=== PATIENT | female | born 1990 | race Caucasian/White ===

== ENCOUNTER 2017-11-10 10:20 | Emergency (ER) | payer SELFPAY ==
[2017-11-10] MEDS ORDERED: IBUPROFEN 400 MG TAB ONE (10:57)
[2017-11-10 11:42] LABS: Urine Blood 1+ (NEG); Urine Glucose NEGATIVE (NEG); Urine Protein NEGATIVE (NEG)
--- NOTE | 2017-11-10 12:04 | EDPHYS ---
Physician Documentation [facility] Name: Barbie Woodward Age: 27 yrs Sex: Female : 1990 Arrival Date: 11/10/2017 Time: 10:23 Bed 19 Private MD: None, None ED Physician Ismael Enamorado HPI: 11/10 10:50 This 27 yrs old Female presents to ER via Ambulatory with complaints of Leg cp Swelling - PAIN. 10:50 The patient presents with pain, that is acute, swelling, tenderness. The complaints cp affect the left hamstring and posterior aspect of left knee. Context: resulted from an unknown cause, the patient can fully bear weight, the patient is able to ambulate, with mild difficulty. 10:51 Onset: The symptoms/episode began/occurred yesterday. cp 10:51 Associated signs and symptoms: Pertinent negatives calf tenderness, fever, numbness, cp warmth, weakness. Treatment prior to arrival includes: no previous treatment. 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 - Social history:: Smoking status: Patient uses tobacco products, smokes one-half pack cigarettes per day. - Ebola Screening: : No symptoms or risks identified at this time. ROS: 10:55 Constitutional: Negative for body aches, chills, fever, poor PO intake. cp 10:55 Eyes: Negative for injury, pain, redness, and discharge. cp 10:55 Cardiovascular: Negative for chest pain, edema, palpitations. 10:55 Respiratory: Negative for cough, shortness of breath, wheezing. 10:55 Abdomen/GI: Negative for abdominal pain, nausea, vomiting, and diarrhea. 10:55 MS/extremity: Positive for pain, swelling, of the left leg, Negative for injury or acute deformity, decreased range of motion, warmth. 10:55 Skin: Negative for cellulitis, rash. 10:55 Neuro: Negative for altered mental status, dizziness, headache, weakness. 10:55 All other systems are negative. Exam: 11:00 Constitutional: The patient appears in no acute distress, alert, awake, non-toxic, well cp developed, well nourished. 11:00 Head/Face: Normocephalic, atraumatic. cp 11:00 Eyes: Periorbital structures: appear normal, Conjunctiva: normal, no exudate, no injection, Sclera: no appreciated abnormality, Lids and lashes: appear normal, bilaterally. 11:00 ENT: External ear(s): are unremarkable, Nose: is normal, Mouth: Lips: moist, Oral mucosa: moist, Posterior pharynx: is normal, airway is patent. 11:00 Neck: ROM/movement: is normal, is supple, without pain, no range of motions limitations, no nuchal rigidity. 11:00 Chest/axilla: Inspection: normal. 11:00 Cardiovascular: Rate: normal, Edema: is not appreciated, JVD: is not appreciated. 11:00 Respiratory: the patient does not display signs of respiratory distress, Respirations: normal, no use of accessory muscles, no retractions, no splinting, no tachypnea. 11:00 Abdomen/GI: Exam negative for discomfort, distension, guarding, Inspection: abdomen appears normal. 11:00 Musculoskeletal/extremity: Extremities: grossly normal except: noted in the left leg: pain, tenderness, There is no evidence of decreased ROM, deformity, Perfusion: the extremity is normally perfused throughout, Sensation intact. 11:00 Skin: cellulitis, is not appreciated, no rash present. Vital Signs: 10:31 BP 120 / 70; Pulse 76; Resp 15; Temp 97.4(TE); Pulse Ox 98% ; Weight 84.82 kg (R); lk1 Height 5 ft. 0 in. (152.40 cm) (R); Pain 8/10; 12:34 BP 108 / 76; Pulse 51; Resp 18; Pulse Ox 99% on R/A; em 10:31 Body Mass Index 36.52 (84.82 kg, 152.40 cm) lk1 MDM: 10:27 Patient medically screened. cp 11:00 Differential diagnosis: DVT, cellulitis, strain. cp 12:00 Data reviewed: vital signs, nurses notes, radiologic studies, ultrasound. cp 12:00 Counseling: I had a detailed discussion with the patient and/or guardian regarding: the cp historical points, exam findings, and any diagnostic results supporting the discharge/admit diagnosis, radiology results, the need for outpatient follow up, a family practitioner, to return to the emergency department if symptoms worsen or persist or if there are any questions or concerns that arise at home. 11/10 11:19 Order name: Urine Dipstick--Ancillary (enter results); Complete Time: 11:43 em1 11/10 11:43 Interpretation: Normal except: UBLD 1+; UESTR 1+. cp 11/10 11:19 Order name: Urine --Ancillary (enter results); Complete Time: 11:43 em1 11/10 11:43 Interpretation: Reviewed. cp 11/10 10:49 Order name: US Extremity Venous Unilateral Ltd cp 11/10 10:49 Order name: Urine Dipstick-Ancillary (obtain specimen); Complete Time: 10:58 cp 11/10 10:49 Order name: Urine Test (obtain specimen); Complete Time: 10:58 cp Administered Medications: 11:08 Drug: Ibuprofen 800 mg Route: PO; em 12:30 Follow up: Response: No adverse reaction em Disposition: 18:31 Co-signature as Attending Physician, Ismael Enamorado MD. Disposition: 11/10/17 12:04 Discharged to Home. Impression: Pain in left leg. - Condition is Stable. - Discharge Instructions: Musculoskeletal Pain, Heat Therapy. - Prescriptions for Diclofenac Sodium 75 mg Oral Tablet, Delayed Release (E.C.) - take 1 tablet by ORAL route 2 times per day; 20 tablet. - Work release form, Medication Reconciliation Form, Thank You Letter, Antibiotic Education, Prescription Opioid Use form. - Follow up: Private Physician; When: 2 - 3 days; Reason: Recheck today's complaints. - Problem is new. - Symptoms have improved. Signatures: Dispatcher [employer] EDAlec Miller, CONTACT LENS INSPECTOR CONTACT LENS INSPECTOR em Ed Delvalle PA PA cp Kluge, Leah, RN RN lk1 Ismael Enamorado MD MD Corrections: (The following items were deleted from the chart) 12:35 12:04 11/10/2017 12:04 Discharged to Home. Impression: Pain in left leg. Condition is em Stable. Forms are Medication Reconciliation Form, Thank You Letter, Antibiotic Education, Prescription Opioid Use. Follow up: Private Physician; When: 2 - 3 days; Reason: Recheck today's complaints. Problem is new. Symptoms have improved. cp
--- NOTE | 2017-11-10 12:04 | ER ---
Nurse's Notes [facility] Name: Barbie Woodward Age: 27 yrs Sex: Female : 1990 Arrival Date: 11/10/2017 Time: 10:23 Bed 19 Private MD: None, None Diagnosis: Pain in left leg Presentation: 11/10 10:30 Presenting complaint: Patient states: "Yesterday I noticed my left leg was swollen. It lk1 hurts sometimes when I step on the ground, but it's always done that.". Transition of care: patient was not received from another setting of care. Onset of symptoms was November 09, 2017. Risk Assessment: Do you want to hurt yourself or someone else? Patient reports no desire to harm self or others. Initial Sepsis Screen: Does the patient meet any 2 criteria? No. Patient's initial sepsis screen is negative. Does the patient have a suspected source of infection? No. Patient's initial sepsis screen is negative. Care prior to arrival: None. 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 - Social history:: Smoking status: Patient uses tobacco products, smokes one-half pack cigarettes per day. - Ebola Screening: : No symptoms or risks identified at this time. Screenin:33 Abuse screen: Denies threats or abuse. Nutritional screening: No deficits noted. em Tuberculosis screening: No symptoms or risk factors identified. Fall Risk None identified. Assessment: 10:47 General: Appears in no apparent distress. uncomfortable, Behavior is calm, cooperative, em Reports "left side swelling, left arm and left leg but the arm is better now" Denies trauma. Pain: Complains of pain in posterior aspect of left knee and left hamstring Pain currently is 8 out of 10 on a pain scale. Pain began 1 day ago. Neuro: Level of Consciousness is awake, alert, obeys commands, Oriented to person, place, time, situation. Cardiovascular: Capillary refill < 3 seconds Patient's skin is warm and dry. Respiratory: Airway is patent Respiratory effort is even, unlabored, Respiratory pattern is regular, symmetrical. GI: Patient currently denies nausea, vomiting. : Urine is clear. EENT: No signs and/or symptoms were reported regarding the EENT system. Derm: Skin is intact, Skin is pink, warm \\T\\ dry. Musculoskeletal: Capillary refill < 3 seconds, Range of motion: intact in all extremities. 11:00 General: The previous assessment is accurate. Call light remains within reach. . ss 11:30 Reassessment: Patient appears in no apparent distress at this time. Patient and/or em family updated on plan of care and expected duration. Pain level reassessed. Patient is alert, oriented x 3, equal unlabored respirations, skin warm/dry/pink. 12:33 Reassessment: Patient appears in no apparent distress at this time. Patient and/or em family updated on plan of care and expected duration. Pain level reassessed. Patient is alert, oriented x 3, equal unlabored respirations, skin warm/dry/pink. Patient states feeling better. Vital Signs: 10:31 BP 120 / 70; Pulse 76; Resp 15; Temp 97.4(TE); Pulse Ox 98% ; Weight 84.82 kg (R); lk1 Height 5 ft. 0 in. (152.40 cm) (R); Pain 8/10; 12:34 BP 108 / 76; Pulse 51; Resp 18; Pulse Ox 99% on R/A; em 10:31 Body Mass Index 36.52 (84.82 kg, 152.40 cm) lk1 ED Course: 10:23 Patient arrived in ED. sb2 10:23 None, None is Private Physician. sb2 10:25 Ed Delvalle PA is PHCP. cp 10:25 Ismael Enamorado MD is Attending Physician. cp 10:31 Triage completed. lk1 10:31 Alec Benitez LVN is Primary Nurse. em 10:32 Arm band placed on right wrist. lk1 10:33 Patient has correct armband on for positive identification. Bed in low position. Call em light in reach. 12:29 US Extremity Venous Unilateral Ltd In Process Unspecified. EDMS 12:34 No provider procedures requiring assistance completed. Patient did not have IV access em during this emergency room visit. Administered Medications: 11:08 Drug: Ibuprofen 800 mg Route: PO; em 12:30 Follow up: Response: No adverse reaction em Outcome: 12:04 Discharge ordered by . brenna 12:34 Discharged to home ambulatory. em 12:34 Condition: good 12:34 Discharge instructions given to patient, Instructed on discharge instructions, follow up and referral plans. medication usage, Demonstrated understanding of instructions, follow-up care, medications. 12:35 Patient left the ED. em Signatures: Dispatcher [employer] EDAlec Miller, RETIREMENT ASSISTANT RETIREMENT ASSISTANT em Carole Hall, RN RN Ed Ferreira, PA PA Yahaira Pierre RN RN lk1 Sonya Barraza2
--- NOTE | 2017-11-10 12:34 | RAD REPORT ---
EXAM DESCRIPTION: VAS - Extremity Venous Uni Ltd - 11/10/2017 12:29 pm CLINICAL HISTORY: PAIN Leg swelling and edema. COMPARISON: No comparisons FINDINGS: Left lower extremity venous system was interrogated with Doppler technique. Normal flow, c ompressibility and augmentation was noted. There is no DVT present. IMPRESSION: No evidence of left lower extremity deep venous thrombosis.
[2017-11-10 12:38] VITALS: TEMP 97.4
[2017-11-10 12:40] VITALS: BP 108/76; O2SAT 99
== END 2017-11-10 12:35 | disposition home or self-care (01) ==
LOC: ER 10:20
DX: M79.605 Pain in left leg (principal); F17.210 Nicotine dependence, cigarettes, uncomplicated
CPT/HCPCS: 81003; 81025; 93971; 99283

== ENCOUNTER 2021-12-09 20:05 | Emergency (ER) | payer OTHER, SELFPAY ==
[2021-12-09 20:38] LABS: Urine Blood Negative (Negative); Urine Glucose Negative (Negative); Urine Protein Negative (Negative)
[2021-12-09] MEDS ORDERED: ACETAMINOPHEN 500 MG TAB ONE (21:22)
[2021-12-09] MEDS ORDERED: NA CHLORIDE 0.9% 1,000 ML ONE (21:22)
[2021-12-09] MEDS ORDERED: ONDANSETRON 4 MG/2 ML VIAL ONE (21:22)
[2021-12-09 22:05] LABS: Absolute Lymphocytes (CBC) 0.3 K/uL (0.7-4.9); Hematocrit 36.6 % (36.0-45.0); Lymphocytes % 3.9 % (15.3-44.8); MCV 88.7 fL (80-100); MPV 7.1 fL (7.6-11.3); RBC Red Blood Cell Count 4.13 M/uL (3.86-4.86)
[2021-12-09 23:24] LABS: Albumin 2.7 g/dL (3.4-5.0); Bilirubin Total 0.2 mg/dL (0.2-1.0); Potassium 3.1 mmol/L (3.5-5.1)
[2021-12-10] MEDS ORDERED: POTASSIUM CL SA 10 MEQ TAB PO ONE (00:42)
[2021-12-10] MEDS ORDERED: Ringers Lactate 1,000 ML IV ONE (00:42)
--- NOTE | 2021-12-10 03:07 | ER ---
Nurse's Notes [facility] Name: Barbie Woodward Age: 31 yrs Sex: Female : 1990 Arrival Date: 12/09/2021 Time: 20:09 Bed 3 Private MD: Diagnosis: SARS-associated coronavirus as the cause of diseases classified elsewhere;Upper abdominal pain, unspecified;Other cholelithiasis without obstruction Presentation: 12/09 20:17 Chief complaint: Upper abdominal pain and N/V/D x 2 days. TMAX 102.1. Pt is approx 10 hb weeks . Coronavirus screen: Client presents with at least one sign or symptom that may indicate coronavirus-19. Standard/surgical mask placed on the client. Provider contacted for isolation considerations. Ebola Screen: No symptoms or risks identified at this time. Risk Assessment: Do you want to hurt yourself or someone else? Patient reports no desire to harm self or others. Onset of symptoms was December 08, 2021. 20:17 Method Of Arrival: Ambulatory hb 20:17 Acuity: LAURYN 3 hb 21:55 Initial Sepsis Screen: Does the patient meet any 2 criteria? HR > 90 bpm. Does the lp1 patient have a suspected source of infection? Yes: Acute abdominal pain. 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 - Social history:: Smoking status: Patient denies any tobacco usage or history of. Screenin:48 Abuse screen: Denies threats or abuse. Denies injuries from another. Nutritional lp1 screening: No deficits noted. Tuberculosis screening: No symptoms or risk factors identified. Fall Risk None identified. Assessment: 21:15 General: Appears ill, Behavior is appropriate for age. Pain: Complains of pain in lp1 abdomen Pain currently is 7 out of 10 on a pain scale. Quality of pain is described as sharp. Neuro: Level of Consciousness is awake, alert, obeys commands, Oriented to person, place, time, situation. Cardiovascular: Patient's skin is warm and dry. Respiratory: Respiratory effort is even, unlabored. GI: Abdomen is round Pt is actively vomiting bile, Reports nausea, vomiting. : No signs and/or symptoms were reported regarding the genitourinary system. EENT: No signs and/or symptoms were reported regarding the EENT system. Derm: Skin is intact, Skin is dry, Skin is normal. Musculoskeletal: No deficits noted. 23:41 Reassessment: Patient appears in no apparent distress at this time. Patient states lp1 ongoing lower leg cramping; Provider notified Patient states symptoms have improved. 12/10 00:59 Reassessment: 22g IV removed from R FA due to discomfort. Reassessment: Ultrasound at lp1 bedside. 02:01 Reassessment: Patient resting, eyes closed, respirations even; tolerating water at this lp1 time. 03:20 Reassessment: Denies nausea; reports headache, general body aches; Provider notified. lp1 Vital Signs: 12/09 20:17 BP 157 / 70; Pulse 121; Resp 20; Temp 100.8(TE); Pulse Ox 97% on R/A; Weight 107.05 kg; hb Height 5 ft. 1 in. (154.94 cm); Pain 8/10; 23:41 BP 133 / 66; Pulse 102; Resp 18; Temp 98.8(O); Pulse Ox 97% on R/A; lp1 12/10 03:26 BP 107 / 70; Pulse 100; Resp 18; Temp 100(O); Pulse Ox 99% on R/A; lp1 12/09 20:17 Body Mass Index 44.59 (107.05 kg, 154.94 cm) ED Course: 12/09 20:09 Patient arrived in ED. ja2 20:18 Triage completed. hb 20:18 Arm band placed on. hb 20:24 Wes Rivero PA is PHCP. [facility] 20:24 Montana Mccoy MD is Attending Physician. [facility] 20:38 Patient has correct armband on for positive identification. Bed in low position. Call [facility] light in reach. Side rails up X 1. Adult w/ patient. Warm blanket given. Pulse ox on. NIBP on. 20:38 Urine collected: clean catch specimen, clear. [facility] 20:39 Urine --Ancillary (enter results) Sent. [facility] 21:35 Missed attempt(s): 22 gauge in right antecubital area. Inserted saline lock: 22 gauge lp1 in right forearm, using aseptic technique. 21:46 Birgit Varner, GOYO is Primary Nurse. lp1 21:47 COVID swab sent to lab. Flu and/or RSV swab sent to lab. Strep swab sent to lab. lp1 23:42 No provider procedures requiring assistance completed. lp1 23:42 COVID swab sent to lab. lp1 12/10 01:38 US 1st Trimest Single 1st Fetus In Process Unspecified. EDMS 01:38 US Abdomen Limited In Process Unspecified. EDMS 01:44 Inserted saline lock: 20 gauge in right antecubital area, using aseptic technique. tw5 Ultrasound guided IV. 03:40 IV discontinued, No redness/swelling at site. Pressure dressing applied. lp1 Administered Medications: 12/09 21:15 Drug: Acetaminophen 1000 mg Route: PO; lp1 23:30 Follow up: Response: Temperature is decreased lp1 21:35 Drug: NS 0.9% 1000 ml Route: IV; Rate: 1 bolus; Site: right forearm; lp1 23:00 Follow up: IV Status: Completed infusion; IV Intake: 1000ml lp1 21:35 Drug: Zofran (Ondansetron) 4 mg Route: IVP; Site: right forearm; lp1 23:00 Follow up: Response: No adverse reaction lp1 12/10 00:45 Drug: Potassium Chloride 40 mEq Route: PO; lp1 03:40 Follow up: Response: No adverse reaction lp1 01:53 Drug: Lactated Ringers Solution 1000 ml Route: IV; Rate: 1000 bolus; Site: right lp1 antecubital; 03:41 Follow up: IV Status: IV converted to saline lock; IV Intake: 500ml lp1 03:28 Drug: Tylenol 1000 mg {Note: Verbal order per Dr. Mccoy.} Route: PO; lp1 03:41 Follow up: Response: Medication administered at discharge. lp1 Medication: 12/09 21:48 VIS not applicable for this client. lp1 Intake: 23:00 IV: 1000ml; Total: 1000ml. lp1 12/10 03:41 IV: 500ml; Total: 1500ml. lp1 Outcome: 03:07 Discharge ordered by . kdr 03:40 Discharged to home via wheelchair, with family. lp1 03:40 Condition: good 03:40 Discharge instructions given to patient, Instructed on discharge instructions, follow up and referral plans. medication usage, Demonstrated understanding of instructions, follow-up care, medications, Prescriptions given X 1. 03:41 Patient left the ED. lp1 Signatures: Dispatcher [employer] EDMS Montana Mccoy MD MD [facility] Wes Rivero PA PA jmm Pena, Laura, RN RN lp1 Chasity Thomas RN RN Coretta Salazar [facility] Varsha Easley [facility] Agnieszka Dawn 5 Corrections: (The following items were deleted from the chart) 12/09 20:19 20:18 Allergies: No Known Allergies; hb 21:56 21:15 GI: Abdomen is round Pt is actively vomiting bile, lp1 lp1 12/10 03:40 03:26 Temp 100F Oral; lp1 lp1
--- NOTE | 2021-12-10 03:07 | EDPHYS ---
Physician Documentation [facility] Name: Barbie Woodward Age: 31 yrs Sex: Female : 1990 Arrival Date: 12/09/2021 Time: 20:09 Bed 3 Private MD: ED Physician Montana Mccoy HPI: 12/09 20:37 This 31 yrs old Black Female presents to ER via Ambulatory with complaints of Fever, jmm Nausea/Vomiting, Abdominal Pain, Headache. 20:37 The patient reports fever, that was measured at 102.1 degrees Fahrenheit. Onset: The jmm symptoms/episode began/occurred gradually, 2 day(s) ago. Modifying factors: there are no obvious modifying factors. Is a 31-year-old female currently 10 weeks the presents emerged part with complaints of fever, abdominal pain, sore throat, body aches, vomiting began approximately 2 days ago. Patient denies diarrhea. Patient denies dysuria. Patient denies vaginal bleeding. [employer]: 21:48 LMP 09/27/2021, Verified, EDC 07/04/2022, Gestational age from LMP: 10 weeks 4 lp1 days Historical: - Allergies: 20:18 Latex, Natural Rubber; hb - Immunization history:: Adult Immunizations up to date. - Social history:: Smoking status: Patient denies any tobacco usage or history of. ROS: 20:37 Cardiovascular: Negative for chest pain, palpitations, and edema. jmm 20:37 Constitutional: Positive for body aches, chills. 20:37 Abdomen/GI: Positive for abdominal pain, nausea and vomiting. 20:37 All other systems are negative. Exam: 20:37 Head/Face: atraumatic. Eyes: EOMI, no conjunctival erythema appreciated ENT: Moist jmm Mucus Membranes Neck: Trachea midline, Supple Chest/axilla: Normal chest wall appearance and motion. 20:37 Respiratory: Normal respirations, no respiratory distress appreciated 20:37 Back: Normal ROM Skin: General appearance color normal MS/ Extremity: Moves all extremities, no obvious deformities appreciated, no edema noted to the lower extremities Neuro: Awake and alert Psych: Behavior is normal, Mood is normal, Patient is cooperative and pleasant 20:37 Constitutional: The patient appears alert, awake, uncomfortable. 20:37 Cardiovascular: Rate: tachycardic, Rhythm: regular. 20:37 Abdomen/GI: Inspection: abdomen appears normal, Bowel sounds: normal, Palpation: soft, mild abdominal tenderness, in the epigastric area and suprapubic area. Vital Signs: 20:17 BP 157 / 70; Pulse 121; Resp 20; Temp 100.8(TE); Pulse Ox 97% on R/A; Weight 107.05 kg; hb Height 5 ft. 1 in. (154.94 cm); Pain 8/10; 23:41 BP 133 / 66; Pulse 102; Resp 18; Temp 98.8(O); Pulse Ox 97% on R/A; lp1 12/10 03:26 BP 107 / 70; Pulse 100; Resp 18; Temp 100(O); Pulse Ox 99% on R/A; 1 12/09 20:17 Body Mass Index 44.59 (107.05 kg, 154.94 cm) hb MDM: 12/09 20:44 Patient medically screened. [facility] 12/10 01:01 Data reviewed: vital signs, nurses notes. [facility] 12/09 20:37 Order name: Urine --Ancillary (enter results); Complete Time: 21:24 [facility] [place] 12/09 20:38 Order name: Urine Dipstick-Ancillary; Complete Time: 20:44 [facility] 12/09 20:45 Order name: CBC with Diff; Complete Time: 22:19 [facility] 12/09 20:45 Order name: CMP; Complete Time: 00:03 [facility] 12/09 20:45 Order name: Lipase; Complete Time: 00:03 [facility] 12/09 20:46 Order name: Strep; Complete Time: 22:20 [facility] 12/09 20:46 Order name: [place] Screen Profile; Complete Time: 22:19 [facility] 12/09 20:46 Order name: Lactate; Complete Time: 22:19 [facility] 12/09 20:46 Order name: Blood Culture Adult (2) [facility] 12/09 20:46 Order name: Influenza Screen (a \\T\\ B); Complete Time: 22:19 [facility] 12/09 22:22 Order name: Throat Culture [facility] 12/09 22:57 Order name: SARS-COV-2 RT PCR (Document "Date of Onset" if Symptomatic); Complete Time: [facility] 00:40 12/10 00:40 Order name: US Abdomen Limited [facility] 12/09 20:37 Order name: Urine Dipstick-Ancillary (obtain specimen); Complete Time: 20:38 [facility] 12/09 20:45 Order name: IV Saline Lock; Complete Time: 21:47 [facility] 12/09 20:45 Order name: Labs collected and sent; Complete Time: 23:45 [facility] 12/10 00:40 Order name: US 1st Trimest Single 1st Fetus [facility] Administered Medications: 12/09 21:15 Drug: Acetaminophen 1000 mg Route: PO; lp1 23:30 Follow up: Response: Temperature is decreased lp1 21:35 Drug: NS 0.9% 1000 ml Route: IV; Rate: 1 bolus; Site: right forearm; lp1 23:00 Follow up: IV Status: Completed infusion; IV Intake: 1000ml lp1 21:35 Drug: Zofran (Ondansetron) 4 mg Route: IVP; Site: right forearm; lp1 23:00 Follow up: Response: No adverse reaction [facility] 12/10 00:45 Drug: Potassium Chloride 40 mEq Route: PO; lp1 03:40 Follow up: Response: No adverse reaction 1 01:53 Drug: Lactated Ringers Solution 1000 ml Route: IV; Rate: 1000 bolus; Site: right lp1 antecubital; 03:41 Follow up: IV Status: IV converted to saline lock; IV Intake: 500ml lp1 03:28 Drug: Tylenol 1000 mg {Note: Verbal order per Dr. Mccoy.} Route: PO; lp1 03:41 Follow up: Response: Medication administered at discharge. lp1 Disposition: 04:01 Co-signature as Attending Physician, Montana Mccoy MD I agree with the assessment and kdr plan of care. Disposition Summary: 12/10/21 03:07 Discharge Ordered Location: Home kdr Problem: new kdr Symptoms: have improved kdr Condition: Stable kdr Diagnosis - SARS-associated coronavirus as the cause of diseases classified elsewhere kdr - Upper abdominal pain, unspecified kdr - Other cholelithiasis without obstruction kdr Followup: kdr - With: Private Physician - When: 2 - 3 days - Reason: If symptoms return, Further diagnostic work-up, Recheck today's complaints, Continuance of care, Re-evaluation by your physician Discharge Instructions: - Discharge Summary Sheet kdr - Cholelithiasis kdr - Abdominal Pain, Adult, [id number] kdr - COVID-19 kdr - 10 Things You Can Do to Manage Your COVID-19 Symptoms at Home - [facility]ED [facility] kdr - Viral Illness, Adult kdr - COVID-19: Quarantine vs. Isolation - [facility] NAMED [facility] kdr - Prevent the Spread of COVID-19 if You Are Sick - [facility]ED [facility] kdr Forms: - Medication Reconciliation Form kdr - Thank You Letter kdr Prescriptions: - Tylenol 325 mg Oral Tablet - take 2 tablets by ORAL route every 6 hours as needed; 1 bottle; Refills: 0, kdr Product Selection Permitted Signatures: Dispatcher [employer] EDMS Montana Mccoy MD MD kdr Wes Rivero PA PA jmm Pena, Laura RN RN lp1 Chasity Thomas RN RN Coretta Salazar [facility] Corrections: (The following items were deleted from the chart) 12/09 20:19 20:18 Allergies: No Known Allergies; [facility] 22:22 20:52 SARS-COV-2 Antigen Rapid+[id number].LAB.BRZ ordered. EDMS EDMS
[2021-12-10] MEDS ORDERED: ACETAMINOPHEN 500 MG TAB ONE (03:36)
[2021-12-10 04:48] VITALS: BP 107/70; TEMP 100; O2SAT 99
--- NOTE | 2021-12-11 13:59 | RAD REPORT ---
EXAM DESCRIPTION: US - 1St Trimest Single 1St Fetus - 12/10/2021 1:36 am CLINICAL HISTORY: ABD PAIN TECHNIQUE: Real-time transabdominal obstetrical ultrasound of the maternal pelvis and a first trimes ter with image documentation. COMPARISON: No relevant prior studies available. FINDINGS: Gestation: Single intrauterine gestational sac. The crown-rump length measures 45.4 mm c orresponding to an estimated gestational age of 11 weeks 1 day. cardiac activity measures 182 B PM. Placenta/amniotic fluid: Cannot be adequately evaluated due to the early gestational age. Uterus/cervix: The uterus is anteverted and measures 13.4 x 6.9 x 8.5 cm. No myometrial mass. Ovaries: The right ovary measures 2.5 x 1.8 x 2.5 cm. The left ovary is not visualized. No adnexal mass. Free fluid: No free fluid. IMPRESSION: 1. Single live intrauterine gestation. 2. Estimated gestational age by ultrasound is 11 weeks 1 day. 3. Estimated due date by ultrasound is 06/30/2022. Electronically signed by: Fely Mckay MD 12/10/2021 2:09 AM CDT Due to temporary technical issues with the PACS/Fluency reporting system, reports are being signed by the in house radiologists without review as a courtesy to insure prompt reporting. The interpreting radiologist is fully responsible for the content of the report.
--- NOTE | 2021-12-11 14:01 | RAD REPORT ---
EXAM DESCRIPTION: US - Abdomen Exam Limited - 12/10/2021 1:36 am CLINICAL HISTORY: ABD PAIN TECHNIQUE: Real-time ultrasound of the right upper quadrant with image documentation. COMPARISON: No relevant prior studies available. FINDINGS: Gallbladder: Multiple gallstones. No gallbladder wall thickening or pericholecystic flui d. Common bile duct: Unremarkable as visualized. No stones. No dilation. IMPRESSION: Cholelithiasis without secondary signs to suggest acute cholecystitis. Electronically signed by: Fely Mckay MD 12/10/2021 2:06 AM CDT Due to temporary technical issues with the PACS/Fluency reporting system, reports are being signed by the in house radiologists without review as a courtesy to insure prompt reporting. The interpreting radiologist is fully responsible for the content of the report.
== END 2021-12-10 03:41 | disposition home or self-care (01) ==
LOC: ER 20:05
DX: O98.511 Other viral diseases complicating pregnancy, first trimester (principal); U07.1 COVID-19; O99.611 Diseases of the digestive system complicating pregnancy, first trimester; K80.80 Other cholelithiasis without obstruction; Z91.040 Latex allergy status; Z91.048 Other nonmedicinal substance allergy status
CPT/HCPCS: 87040 ×2; 87070; 85025; 36415; 86308; 81025; 87081; 83605; 81003; 83690; 80053; 87804 ×2; U0003; J7030; J2405; 76705; 76801; 82947; 96361; 96374; 99284; J7120

== ENCOUNTER 2022-09-09 18:47 | Inpatient (IN) | payer OTHER ==
--- OUTSIDE RECORDS SUMMARY | 2022-09-09 18:59 | XMS REPORT | Continuity of Care Document ---
:1990 Author Organization [facility] t Address [address] [facility] [facility] [place] [address] Care Team Providers Name Role Phone Shari Veras MD Primary Care Physician SHARI VERAS Attending Clinician Unavailable Shari Veras MD Attending Clinician Doctor Unassigned, [place] Attending Clinician Unavailable Preet Menendez MD Attending Clinician [phone] Pob, Ad[facility] Lab Main Attending Clinician Unavailable Room, [facility] Nst Attending Clinician Unavailable , Lkj Nst Room Attending Clinician Unavailable Kandace Evans MD Attending Clinician [phone] Ultrasound, [facility] Attending Clinician Unavailable KANDACE EVANS Attending Clinician Unavailable WILEY LOPEZ Attending Clinician Unavailable Jenna Ritchie PT Attending Clinician Unavailable Wiley Lopez MD Attending Clinician JULIAN MEDELLIN Attending Clinician Unavailable JULIAN MEDELLIN Attending Clinician Unavailable TIANA ROBLEDO Attending Clinician Unavailable Ultrasound, Ang-Mfm Attending Clinician Unavailable Aj Robledo MDio F Attending Clinician 2, [facility] Lab Attending Clinician Unavailable Eduardo NANCE, Eron Melissa Attending Clinician Unavailable Nicki Teague MA Attending Clinician Unavailable Onur DOWNS, Marisol Perez Attending Clinician [phone] MARISOL MOHR Attending Clinician Unavailable Pilar MATTSON, Jairo Attending Clinician Lisa NANCE, Danika Attending Clinician Unavailable ZEYAD MEDINA Attending Clinician Unavailable Lab, Ang - Db Attending Clinician Unavailable Alvarez DOWNS, Zeyad Attending Clinician JAIRO QUEZADA Attending Clinician Unavailable Cristina NANCE, Neris Attending Clinician Unavailable ASTON Attending Clinician Unavailable Mery NANCE, Opal Attending Clinician Unavailable Michael Arriaga RN Attending Clinician Unavailable Only, Ang Db Test Attending Clinician Unavailable Lupe Romero Attending Clinician LUPE JOYCE Attending Clinician Unavailable Only, [facility] Pob2 Test Attending Clinician Unavailable Opal Lua Attending Clinician OPAL FERRO Attending Clinician Unavailable Shannon Jorge Attending Clinician Anjel Coyne DO Attending Clinician Lab, [facility] Fam Pob I Attending Clinician Unavailable Humera Weber Attending Clinician HUMERA PACHECO Attending Clinician Unavailable Georgie Mendoza Attending Clinician Nurse, [facility] Attending Clinician Unavailable Lukasz Weiss DO Attending Clinician Megan Nolan RN Attending Clinician Unavailable SHARI VERAS Admitting Clinician Unavailable LNIH BROWN Admitting Clinician Unavailable Eda DOWNS, Shari Knapp Admitting Clinician ASTON Admitting Clinician Unavailable JULIAN MEDELLIN Admitting Clinician Unavailable Payers Payer Name Policy Type Policy Number Effective Date Expiration Date Gee JAVIER [facility] [id number] 2022 00:00:00 Problems Condition Condition Condition Status Onset Resolution Last Treating Co mments Source Name Details Category Date Date Treatment Clinician Date IUGR IUGR Disease Active Univers (intrauter (intrauter 2-07 it y of ine [place] in[place] restrictio restrictio 00 Me dical n) n) Branch affecting affecting care of care of mother, mother, third third trimester, trimester, fetus 1 fetus 1 Poor Poor Disease Active U nivers growth growth 1-27 ity of affecting affecting 00:00: Helen subramanian management management 00 Me dical of mother of mother Bran ch in third in third trimester, trimester, single or single or unspecifie unspecifie d fetus d fetus Pain of Pain of Disease Active 2021-05 Univers round round 2-16 ity of ligament ligament 00:00: [place] during during 00 Medical Bran ch Vulvar Vulvar Disease Active Univers fissure fissure 9-23 ity of 00:00: [place] Medical Branch Low back Low back Disease Active Unive rs pain pain 8-26 ity of during during 00:00: [place] , , 00 Me dical antepartum antepartum Br anch Supervisio Supervisio Disease Active U nivers n of high n of high 7-15 ity of risk risk 00:00: [place] 00 Medi alissa in second in second Bran ch trimester trimester Obesity in Obesity in Disease Active U nivers , , 7-15 it y of antepartum antepartum 00[place]00: [place] 00 Medical Branch History of History of Disease Active U nivers anxiety anxiety 7-15 ity of 00:00: [place] 00 Medical Branch History of History of Disease Active U nivers depression depression 7-15 it y of 00:00: [place] [facility] Nausea and Nausea and Disease Active U nivers vomiting vomiting 7-15 ity of during during 00:00: [place] 00 Medi alissa prior to prior to Branch 22 weeks 22 weeks gestation gestation Disease Active Uni vers with with 6-15 ity of inconclusi inconclusi 00:00: [place] ve ve 00 Medica l viability, viability, Br anch single or single or unspecifie unspecifie d fetus d fetus Obesity, Obesity, Disease Active Unive rs Class III, Class III, 6-15 it y of BMI BMI 00:00: [place] 40-49.9 40-49.9 00 Medical (morbid (morbid Branch obesity) obesity) Disease Active Uni vers with with 6-15 ity of history of history of 00:[place] ectopic ectopic 00 Medical , , Br anch antepartum antepartum Encounter Encounter Disease Active Uni vers for for 4-22 ity of Nexplanon Nexplanon [place] 00 [facility] General General Disease Active Univers counseling counseling 4-22 it y of and advice and advice 00:00[place] on female on female 00 [facility] contracept contracept Br anch ion ion Pain Pain Disease Active Univers pelvic pelvic 4-22 ity of 00:00: [place] 00 [facility] 38 weeks 38 weeks Disease Active Unive rs gestation gestation 3-10 ity of of of 00:00: [place] 00 [facility] Liveborn Liveborn Disease Active Unive rs , of infant, of 3-10 it y of hale hale 00:[place] , , 00 Me dical born in born in [facility] by vaginal by vaginal delivery delivery High-risk High-risk Disease Active Uni vers 2-11 ity of in third in third 00:00: [place] trimester trimester 00 [facility] Obesity Obesity Disease Active Univers (BMI (BMI 7-18 ity of 30-39.9) 30-39.9) 00:00: [place] 00 [facility] Rubella Rubella Disease Active Univers non-immune non-immune 7-12 it y of status, status, 00:00: [place] antepartum antepartum 00 Me dical Branch Multiparit Multiparit Disease Active 2019- U nivers y y 7-11 ity of 00:00: [place] 00 Medical Branch History of History of Disease Active 2019- U nivers reversal reversal 7-11 ity of of tubal of tubal 00:00: [place] ligation ligation 00 Medica l Branch Cessation Cessation Disease Active Uni vers of tobacco of tobacco 7-11 it y of use in use in 00:00: [place] previous previous 00 Medica l 12 months 12 months Bran ch History of History of Disease Active 2018-0 U nivers 7-11 ity of delivery delivery 00:00: [place] [address] Medical [facility] Allergies, Adverse Reactions, Alerts Allergy Allergy Status Severity Reaction(s) Onset Inactive Treating Comm ents Source Name Type Date Date Clinician LATEX DRUG Active High Hives 2018-0 Univers INGREDI 7-11 ity of 00:00: [place] [facility] Latex Drug Active Hives 2018-0 Univers Allergy 7-11 ity of 00:00: [place] [address] Medical Branch Social History Social Habit Start Date Stop Date Quantity Comments Source ASSERTION 2021-10-10 [facility] 00:00:00 [place] [facility] History [facility] o f Alcohol Std [place] Medical Drinks Branch History [facility] o f Alcohol Binge [place] Medic al Branch Exposure to 2022-08-06 2022-08-16 Not sure [facility] SARS-CoV-2 00:00:00 08:57:00 [facility] (event) Branch Alcohol intake 2022-08-16 2022-08-16 Ex-drinker [facility] 00:00:00 00:00:00 (finding) [facility] Tobacco use and 2021-11-24 2021-11-24 Smokeless tobacco Un iversity of exposure 00:00:00 00:00:00 non-user [facility] Tobacco Comment 2021-11-24 2021-11-24 quit ciggs on Univer sity of 00:00:00 00:00:00 11/17/2018, now [facility] uses e-cigg. Branch History [facility] 2020-03-08 2020-03-08 University o f Alcohol Comment 00:00:00 00:00:00 [place] Med ical Branch History [facility] 2018-11-20 2018-11-20 1 University o f Alcohol Frequency 00:00:00 00:00:00 [facility] edical Branch History of 2018-11-16 Cigarette Smoker Universi ty of tobacco use 00:00:00 [facility] Sex Ass[birth year] At [birth year] Universit y of 00:00:00 00:00:00 [facility] Smoking Status Start Date Stop Date Source Ex-smoker 2021-11-24 00:00:00 2021-11-24 00:00:00 Universi ty of [facility] Medications Ordered Filled Start Stop Current Ordering Indication Dosage Frequency Signature Comments Components Source Medication Medication Date Date Medication? Clinician (SIG) Name Name levonorgest 2022- No [id number] 1{devi Univers reL 08-16- e} ity of (KYLEENA) 19:15: 18:23 [place] IUD 1 00 :00 Crystal Lapper Branch levonorgest 2022- No [id number] 1{devi 1 Device, Univers reL 08-16- e} Intrauteri ity of (KYLEENA) 19:15: 18:23 [place], ONCE, [place] IUD 1 00 :00 1 dose, On Crystal Lapper [facility] 08/16/22 Branch at 1415, Routine levonorgest 2022- No [id number] 1{devi Univers reL 08-16- e} ity of (KYLEENA) 19:15: 18:23 [place] IUD 1 00 :00 Crystal Lapper Branch levonorgest 2022- No [id number] 1{devi 1 Device, Univers reL 08-16- e} Intrauteri ity of (KYLEENA) 19:15: 18:23 ne, ONCE, [place] IUD 1 00 :00 1 dose, On Crystal Lapper [facility] 08/16/22 Branch at 1415, Routine miSOPROStoL Yes [id number] 200ug Take 1 Univers 200 mcg 3-08 tablet by ity of tablet 00:00: [place] [address] SEE-INSTRU Medical CTIONS. Branch Take one tab the night before and one tab the morning of procedure miSOPROStoL 2022- No [id number] 200ug Take 1 Univers 200 mcg 3-08 04-06 tablet by ity of tablet 00:00: 00:00 [facility] 00 :00 SEE-INSTRU Medical CTIONS. Branch Take one tab the night before and one tab the morning of procedure miSOPROStoL 2022- No [id number] 200ug Take 1 Univers 200 mcg 3-08 04-06 tablet by ity of tablet 00:00: 00:00 [facility] 00 :00 SEE-INSTRU Medical CTIONS. Branch Take one tab the night before and one tab the morning of procedure acetaminoph 2022- No Take by Un ankit en (TYLENOL 2-08 02-08 mouth. ity o f ORAL) 06:23: 00:00 [place] 07 :00 [facility] rajani Lin 0 Yes Topical, Un ankit (TUCKS) 50 2-08 Q4HPRN, ity of % topical 00:14: [place] pad 28 on [facility] 06/19/22 at Branch 181, Until Discontinu ed, Routine, rectal/hem orrhoidal pain rho(D) 2022-0 Yes 300ug 300 mcg, Univer s immune 2-08 Intramuscu ity of globulin 00:14: lar, ONCE, [place] (RHOGAM) 05 For 1 Medical syringe 300 dose, [facility] mcg Conditiona l, Routine HYDROcodone 0 Yes 1{tbl} 1 tablet, Univers -acetaminop 2-08 Oral, ity of hen (NORCO 00:14: Q6HPRN, [place] 5) 5-325 mg 02 Starting Medi alissa tablet 1 on [facility] tablet 06/19/22 at 1814, Until Discontinu ed, Routine, Pain (scale 7-10) ibuprofen 2022-0 Yes 600mg 600 mg, [facility] ers (IBU) 2-08 Oral, ity of tablet 600 00:14: Q6HPRN, [place] mg 02 Starting Medical on [facility] 06/19/22 at 1814, Until Discontinu ed, Routine, Pain (scale 4-6) acetaminoph 2022-0 Yes 650mg 650 mg, Un ankit en 2-08 Oral, ity of (TYLENOL) 00:14: Q6HPRN, [place] tablet 650 02 Starting Medic al mg on [facility] 06/19/22 at 1814, Until Discontinu ed, Routine, Pain (scale 1-3) diphenhydrA 2022-0 Yes 25mg 25 mg, [facility] ers MINE 2-08 Oral, ity of (BENADRYL) 00:14: Q6HPRN, [place] tablet 25 02 Starting Medica l mg on [facility] 06/19/22 at 1814, Until Discontinu ed, Routine, Sleep, Itching ondansetron 2022-0 Yes 4mg 4 mg, Slow Univers (ZOFRAN 2-08 IV Push, ity of (PF)) 00:14: Q8HPRN, [place] injection 4 02 Starting Medi alissa mg on [facility] Branch 06/19/22 at 1814, Until Discontinu ed, Routine, Nausea and Vomiting (N/V) simethicone 2022-0 Yes 160mg 160 mg, Un ankit (GAS RELIEF 2-08 Oral, ity of (SIMETHICON 00:14: PC+HSPRN, [place] E)) 02 Starting Medical chewable on Sat tablet 160 06/19/22 at mg 1814, Until Discontinu ed, Routine, Gas docusate 0 Yes 200mg 200 mg, Unive rs (COLACE) 2-08 Oral, ity of capsule 200 00:14: QDAILYPRN, [place] mg 02 Starting Medical on [facility] Branch 06/19/22 at 1814, Until Discontinu ed, Routine, Constipati on magnesium 0 Yes 30mL 30 mL, Univer s hydroxide 2-08 Oral, ity of (MILK OF 00:14: QDAILYPRN, [place] MAGNESIA) 02 Starting Medica l 400 mg/5 mL on Sat [facility] suspension 06/19/22 at 30 mL 4, Until Discontinu ed, Routine, Constipati on benzocaine- 0 Yes Topical, Un ankit menthol 2-08 PRN, ity of (DERMOPLAST 00:14: Starting [place] ) 20-0.5 % 02 on [facility] Medical topical 06/19/22 at Branch spray 1814, Until Discontinu ed, Routine, Perineum discomfort 2022-0 Yes [id number] 1{tbl} Take 1 U nivers vitamin 2-08 tablet by ity of w/FA tablet 00:00: mouth in [place] 00 the Medical morning. Branch docusate 0 Yes [id number] 200mg Take 2 Un ankit 100 mg 2-08 capsules ity of capsule 00:00: by mouth [place] 00 once daily Medical as needed Branch for Constipati on. ferrous 2022-0 Yes [id number] 325mg Take 1 Uni vers sulfate 325 2-08 tablet by ity of mg (65 mg 00:00: [place] iron) 00 the Medical tablet morning Branch and 1 tablet in the evening. ibuprofen 2023-0 Yes [id number] 600mg Take 1 U nivers 600 mg 2-08 tablet by ity of tablet 00:00: mouth [place] 00 every 6 Medical (six) Branch hours as needed (Pain). Take with food or milk. 2022-0 Yes [id number] 1{tbl} Take 1 U nivers vitamin 2-08 tablet by ity of w/FA tablet 00:00: mouth in [place] 00 the Medical morning. Branch docusate 2022-0 Yes [id number] 200mg Take 2 Un ankit 100 mg 2-08 capsules ity of capsule 00:00: by mouth [place] 00 once daily Medical as needed Branch for Constipati on. ferrous 2022-0 Yes [id number] 325mg Take 1 Uni vers sulfate 325 2-08 tablet by ity of mg (65 mg 00:00: [place] iron) 00 the Medical tablet morning Branch and 1 tablet in the evening. ibuprofen 2022-0 Yes [id number] 600mg Take 1 U nivers 600 mg 2-08 tablet by ity of tablet 00:00: mouth [place] 00 every 6 Medical (six) Branch hours as needed (Pain). Take with food or milk. 2022-0 Yes [id number] 1{tbl} Take 1 U nivers vitamin 2-08 tablet by ity of w/FA tablet 00:00: mouth in [place] 00 the Medical morning. Branch docusate 2022-0 Yes [id number] 200mg Take 2 Un ankit 100 mg 2-08 capsules ity of capsule 00:00: by mouth [place] 00 once daily Medical as needed Branch for Constipati on. ferrous 2022-0 Yes [id number] 325mg Take 1 Uni vers sulfate 325 2-08 tablet by ity of mg (65 mg 00:00: [place] iron) 00 the Medical tablet morning Branch and 1 tablet in the evening. ibuprofen 2022-0 Yes [id number] 600mg Take 1 U nivers 600 mg 2-08 tablet by ity of tablet 00:00: mouth [place] 00 every 6 Medical (six) Branch hours as needed (Pain). Take with food or milk. 2022-0 Yes [id number] 1{tbl} Take 1 U nivers vitamin 2-08 tablet by ity of w/FA tablet 00:00: mouth in [place] 00 the Medical morning. Branch 2022-0 Yes [id number] 1{tbl} Take 1 U nivers vitamin 2-08 tablet by ity of w/FA tablet 00:00: mouth in [place] 00 the Medical morning. Branch 2022-0 Yes [id number] 1{tbl} Take 1 U nivers vitamin 2-08 tablet by ity of w/FA tablet 00:00: mouth in [place] 00 the Medical morning. Branch docusate 2022-0 2022- No [id number] 200mg Take 2 U nivers 100 mg 2-08 04-06 capsules ity of capsule 00:00: 00:00 by mouth [place] 00 :00 once daily Medical as needed Branch for Constipati on. ferrous 2022-2022- No [id number] 325mg Take 1 Un ankit sulfate 325 2-12 14-06 tablet by it y of mg (65 mg 00:00: 00:00 mouth in [place] iron) 00 :00 the Medical tablet morning Branch and 1 tablet in the evening. ibuprofen 2022-0 2022- No [id number] 600mg Take 1 Univers 600 mg 2-08 04-06 tablet by ity of tablet 00:00: 00:00 mouth [place] 00 :00 every 6 Medical (six) Branch hours as needed (Pain). Take with food or milk. docusate 2022- No [id number] 200mg Take 2 U nivers 100 mg 2-08 04-06 capsules ity of capsule 00:00: 00:00 by mouth [place] 00 :00 once daily Medical as needed Branch for Constipati on. ferrous 2022-0 2022- No [id number] 325mg Take 1 Un ankit sulfate 325 -12 14-06 tablet by it y of mg (65 mg 00:00: 00:00 mouth in [place] iron) 00 :00 the Medical tablet morning Branch and 1 tablet in the evening. ibuprofen 2022-2022- No [id number] 600mg Take 1 Univers 600 mg 2-08 04-06 tablet by ity of tablet 00:00: 00:00 mouth [place] 00 :00 every 6 Medical (six) Branch hours as needed (Pain). Take with food or milk. methylergon 2022- No .2mg 0.2 mg, Un ankit ovine 06-19-07 Intramuscu ity of (METHERGINE 23:15: 23:07 lar, Q4H, [place] ) injection 00 :00 1 dose, Medic al 0.2 mg First dose Branch on 06/19/22 at 1715, Routine fentaNYL-ro 2022-2022- No Epidural, Univers pivacaine 2 06-19 ONCE INTRA i ty of mcg/mL-0.1 18:59: 03:55 PROCEDURE, [place] % (PF) in 00 :53 Starting Medica l NS 200 mL on Tue Branch epidural 06/19/22 at infusion 1259, RTU Until 06/19/22 at 2155, Routine, Intra-op fentaNYL-ro 2022-2022- No Epidural, Univers pivacaine 2 06-19 CONTINUOUS i ty of mcg/mL-0.1 18:59: 03:55 PRN, [place] % (PF) in 00 :53 Starting Medica l NS 200 mL on Tue Branch epidural 06/19/22 at infusion 1259, RTU Until 06/19/22 at 2155, Routine, Intra-op fentaNYL-ro 2022-2022- No Epidural, Univers pivacaine 2 06-19 ONCE INTRA i ty of mcg/mL-0.1 18:59: 03:55 PROCEDURE, [place] % (PF) in 00 :53 Starting Medica l NS 200 mL on Tue Branch epidural 06/19/22 at infusion 1259, RTU Until 06/19/22 at 2155, Routine, Intra-op fentaNYL-ro 2022-2022- No Epidural, Univers pivacaine 2 06-19 CONTINUOUS i ty of mcg/mL-0.1 18:59: 03:55 PRN, [place] % (PF) in 00 :53 Starting Medica l NS 200 mL on Tue Branch epidural 06/19/22 at infusion 1259, RTU Until 06/19/22 at 2155, Routine, Intra-op lidocaine-e 2022-2022- No Intraderma Univers pinephrine 06-19 l, ONCE ity o f (XYLOCAINE 18:53: 03:55 INTRA [place] W/EPINEPHRI 00 :53 PROCEDURE, Me dical NE) 1.5 Starting Branch %-1:200,000 on Tue injection 06/19/22 at 1253, Until 06/19/22 at 2155, Routine, Intra-op lidocaine-e 2022- No Intraderma Univers pinephrine 06-19-08 l, ONCE ity o f (XYLOCAINE 18:53: 03:55 INTRA [place] W/EPINEPHRI 00 :53 PROCEDURE, Co dical NE) 1.5 Starting Branch %-1:200,000 on Tue injection 06/19/22 at 1253, Until e 06/19/22 at 2155, Routine, Intra-op acetaminoph Yes Take by Uni vers en (TYLENOL 2-07 mouth. ity of ORAL) 17:30: [address] acetaminoph Yes Take by Uni vers en (TYLENOL 2-07 mouth. ity of ORAL) 17:30: [address] FENTanyl PF 2022- No 100ug 100 mcg, Univers (SUBLIMAZE 06-19 Slow IV ity o f (PF)) 10:13: 00:14 Push, [place] injection 33 :28 Q1HPRN, Medical 100 mcg Starting Branch on Sat06/19/22 at 0413, Until Sat06/19/22 at 1814, Routine, contractio n without an epidural and SVE < 8 cm and Cat I strip terbutaline 2022- No .25mg 0.25 mg, Univers (BRETHINE) 06-19 Subcutaneo it y of injection 10:13: 00:14 us, PRN, [place] 0.25 mg 33 :28 Starting Medical on [facility] Branch 06/19/22 at 0413, Until Sat06/19/22 at 1814, Routine, bradycardi a > 3 min or Cat III strip oxytocin 2022- No 2mU/min at 2-40 Un ankit (PITOCIN) 06-19-08 mL/hr, IV ity of 30 units in 10:13: 00:14 Infusion, [place] NS 500 mL 33 :23 TITRATE, Medica l IV infusion Starting Bran ch on e 06/19/22 at 0413, Until Sat06/19/22 at 1814, EMILY D5W-LR IV 2022- No 1000mL at 1-125 U nivers infusion 2-07 02- mL/hr, IV ity o f 1,000 mL 10:13: 00:14 Infusion, [place] 33 :23 TITRATE, Medical Starting Branch on Sat06/19/22 at 0413, Until Sat06/19/22 at 1814, Routine sodium 2022- No 30mL 30 mL, Univers citrate-cit 06-19 Oral, ity of shaun acid 10:13: 21:19 PRE-PROCED [place] (BICITRA) 33 :00 URE ONCE, Medic al 500-334 1 dose, Branch mg/5 mL Starting solution 30 on Sat mL 06/19/22 at 0413, Until Discontinu ed, Routine, Surgery/Pr ocedure acetaminoph Yes Take by Uni vers en (TYLENOL 1-31 mouth. ity of ORAL) 11:23: [address] acetaminoph Yes Take by Uni vers en (TYLENOL 1-31 mouth. ity of ORAL) 11:23: [address] acetaminoph Yes Take by Uni vers en (TYLENOL 1-31 mouth. ity of ORAL) 11:23: [address] acetaminoph Yes Take by Uni vers en (TYLENOL 1-31 mouth. ity of ORAL) 11:23: [address] acetaminoph Yes Take by Uni vers en (TYLENOL 1-31 mouth. ity of ORAL) 11:23: [address] acetaminoph Yes Take by Uni vers en (TYLENOL 1-31 mouth. ity of ORAL) 11:23: [address] fluconazole 0 Yes [id number] 200mg Take 1 Univers 200 mg 1-11 tablet by ity of tablet 00:00: mouth in [place] [address] the Medical morning. Branch fluconazole 2022-0 Yes [id number] 200mg Take 1 Univers 200 mg 1-11 tablet by ity of tablet 00:00: mouth in [place] [address] the Medical morning. Branch fluconazole 2022-0 Yes [id number] 200mg Take 1 Univers 200 mg 1-11 tablet by ity of tablet 00:00: mouth in [place] [address] the Medical morning. Branch fluconazole 2022-0 Yes [id number] 200mg Take 1 Univers 200 mg 1-11 tablet by ity of tablet 00:00: mouth in [place] 00 the Medical morning. Branch fluconazole 2022- No [id number] 200mg Take 1 Univers 200 mg 05-23 tablet by ity of tablet 00:00: 00:00 mouth in [place] 00 :00 the Medical morning. Branch fluconazole 2022- No [id number] 200mg Take 1 Univers 200 mg 05-23 tablet by ity of tablet 00:00: 00:00 mouth in [place] 00 :00 the Medical morning. Branch fluconazole 2021-05 Yes Take one Un ankit 150 mg 2-30 tablet by ity of tablet 00:00: mouth x 1 00 dose. Medical Branch fluconazole 2021-05 Yes Take one Un ankit 150 mg 2-30 tablet by ity of tablet 00:00: mouth x 1 00 dose. Medical Branch fluconazole 2021-05 Yes Take one Un ankit 150 mg 2-30 tablet by ity of tablet 00:00: mouth x 1 00 dose. Medical Branch metroNIDAZO 2021-05- No [id number] 500mg Take 1 Univers LE 500 mg 07-10 tablet by ity of tablet 00:00: 05:59 mouth [place] 00 :00 every 12 Medical (twelve) Branch hours for 7 days. metroNIDAZO 2021-05- No [id number] 500mg Take 1 Univers LE 500 mg -05-17 tablet by ity of tablet 00:00: 05:59 mouth [place] 00 :00 every 12 Medical (twelve) Branch hours for 7 days. terconazole 2021-05 Yes [id number] 1{appli Insert 1 Univers 0.4 % 1-23 cator} Applicator ity of vaginal 00:00: into [place] cream 00 vagina at Medical bedtime. Branch terconazole 2021-05 Yes [id number] 1{appli Insert 1 Univers 0.4 % 1-23 cator} Applicator ity of vaginal 00:00: into [place] cream 00 vagina at Medical bedtime. Branch terconazole 2021-05 Yes [id number] 1{appli Insert 1 Univers 0.4 % 1-23 cator} Applicator ity of vaginal 00:00: into [place] cream 00 vagina at Medical bedtime. Branch terconazole 2021-05 Yes [id number] 1{appli Insert 1 Univers 0.4 % 1-23 cator} Applicator ity of vaginal 00:00: into [place] cream 00 vagina at Medical bedtime. [facility] terconazole 2021-05 Yes [id number] 1{appli Insert 1 Univers 0.4 % 1-23 cator} Applicator ity of vaginal 00:00: into [place] cream 00 vagina at Medical bedtime. [facility] terconazole 2021-05 Yes [id number] 1{appli Insert 1 Univers 0.4 % 1-23 cator} Applicator ity of vaginal 00:00: into [place] cream 00 vagina at Medical bedtime. [facility] terconazole 2021-05 Yes [id number] 1{appli Insert 1 Univers 0.4 % 1-23 cator} Applicator ity of vaginal 00:00: into [place] cream 00 vagina at Medical bedtime. [facility] terconazole 2021-05 Yes [id number] 1{appli Insert 1 Univers 0.4 % 1-23 cator} Applicator ity of vaginal 00:00: into [place] cream 00 vagina at Medical bedtime. [facility] terconazole 2021-05 Yes [id number] 1{appli Insert 1 Univers 0.4 % 1-23 cator} Applicator ity of vaginal 00:00: into [place] cream 00 vagina at Medical bedtime. [facility] terconazole 2021-05 Yes [id number] 1{appli Insert 1 [facility] 0.4 % 1-23 cator} Applicator ity of vaginal 00:00: into [place] cream 00 vagina at Medical bedtime. [facility] terconazole 2021-05 Yes [id number] 1{appli Insert 1 [facility] 0.4 % 1-23 cator} Applicator [facility] of vaginal 00:00: into [place] cream 00 vagina at Medical bedtime. [facility] terconazole 2021-05 Yes [id number] 1{appli Insert 1 [facility] 0.4 % 1-23 cator} Applicator [facility] of vaginal 00:00: into [place] cream 00 vagina at Medical bedtime. [facility] terconazole 2021-05 Yes [id number] 1{appli Insert 1 [facility] 0.4 % 1-23 cator} Applicator [facility] of vaginal 00:00: into [place] cream 00 vagina at Medical bedtime. Branch terconazole 2021-05 Yes [id number] 1{appli Insert 1 [facility] 0.4 % 06-04 cator} Applicator ity of vaginal 00:00: into [place] cream 00 vagina at Medical bedtime. Branch ergocalcife 2021-05- Take by [facility] an[facility] rol, 1-18 11-18 mouth. ity of vitamin D2, 11:33: 00:00 [place] (VITAMIN D 27 :00 Medical ORAL) Branch nystatin 2021-05 Yes [id number] Apply to [facility] 100,000 1-18 area(s) 2 ity of unit/gram 00:00: (two) [place] powder 00 times Medical daily. [facility] nystatin 2021-05 Yes [id number] Apply to [facility] 100,000 1-18 area(s) 2 ity of unit/gram 00:00: (two) [place] powder 00 times Medical daily. [facility] nystatin 2021-05 Yes [id number] Apply to [facility] 100,000 1-18 area(s) 2 ity of unit/gram 00:00: (two) [place] powder 00 times Medical daily. Branch nystatin 2021-05 Yes [id number] Apply to [facility] 100,000 1-18 area(s) 2 ity of unit/gram 00:00: (two) [place] powder 00 times Medical daily. Branch nystatin 2021-05 Yes [id number] Apply to [facility] 100,000 1-18 area(s) 2 ity of unit/gram 00:00: (two) [place] powder 00 times Medical daily. Branch nystatin 2021-05 Yes [id number] Apply to [facility] 100,000 1-18 area(s) 2 ity of unit/gram 00:00: (two) [place] powder 00 times Medical daily. Branch nystatin 2021-05 Yes [id number] Apply to [facility] 100,000 1-18 area(s) 2 ity of unit/gram 00:00: (two) [place] powder 00 times Medical daily. Branch nystatin 2021-05 Yes [id number] Apply to [facility] 100,000 1-18 area(s) 2 ity of unit/gram 00:00: (two) [place] powder 00 times Medical daily. Branch nystatin 2021-05 Yes [id number] Apply to [facility] 100,000 1-18 area(s) 2 ity of unit/gram 00:00: (two) [place] powder 00 times Medical daily. Branch nystatin 2021- Yes [id number] Apply to [facility] 100,000 1-18 area(s) 2 ity of unit/gram 00:00: (two) [place] powder 00 times Medical daily. Branch nystatin 2021- Yes [id number] Apply to [facility] 100,000 1-18 area(s) 2 ity of unit/gram 00:00: (two) [place] powder 00 times Medical daily. Branch nystatin 2021- Yes [id number] Apply to [facility] 100,000 1-18 area(s) 2 ity of unit/gram 00:00: (two) [place] powder 00 times Medical daily. Branch nystatin 2021- Yes [id number] Apply to [facility] 100,000 1-18 area(s) 2 ity of unit/gram 00:00: (two) [place] powder 00 times Medical daily. Branch nystatin 2021- Yes [id number] Apply to [facility] 100,000 1-18 area(s) 2 ity of unit/gram 00:00: (two) [place] powder 00 times Medical daily. Branch nystatin 2021- Yes [id number] Apply to [facility] 100,000 1-18 area(s) 2 ity of unit/gram 00:00: (two) [place] powder 00 times Medical daily. Branch nystatin 2021- Yes [id number] Apply to [facility] 100,000 1-18 area(s) 2 ity of unit/gram 00:00: (two) [place] powder 00 times Medical daily. Branch nystatin 2021- Yes [id number] Apply to [facility] 100,000 1-18 area(s) 2 ity of unit/gram 00:00: (two) [place] powder 00 times Medical daily. Branch nystatin 2021-1 Yes [id number] Apply to [facility] 100,000 1-18 area(s) 2 ity of unit/gram 00:00: (two) [place] powder 00 times Medical daily. Branch nystatin 2021-1 Yes [id number] Apply to [facility] 100,000 1-18 area(s) 2 ity of unit/gram 00:00: (two) [place] powder 00 times Medical daily. Branch nystatin 2021- Yes [id number] Apply to [facility] 100,000 1-18 area(s) 2 ity of unit/gram 00:00: (two) [place] powder 00 times Medical daily. Branch nystatin 2021-1 Yes [id number] Apply to [facility] 100,000 1-18 area(s) 2 ity of unit/gram 00:00: (two) [place] powder 00 times Medical daily. Branch nystatin 2021- Yes [id number] Apply to [facility] 100,000 1-18 area(s) 2 ity of unit/gram 00:00: (two) [place] powder 00 times Medical daily. Branch nystatin 2021- Yes [id number] Apply to [facility] 100,000 1-18 area(s) 2 ity of unit/gram 00:00: (two) [place] powder 00 times Medical daily. Branch nystatin 2021- Yes [id number] Apply to [facility] 100,000 1-18 area(s) 2 ity of unit/gram 00:00: (two) [place] powder 00 times Medical daily. Branch nystatin 2021-05 Yes [id number] Apply to [facility] 100,000 1-18 area(s) 2 ity of unit/gram 00:00: (two) [place] powder 00 times Medical daily. Branch nystatin 2021- Yes [id number] Apply to [facility] 100,000 1-18 area(s) 2 ity of unit/gram 00:00: (two) [place] powder 00 times Medical daily. Branch nystatin 2021- Yes [id number] Apply to [facility] 100,000 1-18 area(s) 2 ity of unit/gram 00:00: (two) [place] powder 00 times Medical daily. Branch nystatin 2021- Yes [id number] Apply to [facility] 100,000 1-18 area(s) 2 ity of unit/gram 00:00: (two) [place] powder 00 times Medical daily. Branch nystatin 2021-1 Yes [id number] Apply to [facility] 100,000 1-18 area(s) 2 ity of unit/gram 00:00: (two) [place] powder 00 times Medical daily. Branch nystatin 2021- Yes [id number] Apply to [facility] 100,000 1-18 area(s) 2 ity of unit/gram 00:00: (two) [place] powder 00 times Medical daily. Branch nystatin 2021-05 Yes [id number] Apply to [facility] 100,000 1-18 area(s) 2 ity of unit/gram 00:00: (two) [place] powder 00 times Medical daily. Branch nystatin 2021-05 Yes [id number] Apply to [facility] 100,000 1-18 area(s) 2 ity of unit/gram 00:00: (two) [place] powder 00 times Medical daily. Branch nystatin 2021-05 Yes [id number] Apply to [facility] 100,000 1-18 area(s) 2 ity of unit/gram 00:00: (two) [place] powder 00 times Medical daily. Branch nystatin 2021-053- No [id number] Apply to [facility] 100,000 1-18 02-08 area(s) 2 ity of unit/gram 00:00: 00:00 (two) [place] powder 00 :00 times Medical daily. Branch metroNIDAZO 2021-0 Yes [id number] 500mg Take 1 [facility] LE 500 mg 9-25 tablet by ity o f tablet 00:00: mouth [place] 00 every 12 Medical (twelve) Branch hours. metroNIDAZO 2021-0 Yes [id number] 500mg Take 1 [facility] LE 500 mg 9-25 tablet by ity o f tablet 00:00: mouth [place] 00 every 12 Medical (twelve) Branch hours. metroNIDAZO 2021-0 Yes [id number] 500mg Take 1 [facility] LE 500 mg 9-25 tablet by ity o f tablet 00:00: mouth [place] 00 every 12 Medical (twelve) Branch hours. metroNIDAZO 2021-0 Yes [id number] 500mg Take 1 [facility] LE 500 mg 9-25 tablet by ity o f tablet 00:00: mouth [place] 00 every 12 Medical (twelve) Branch hours. metroNIDAZO 2-0 Yes [id number] 500mg Take 1 [facility] LE 500 mg 9-25 tablet by ity o f tablet 00:00: mouth [place] 00 every 12 Medical (twelve) Branch hours. metroNIDAZO 2-0 Yes [id number] 500mg Take 1 [facility] LE 500 mg 9-25 tablet by ity o f tablet 00:00: mouth [place] 00 every 12 Medical (twelve) Branch hours. metroNIDAZO 2-0 Yes [id number] 500mg Take 1 [facility] LE 500 mg 9-25 tablet by ity o f tablet 00:00: mouth [place] 00 every 12 Medical (twelve) Branch hours. metroNIDAZO 2-0 2022- No [id number] 500mg Take 1 [facility] LE 500 mg 9-25 11-18 tablet by ity of tablet 00:00: 00:00 mouth [place] 00 :00 every 12 Medical (twelve) Branch hours. benzocaine- 2022-0 Yes [id number] Apply to [facility] menthol, 9-23 area(s) as ity o f DERMOPLAST, 00:00: needed for [place] (DERMOPLAST 00 Pain. Medical , WITH Branch MENTHOL,) 20-0.5 % topical spray benzocaine- 2-0 Yes [id number] Apply to [facility] menthol, 9-23 area(s) as ity o f DERMOPLAST, 00:00: needed for [place] (DERMOPLAST 00 Pain. Medical , WITH Branch MENTHOL,) 20-0.5 % topical spray benzocaine- 2-0 Yes [id number] Apply to [facility] menthol, 9-23 area(s) as ity o f DERMOPLAST, 00:00: needed for [place] (DERMOPLAST 00 Pain. Medical , WITH Branch MENTHOL,) 20-0.5 % topical spray benzocaine- 2-0 Yes [id number] Apply to [facility] menthol, 9-23 area(s) as ity o f DERMOPLAST, 00:00: needed for [place] (DERMOPLAST 00 Pain. Medical , WITH Branch MENTHOL,) 20-0.5 % topical spray benzocaine- 2-0 Yes [id number] Apply to [facility] menthol, 9-23 area(s) as ity o f DERMOPLAST, 00:00: needed for [place] (DERMOPLAST 00 Pain. Medical , WITH Branch MENTHOL,) 20-0.5 % topical spray benzocaine- 2022-0 Yes [id number] Apply to [facility] menthol, 9-23 area(s) as ity o f DERMOPLAST, 00:00: needed for [place] (DERMOPLAST 00 Pain. Medical , WITH Branch MENTHOL,) 20-0.5 % topical spray benzocaine- 2022-0 Yes [id number] Apply to [facility] menthol, 9-23 area(s) as ity o f DERMOPLAST, 00:00: needed for [place] (DERMOPLAST 00 Pain. Medical , WITH Branch MENTHOL,) 20-0.5 % topical spray benzocaine- Yes [id number] Apply to [facility] menthol, 9-23 area(s) as ity o f DERMOPLAST, 00:00: needed for [place] (DERMOPLAST 00 Pain. Medical , WITH Branch MENTHOL,) 20-0.5 % topical spray benzocaine- 2- No [id number] Apply to [facility] menthol, 9-23 11-18 area(s) as ity of DERMOPLAST, 00:00: 00:00 needed for [place] (DERMOPLAST 00 :00 Pain. Medical , WITH Branch MENTHOL,) 20-0.5 % topical spray ampicillin 2- No [id number] 500mg Take 1 [facility] 500 mg 8-08 02-06 capsule by ity of capsule 00:00: 04:59 mouth [place] 00 :00 every 6 Medical (six) Branch hours for 7 days. ampicillin 0 2- No [id number] 500mg Take 1 [facility] 500 mg 8-29 09-06 capsule by ity of capsule 00:00: 04:59 mouth [place] 00 :00 every 6 Medical (six) Branch hours for 7 days. ampicillin 2021-0 2- No [id number] 500mg Take 1 [facility] 500 mg 8- 09-06 capsule by ity of capsule 00:00: 04:59 mouth [place] 00 :00 every 6 Medical (six) Branch hours for 7 days. metroNIDAZO 0 Yes [id number] 500mg Take 1 [facility] LE 500 mg 8-15 tablet by ity o f tablet 00:00: mouth [place] 00 every 12 Medical (twelve) Branch hours. metroNIDAZO 2021-0 Yes [id number] 500mg Take 1 [facility] LE 500 mg 8-15 tablet by ity o f tablet 00:00: mouth [place] 00 every 12 Medical (twelve) Branch hours. metroNIDAZO 2021-0 Yes [id number] 500mg Take 1 [facility] LE 500 mg 8-15 tablet by ity o f tablet 00:00: mouth [place] 00 every 12 Medical (twelve) Branch hours. metroNIDAZO 2021-0 Yes [id number] 500mg Take 1 [facility] LE 500 mg 8-15 tablet by ity o f tablet 00:00: mouth [place] 00 every 12 Medical (twelve) Branch hours. metroNIDAZO 2-0 Yes [id number] 500mg Take 1 [facility] LE 500 mg 8-15 tablet by ity o f tablet 00:00: mouth [place] 00 every 12 Medical (twelve) Branch hours. metroNIDAZO 2021-0 Yes [id number] 500mg Take 1 [facility] LE 500 mg 8-15 tablet by ity o f tablet 00:00: mouth [place] 00 every 12 Medical (twelve) Branch hours. metroNIDAZO 2021-0 Yes [id number] 500mg Take 1 [facility] LE 500 mg 8-15 tablet by ity o f tablet 00:00: mouth [place] 00 every 12 Medical (twelve) Branch hours. metroNIDAZO 2021-0 Yes [id number] 500mg Take 1 [facility] LE 500 mg 8-15 tablet by ity o f tablet 00:00: mouth [place] 00 every 12 Medical (twelve) Branch hours. metroNIDAZO 2021-0 Yes [id number] 500mg Take 1 [facility] LE 500 mg 8-15 tablet by ity o f tablet 00:00: mouth [place] 00 every 12 Medical (twelve) Branch hours. metroNIDAZO 2021-0 Yes [id number] 500mg Take 1 [facility] LE 500 mg 8-15 tablet by ity o f tablet 00:00: mouth [place] 00 every 12 Medical (twelve) Branch hours. metroNIDAZO 2021-0 Yes [id number] 500mg Take 1 [facility] LE 500 mg 8-15 tablet by ity o f tablet 00:00: mouth [place] 00 every 12 Medical (twelve) Branch hours. metroNIDAZO 2021-0 Yes [id number] 500mg Take 1 [facility] LE 500 mg 8-15 tablet by ity o f tablet 00:00: mouth [place] 00 every 12 Medical (twelve) Branch hours. metroNIDAZO 2-0 Yes [id number] 500mg Take 1 [facility] LE 500 mg 8-15 tablet by ity o f tablet 00:00: mouth [place] 00 every 12 Medical (twelve) Branch hours. metroNIDAZO 2-0 Yes [id number] 500mg Take 1 [facility] LE 500 mg 8-15 tablet by ity o f tablet 00:00: mouth [place] 00 every 12 Medical (twelve) Branch hours. metroNIDAZO 2022-0 Yes [id number] 500mg Take 1 [facility] LE 500 mg 8-15 tablet by ity o f tablet 00:00: mouth [place] 00 every 12 Medical (twelve) Branch hours. metroNIDAZO 2021-0 Yes [id number] 500mg Take 1 [facility] LE 500 mg 8-15 tablet by ity o f tablet 00:00: mouth [place] 00 every 12 Medical (twelve) Branch hours. metroNIDAZO 2021-0 Yes [id number] 500mg Take 1 [facility] LE 500 mg 8-15 tablet by ity o f tablet 00:00: mouth [place] 00 every 12 Medical (twelve) Branch hours. metroNIDAZO 2021-0 2022- No [id number] 500mg Take 1 [facility] LE 500 mg 8-15 11-18 tablet by ity of tablet 00:00: 00:00 mouth [place] 00 :00 every 12 Medical (twelve) Branch hours. pyridoxine, 2021-0 Yes [id number] 25mg Take 1 [facility] VITAMIN 7-15 tablet by ity of B-6, 00:00: mouth [place] (VITAMIN 00 every 6 Medical B-6) 25 mg (six) Branch tablet hours as needed for Nausea and Vomiting (N/V). doxylamine 2021-0 Yes [id number] 25mg Take 1 [facility] (UNISOM, 7-15 tablet by ity of DOXYLAMINE, 00:00: [place] 25 mg 00 bedtime as Medica l tablet needed for Branch Nausea and Vomiting (N/V). metoclopram 2021-0 Yes [id number] 10mg Take 1 [facility] miles HCl 10 7-15 tablet by ity of mg tablet 00:00: mouth [place] 00 every 6 Medical (six) Branch hours as needed for Nausea and Vomiting (N/V). pyridoxine, 2021-0 Yes [id number] 25mg Take 1 [facility] VITAMIN 7-15 tablet by ity of B-6, 00:00: mouth [place] (VITAMIN 00 every 6 Medical B-6) 25 mg (six) Branch tablet hours as needed for Nausea and Vomiting (N/V). doxylamine 2021-0 Yes [id number] 25mg Take 1 [facility] (UNISOM, 7-15 tablet by ity of DOXYLAMINE, 00:00: mouth [place] ) 25 mg 00 bedtime as Medica l tablet needed for Branch Nausea and Vomiting (N/V). metoclopram 2-0 Yes [id number] 10mg Take 1 [facility] miles HCl 10 7-15 tablet by ity of mg tablet 00:00: mouth [place] 00 every 6 Medical (six) Branch hours as needed for Nausea and Vomiting (N/V). pyridoxine, 2021-0 Yes [id number] 25mg Take 1 [facility] VITAMIN 7-15 tablet by ity of B-6, 00:00: mouth [place] (VITAMIN 00 every 6 Medical B-6) 25 mg (six) Branch tablet hours as needed for Nausea and Vomiting (N/V). doxylamine 2021-0 Yes [id number] 25mg Take 1 [facility] (UNISOM, 7-15 tablet by ity of DOXYLAMINE, 00:00: mouth [place] ) 25 mg 00 bedtime as Medica l tablet needed for Branch Nausea and Vomiting (N/V). metoclopram 2021-0 Yes [id number] 10mg Take 1 [facility] HCl 10 7-15 tablet by ity of mg tablet 00:00: mouth [place] 00 every 6 Medical (six) Branch hours as needed for Nausea and Vomiting (N/V). pyridoxine, 2021-0 Yes [id number] 25mg Take 1 [facility] VITAMIN 7-15 tablet by ity of B-6, 00:00: mouth [place] (VITAMIN 00 every 6 Medical B-6) 25 mg (six) Branch tablet hours as needed for Nausea and Vomiting (N/V). doxylamine 2021-0 Yes [id number] 25mg Take 1 [facility] (UNISOM, 7-15 tablet by ity of DOXYLAMINE, 00:00: mouth [place] ) 25 mg 00 bedtime as Medica l tablet needed for Branch Nausea and Vomiting (N/V). metoclopram 2-0 Yes [id number] 10mg Take 1 [facility] HCl 10 7-15 tablet by ity of mg tablet 00:00: mouth [place] 00 every 6 Medical (six) Branch hours as needed for Nausea and Vomiting (N/V). pyridoxine, 2-0 Yes [id number] 25mg Take 1 [facility] VITAMIN 7-15 tablet by ity of B-6, 00:00: mouth [place] (VITAMIN 00 every 6 Medical B-6) 25 mg (six) Branch tablet hours as needed for Nausea and Vomiting (N/V). doxylamine 2022-0 Yes [id number] 25mg Take 1 [facility] (UNISOM, 7-15 tablet by ity of DOXYLAMINE, 00:00: mouth [place] ) 25 mg 00 bedtime as Medica l tablet needed for Branch Nausea and Vomiting (N/V). metoclopram 2022-0 Yes [id number] 10mg Take 1 [facility] HCl 10 7-15 tablet by ity of mg tablet 00:00: mouth [place] 00 every 6 Medical (six) Branch hours as needed for Nausea and Vomiting (N/V). pyridoxine, 2-0 Yes [id number] 25mg Take 1 [facility] VITAMIN 7-15 tablet by ity of B-6, 00:00: mouth [place] (VITAMIN 00 every 6 Medical B-6) 25 mg (six) Branch tablet hours as needed for Nausea and Vomiting (N/V). doxylamine 2022-0 Yes [id number] 25mg Take 1 [facility] (UNISOM, 7-15 tablet by ity of DOXYLAMINE, 00:00: mouth [place] ) 25 mg 00 bedtime as Medica l tablet needed for Branch Nausea and Vomiting (N/V). metoclopram 2022-0 Yes [id number] 10mg Take 1 [facility] HCl 10 7-15 tablet by ity of mg tablet 00:00: mouth [place] 00 every 6 Medical (six) Branch hours as needed for Nausea and Vomiting (N/V). pyridoxine, 2-0 Yes [id number] 25mg Take 1 [facility] VITAMIN 7-15 tablet by ity of B-6, 00:00: mouth [place] (VITAMIN 00 every 6 Medical B-6) 25 mg (six) Branch tablet hours as needed for Nausea and Vomiting (N/V). doxylamine 2022-0 Yes [id number] 25mg Take 1 [facility] (UNISOM, 7-15 tablet by ity of DOXYLAMINE, 00:00: mouth [place] ) 25 mg 00 bedtime as Medica l tablet needed for Branch Nausea and Vomiting (N/V). metoclopram 2022-0 Yes [id number] 10mg Take 1 [facility] HCl 10 7-15 tablet by ity of mg tablet 00:00: mouth [place] 00 every 6 Medical (six) Branch hours as needed for Nausea and Vomiting (N/V). pyridoxine, 2021-0 Yes [id number] 25mg Take 1 [facility] VITAMIN 7-15 tablet by ity of B-6, 00:00: mouth [place] (VITAMIN 00 every 6 Medical B-6) 25 mg (six) Branch tablet hours as needed for Nausea and Vomiting (N/V). doxylamine 2021-0 Yes [id number] 25mg Take 1 [facility] (UNISOM, 7-15 tablet by ity of DOXYLAMINE, 00:00: mouth [place] ) 25 mg 00 bedtime as Medica l tablet needed for Branch Nausea and Vomiting (N/V). metoclopram 2021-0 Yes [id number] 10mg Take 1 [facility] HCl 10 7-15 tablet by ity of mg tablet 00:00: mouth [place] 00 every 6 Medical (six) Branch hours as needed for Nausea and Vomiting (N/V). pyridoxine, 2021-0 Yes [id number] 25mg Take 1 [facility] VITAMIN 7-15 tablet by ity of B-6, 00:00: mouth [place] (VITAMIN 00 every 6 Medical B-6) 25 mg (six) Branch tablet hours as needed for Nausea and Vomiting (N/V). doxylamine 2021-0 Yes [id number] 25mg Take 1 [facility] (UNISOM, 7-15 tablet by ity of DOXYLAMINE, 00:00: mouth [place] ) 25 mg 00 bedtime as Medica l tablet needed for Branch Nausea and Vomiting (N/V). metoclopram 2021-0 Yes [id number] 10mg Take 1 [facility] HCl 10 7-15 tablet by ity of mg tablet 00:00: mouth [place] 00 every 6 Medical (six) Branch hours as needed for Nausea and Vomiting (N/V). pyridoxine, 2021-0 Yes [id number] 25mg Take 1 [facility] VITAMIN 7-15 tablet by ity of B-6, 00:00: mouth [place] (VITAMIN 00 every 6 Medical B-6) 25 mg (six) Branch tablet hours as needed for Nausea and Vomiting (N/V). doxylamine 2-0 Yes [id number] 25mg Take 1 [facility] (UNISOM, 7-15 tablet by ity of DOXYLAMINE, 00:00: mouth [place] ) 25 mg 00 bedtime as Medica l tablet needed for Branch Nausea and Vomiting (N/V). metoclopram 2-0 Yes [id number] 10mg Take 1 [facility] HCl 10 7-15 tablet by ity of mg tablet 00:00: mouth [place] 00 every 6 Medical (six) Branch hours as needed for Nausea and Vomiting (N/V). pyridoxine, 2021-0 Yes [id number] 25mg Take 1 [facility] VITAMIN 7-15 tablet by ity of B-6, 00:00: mouth [place] (VITAMIN 00 every 6 Medical B-6) 25 mg (six) Branch tablet hours as needed for Nausea and Vomiting (N/V). doxylamine 2021-0 Yes [id number] 25mg Take 1 [facility] (UNISOM, 7-15 tablet by ity of DOXYLAMINE, 00:00: mouth [place] ) 25 mg 00 bedtime as Medica l tablet needed for Branch Nausea and Vomiting (N/V). metoclopram 2021-0 Yes [id number] 10mg Take 1 [facility] HCl 10 7-15 tablet by ity of mg tablet 00:00: mouth [place] 00 every 6 Medical (six) Branch hours as needed for Nausea and Vomiting (N/V). pyridoxine, 2021-0 Yes [id number] 25mg Take 1 [facility] VITAMIN 7-15 tablet by ity of B-6, 00:00: mouth [place] (VITAMIN 00 every 6 Medical B-6) 25 mg (six) Branch tablet hours as needed for Nausea and Vomiting (N/V). doxylamine 2021-0 Yes [id number] 25mg Take 1 [facility] (UNISOM, 7-15 tablet by ity of DOXYLAMINE, 00:00: mouth [place] ) 25 mg 00 bedtime as Medica l tablet needed for Branch Nausea and Vomiting (N/V). metoclopram 2-0 Yes [id number] 10mg Take 1 [facility] HCl 10 7-15 tablet by ity of mg tablet 00:00: mouth [place] 00 every 6 Medical (six) Branch hours as needed for Nausea and Vomiting (N/V). pyridoxine, 2021-0 Yes [id number] 25mg Take 1 [facility] VITAMIN 7-15 tablet by ity of B-6, 00:00: mouth [place] (VITAMIN 00 every 6 Medical B-6) 25 mg (six) Branch tablet hours as needed for Nausea and Vomiting (N/V). doxylamine 2021-0 Yes [id number] 25mg Take 1 [facility] (UNISOM, 7-15 tablet by ity of DOXYLAMINE, 00:00: mouth [place] ) 25 mg 00 bedtime as Medica l tablet needed for Branch Nausea and Vomiting (N/V). metoclopram 2021-0 Yes [id number] 10mg Take 1 [facility] HCl 10 7-15 tablet by ity of mg tablet 00:00: mouth [place] 00 every 6 Medical (six) Branch hours as needed for Nausea and Vomiting (N/V). pyridoxine, 2021-0 Yes [id number] 25mg Take 1 [facility] VITAMIN 7-15 tablet by ity of B-6, 00:00: mouth [place] (VITAMIN 00 every 6 Medical B-6) 25 mg (six) Branch tablet hours as needed for Nausea and Vomiting (N/V). doxylamine 2021-0 Yes [id number] 25mg Take 1 [facility] (UNISOM, 7-15 tablet by ity of DOXYLAMINE, 00:00: mouth [place] ) 25 mg 00 bedtime as Medica l tablet needed for Branch Nausea and Vomiting (N/V). metoclopram 2021-0 Yes [id number] 10mg Take 1 [facility] HCl 10 7-15 tablet by ity of mg tablet 00:00: mouth [place] 00 every 6 Medical (six) Branch hours as needed for Nausea and Vomiting (N/V). pyridoxine, 2021-0 Yes [id number] 25mg Take 1 [facility] VITAMIN 7-15 tablet by ity of B-6, 00:00: mouth [place] (VITAMIN 00 every 6 Medical B-6) 25 mg (six) Branch tablet hours as needed for Nausea and Vomiting (N/V). doxylamine 2021-0 Yes [id number] 25mg Take 1 [facility] (UNISOM, 7-15 tablet by ity of DOXYLAMINE, 00:00: mouth [place] ) 25 mg 00 bedtime as Medica l tablet needed for Branch Nausea and Vomiting (N/V). metoclopram 2022-0 Yes [id number] 10mg Take 1 [facility] HCl 10 7-15 tablet by ity of mg tablet 00:00: mouth [place] 00 every 6 Medical (six) Branch hours as needed for Nausea and Vomiting (N/V). pyridoxine, 2-0 Yes [id number] 25mg Take 1 [facility] VITAMIN 7-15 tablet by ity of B-6, 00:00: mouth [place] (VITAMIN 00 every 6 Medical B-6) 25 mg (six) Branch tablet hours as needed for Nausea and Vomiting (N/V). doxylamine 2022-0 Yes [id number] 25mg Take 1 [facility] (UNISOM, 7-15 tablet by ity of DOXYLAMINE, 00:00: mouth [place] ) 25 mg 00 bedtime as Medica l tablet needed for Branch Nausea and Vomiting (N/V). metoclopram 2-0 Yes [id number] 10mg Take 1 [facility] HCl 10 7-15 tablet by ity of mg tablet 00:00: mouth [place] 00 every 6 Medical (six) Branch hours as needed for Nausea and Vomiting (N/V). pyridoxine, 2021-0 Yes [id number] 25mg Take 1 [facility] VITAMIN 7-15 tablet by ity of B-6, 00:00: mouth [place] (VITAMIN 00 every 6 Medical B-6) 25 mg (six) Branch tablet hours as needed for Nausea and Vomiting (N/V). doxylamine 2021-0 Yes [id number] 25mg Take 1 [facility] (UNISOM, 7-15 tablet by ity of DOXYLAMINE, 00:00: mouth [place] ) 25 mg 00 bedtime as Medica l tablet needed for Branch Nausea and Vomiting (N/V). metoclopram 2-0 Yes [id number] 10mg Take 1 [facility] HCl 10 7-15 tablet by ity of mg tablet 00:00: mouth [place] 00 every 6 Medical (six) Branch hours as needed for Nausea and Vomiting (N/V). pyridoxine, 2-0 Yes [id number] 25mg Take 1 [facility] VITAMIN 7-15 tablet by ity of B-6, 00:00: mouth [place] (VITAMIN 00 every 6 Medical B-6) 25 mg (six) Branch tablet hours as needed for Nausea and Vomiting (N/V). doxylamine 2022-0 Yes [id number] 25mg Take 1 [facility] (UNISOM, 7-15 tablet by ity of DOXYLAMINE, 00:00: mouth [place] ) 25 mg 00 bedtime as Medica l tablet needed for Branch Nausea and Vomiting (N/V). metoclopram 2022-0 Yes [id number] 10mg Take 1 [facility] HCl 10 7-15 tablet by ity of mg tablet 00:00: mouth [place] 00 every 6 Medical (six) Branch hours as needed for Nausea and Vomiting (N/V). pyridoxine, 2-0 Yes [id number] 25mg Take 1 [facility] VITAMIN 7-15 tablet by ity of B-6, 00:00: mouth [place] (VITAMIN 00 every 6 Medical B-6) 25 mg (six) Branch tablet hours as needed for Nausea and Vomiting (N/V). doxylamine 2022-0 Yes [id number] 25mg Take 1 [facility] (UNISOM, 7-15 tablet by ity of DOXYLAMINE, 00:00: mouth [place] ) 25 mg 00 bedtime as Medica l tablet needed for Branch Nausea and Vomiting (N/V). metoclopram 2022-0 Yes [id number] 10mg Take 1 [facility] HCl 10 7-15 tablet by ity of mg tablet 00:00: mouth [place] 00 every 6 Medical (six) Branch hours as needed for Nausea and Vomiting (N/V). pyridoxine, 2022-0 Yes [id number] 25mg Take 1 [facility] VITAMIN 7-15 tablet by ity of B-6, 00:00: mouth [place] (VITAMIN 00 every 6 Medical B-6) 25 mg (six) Branch tablet hours as needed for Nausea and Vomiting (N/V). doxylamine 2022-0 Yes [id number] 25mg Take 1 [facility] (UNISOM, 7-15 tablet by [facility] DOXYLAMINE, 00:00: [facility] [place] ) 25 mg 00 bedtime as Medica l tablet needed for Branch Nausea and Vomiting (N/V). metoclopram 2022-0 Yes [id number] 10mg Take 1 [facility] 10 7-15 tablet by [facility] mg tablet 00:00: mouth [place] 00 every 6 Medical (six) Branch hours as needed for Nausea and Vomiting (N/V). pyridoxine, 2021-0 Yes [id number] 25mg Take 1 [facility] VITAMIN 7-15 tablet by [facility] of B-6, 00:00: mouth [place] (VITAMIN 00 every 6 Medical B-6) 25 mg (six) Branch tablet hours as needed for Nausea and Vomiting (N/V). doxylamine 2021-0 Yes [id number] 25mg Take 1 [facility] (UNISOM, 7-15 tablet by [facility] of DOXYLAMINE, 00:00: [facility] [place] ) 25 mg 00 bedtime as Medica l tablet needed for Branch Nausea and Vomiting (N/V). metoclopram 2-0 Yes [id number] 10mg Take 1 [facility] 10 7-15 tablet by [facility] of mg tablet 00:00: mouth [place] 00 every 6 Medical (six) Branch hours as needed for Nausea and Vomiting (N/V). pyridoxine, 2021-0 Yes [id number] 25mg Take 1 [facility] VITAMIN 7-15 tablet by [facility] of B-6, 00:00: mouth [place] (VITAMIN 00 every 6 Medical B-6) 25 mg (six) Branch tablet hours as needed for Nausea and Vomiting (N/V). doxylamine 2021-0 Yes [id number] 25mg Take 1 [facility] (UNISOM, 7-15 tablet by [facility] of DOXYLAMINE, 00:00: [facility] [place] 25 mg 00 bedtime as Medica l tablet needed for Branch Nausea and Vomiting (N/V). metoclopram 2-0 Yes [id number] 10mg Take 1 [facility] 10 7-15 tablet by [facility] of mg tablet 00:00: mouth [place] 00 every 6 Medical (six) Branch hours as needed for Nausea and Vomiting (N/V). pyridoxine, 2-0 Yes [id number] 25mg Take 1 [facility] VITAMIN 7-15 tablet by [facility] of B-6, 00:00: mouth [place] (VITAMIN 00 every 6 Medical B-6) 25 mg (six) Branch tablet hours as needed for Nausea and Vomiting (N/V). doxylamine 2022-0 Yes [id number] 25mg Take 1 [facility] (UNISOM, 7-15 tablet by [facility] of DOXYLAMINE, 00:00: [facility] [place] ) 25 mg 00 bedtime as Medica l tablet needed for Branch Nausea and Vomiting (N/V). metoclopram 2-0 Yes [id number] 10mg Take 1 [facility] 10 7-15 tablet by [facility] of mg tablet 00:00: mouth [place] 00 every 6 Medical (six) Branch hours as needed for Nausea and Vomiting (N/V). pyridoxine, 2021-0 Yes [id number] 25mg Take 1 [facility] VITAMIN 7-15 tablet by [facility] of B-6, 00:00: mouth [place] (VITAMIN 00 every 6 Medical B-6) 25 mg (six) Branch tablet hours as needed for Nausea and Vomiting (N/V). doxylamine 2021-0 Yes [id number] 25mg Take 1 [facility] (UNISOM, 7-15 tablet by [facility] of DOXYLAMINE, 00:00: mouth [place] ) 25 mg 00 bedtime as Medica l tablet needed for Branch Nausea and Vomiting (N/V). metoclopram 2021-0 Yes [id number] 10mg Take 1 [facility] 10 7-15 tablet by [facility] of mg tablet 00:00: mouth [place] 00 every 6 Medical (six) Branch hours as needed for Nausea and Vomiting (N/V). pyridoxine, 2021-0 Yes [id number] 25mg Take 1 [facility] VITAMIN 7-15 tablet by [facility] of B-6, 00:00: mouth [place] (VITAMIN 00 every 6 Medical B-6) 25 mg (six) Branch tablet hours as needed for Nausea and Vomiting (N/V). doxylamine 2021-0 Yes [id number] 25mg Take 1 [facility] (UNISOM, 7-15 tablet by [facility] of DOXYLAMINE, 00:00: mouth [place] ) 25 mg 00 bedtime as Medica l tablet needed for Branch Nausea and Vomiting (N/V). metoclopram 2-0 Yes [id number] 10mg Take 1 [facility] 10 7-15 tablet by [facility] of mg tablet 00:00: mouth [place] 00 every 6 Medical (six) Branch hours as needed for Nausea and Vomiting (N/V). pyridoxine, 2022-0 Yes [id number] 25mg Take 1 [facility] VITAMIN 7-15 tablet by [facility] of B-6, 00:00: mouth [place] (VITAMIN 00 every 6 Medical B-6) 25 mg (six) Branch tablet hours as needed for Nausea and Vomiting (N/V). doxylamine 2022-0 Yes [id number] 25mg Take 1 [facility] (UNISOM, 7-15 tablet by it[facility] of DOXYLAMINE, 00:00: mouth [place] ) 25 mg 00 bedtime as Medica l tablet needed for Branch Nausea and Vomiting (N/V). metoclopram 2022-0 Yes [id number] 10mg Take 1 [facility] 10 7-15 tablet by [facility] of mg tablet 00:00: mouth [place] 00 every 6 Medical (six) Branch hours as needed for Nausea and Vomiting (N/V). metoclopram 2022-0 Yes [id number] 10mg Take 1 [facility] 10 7-15 tablet by [facility] of mg tablet 00:00: mouth [place] 00 every 6 Medical (six) Branch hours as needed for Nausea and Vomiting (N/V). metoclopram 2022-0 Yes [id number] 10mg Take 1 [facility] 10 7-15 tablet by [facility] of mg tablet 00:00: mouth [place] 00 every 6 Medical (six) Branch hours as needed for Nausea and Vomiting (N/V). metoclopram 2022-0 Yes [id number] 10mg Take 1 [facility] 10 7-15 tablet by [facility] of mg tablet 00:00: mouth [place] 00 every 6 Medical (six) Branch hours as needed for Nausea and Vomiting (N/V). metoclopram 2022-0 Yes [id number] 10mg Take 1 [facility] 10 7-15 tablet by [facility] of mg tablet 00:00: mouth [place] 00 every 6 Medical (six) Branch hours as needed for Nausea and Vomiting (N/V). metoclopram 2022-0 Yes [id number] 10mg Take 1 [facility] 10 7-15 tablet by [facility] of mg tablet 00:00: mouth [place] 00 every 6 Medical (six) Branch hours as needed for Nausea and Vomiting (N/V). metoclopram 2022-0 Yes [id number] 10mg Take 1 [facility] 10 7-15 tablet by [facility] of mg tablet 00:00: mouth [place] 00 every 6 Medical (six) Branch hours as needed for Nausea and Vomiting (N/V). metoclopram 2022-0 Yes [id number] 10mg Take 1 [facility] 10 7-15 tablet by [facility] of mg tablet 00:00: mouth [place] 00 every 6 Medical (six) Branch hours as needed for Nausea and Vomiting (N/V). metoclopram 2022-0 Yes [id number] 10mg Take 1 [facility] 10 7-15 tablet by [facility] of mg tablet 00:00: mouth [place] 00 every 6 Medical (six) Branch hours as needed for Nausea and Vomiting (N/V). metoclopram 2022-0 Yes [id number] 10mg Take 1 [facility] 10 7-15 tablet by [facility] of mg tablet 00:00: mouth [place] 00 every 6 Medical (six) Branch hours as needed for Nausea and Vomiting (N/V). metoclopram 2022-0 Yes [id number] 10mg Take 1 [facility] 10 7-15 tablet by [facility] of mg tablet 00:00: mouth [place] 00 every 6 Medical (six) Branch hours as needed for Nausea and Vomiting (N/V). metoclopram 2022-0 Yes [id number] 10mg Take 1 [facility] 10 7-15 tablet by [facility] of mg tablet 00:00: mouth [place] 00 every 6 Medical (six) Branch hours as needed for Nausea and Vomiting (N/V). metoclopram 2022-0 Yes [id number] 10mg Take 1 [facility] 10 7-15 tablet by [facility] of mg tablet 00:00: mouth [place] 00 every 6 Medical (six) Branch hours as needed for Nausea and Vomiting (N/V). metoclopram 2022-0 Yes [id number] 10mg Take 1 [facility] 10 7-15 tablet by [facility] of mg tablet 00:00: mouth [place] 00 every 6 Medical (six) Branch hours as needed for Nausea and Vomiting (N/V). metoclopram 2022-0 Yes [id number] 10mg Take 1 [facility] 10 7-15 tablet by [facility] of mg tablet 00:00: mouth [place] 00 every 6 Medical (six) Branch hours as needed for Nausea and Vomiting (N/V). metoclopram 2022-0 Yes [id number] 10mg Take 1 [facility] 10 7-15 tablet by [facility] of mg tablet 00:00: mouth [place] 00 every 6 Medical (six) Branch hours as needed for Nausea and Vomiting (N/V). metoclopram 2022-0 Yes [id number] 10mg Take 1 [facility] 10 7-15 tablet by [facility] of mg tablet 00:00: mouth [place] 00 every 6 Medical (six) Branch hours as needed for Nausea and Vomiting (N/V). metoclopram 2022-0 Yes [id number] 10mg Take 1 [facility] 10 7-15 tablet by [facility] of mg tablet 00:00: mouth [place] 00 every 6 Medical (six) Branch hours as needed for Nausea and Vomiting (N/V). metoclopram 2022-0 Yes [id number] 10mg Take 1 [facility] 10 7-15 tablet by [facility] of mg tablet 00:00: mouth [place] 00 every 6 Medical (six) Branch hours as needed for Nausea and Vomiting (N/V). metoclopram 2022-0 Yes [id number] 10mg Take 1 [facility] 10 7-15 tablet by [facility] of mg tablet 00:00: mouth [place] 00 every 6 Medical (six) Branch hours as needed for Nausea and Vomiting (N/V). metoclopram 2022-0 Yes [id number] 10mg Take 1 [facility] 10 7-15 tablet by [facility] of mg tablet 00:00: mouth [place] 00 every 6 Medical (six) Branch hours as needed for Nausea and Vomiting (N/V). metoclopram 2022-0 Yes [id number] 10mg Take 1 [facility] 10 7-15 tablet by [facility] of mg tablet 00:00: mouth [place] 00 every 6 Medical (six) Branch hours as needed for Nausea and Vomiting (N/V). metoclopram 2022-0 Yes [id number] 10mg Take 1 [facility] 10 7-15 tablet by [facility] of mg tablet 00:00: mouth [place] 00 every 6 Medical (six) Branch hours as needed for Nausea and Vomiting (N/V). metoclopram 2022-0 Yes [id number] 10mg Take 1 [facility] 10 7-15 tablet by [facility] of mg tablet 00:00: mouth [place] 00 every 6 Medical (six) Branch hours as needed for Nausea and Vomiting (N/V). metoclopram 2022-0 Yes [id number] 10mg Take 1 [facility] 10 7-15 tablet by [facility] of mg tablet 00:00: mouth [place] 00 every 6 Medical (six) Branch hours as needed for Nausea and Vomiting (N/V). metoclopram 2022-0 Yes [id number] 10mg Take 1 [facility] 10 7-15 tablet by [facility] of mg tablet 00:00: mouth [place] 00 every 6 Medical (six) Branch hours as needed for Nausea and Vomiting (N/V). metoclopram 2022-0 Yes [id number] 10mg Take 1 [facility] 10 7-15 tablet by [facility] of mg tablet 00:00: mouth [place] 00 every 6 Medical (six) Branch hours as needed for Nausea and Vomiting (N/V). metoclopram 2022-0 Yes [id number] 10mg Take 1 [facility] 10 7-15 tablet by [facility] of mg tablet 00:00: mouth [place] 00 every 6 Medical (six) Branch hours as needed for Nausea and Vomiting (N/V). metoclopram 2022-0 Yes [id number] 10mg Take 1 [facility] 10 7-15 tablet by [facility] of mg tablet 00:00: mouth [place] 00 every 6 Medical (six) Branch hours as needed for Nausea and Vomiting (N/V). metoclopram 2022-0 Yes [id number] 10mg Take 1 [facility] 10 7-15 tablet by [facility] of mg tablet 00:00: mouth [place] 00 every 6 Medical (six) Branch hours as needed for Nausea and Vomiting (N/V). metoclopram 2022-0 Yes [id number] 10mg Take 1 [facility] 10 7-15 tablet by [facility] of mg tablet 00:00: mouth [place] 00 every 6 Medical (six) Branch hours as needed for Nausea and Vomiting (N/V). metoclopram 2022-0 Yes [id number] 10mg Take 1 [facility] 10 7-15 tablet by [facility] of mg tablet 00:00: mouth [place] 00 every 6 Medical (six) Branch hours as needed for Nausea and Vomiting (N/V). metoclopram 2022-0 Yes [id number] 10mg Take 1 [facility] 10 7-15 tablet by [facility] of mg tablet 00:00: mouth [place] 00 every 6 Medical (six) Branch hours as needed for Nausea and Vomiting (N/V). metoclopram 2022- No [id number] 10mg Take 1 [facility] 10 7-15 02-08 tablet by [facility] of mg tablet 00:00: 00:00 mouth [place] 00 :00 every 6 Medical (six) Branch hours as needed for Nausea and Vomiting (N/V). pyridoxine, 2021- No [id number] 25mg Take 1 [facility] VITAMIN 7-15 11-18 tablet by [facility] of B-6, 00:00: 00:00 mouth [place] (VITAMIN 00 :00 every 6 Medical B-6) 25 mg (six) Branch tablet hours as needed for Nausea and Vomiting (N/V). doxylamine 2021- No [id number] 25mg Take 1 [facility] (UNISOM, 7-15 -18 tablet by ity o f DOXYLAMINE, 00:00: 00:00 mouth [place] ) 25 mg 00 :00 bedtime as Medica l tablet needed for Branch Nausea and Vomiting (N/V). PNV 67-iron Yes [id number] 1{capsu Take 1 [facility] ps-folate 6-15 le} capsule by [facility] of no.1-dha 00:00: mouth [place] (VITAFOL 00 daily. Medical ULTRA) 29 Branch mg iron- 1 mg-200 mg Cap PNV 67-iron Yes [id number] 1{capsu Take 1 [facility] ps-folate 6-15 le} capsule by [facility]y of no.1-dha 00:00: mouth [place] (VITAFOL 00 daily. Medical ULTRA) 29 Branch mg iron- 1 mg-200 mg Cap PNV 67-iron Yes [id number] 1{capsu Take 1 [facility] ps-folate 6-15 le} capsule by [facility]y of no.1-dha 00:00: mouth [place] (VITAFOL 00 daily. Medical ULTRA) 29 Branch mg iron- 1 mg-200 mg Cap PNV 67-iron Yes [id number] 1{capsu Take 1 [facility] ps-folate 6-15 le} capsule by [facility] of no.1-dha 00:00: mouth [place] (VITAFOL 00 daily. Medical ULTRA) 29 Branch mg iron- 1 mg-200 mg Cap PNV 67-iron Yes [id number] 1{capsu Take 1 [facility] ps-folate 6-15 le} capsule by [facility] of no.1-dha 00:00: mouth [place] (VITAFOL 00 daily. Medical ULTRA) 29 Branch mg iron- 1 mg-200 mg Cap PNV 67-iron 2022-0 Yes [id number] 1{capsu Take 1 [facility] ps-folate 6-15 le} capsule by [facility] of no.1-dha 00:00: mouth [place] (VITAFOL 00 daily. Medical ULTRA) 29 Branch mg iron- 1 mg-200 mg Cap PNV 67-iron 2022-0 Yes [id number] 1{capsu Take 1 [facility] ps-folate 6-15 le} capsule by [facility] of no.1-dha 00:00: mouth [place] (VITAFOL 00 daily. Medical ULTRA) 29 Branch mg iron- 1 mg-200 mg Cap PNV 67-iron 2022-0 Yes [id number] 1{capsu Take 1 [facility] ps-folate 6-15 le} capsule by [facility] of no.1-dha 00:00: mouth [place] (VITAFOL 00 daily. Medical ULTRA) 29 Branch mg iron- 1 mg-200 mg Cap PNV 67-iron 2022-0 Yes [id number] 1{capsu Take 1 [facility] ps-folate 6-15 le} capsule by [facility] of no.1-dha 00:00: mouth [place] (VITAFOL 00 daily. Medical ULTRA) 29 Branch mg iron- 1 mg-200 mg Cap PNV 67-iron 2022-0 Yes [id number] 1{capsu Take 1 [facility] ps-folate 6-15 le} capsule by [facility]y of no.1-dha 00:00: mouth [place] (VITAFOL 00 daily. Medical ULTRA) 29 Branch mg iron- 1 mg-200 mg Cap PNV 67-iron 2022-0 Yes [id number] 1{capsu Take 1 [facility] ps-folate 6-15 le} capsule by [facility]y of no.1-dha 00:00: mouth [place] (VITAFOL 00 daily. Medical ULTRA) 29 Branch mg iron- 1 mg-200 mg Cap PNV 67-iron 2022-0 Yes [id number] 1{capsu Take 1 [facility] ps-folate 6-15 le} capsule by [facility]y of no.1-dha 00:00: mouth [place] (VITAFOL 00 daily. Medical ULTRA) 29 Branch mg iron- 1 mg-200 mg Cap PNV 67-iron 2022-0 Yes [id number] 1{capsu Take 1 [facility] ps-folate 6-15 le} capsule by [facility]y of no.1-dha 00:00: mouth [place] (VITAFOL 00 daily. Medical ULTRA) 29 Branch mg iron- 1 mg-200 mg Cap PNV 67-iron 2022-0 Yes [id number] 1{capsu Take 1 [facility] ps-folate 6-15 le} capsule by [facility]y of no.1-dha 00:00: mouth [place] (VITAFOL 00 daily. Medical ULTRA) 29 Branch mg iron- 1 mg-200 mg Cap PNV 67-iron 2022-0 Yes [id number] 1{capsu Take 1 [facility] ps-folate 6-15 le} capsule by [facility]y of no.1-dha 00:00: mouth [place] (VITAFOL 00 daily. Medical ULTRA) 29 Branch mg iron- 1 mg-200 mg Cap PNV 67-iron 2022-0 Yes [id number] 1{capsu Take 1 [facility] ps-folate 6-15 le} capsule by [facility] of no.1-dha 00:00: mouth [place] (VITAFOL 00 daily. Medical ULTRA) 29 Branch mg iron- 1 mg-200 mg Cap PNV 67-iron 2022-0 Yes [id number] 1{capsu Take 1 [facility] ps-folate 6-15 le} capsule by [facility]y of no.1-dha 00:00: mouth [place] (VITAFOL 00 daily. Medical ULTRA) 29 Branch mg iron- 1 mg-200 mg Cap PNV 67-iron 2022-0 Yes [id number] 1{capsu Take 1 [facility] ps-folate 6-15 le} capsule by [facility]y of no.1-dha 00:00: mouth [place] (VITAFOL 00 daily. Medical ULTRA) 29 Branch mg iron- 1 mg-200 mg Cap PNV 67-iron 2022-0 Yes [id number] 1{capsu Take 1 [facility] ps-folate 6-15 le} capsule by [facility]y of no.1-dha 00:00: mouth [place] (VITAFOL 00 daily. Medical ULTRA) 29 Branch mg iron- 1 mg-200 mg Cap PNV 67-iron 2022-0 Yes [id number] 1{capsu Take 1 [facility] ps-folate 6-15 le} capsule by [facility] of no.1-dha 00:00: mouth [place] (VITAFOL 00 daily. Medical ULTRA) 29 Branch mg iron- 1 mg-200 mg Cap PNV 67-iron 2022-0 Yes [id number] 1{capsu Take 1 [facility] ps-folate 6-15 le} capsule by [facility] of no.1-dha 00:00: mouth [place] (VITAFOL 00 daily. Medical ULTRA) 29 Branch mg iron- 1 mg-200 mg Cap PNV 67-iron 2022-0 Yes [id number] 1{capsu Take 1 [facility] ps-folate 6-15 le} capsule by [facility]y of no.1-dha 00:00: mouth [place] (VITAFOL 00 daily. Medical ULTRA) 29 Branch mg iron- 1 mg-200 mg Cap PNV 67-iron 2022-0 Yes [id number] 1{capsu Take 1 [facility] ps-folate 6-15 le} capsule by [facility] of no.1-dha 00:00: mouth [place] (VITAFOL 00 daily. Medical ULTRA) 29 Branch mg iron- 1 mg-200 mg Cap PNV 67-iron 2022-0 Yes [id number] 1{capsu Take 1 [facility] ps-folate 6-15 le} capsule by [facility]y of no.1-dha 00:00: mouth [place] (VITAFOL 00 daily. Medical ULTRA) 29 Branch mg iron- 1 mg-200 mg Cap PNV 67-iron 2022-0 Yes [id number] 1{capsu Take 1 [facility] ps-folate 6-15 le} capsule by [facility]y of no.1-dha 00:00: mouth [place] (VITAFOL 00 daily. Medical ULTRA) 29 Branch mg iron- 1 mg-200 mg Cap PNV 67-iron 2022-0 Yes [id number] 1{capsu Take 1 [facility] ps-folate 6-15 le} capsule by [facility]y of no.1-dha 00:00: mouth [place] (VITAFOL 00 daily. Medical ULTRA) 29 Branch mg iron- 1 mg-200 mg Cap PNV 67-iron 2022-0 Yes [id number] 1{capsu Take 1 [facility] ps-folate 6-15 le} capsule by [facility] of no.1-dha 00:00: mouth [place] (VITAFOL 00 daily. Medical ULTRA) 29 Branch mg iron- 1 mg-200 mg Cap PNV 67-iron 2022-0 Yes [id number] 1{capsu Take 1 [facility] ps-folate 6-15 le} capsule by [facility] of no.1-dha 00:00: mouth [place] (VITAFOL 00 daily. Medical ULTRA) 29 Branch mg iron- 1 mg-200 mg Cap PNV 67-iron 2022-0 Yes [id number] 1{capsu Take 1 [facility] ps-folate 6-15 le} capsule by [facility] of no.1-dha 00:00: mouth [place] (VITAFOL 00 daily. Medical ULTRA) 29 Branch mg iron- 1 mg-200 mg Cap PNV 67-iron 2022-0 Yes [id number] 1{capsu Take 1 [facility] ps-folate 6-15 le} capsule by [facility] of no.1-dha 00:00: mouth [place] (VITAFOL 00 daily. Medical ULTRA) 29 Branch mg iron- 1 mg-200 mg Cap PNV 67-iron 2022-0 Yes [id number] 1{capsu Take 1 [facility] ps-folate 6-15 le} capsule by [facility] of no.1-dha 00:00: mouth [place] (VITAFOL 00 daily. Medical ULTRA) 29 Branch mg iron- 1 mg-200 mg Cap PNV 67-iron 2022-0 Yes [id number] 1{capsu Take 1 [facility] ps-folate 6-15 le} capsule by [facility] of no.1-dha 00:00: mouth [place] (VITAFOL 00 daily. Medical ULTRA) 29 Branch mg iron- 1 mg-200 mg Cap PNV 67-iron 2022-0 Yes [id number] 1{capsu Take 1 [facility] ps-folate 6-15 le} capsule by [facility] of no.1-dha 00:00: mouth [place] (VITAFOL 00 daily. Medical ULTRA) 29 Branch mg iron- 1 mg-200 mg Cap PNV 67-iron 2022-0 Yes [id number] 1{capsu Take 1 [facility] ps-folate 6-15 le} capsule by [facility] of no.1-dha 00:00: mouth [place] (VITAFOL 00 daily. Medical ULTRA) 29 Branch mg iron- 1 mg-200 mg Cap PNV 67-iron 2022-0 Yes [id number] 1{capsu Take 1 [facility] ps-folate 6-15 le} capsule by [facility] of no.1-dha 00:00: mouth [place] (VITAFOL 00 daily. Medical ULTRA) 29 Branch mg iron- 1 mg-200 mg Cap PNV 67-iron 2022-0 Yes [id number] 1{capsu Take 1 [facility] ps-folate 6-15 le} capsule by [facility] of no.1-dha 00:00: mouth [place] (VITAFOL 00 daily. Medical ULTRA) 29 Branch mg iron- 1 mg-200 mg Cap PNV 67-iron 2022-0 Yes [id number] 1{capsu Take 1 [facility] ps-folate 6-15 le} capsule by [facility] of no.1-dha 00:00: mouth [place] (VITAFOL 00 daily. Medical ULTRA) 29 Branch mg iron- 1 mg-200 mg Cap PNV 67-iron 2022-0 Yes [id number] 1{capsu Take 1 [facility] ps-folate 6-15 le} capsule by [facility] of no.1-dha 00:00: mouth [place] (VITAFOL 00 daily. Medical ULTRA) 29 Branch mg iron- 1 mg-200 mg Cap PNV 67-iron 2022-0 Yes [id number] 1{capsu Take 1 [facility] ps-folate 6-15 le} capsule by [facility] of no.1-dha 00:00: mouth [place] (VITAFOL 00 daily. Medical ULTRA) 29 Branch mg iron- 1 mg-200 mg Cap PNV 67-iron 2022-0 Yes [id number] 1{capsu Take 1 [facility] ps-folate 6-15 le} capsule by [facility]y of no.1-dha 00:00: mouth [place] (VITAFOL 00 daily. Medical ULTRA) 29 Branch mg iron- 1 mg-200 mg Cap PNV 67-iron 2022-0 Yes [id number] 1{capsu Take 1 [facility] ps-folate 6-15 le} capsule by [facility] of no.1-dha 00:00: mouth [place] (VITAFOL 00 daily. Medical ULTRA) 29 Branch mg iron- 1 mg-200 mg Cap PNV 67-iron 2022-0 Yes [id number] 1{capsu Take 1 [facility] ps-folate 6-15 le} capsule by [facility] of no.1-dha 00:00: mouth [place] (VITAFOL 00 daily. Medical ULTRA) 29 Branch mg iron- 1 mg-200 mg Cap PNV 67-iron 2022-0 Yes [id number] 1{capsu Take 1 [facility] ps-folate 6-15 le} capsule by [facility] of no.1-dha 00:00: mouth [place] (VITAFOL 00 daily. Medical ULTRA) 29 Branch mg iron- 1 mg-200 mg Cap PNV 67-iron 2022-0 Yes [id number] 1{capsu Take 1 [facility] ps-folate 6-15 le} capsule by [facility] of no.1-dha 00:00: mouth [place] (VITAFOL 00 daily. Medical ULTRA) 29 Branch mg iron- 1 mg-200 mg Cap PNV 67-iron 2022-0 Yes [id number] 1{capsu Take 1 [facility] ps-folate 6-15 le} capsule by [facility] of no.1-dha 00:00: mouth [place] (VITAFOL 00 daily. Medical ULTRA) 29 Branch mg iron- 1 mg-200 mg Cap PNV 67-iron 2022-0 Yes [id number] 1{capsu Take 1 [facility] ps-folate 6-15 le} capsule by [facility] of no.1-dha 00:00: mouth [place] (VITAFOL 00 daily. Medical ULTRA) 29 Branch mg iron- 1 mg-200 mg Cap PNV 67-iron 2022-0 Yes [id number] 1{capsu Take 1 [facility] ps-folate 6-15 le} capsule by [facility] of no.1-dha 00:00: mouth [place] (VITAFOL 00 daily. Medical ULTRA) 29 Branch mg iron- 1 mg-200 mg Cap PNV 67-iron 2022-0 Yes [id number] 1{capsu Take 1 [facility] ps-folate 6-15 le} capsule by [facility] of no.1-dha 00:00: mouth [place] (VITAFOL 00 daily. Medical ULTRA) 29 Branch mg iron- 1 mg-200 mg Cap PNV 67-iron 2022-0 Yes [id number] 1{capsu Take 1 [facility] ps-folate 6-15 le} capsule by [facility] of no.1-dha 00:00: mouth [place] (VITAFOL 00 daily. Medical ULTRA) 29 Branch mg iron- 1 mg-200 mg Cap PNV 67-iron 2022-0 Yes [id number] 1{capsu Take 1 [facility] ps-folate 6-15 le} capsule by [facility] of no.1-dha 00:00: mouth [place] (VITAFOL 00 daily. Medical ULTRA) 29 Branch mg iron- 1 mg-200 mg Cap PNV 67-iron 2022-0 Yes [id number] 1{capsu Take 1 [facility] ps-folate 6-15 le} capsule by [facility] of no.1-dha 00:00: mouth [place] (VITAFOL 00 daily. Medical ULTRA) 29 Branch mg iron- 1 mg-200 mg Cap PNV 67-iron 2022-0 Yes [id number] 1{capsu Take 1 [facility] ps-folate 6-15 le} capsule by [facility] of no.1-dha 00:00: mouth [place] (VITAFOL 00 daily. Medical ULTRA) 29 Branch mg iron- 1 mg-200 mg Cap PNV 67-iron 2022-0 Yes [id number] 1{capsu Take 1 [facility] ps-folate 6-15 le} capsule by [facility] of no.1-dha 00:00: mouth [place] (VITAFOL 00 daily. Medical ULTRA) 29 Branch mg iron- 1 mg-200 mg Cap PNV 67-iron 2022-0 Yes [id number] 1{capsu Take 1 [facility] ps-folate 6-15 le} capsule by [facility] of no.1-dha 00:00: mouth [place] (VITAFOL 00 daily. Medical ULTRA) 29 Branch mg iron- 1 mg-200 mg Cap PNV 67-iron 2022-0 Yes [id number] 1{capsu Take 1 [facility] ps-folate 6-15 le} capsule by [facility] of no.1-dha 00:00: mouth [place] (VITAFOL 00 daily. Medical ULTRA) 29 Branch mg iron- 1 mg-200 mg Cap PNV 67-iron 2022-0 Yes [id number] 1{capsu Take 1 [facility] ps-folate 6-15 le} capsule by [facility] of no.1-dha 00:00: mouth [place] (VITAFOL 00 daily. Medical ULTRA) 29 Branch mg iron- 1 mg-200 mg Cap PNV 67-iron 2022-0 Yes [id number] 1{capsu Take 1 [facility] ps-folate 6-15 le} capsule by [facility] of no.1-dha 00:00: mouth [place] (VITAFOL 00 daily. Medical ULTRA) 29 Branch mg iron- 1 mg-200 mg Cap PNV 67-iron 2022-0 Yes [id number] 1{capsu Take 1 [facility] ps-folate 6-15 le} capsule by [facility] of no.1-dha 00:00: mouth [place] (VITAFOL 00 daily. Medical ULTRA) 29 Branch mg iron- 1 mg-200 mg Cap PNV 67-iron 2022-0 Yes [id number] 1{capsu Take 1 [facility] ps-folate 6-15 le} capsule by [facility] of no.1-dha 00:00: mouth [place] (VITAFOL 00 daily. Medical ULTRA) 29 Branch mg iron- 1 mg-200 mg Cap PNV 67-iron 2022-0 Yes [id number] 1{capsu Take 1 [facility] ps-folate 6-15 le} capsule by [facility] of no.1-dha 00:00: mouth [place] (VITAFOL 00 daily. Medical ULTRA) 29 Branch mg iron- 1 mg-200 mg Cap PNV 67-iron 2022-0 Yes [id number] 1{capsu Take 1 [facility] ps-folate 6-15 le} capsule by [facility] of no.1-dha 00:00: mouth [place] (VITAFOL 00 daily. Medical ULTRA) 29 Branch mg iron- 1 mg-200 mg Cap PNV 67-iron 2022-0 Yes [id number] 1{capsu Take 1 [facility] ps-folate 6-15 le} capsule by [facility] of no.1-dha 00:00: mouth [place] (VITAFOL 00 daily. Medical ULTRA) 29 Branch mg iron- 1 mg-200 mg Cap PNV 67-iron 2022-0 Yes [id number] 1{capsu Take 1 [facility] ps-folate 6-15 le} capsule by [facility] of no.1-dha 00:00: mouth [place] (VITAFOL 00 daily. Medical ULTRA) 29 Branch mg iron- 1 mg-200 mg Cap PNV 67-iron 2022-0 Yes [id number] 1{capsu Take 1 [facility] ps-folate 6-15 le} capsule by [facility] of no.1-dha 00:00: mouth [place] (VITAFOL 00 daily. Medical ULTRA) 29 Branch mg iron- 1 mg-200 mg Cap PNV 67-iron 2022-0 Yes [id number] 1{capsu Take 1 [facility] ps-folate 6-15 le} capsule by [facility] of no.1-dha 00:00: mouth [place] (VITAFOL 00 daily. Medical ULTRA) 29 Branch mg iron- 1 mg-200 mg Cap PNV 67-iron 2021-0 Yes [id number] 1{capsu Take 1 [facility] ps-folate 6-15 le} capsule by [facility] of no.1-dha 00:00: mouth [place] (VITAFOL 00 daily. Medical ULTRA) 29 Branch mg iron- 1 mg-200 mg Cap PNV 67-iron 2021-0 2023- No [id number] 1{capsu Take 1 [facility] ps-folate 6-15 02-08 le} capsule by [facility] of no.1-dha 00:00: 00:00 mouth [place] (VITAFOL 00 :00 daily. Medical ULTRA) 29 Branch mg iron- 1 mg-200 mg Cap ergocalcife 2019- Yes Take by [facility] vers rol, 0-27 mouth. ity of vitamin D2, 15:36: [place] (VITAMIN D 43 Medical ORAL) Branch ergocalcife 2019-05 Yes Take by Uni vers rol, 0-27 mouth. ity of vitamin D2, 15:36: [place] (VITAMIN D 43 Medical ORAL) Branch ergocalcife 2019- Yes Take by [facility] vers rol, 0-27 mouth. ity of vitamin D2, 15:36: [place] (VITAMIN D 43 Medical ORAL) Branch ergocalcife 2019- Yes Take by [facility], 0-27 mouth. ity of vitamin D2, 15:36: [place] (VITAMIN D 43 Medical ORAL) Branch ergocalcife 2019- Yes Take by [facility], 0-27 mouth. ity of vitamin D2, 15:36: [place] (VITAMIN D 43 Medical ORAL) Branch ergocalcife 2019- Yes Take by [facility], 0-27 mouth. ity of vitamin D2, 15:36: [place] (VITAMIN D 43 Medical ORAL) Branch ergocalcife 2019- Yes Take by [facility], 0-27 mouth. ity of vitamin D2, 15:36: [place] (VITAMIN D 43 Medical ORAL) Branch ergocalcife 2019- Yes Take by [facility], 0-27 mouth. ity of vitamin D2, 15:36: [place] (VITAMIN D 43 Medical ORAL) Branch ergocalcife 2019- Yes Take by [facility], 0-27 mouth. ity of vitamin D2, 15:36: [place] (VITAMIN D 43 Medical ORAL) Branch ergocalcife 2020- Yes Take by [facility], 0-27 mouth. ity of vitamin D2, 15:36: [place] (VITAMIN D 43 Medical ORAL) Branch ergocalcife 2020- Yes Take by [facility], 0-27 mouth. ity of vitamin D2, 15:36: [place] (VITAMIN D 43 Medical ORAL) Branch ergocalcife 2019- Yes Take by [facility], 0-27 mouth. ity of vitamin D2, 15:36: [place] (VITAMIN D 43 Medical ORAL) Branch ergocalcife 2019- Yes Take by [facility], 0-27 mouth. ity of vitamin D2, 15:36: [place] (VITAMIN D 43 Medical ORAL) Branch ergocalcife 2019- Yes Take by [facility], 0-27 mouth. ity of vitamin D2, 15:36: [place] (VITAMIN D 43 Medical ORAL) Branch ergocalcife 2019- Yes Take by [facility], 0-27 mouth. ity of vitamin D2, 15:36: [place] (VITAMIN D 43 Medical ORAL) Branch ergocalcife 2019- Yes Take by [facility], 0-27 mouth. ity of vitamin D2, 15:36: [place] (VITAMIN D 43 Medical ORAL) Branch ergocalcife 2019- Yes Take by [facility], 0-27 mouth. ity of vitamin D2, 15:36: [place] (VITAMIN D 43 Medical ORAL) Branch ergocalcife 2019- Yes Take by [facility], 0-27 mouth. ity of vitamin D2, 15:36: [place] (VITAMIN D 43 Medical ORAL) Branch ergocalcife 2020- Yes Take by [facility], 0-27 mouth. ity of vitamin D2, 15:36: [place] (VITAMIN D 43 Medical ORAL) Branch ergocalcife 2020- Yes Take by [facility], 0-27 mouth. ity of vitamin D2, 15:36: [place] (VITAMIN D 43 Medical ORAL) Branch ergocalcife 2020- Yes Take by [facility], 0-27 mouth. ity of vitamin D2, 15:36: [place] (VITAMIN D 43 Medical ORAL) Branch ergocalcife 2020- Yes Take by [facility], 0-27 mouth. ity of vitamin D2, 15:36: [place] (VITAMIN D 43 Medical ORAL) Branch ergocalcife 2019- Yes Take by [facility], 0-27 mouth. ity of vitamin D2, 15:36: [place] (VITAMIN D 43 Medical ORAL) Branch ergocalcife 2019- Yes Take by [facility], 0-27 mouth. ity of vitamin D2, 15:36: [place] (VITAMIN D 43 Medical ORAL) Branch ergocalcife 2019-05 Yes Take by [facility], 0-27 mouth. ity of vitamin D2, 15:36: [place] (VITAMIN D 43 Medical ORAL) Branch ergocalcife 2019-05 Yes Take by [facility], 0-27 mouth. ity of vitamin D2, 15:36: [place] (VITAMIN D 43 Medical ORAL) Branch ergocalcife 2019-05 Yes Take by [facility], 0-27 mouth. ity of vitamin D2, 15:36: [place] (VITAMIN D 43 Medical ORAL) [place] ergocalcife 2019-05 Yes Take by [facility], 0-27 mouth. ity of vitamin D2, 15:36: [place] (VITAMIN D 43 Medical ORAL) Branch ergocalcife 2019-05 Yes Take by [facility], 0-27 mouth. ity of vitamin D2, 15:36: [place] (VITAMIN D 43 Medical ORAL) Branch ergocalcife 2019-05 Yes Take by [facility], 0-27 mouth. ity of vitamin D2, 15:36: [place] (VITAMIN D 43 Medical ORAL) [place] ergocalcife 2019-05 Yes Take by [facility], 0-27 mouth. ity of vitamin D2, 15:36: [place] (VITAMIN D 43 Medical ORAL) Branch ergocalcife 2019-05 Yes Take by [facility], 0-27 mouth. ity of vitamin D2, 15:36: [place] (VITAMIN D 43 Medical ORAL) Branch ergocalcife 2019-05 Yes Take by [facility], 0-27 mouth. ity of vitamin D2, 15:36: [place] (VITAMIN D 43 Medical ORAL) Branch ergocalcife 2019-05 Yes Take by [facility], 0-27 mouth. ity of vitamin D2, 15:36: [place] (VITAMIN D 43 Medical ORAL) Branch methylPREDN 2020-0 Yes Take by [facility] 4 6-01 mouth ity of mg tablets 00:00: [place]INSTRU [place] 00 CTIONS. Medical follow Branch package directions methylPREDN 0 [facility]y [facility] 00:00: [place] 00 CTIONS. Medical follow Branch package directions methylPREDN 2020-0 Yes Take by [facility] 4 6- mouth ity of mg tablets 00:00: [place] 00 CTIONS. Medical follow Branch package directions methylPREDN 2020-0 Yes Take by [place] [id number] 6- mouth ity of mg tablets 00:00: [place]INSTRU [place] 00 CTIONS. Medical follow Branch package directions methylPREDN 2020-0 Yes Take by [place] [id number] 6- mouth ity of mg tablets 00:00: [place]INSTRU [place] 00 CTIONS. Medical follow Branch package directions methylPREDN 2020-0 Yes Take by [place] [address] 6- mouth ity of mg tablets 00:00: SEE-INSTRU [place] 00 CTIONS. Medical follow Branch package directions methylPREDN 2020-0 Yes Take by [place] [address] 6- mouth ity of mg tablets 00:00: SEE-INSTRU [place] 00 CTIONS. Medical follow Branch package directions methylPREDN 2020-0 Yes Take by [place] [address] 6- mouth ity of mg tablets 00:00: SEE-INSTRU [place] 00 CTIONS. Medical follow Branch package directions methylPREDN 2020-0 Yes Take by [place] [address] 6- mouth ity of mg tablets 00:00: SEE-INSTRU [place] 00 CTIONS. Medical follow Branch package directions methylPREDN 2020-0 Yes Take by [place] [address] 6- mouth ity of mg tablets 00:00: SEE-INSTRU [place] 00 CTIONS. Medical follow Branch package directions methylPREDN 2020-0 Yes Take by [place] [address] 6-01 mouth ity of mg tablets 00:00: SEE-INSTRU [place] 00 CTIONS. Medical follow Branch package directions methylPREDN 2020-0 Yes Take by [place] [address] 6-01 mouth ity of mg tablets 00:00: SEE-INSTRU [place] 00 CTIONS. Medical follow Branch package directions methylPREDN 2020-0 Yes Take by [place] [address] 6- mouth ity of mg tablets 00:00: SEE-INSTRU [place] 00 CTIONS. Medical follow Branch package directions methylPREDN 2020-0 Yes Take by [place] [address] 6- mouth ity of mg tablets 00:00: SEE-INSTRU [place] 00 CTIONS. Medical follow Branch package directions methylPREDN 2020-0 Yes Take by [place] [address] 6- mouth ity of mg tablets 00:00: SEE-INSTRU [place] 00 CTIONS. Medical follow Branch package directions methylPREDN 2020-0 Yes Take by [place] [address] 6 mouth ity of mg tablets 00:00: SEE-INSTRU [place] 00 CTIONS. Medical follow Branch package directions methylPREDN 2020-0 Yes Take by [place] [address] 6- mouth ity of mg tablets 00:00: SEE-INSTRU [place] 00 CTIONS. Medical follow Branch package directions methylPREDN 2020-0 Yes Take by [place] [address] 6 mouth ity of mg tablets 00:00: SEE-INSTRU [place] 00 CTIONS. Medical follow Branch package directions methylPREDN 2020-0 Yes Take by [place] [address] 6 mouth ity of mg tablets 00:00: SEE-INSTRU [place] 00 CTIONS. Medical follow Branch package directions methylPREDN 2020-0 Yes Take by [place] [address] 6- mouth ity of mg tablets 00:00: SEE-INSTRU [place] 00 CTIONS. Medical follow Branch package directions methylPREDN 2020-0 Yes Take by [place] [address] 6- mouth ity of mg tablets 00:00: SEE-INSTRU [place] 00 CTIONS. Medical follow Branch package directions methylPREDN 2020-0 Yes Take by [place] [address] 6- mouth ity of mg tablets 00:00: SEE-INSTRU [place] 00 CTIONS. Medical follow Branch package directions methylPREDN 2020-0 Yes Take by [place] [address] 6- mouth ity of mg tablets 00:00: SEE-INSTRU [place] 00 CTIONS. Medical follow Branch package directions methylPREDN 2020-0 Yes Take by [place] [address] 6 mouth ity of mg tablets 00:00: SEE-INSTRU [place] 00 CTIONS. Medical follow Branch package directions methylPREDN 2020-0 Yes Take by [place] [address] 6 mouth ity of mg tablets 00:00: SEE-INSTRU [place] 00 CTIONS. Medical follow Branch package directions methylPREDN 2020-0 Yes Take by [place] [address] 6 mouth ity of mg tablets 00:00: SEE-INSTRU [place] 00 CTIONS. Medical follow Branch package directions methylPREDN 2020-0 Yes Take by [place] [address] 6 mouth ity of mg tablets 00:00: SEE-INSTRU [place] 00 CTIONS. Medical follow Branch package directions methylPREDN 2020-0 Yes Take by [place] [address] 6 mouth ity of mg tablets 00:00: SEE-INSTRU [place] 00 CTIONS. Medical follow Branch package directions methylPREDN 2020-0 Yes Take by [place] [address] 6 mouth ity of mg tablets 00:00: SEE-INSTRU [place] 00 CTIONS. Medical follow Branch package directions methylPREDN 2020-0 Yes Take by [place] [address] 6 mouth ity of mg tablets 00:00: SEE-INSTRU [place] 00 CTIONS. Medical follow Branch package directions methylPREDN 2020-0 Yes Take by [place] [id number] mouth ity of mg tablets 00:00: SEE-INSTRU [place] 00 CTIONS. Medical follow Branch package directions methylPREDN 2020-0 Yes Take by [place] [address] 6 mouth ity of mg tablets 00:00: SEE-INSTRU [place] 00 CTIONS. Medical follow Branch package directions methylPREDN 2020-0 Yes Take by [place] [address] 6 mouth ity of mg tablets 00:00: SEE-INSTRU [place] 00 CTIONS. Medical follow Branch package directions methylPREDN 2020-0 Yes Take by [place] [address] 6- mouth ity of mg tablets 00:00: SEE-INSTRU [place] 00 CTIONS. Medical follow Branch package directions methylPREDN 2020-0 2022- No Take by [place] [id number] 11-18 mouth ity of mg tablets 00:00: 00:00 SEE-INSTRU [place] 00 :00 CTIONS. Medical follow Branch package directions Immunizations Ordered Filled Immunization Date Status Comments Sour e Immunization Name Name [facility] 2022-04-27 Completed University [facility] 00:00:00 [facility] 2022-04-27 Completed University of 00:00:00 [facility] 2022-04-27 Completed University of 00:00:00 [facility] 2022-04-27 Completed University of 00:00:00 [facility] 2022-04-27 Completed University of 00:00:00 [facility] 2022-04-27 Completed University of 00:00:00 [facility] 2022-04-27 Completed University of 00:00:00 [facility] 2022-04-27 Completed University of 00:00:00 [facility] 2022-04-27 Completed University of 00:00:00 [facility] TD 2022-04-27 Completed University of 00:00:00 [facility] 2022-04-27 Completed University of 00:00:00 [facility] TD 2022-04-27 Completed University of 00:00:00 [facility] 2022-04-27 Completed University of 00:00:00 [facility] TD 2022-04-27 Completed University of 00:00:00 [facility] TD 2022-04-27 Completed University of 00:00:00 [facility] 2022-04-27 Completed University of 00:00:00 [facility] TD 2022-04-27 Completed University of 00:00:00 [facility] TD 2022-04-27 Completed University of 00:00:00 [facility] TD 2022-04-27 Completed University of 00:00:00 [facility] 2022-04-27 Completed University of 00:00:00 [facility] 2022-04-27 Completed University of 00:00:00 [facility] TDAP 2022-04-27 Completed University of 00:00:00 [facility] 2022-04-27 Completed University of 00:00:00 [facility] TD 2022-04-27 Completed University of 00:00:00 [facility] TDAP 2022-04-27 Completed University of 00:00:00 [facility] TDAP 2022-04-27 Completed University of 00:00:00 [place] [facility] TDAP 2022-04-27 Completed University of 00:00:00 [facility] Influenza Virus 2020-03-08 Completed Universit y of Vaccine Quad .5 mL 00:00:00 [place] [facility] MO [facility] Influenza Virus 2020-03-08 Completed Universit y of Vaccine [facility] .5 mL 00:00:00 [place] [facility] IM 6+ MO Branch Influenza Virus 2020-03-08 Completed Universit y of Vaccine [facility] .5 mL 00:00:00 [place] [facility] IM 6+ MO Branch Influenza Virus 2020-03-08 Completed Universit y of Vaccine [facility] .5 mL 00:00:00 [place] [facility] IM 6+ MO Branch Influenza Virus 2020-03-08 Completed Universit y of Vaccine Quad .5 mL 00:00:00 [place] [facility] IM 6+ MO Branch Influenza Virus 2020-03-08 Completed Universit y of Vaccine Quad .5 mL 00:00:00 [place] [facility] IM 6+ MO Branch Influenza Virus 2020-03-08 Completed Universit y of Vaccine Quad .5 mL 00:00:00 [place] [facility] IM 6+ MO Branch Influenza Virus 2020-03-08 Completed Universit y of Vaccine Quad .5 mL 00:00:00 [place] [facility] IM 6+ MO Branch Influenza Virus 2020-03-08 Completed Universit y of Vaccine Quad .5 mL 00:00:00 [place] [facility] IM 6+ MO Branch Influenza Virus 2020-03-08 Completed Universit y of Vaccine Quad .5 mL 00:00:00 [place] [facility] IM 6+ MO Branch Influenza Virus 2020-03-08 Completed Universit y of Vaccine Quad .5 mL 00:00:00 [place] [facility] IM 6+ MO Branch Influenza Virus 2020-03-08 Completed Universit y of Vaccine Quad .5 mL 00:00:00 [place] [facility] IM 6+ MO Branch Influenza Virus 2020-03-08 Completed Universit y of Vaccine Quad .5 mL 00:00:00 [place] [facility] IM 6+ MO Branch Influenza Virus 2020-03-08 Completed Universit y of Vaccine Quad .5 mL 00:00:00 [place] [facility] IM 6+ MO Branch Influenza Virus 2020-03-08 Completed Universit y of Vaccine Quad .5 mL 00:00:00 [place] [facility] IM 6+ MO Branch Influenza Virus 2020-03-08 Completed Universit y of Vaccine Quad .5 mL 00:00:00 [place] [facility] IM 6+ MO Branch Influenza Virus 2020-03-08 Completed Universit y of Vaccine Quad .5 mL 00:00:00 [place] [facility] IM 6+ MO Branch Influenza Virus 2020-03-08 Completed Universit y of Vaccine Quad .5 mL 00:00:00 [place] [facility] IM 6+ MO Branch Influenza Virus 2020-03-08 Completed Universit y of Vaccine Quad .5 mL 00:00:00 [place] [facility] IM 6+ MO Branch Influenza Virus 2020-03-08 Completed Universit y of Vaccine Quad .5 mL 00:00:00 [place] [facility] IM 6+ MO Branch Influenza Virus 2020-03-08 Completed Universit y of Vaccine Quad .5 mL 00:00:00 [place] [facility] IM 6+ MO Branch Influenza Virus 2020-03-08 Completed Universit y of Vaccine Quad .5 mL 00:00:00 [place] [facility] IM 6+ MO Branch Influenza Virus 2020-03-08 Completed Universit y of Vaccine Quad .5 mL 00:00:00 [place] [facility] IM 6+ MO Branch Influenza Virus 2020-03-08 Completed Universit y of Vaccine Quad .5 mL 00:00:00 [place] [facility] IM 6+ MO Branch Influenza Virus 2020-03-08 Completed Universit y of Vaccine Quad .5 mL 00:00:00 [place] [facility] IM 6+ MO Branch Influenza Virus 2020-03-08 Completed Universit y of Vaccine Quad .5 mL 00:00:00 [place] [facility] IM 6+ MO Branch Influenza Virus 2020-03-08 Completed Universit y of Vaccine Quad .5 mL 00:00:00 [place] [facility] IM 6+ MO Branch Influenza Virus 2020-03-08 Completed Universit y of Vaccine Quad .5 mL 00:00:00 [place] [facility] IM 6+ MO Branch Influenza Virus 2020-03-08 Completed Universit y of Vaccine Quad .5 mL 00:00:00 [place] [facility] IM 6+ MO Branch Influenza Virus 2020-03-08 Completed Universit y of Vaccine Quad .5 mL 00:00:00 [place] [facility] IM 6+ MO Branch Influenza Virus 2020-03-08 Completed Universit y of Vaccine Quad .5 mL 00:00:00 [place] [facility] IM 6+ MO Branch Influenza Virus 2020-03-08 Completed Universit y of Vaccine Quad .5 mL 00:00:00 [place] [facility] IM 6+ MO Branch Influenza Virus 2020-03-08 Completed Universit y of Vaccine Quad .5 mL 00:00:00 [place] [facility] IM 6+ MO Branch Influenza Virus 2020-03-08 Completed Universit y of Vaccine Quad .5 mL 00:00:00 [place] [facility] IM 6+ MO Branch Influenza Virus 2020-03-08 Completed Universit y of Vaccine Quad .5 mL 00:00:00 [place] [facility] IM 6+ MO Branch Influenza Virus 2020-03-08 Completed Universit y of Vaccine Quad .5 mL 00:00:00 [place] [facility] IM 6+ MO Branch Influenza Virus 2020-03-08 Completed Universit y of Vaccine Quad .5 mL 00:00:00 [place] [facility] IM 6+ MO Branch Influenza Virus 2020-03-08 Completed Universit y of Vaccine Quad .5 mL 00:00:00 [place] [facility] IM 6+ MO Branch Influenza Virus 2020-03-08 Completed Universit y of Vaccine Quad .5 mL 00:00:00 [place] [facility] IM 6+ MO Branch Influenza Virus 2020-03-08 Completed Universit y of Vaccine Quad .5 mL 00:00:00 [place] [facility] IM 6+ MO Branch Influenza Virus 2020-03-08 Completed Universit y of Vaccine Quad .5 mL 00:00:00 [place] [facility] IM 6+ MO Branch Influenza Virus 2020-03-08 Completed Universit y of Vaccine Quad .5 mL 00:00:00 [place] [facility] IM 6+ MO Branch Influenza Virus 2020-03-08 Completed Universit y of Vaccine Quad .5 mL 00:00:00 [place] [facility] IM 6+ MO Branch Influenza Virus 2020-03-08 Completed Universit y of Vaccine Quad .5 mL 00:00:00 [place] [facility] IM 6+ MO Branch Influenza Virus 2020-03-08 Completed Universit y of Vaccine Quad .5 mL 00:00:00 [place] [facility] IM 6+ MO Branch Influenza Virus 2020-03-08 Completed Universit y of Vaccine Quad .5 mL 00:00:00 [place] [facility] IM 6+ MO Branch Influenza Virus 2020-03-08 Completed Universit y of Vaccine Quad .5 mL 00:00:00 [place] [facility] IM 6+ MO Branch Influenza Virus 2020-03-08 Completed Universit y of Vaccine Quad .5 mL 00:00:00 [place] [facility] IM 6+ MO Branch Influenza Virus 2020-03-08 Completed Universit y of Vaccine Quad .5 mL 00:00:00 [place] [facility] IM 6+ MO Branch Influenza Virus 2020-03-08 Completed Universit y of Vaccine Quad .5 mL 00:00:00 [place] [facility] IM 6+ MO Branch Influenza Virus 2020-03-08 Completed Universit y of Vaccine Quad .5 mL 00:00:00 [place] [facility] IM 6+ MO Branch Influenza Virus 2020-03-08 Completed Universit y of Vaccine Quad .5 mL 00:00:00 [place] [facility] IM 6+ MO Branch Influenza Virus 2020-03-08 Completed Universit y of Vaccine Quad .5 mL 00:00:00 [place] [facility] IM 6+ MO Branch Influenza Virus 2020-03-08 Completed Universit y of Vaccine Quad .5 mL 00:00:00 [place] [facility] IM 6+ MO Branch Influenza Virus 2020-03-08 Completed Universit y of Vaccine Quad .5 mL 00:00:00 [place] [facility] IM 6+ MO Branch Influenza Virus 2020-03-08 Completed Universit y of Vaccine Quad .5 mL 00:00:00 [place] [facility] IM 6+ MO Branch Influenza Virus 2020-03-08 Completed Universit y of Vaccine Quad .5 mL 00:00:00 [place] [facility] IM 6+ MO Branch Influenza Virus 2020-03-08 Completed Universit y of Vaccine Quad .5 mL 00:00:00 [place] [facility] IM 6+ MO Branch Influenza Virus 2020-03-08 Completed Universit y of Vaccine Quad .5 mL 00:00:00 [place] [facility] IM 6+ MO Branch Influenza Virus 2020-03-08 Completed Universit y of Vaccine Quad .5 mL 00:00:00 [place] [facility] IM 6+ MO Branch Influenza Virus 2020-03-08 Completed Universit y of Vaccine Quad .5 mL 00:00:00 [place] [facility] IM 6+ MO Branch Influenza Virus 2020-03-08 Completed Universit y of Vaccine Quad .5 mL 00:00:00 [place] [facility] IM 6+ MO Branch Influenza Virus 2020-03-08 Completed Universit y of Vaccine Quad .5 mL 00:00:00 [place] [facility] IM 6+ MO Branch Influenza Virus 2020-03-08 Completed Universit y of Vaccine Quad .5 mL 00:00:00 [place] [facility] IM 6+ MO Branch Influenza Virus 2020-03-08 Completed Universit y of Vaccine Quad .5 mL 00:00:00 [place] [facility] IM 6+ MO Branch Influenza Virus 2020-03-08 Completed Universit y of Vaccine Quad .5 mL 00:00:00 [place] [facility] IM 6+ MO Branch Influenza Virus 2020-03-08 Completed Universit y of Vaccine Quad .5 mL 00:00:00 [place] [facility] IM 6+ MO Branch Influenza Virus 2020-03-08 Completed Universit y of Vaccine Quad .5 mL 00:00:00 [place] [facility] IM 6+ MO Branch Influenza Virus 2020-03-08 Completed Universit y of Vaccine Quad .5 mL 00:00:00 [place] [facility] IM 6+ MO Branch Influenza Virus 2020-03-08 Completed Universit y of Vaccine Quad .5 mL 00:00:00 [place] [facility] IM 6+ MO Branch Influenza Virus 2020-03-08 Completed Universit y of Vaccine Quad .5 mL 00:00:00 [place] [facility] IM 6+ MO Branch Influenza Virus 2020-03-08 Completed Universit y of Vaccine Quad .5 mL 00:00:00 [place] [facility] MMR 2019-07-22 Completed University of 00:00:00 [place] [facility] MMR 2019-07-22 Completed University of 00:00:00 [place] [facility] MMR 2019-07-22 Completed University of 00:00:00 [place] [facility] MMR 2019-07-22 Completed University of 00:00:00 [place] [facility] MMR 2019-07-22 Completed University of 00:00:00 [place] [facility] MMR 2019-07-22 Completed University of 00:00:00 [place] [facility] MMR 2019-07-22 Completed University of 00:00:00 [place] [facility] MMR 2019-07-22 Completed University of 00:00:00 [place] [facility] MMR 2019-07-22 Completed University of 00:00:00 [place] [facility] MMR 2019-07-22 Completed University of 00:00:00 [place] [facility] MMR 2019-07-22 Completed University of 00:00:00 [place] [facility] MMR 2019-07-22 Completed University of 00:00:00 [place] [facility] MMR 2019-07-22 Completed University of 00:00:00 [place] [facility] MMR 2019-07-22 Completed University of 00:00:00 [place] [facility] MMR 2019-07-22 Completed University of 00:00:00 [place] [facility] MMR 2019-07-22 Completed University of 00:00:00 [place] [facility] MMR 2019-07-22 Completed University of 00:00:00 [place] [facility] MMR 2019-07-22 Completed University of 00:00:00 [place] [facility] MMR 2019-07-22 Completed University of 00:00:00 [place] [facility] MMR 2019-07-22 Completed University of 00:00:00 [place] [facility] MMR 2019-07-22 Completed University of 00:00:00 [place] [facility] MMR 2019-07-22 Completed University of 00:00:00 [place] [facility] MMR 2019-07-22 Completed University of 00:00:00 [place] [facility] MMR 2019-07-22 Completed University of 00:00:00 [place] [facility] MMR 2019-07-22 Completed University of 00:00:00 [place] [facility] MMR 2019-07-22 Completed University of 00:00:00 [place] [facility] MMR 2019-07-22 Completed University of 00:00:00 [place] [facility] MMR 2019-07-22 Completed University of 00:00:00 [place] [facility] MMR 2019-07-22 Completed University of 00:00:00 [place] [facility] MMR 2019-07-22 Completed University of 00:00:00 [place] [facility] MMR 2019-07-22 Completed University of 00:00:00 [place] [facility] MMR 2019-07-22 Completed University of 00:00:00 [place] [facility] MMR 2019-07-22 Completed University of 00:00:00 [place] [facility] MMR 2019-07-22 Completed University of 00:00:00 [place] [facility] MMR 2019-07-22 Completed University of 00:00:00 [place] [facility] MMR 2019-07-22 Completed University of 00:00:00 [place] [facility] MMR 2019-07-22 Completed University of 00:00:00 [place] [facility] MMR 2019-07-22 Completed University of 00:00:00 [place] [facility] MMR 2019-07-22 Completed University of 00:00:00 [place] [facility] MMR 2019-07-22 Completed University of 00:00:00 [place] [facility] MMR 2019-07-22 Completed University of 00:00:00 [place] [facility] MMR 2019-07-22 Completed University of 00:00:00 [place] [facility] MMR 2019-07-22 Completed University of 00:00:00 [place] [facility] MMR 2019-07-22 Completed University of 00:00:00 [place] [facility] MMR 2019-07-22 Completed University of 00:00:00 [place] [facility] MMR 2019-07-22 Completed University of 00:00:00 [place] [facility] MMR 2019-07-22 Completed University of 00:00:00 [place] [facility] MMR 2019-07-22 Completed University of 00:00:00 [place] [facility] MMR 2019-07-22 Completed University of 00:00:00 [place] [facility] MMR 2019-07-22 Completed University of 00:00:00 [place] [facility] MMR 2019-07-22 Completed University of 00:00:00 [place] [facility] MMR 2019-07-22 Completed University of 00:00:00 [place] [facility] MMR 2019-07-22 Completed University of 00:00:00 [place] [facility] MMR 2019-07-22 Completed University of 00:00:00 [place] [facility] MMR 2019-07-22 Completed University of 00:00:00 [place] [facility] MMR 2019-07-22 Completed University of 00:00:00 [place] [facility] MMR 2019-07-22 Completed University of 00:00:00 [place] [facility] MMR 2019-07-22 Completed University of 00:00:00 [place] [facility] MMR 2019-07-22 Completed University of 00:00:00 [place] [facility] MMR 2019-07-22 Completed University of 00:00:00 [place] [facility] MMR 2019-07-22 Completed University of 00:00:00 [place] [facility] MMR 2019-07-22 Completed [facility] 00:00:00 [place] [facility] MMR 2019-07-22 Completed [facility] 00:00:00 [facility] MMR 2019-07-22 Completed [facility] 00:00:00 [facility] MMR 2019-07-22 Completed [facility] 00:00:00 [facility] MMR 2019-07-22 Completed [facility] 00:00:00 [facility] MMR 2019-07-22 Completed [facility] 00:00:00 [facility] MMR 2019-07-22 Completed [facility] 00:00:00 [facility] MMR 2019-07-22 Completed [facility] 00:00:00 [facility] MMR 2019-07-22 Completed [facility] 00:00:00 [facility] MMR 2019-07-22 Completed [facility] 00:00:00 [facility] MMR 2019-07-22 Completed [facility] 00:00:00 [facility] TDAP (ADACEL) 2019-05-25 Completed University of VACCINE 00:00:00 [facility] TDAP (ADACEL) 2019-05-25 Completed [facility] of VACCINE 00:00:00 [facility] TDAP (ADACEL) 2019-05-25 Completed [facility] of VACCINE 00:00:00 [facility] TDAP (ADACEL) 2019-05-25 Completed [facility] of VACCINE 00:00:00 [facility] TDAP (ADACEL) 2019-05-25 Completed [facility] of VACCINE 00:00:00 [facility] TDAP (ADACEL) 2019-05-25 Completed [facility] VACCINE 00:00:00 [facility] TDAP (ADACEL) 2019-05-25 Completed [facility] VACCINE 00:00:00 [facility] TDAP (ADACEL) 2019-05-25 Completed [facility] VACCINE 00:00:00 [facility] TDAP (ADACEL) 2019-05-25 Completed [facility] VACCINE 00:00:00 [facility] TDAP (ADACEL) 2019-05-25 Completed [facility] VACCINE 00:00:00 [facility] TDAP (ADACEL) 2019-05-25 Completed [facility] VACCINE 00:00:00 [facility] TDAP (ADACEL) 2019-05-25 Completed [facility] VACCINE 00:00:00 [facility] TDAP (ADACEL) 2019-05-25 Completed [facility] VACCINE 00:00:00 [facility] TDAP (ADACEL) 2019-05-25 Completed [facility] VACCINE 00:00:00 [facility] TDAP (ADACEL) 2019-05-25 Completed [facility] VACCINE 00:00:00 [facility] TDAP (ADACEL) 2019-05-25 Completed [facility] VACCINE 00:00:00 [facility] TDAP (ADACEL) 2019-05-25 Completed [facility] VACCINE 00:00:00 [facility] TDAP (ADACEL) 2019-05-25 Completed [facility] VACCINE 00:00:00 [facility] TDAP (ADACEL) 2019-05-25 Completed [facility] VACCINE 00:00:00 [facility] TDAP (ADACEL) 2019-05-25 Completed [facility] VACCINE 00:00:00 [facility] TDAP (ADACEL) 2019-05-25 Completed [facility] VACCINE 00:00:00 [facility] TDAP (ADACEL) 2019-05-25 Completed [facility] VACCINE 00:00:00 [facility] TDAP (ADACEL) 2019-05-25 Completed [facility] VACCINE 00:00:00 [facility] TDAP (ADACEL) 2019-05-25 Completed [facility] VACCINE 00:00:00 [facility] TDAP (ADACEL) 2019-05-25 Completed [facility] VACCINE 00:00:00 [facility] TDAP (ADACEL) 2019-05-25 Completed [facility] VACCINE 00:00:00 [facility] TDAP (ADACEL) 2019-05-25 Completed [facility] VACCINE 00:00:00 [facility] TDAP (ADACEL) 2019-05-25 Completed [facility] VACCINE 00:00:00 [facility] TDAP (ADACEL) 2019-05-25 Completed [facility] VACCINE 00:00:00 [facility] TDAP (ADACEL) 2019-05-25 Completed [facility] VACCINE 00:00:00 [facility] TDAP (ADACEL) 2019-05-25 Completed [facility] VACCINE 00:00:00 [facility] TDAP (ADACEL) 2019-05-25 Completed [facility] VACCINE 00:00:00 [facility] TDAP (ADACEL) 2019-05-25 Completed [facility] VACCINE 00:00:00 [facility] TDAP (ADACEL) 2019-05-25 Completed [facility] VACCINE 00:00:00 [facility] TDAP (ADACEL) 2019-05-25 Completed [facility] of VACCINE 00:00:00 [facility] TDAP (ADACEL) 2019-05-25 Completed [facility] of VACCINE 00:00:00 [facility] TDAP (ADACEL) 2019-05-25 Completed [facility] of VACCINE 00:00:00 [facility] TDAP (ADACEL) 2019-05-25 Completed [facility] VACCINE 00:00:00 [facility] TDAP (ADACEL) 2019-05-25 Completed [facility] of VACCINE 00:00:00 [facility] TDAP (ADACEL) 2019-05-25 Completed [facility] of VACCINE 00:00:00 [facility] TDAP (ADACEL) 2019-05-25 Completed [facility] of VACCINE 00:00:00 [facility] TDAP (ADACEL) 2019-05-25 Completed [facility] of VACCINE 00:00:00 [facility] TDAP (ADACEL) 2019-05-25 Completed [facility] of VACCINE 00:00:00 [facility] TDAP (ADACEL) 2019-05-25 Completed [facility] of VACCINE 00:00:00 [facility] TDAP (ADACEL) 2019-05-25 Completed [facility] VACCINE 00:00:00 [facility] TDAP (ADACEL) 2019-05-25 Completed [facility] VACCINE 00:00:00 [facility] TDAP (ADACEL) 2019-05-25 Completed [facility] of VACCINE 00:00:00 [facility] TDAP (ADACEL) 2019-05-25 Completed [facility] of VACCINE 00:00:00 [facility] TDAP (ADACEL) 2019-05-25 Completed [facility] of VACCINE 00:00:00 [facility] TDAP (ADACEL) 2019-05-25 Completed [facility] of VACCINE 00:00:00 [facility] TDAP (ADACEL) 2019-05-25 Completed [facility] VACCINE 00:00:00 [facility] TDAP (ADACEL) 2019-05-25 Completed [facility] of VACCINE 00:00:00 [facility] TDAP (ADACEL) 2019-05-25 Completed [facility] of VACCINE 00:00:00 [facility] TDAP (ADACEL) 2019-05-25 Completed [facility] of VACCINE 00:00:00 [facility] TDAP (ADACEL) 2019-05-25 Completed [facility] of VACCINE 00:00:00 [facility] TDAP (ADACEL) 2019-05-25 Completed [facility] of VACCINE 00:00:00 [facility] TDAP (ADACEL) 2019-05-25 Completed [facility] of VACCINE 00:00:00 [facility] TDAP (ADACEL) 2019-05-25 Completed [facility] of VACCINE 00:00:00 [facility] TDAP (ADACEL) 2019-05-25 Completed [facility] of VACCINE 00:00:00 [facility] TDAP (ADACEL) 2019-05-25 Completed [facility] of VACCINE 00:00:00 [facility] TDAP (ADACEL) 2019-05-25 Completed [facility] of VACCINE 00:00:00 [facility] TDAP (ADACEL) 2019-05-25 Completed [facility] of VACCINE 00:00:00 [facility] TDAP (ADACEL) 2019-05-25 Completed [facility] of VACCINE 00:00:00 [facility] TDAP (ADACEL) 2019-05-25 Completed [facility] of VACCINE 00:00:00 [facility] TDAP (ADACEL) 2019-05-25 Completed [facility] of VACCINE 00:00:00 [facility] TDAP (ADACEL) 2019-05-25 Completed [facility] of VACCINE 00:00:00 [facility] TDAP (ADACEL) 2019-05-25 Completed [facility] of VACCINE 00:00:00 [facility] TDAP (ADACEL) 2019-05-25 Completed [facility] of VACCINE 00:00:00 [facility] TDAP (ADACEL) 2019-05-25 Completed [facility] of VACCINE 00:00:00 [facility] TDAP (ADACEL) 2019-05-25 Completed [facility] of VACCINE 00:00:00 [facility] TDAP (ADACEL) 2019-05-25 Completed [facility] of VACCINE 00:00:00 [facility] TDAP (ADACEL) 2019-05-25 Completed University VACCINE 00:00:00 [facility] Vital Signs Vital Name Observation Time Observation Value Comments Source Systolic blood 2022-08-16 14:01:00 119 mm[Hg] Univer sity of pressure [facility] Diastolic blood 2022-08-16 14:01:00 82 mm[Hg] Unive rsity of pressure [facility] Heart rate 2022-08-16 14:01:00 79 /min [facility]i [facility] of [facility] Body temperature 2022-08-16 14:01:00 36.67 Belia [facility] ers[facility] of [facility] Respiratory rate 2022-08-16 14:01:00 18 /min Univ ersity of [facility] Body height 2022-08-16 14:01:00 154.9 cm [facility] Body weight 2022-08-16 14:01:00 98.431 kg [facility]i ty of [facility] BMI 2022-08-16 14:01:00 41.00 kg/m2 Universi ty of [facility] Systolic blood 2022-07-18 17:05:00 112 mm[Hg] Univer sity of pressure [facility] Diastolic blood 2022-07-18 17:05:00 74 mm[Hg] Unive rsity of pressure [facility] Heart rate 2022-07-18 17:05:00 78 /min [facility] Body temperature 2022-07-18 17:05:00 36.67 Belia Univ ers[facility] of [facility] Body height 2022-07-18 17:05:00 154.9 cm [facility] Body weight 2022-07-18 17:05:00 97.796 kg [facility] BMI 2022-07-18 17:05:00 40.74 kg/m2 [facility]i ty of [facility] Systolic blood 2022-06-20 18:30:00 127 mm[Hg] Univer sity of pressure [facility] Diastolic blood 2022-06-20 18:30:00 75 mm[Hg] Unive rsity of pressure [facility] Heart rate 2022-06-20 18:30:00 65 /min Universi ty of [facility] Body temperature 2022-06-20 18:30:00 36.44 Belia [facility] Respiratory rate 2022-06-20 18:30:00 16 /min Univ ersity of [facility] Oxygen saturation in 2022-06-20 18:30:00 100 /min University of Arterial blood by [facility] Pulse oximetry Branch Body height 2022-06-19 10:25:00 154.9 cm [facility] Body weight 2022-06-19 10:25:00 103.42 kg [facility]i [facility] BMI 2022-06-19 10:25:00 43.08 kg/m2 [facility] Systolic blood 2022-06-18 16:30:00 103 mm[Hg] Univer sity of pressure [facility] Diastolic blood 2022-06-18 16:30:00 68 mm[Hg] Unive rsity of pressure [facility] Heart rate 2022-06-18 16:30:00 103 /min [facility]i ty of [facility] Body temperature 2022-06-18 16:30:00 37.06 Belia [facility] Body height 2022-06-18 16:30:00 154.9 cm [facility] Body weight 2022-06-18 16:30:00 105.235 kg [facility] BMI 2022-06-18 16:30:00 43.84 kg/m2 [facility] Systolic blood 2022-06-15 14:14:00 107 mm[Hg] [facility]iver [facility]ity of pressure [facility] Diastolic blood 2022-06-15 14:14:00 74 mm[Hg] Unive rsity of pressure [facility] Heart rate 2022-06-15 14:14:00 91 /min [facility] Body temperature 2022-06-15 14:14:00 37.06 [facility]ia [facility] Body height 2022-06-15 14:14:00 154.9 cm [facility] Body weight 2022-06-15 14:14:00 104.872 kg [facility] BMI 2022-06-15 14:14:00 43.68 kg/m2 [facility] Systolic blood 2022-06-12 17:22:00 111 mm[Hg] Univer sity of pressure [facility] Diastolic blood 2022-06-12 17:22:00 75 mm[Hg] Unive rsity of pressure [facility] Heart rate 2022-06-12 17:22:00 116 /min [facility] Body temperature 2022-06-12 17:22:00 36.44 Belia Univ [facility] Body height 2022-06-12 17:22:00 154.9 cm [facility] Body weight 2022-06-12 17:22:00 103.874 kg [facility] BMI 2022-06-12 17:22:00 43.27 kg/m2 [facility] Systolic blood 2022-06-08 14:19:00 119 mm[Hg] Univer sity of pressure [facility] Diastolic blood 2022-06-08 14:19:00 80 mm[Hg] Unive rsity of pressure [facility] Heart rate 2022-06-08 14:19:00 76 /min [facility] Respiratory rate 2022-06-08 14:19:00 19 /min Univ ersity of [facility] Body height 2022-06-08 14:19:00 154.9 cm [facility] Body weight 2022-06-08 14:19:00 105.552 kg [facility] BMI 2022-06-08 14:19:00 43.97 kg/m2 [facility] Systolic blood 2022-06-05 23:30:00 120 mm[Hg] Univer sity of pressure [facility] Diastolic blood 2022-06-05 23:30:00 76 mm[Hg] Unive rsity of pressure [facility] Heart rate 2022-06-05 23:30:00 83 /min [facility] Oxygen saturation in 2022-06-05 23:30:00 100 /min [facility] Arterial blood by [facility] Pulse oximetry Branch Body temperature 2022-06-05 20:42:00 36.44 Belia Univ [facility] Respiratory rate 2022-06-05 20:42:00 18 /min Univ ersity of [facility] Body height 2022-06-05 20:42:00 154.9 cm [facility] Body weight 2022-06-05 20:42:00 105.053 kg [facility] BMI 2022-06-05 20:42:00 43.76 kg/m2 [facility] Systolic blood 2022-05-25 14:47:00 113 mm[Hg] Univer sity of pressure [facility] Diastolic blood 2022-05-25 14:47:00 77 mm[Hg] Unive rsity of pressure [facility] Heart rate 2022-05-25 14:47:00 74 /min [facility] Body temperature 2022-05-25 14:47:00 36.83 Belia Univ [facility]ity of [facility] Respiratory rate 2022-05-25 14:47:00 18 /min Univ ersity of [facility] Body height 2022-05-25 14:47:00 154.9 cm [facility] Body weight 2022-05-25 14:47:00 104.327 kg [facility] BMI 2022-05-25 14:47:00 43.46 kg/m2 [facility] Heart rate 2022-05-23 01:30:00 84 /min [facility] Oxygen saturation in 2022-05-23 01:30:00 100 /min University Arterial blood by [facility] Pulse oximetry Branch Systolic blood 2022-05-23 00:31:00 104 mm[Hg] Univer sity of pressure [facility] Diastolic blood 2022-05-23 00:31:00 61 mm[Hg] Unive rsity of pressure [facility] Body temperature 2022-05-23 00:31:00 36.33 Belia Univ [facility] of [facility] Body height 2022-05-23 00:31:00 154.9 cm [facility] Body weight 2022-05-23 00:31:00 103.874 kg [facility] BMI 2022-05-23 00:31:00 43.27 kg/m2 [facility] Systolic blood 2022-05-09 15:10:00 109 mm[Hg] Univer sity of pressure [facility] Diastolic blood 2022-05-09 15:10:00 76 mm[Hg] Unive rsity of pressure [facility] Heart rate 2022-05-09 15:10:00 91 /min [facility] Body height 2022-05-09 15:10:00 154.9 cm [facility] Body weight 2022-05-09 15:10:00 104.826 kg [facility] BMI 2022-05-09 15:10:00 43.67 kg/m2 [facility] Oxygen saturation in 2022-05-09 15:10:00 97 /min University of Arterial blood by [facility] Pulse oximetry Branch Systolic blood 2022-04-27 20:03:00 93 mm[Hg] Univer sity of pressure [facility] Diastolic blood 2022-04-27 20:03:00 60 mm[Hg] Unive rsity of pressure [facility] Heart rate 2022-04-27 20:03:00 77 /min [facility] Body temperature 2022-04-27 20:03:00 36.67 Belia Univ [facility] Body height 2022-04-27 20:03:00 154.9 cm [facility] Body weight 2022-04-27 20:03:00 104.645 kg [facility] BMI 2022-04-27 20:03:00 43.59 kg/m2 [facility] Systolic blood 2022-04-04 22:24:00 117 mm[Hg] Univer sity of pressure [facility] Diastolic blood 2022-04-04 22:24:00 80 mm[Hg] Unive rsity of pressure [facility] Heart rate 2022-04-04 22:24:00 85 /min [facility] Body temperature 2022-04-04 22:24:00 36.67 [facility]ia Univ [facility]ity of [facility] Respiratory rate 2022-04-04 22:24:00 18 /min Univ ersity of [facility] Body height 2022-04-04 22:24:00 154.9 cm [facility] Body weight 2022-04-04 22:24:00 103.222 kg [facility] BMI 2022-04-04 22:24:00 43.00 kg/m2 [facility] Systolic blood 2022-03-30 16:19:00 113 mm[Hg] Univer sity of pressure [facility] Diastolic blood 2022-03-30 16:19:00 78 mm[Hg] Unive rsity of pressure [facility] Heart rate 2022-03-30 16:19:00 77 /min [facility] Body temperature 2022-03-30 16:19:00 36.78 Belia [facility] Respiratory rate 2022-03-30 16:19:00 18 /min Univ ersity of [facility] Body height 2022-03-30 16:19:00 154.9 cm [facility] Body weight 2022-03-30 16:19:00 104.781 kg [facility] BMI 2022-03-30 16:19:00 43.65 kg/m2 [facility] Systolic blood 2022-03-02 13:24:00 116 mm[Hg] Univer sity of pressure [facility] Diastolic blood 2022-03-02 13:24:00 79 mm[Hg] Unive rsity of pressure [facility] Heart rate 2022-03-02 13:24:00 68 /min [facility] Body temperature 2022-03-02 13:24:00 36.61 [facility] Respiratory rate 2022-03-02 13:24:00 18 /min Univ ersity of [facility] Body height 2022-03-02 13:24:00 154.9 cm [facility] Body weight 2022-03-02 13:24:00 104.781 kg [facility] BMI 2022-03-02 13:24:00 43.65 kg/m2 [facility] Systolic blood 2022-02-02 13:55:00 130 mm[Hg] Univer sity of pressure [facility] Diastolic blood 2022-02-02 13:55:00 80 mm[Hg] Unive rsity of pressure [facility] Heart rate 2022-02-02 13:55:00 77 /min [facility] Body temperature 2022-02-02 13:55:00 36.72 [facility] Body height 2022-02-02 13:55:00 154.9 cm [facility] Body weight 2022-02-02 13:55:00 103.828 kg [facility] BMI 2022-02-02 13:55:00 43.25 kg/m2 [facility] Systolic blood 2022-01-16 18:27:00 122 mm[Hg] Univer sity of pressure [facility] Diastolic blood 2022-01-16 18:27:00 85 mm[Hg] Unive rsity of pressure [facility] Heart rate 2022-01-16 18:27:00 75 /min [facility] Body temperature 2022-01-16 18:27:00 36.78 [facility] Respiratory rate 2022-01-16 18:27:00 18 /min Univ [facility]ity of [facility] Body height 2022-01-16 18:27:00 154.9 cm [facility] Body weight 2022-01-16 18:27:00 103.874 kg [facility] BMI 2022-01-16 18:27:00 43.27 kg/m2 [facility] Systolic blood 2022-01-05 13:23:00 116 mm[Hg] Univer sity of pressure [facility] Diastolic blood 2022-01-05 13:23:00 81 mm[Hg] Unive rsity of pressure [facility] Heart rate 2022-01-05 13:23:00 73 /min [facility] Body temperature 2022-01-05 13:23:00 36.72 [facility] Respiratory rate 2022-01-05 13:23:00 18 /min Univ [facility] Body height 2022-01-05 13:23:00 154.9 cm [facility] Body weight 2022-01-05 13:23:00 104.781 kg [facility] BMI 2022-01-05 13:23:00 43.65 kg/m2 [facility] Systolic blood 2021-12-21 16:30:00 122 mm[Hg] Univer sity of pressure [facility] Diastolic blood 2021-12-21 16:30:00 79 mm[Hg] Unive rsity of pressure [facility] Heart rate 2021-12-21 16:06:00 84 /min [facility] Body temperature 2021-12-21 16:06:00 36.78 [facility]ia [facility] Respiratory rate 2021-12-21 16:06:00 18 /min Univ [facility] Body height 2021-12-21 16:06:00 154.9 cm [facility] Body weight 2021-12-21 16:06:00 103.874 kg [facility] BMI 2021-12-21 16:06:00 43.27 kg/m2 [facility] Systolic blood 2021-12-08 14:23:00 112 mm[Hg] Univer sity of pressure [facility] Diastolic blood 2021-12-08 14:23:00 74 mm[Hg] Unive rsity of pressure [facility] Heart rate 2021-12-08 14:23:00 77 /min [facility] Body temperature 2021-12-08 14:23:00 36.78 [facility] Respiratory rate 2021-12-08 14:23:00 18 /min Univ [facility] Body height 2021-12-08 14:23:00 154.9 cm [facility] Body weight 2021-12-08 14:23:00 107.502 kg [facility] BMI 2021-12-08 14:23:00 44.78 kg/m2 [facility] Systolic blood 2021-11-24 18:49:00 109 mm[Hg] Univer sity of pressure [facility] Diastolic blood 2021-11-24 18:49:00 70 mm[Hg] Unive rsity of pressure [facility] Heart rate 2021-11-24 18:49:00 72 /min [facility] Body temperature 2021-11-24 18:49:00 36.72 [facility] Body height 2021-11-24 18:49:00 154.9 cm [facility] Body weight 2021-11-24 18:49:00 107.366 kg [facility] BMI 2021-11-24 18:49:00 44.72 kg/m2 [facility] Procedures Procedure Date / Time Performing Clinician Source Performed DISCLOSURE AND CONSENT 2022-08-16 05:01:00 Doctor Unassigned, No [facility] MEDICAL & SURGICAL [facility] h PROCEDURES - FEMALM POCT TEST 2022-08-16 00:00:00 Shari Veras [facility] CBC WITH DIFF 2022-06-20 13:43:00 Eda [facility] CENTRAL NEURAXIAL BLOCK 2022-06-19 18:40:00 Shon, [facility] SGOT (ASPARTATE AMINO 2022-06-18 17:51:00 Shari Veras [facility] TRANSFER) Medical Branch CREATININE 2022-06-18 17:51:00 Shari Veras [facility] ALANINE AMINO 2022-06-18 17:51:00 Eda [facility] TRANSFERASE(SGPT [facility] URIC ACID 2022-06-18 17:51:00 Eda [facility] CONSENT/REFUSAL FOR 2022-06-18 17:30:15 Doctor Unassigned, No Un [facility] DIAGNOSIS AND TREATMENT [facility] ASSIGNMENT OF BENEFITS 2022-06-18 17:29:57 Doctor Unassigned, No [facility] CONSENT/REFUSAL FOR 2022-06-18 17:29:29 Doctor Unassigned, No Un [facility] DIAGNOSIS AND TREATMENT Name [facility] ASSIGNMENT OF BENEFITS 2022-06-18 17:29:10 Doctor Unassigned, No [facility] NON-STRESS TEST 2022-06-18 17:05:00 Shari Veras [facility] NON-STRESS TEST 2022-06-15 14:38:20 Shari Veras [facility] POCT URINALYSIS W/O 2022-06-15 00:00:00 Shari Veras [facility] NON-STRESS TEST 2022-06-12 19:40:00 [facility] NON-STRESS TEST 2022-06-08 16:49:01 Shari Veras [facility] POCT URINALYSIS W/O 2022-06-08 14:41:00 Shari Veras [facility] NON-STRESS TEST 2022-06-05 23:56:44 Shari Veras [facility] SECOND AND THIRD 2022-06-05 17:50:00 Shari Veras [facility] TRIMESTER ULTRASOUND Medical Bra [facility] ASSIGNMENT OF BENEFITS 2022-05-25 14:09:39 Doctor Unassigned, No [facility] POCT URINALYSIS W/O 2022-05-25 00:00:00 Shari Veras [facility] URINALYSIS 2022-05-23 00:50:00 Shari Veras [place] [facility] ADC ONLY - FERN TEST 2022-05-23 00:50:00 Shari Veras [facility] CONSENT/REFUSAL FOR 2022-05-22 23:36:49 Doctor Unassigned, No [facility] DIAGNOSIS AND TREATMENT [facility] ASSIGNMENT OF BENEFITS 2022-05-22 23:33:28 Doctor Unassigned, No [facility] AUTHORIZATION FOR 2022-05-22 06:01:00 Doctor Unassigned, No [facility] RELEASE OF PHI [facility] L&D VISIT 2022-05-22 06:01:00 Doctor Unassigned, No [facility] (NON-DELIVERED) [facility] POCT URINALYSIS 2022-05-09 16:24:00 Julian Medellin [facility] TDAP VACCINE, >11 YRS, 2022-04-27 20:30:06 Shari Veras [facility] POCT URINALYSIS W/O 2022-04-27 00:00:00 Shari Veras [facility] GALV ONLY - VAGINAL 2022-04-04 22:32:00 Julian Medellin [facility] PATHOGENS BY [facility] Medical [facility] ACID TESTING STERILIZATION CONSENT 2022-03-30 06:01:00 Doctor Unassigned, No [facility] POCT URINALYSIS W/O 2022-03-30 00:00:00 Shari Veras [facility] POCT URINALYSIS W/O 2022-03-02 00:00[facility]00 [facility]/O 2022-02-02 00:00:00 Shari Veras [facility] URINE CULTURE 2022-01-16 18:38:00 Julian Medellin [facility] POCT URINALYSIS W/O 2022-01-16 00:00:00 [facility] W/O 2022-01-05 00:00:00 Lacie [facility] SCANNED LAB RESULTS 2021-12-22 05:01:00 Doctor Unassigned, No [facility] W/O 2021-12-21 16:13:00 Jairo Quezada [facility] POCT URINALYSIS W/O 2021-11-24 00:00:00 Shari Veras [facility] US FIRST 2021-11-14 21:30:37 [facility]STER LESS THAN 14 Medical [place] WEEKS WITH TRANSVAGINAL ASSIGNMENT OF BENEFITS 2021-11-14 20:04:36 Doctor Unassigned, No [facility] ASSIGNMENT OF BENEFITS 2021-10-31 21:31:41 Doctor Unassigned, No [facility] Encounters Start End Encounter Admission Attending Care Care Encounter Source Date/Time Date/Time Type Type Clinicians Facility Department ID 2022-06-05 Outpatient P [facility] MAKSIM [id number] Univers 18:25:12 ity [facility] 2021-03-09 Emergency [facility] [id number] Univers 23:03:34 ity of [facility] 2021-03-09 Outpatient X [facility] ERT [id number] Univers 13:28:45 ity of [facility] 2022-08-16 2022-08-16 Office Shari Veras [facility] 1.2.666.556 [id number] Univers 09:00:00 09:55:23 Visit Cam [place] 350.1.13.10 i ty of [place] [phone] Co dic[address] 2022-08-16 2022-08-16 Outpatient R SHARI VERAS [facility] [id number] Univers 09:00:00 09:55:23 ity of [facility] 2022-08-16 2022-08-16 Orders Doctor LOE 1.2.840.114 [id number] Univers 00:00:00 00:00:00 Only Unassigned, MURPHY 350.1.13.10 ity of [place] [facility] 4.2.7.2.686 [place] as [id number] [address] 2022-07-18 2022-07-18 Outpatient R SHARI VERAS [facility] [id number] Univers 11:00:00 11:22:58 ity of [facility] 2022-07-18 2022-07-18 Routine Shari Veras [facility] 1.2.470.329 [id number] Univers 11:00:00 11:22:58 Cam [place] 350.1.13.10 ity of Visit [place] [id number] Co [address] 2022-06-25 2022-06-25 Patient Shari Veras [facility] 1.2.274.217 [id number] Univers 00:00:00 00:00:00 Secure Msg Cam [place] 350.1.13.10 ity of [place] [id number] Co dical NAL [address] [place] [address] 2022-06-19 2022-06-20 Hospital Shari Veras [facility] 1.2.840.114 [id number] Univers 04:06:00 21:00:00 Encounter Ra SHE[place] 350.1.13.10 it[place] [id number] [facility] [address] 2022-06-19 2022-06-19 Anesthesia Alquicira-M [facility] 1.2.840.114 [id number] Univers 12:40:00 21:55:00 Event shawneeSUDEEP 350.1.13.10 i ty of Preet [place] 4.2.7.2.686 [place]ay as CAMPUS [id number] [place] 8[address] 2022-06-18 2022-06-18 Allergy Nurse See, [facility] Main [facility] 1.2.8 40.114 [id number] Univers 12:15:00 12:30:00 Visit Shari Veras Ra SUDE[place] 350.1.13.10 ity of [facility] 4.2.7.2.[place] [id number] Co dical NAL [address] [facility] 2022-06-18 2022-06-18 Outpatient SHARI LEVINE [facility] [id number] Univers 12:15:00 12:15:00 ity of [facility] 2022-06-18 2022-06-18 Routine Room, [facility] 1.2.840.1 14 [id number] Univers 10:00:00 11:08:28 Shari Veras Ra [place] 350.1.13.10 ity of Visit [place] [id number] Co dical NAL [address] [facility] 2022-06-18 2022-06-18 Outpatient R EDA SHARI [facility] MAKS[facility] [id number] Univers 10:00:00 11:08:28 ity of [facility] 2022-06-18 2022-06-18 Orders Doctor BAILEY 1.2.840.114 [id number] Univers 00:00:00 00:00:00 Only Unassigned, MURPHY 350.1.13.10 ity of [place] [facility] 4.2.7.2.686 [place] [id number] [facility] [address] 2022-06-15 2022-06-15 Outpatient R SHARI VERAS [facility] [id number] Univers 08:00:00 08:46:27 ity of [facility] 2022-06-15 2022-06-15 Routine 1, Lkj [facility] Room [facility] 1.2.840. 114 [id number] Univers 08:00:00 08:46:27 Shari Veras 350.1.13.10 ity of [place] [id number] [address] 2022-06-12 2022-06-12 Routine Room, [facility] 1.2.840.1 14 [id number] Univers 13:00:00 13:00:00 Esperanza SudhakarKandace [place] 350. 1.13.10 ity of Visit [facility] 4.2.7.2.[place] [id number] Co dical NAL [address] [facility] 2022-06-12 2022-06-12 Allergy Nurse Ultrasound, [facility] 1.2 .840.114 [id number] Univers 10:45:00 11:15:00 Visit Russell Sudhakar Kandace SHEETS 350.1 .13.10 ity of [place].7.2.[place] [id number] Co dical NAL [address] [facility] 2022-06-12 2022-06-12 Outpatient R ESPERANZA [facility] [id number] Univers 10:45:00 11:06:35 SEEMA it y of KANDACE Subramanian [facility] 2022-06-12 2022-06-12 Outpatient R JESSICA [facility] [id number] Univers 08:15:00 09:21:31 WILEY donaldsony of [facility] 2022-06-12 2022-06-12 Ancillary Jenna Ritchie [facility] 1.2.840. 114 [id number] Univers 08:15:00 09:21:31 Visit Wiley Lopez 350.1.13.10 ity of [facility] 4.2.7.2.[place] [id number] Me dical NAL [address] [facility] 2022-06-08 2022-06-08 Outpatient R NORBERTJULIAN ARTEAGA [facility] B [id number] Univers 08:00:00 09:12:11 [facility]ULIAN [facility] 2022-06-08 2022-06-08 Routine Shari Veras [facility] 1.2.840.11 4 [id number] Univers 08:00:00 09:12:11 LacieRadhaalexsander [place] 350.1.13. 10 ity of Visit [facility] 4.2.7.2.686 [facility] [id number] [facility] [address] 2022-06-05 2022-06-05 Outpatient P SHARI VERAS [facility] [id number] Univers 14:30:00 17:55:00 ity [facility] 2022-06-05 2022-06-05 [facility] Joann Verasen [facility] 1.2.840.114 [id number] Univers 14:30:00 17:55:00 Encounter [facility] 350.1.13.10 ity [facility] 4.2.7.2.686 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 [id number] [facility] [address] 2022-05-25 2022-05-25 Orders Doctor LEO 1.2.840.114 [id number] Univers 00:00:00 00:00:00 Only Unassigned, MURPHY 350.1.13.10 ity of [place] [facility] 4.2.7.2.686 [place]ijay [id number] [address] 2022-05-22 2022-05-22 Outpatient P SHARI VERAS [facility] [id number] Univers 17:28:00 20:18:00 ity of [facility] 2022-05-22 2022-05-22 Hospital Shari Veras [facility] 1.2.840.114 [id number] Univers 17:28:00 20:18:00 Encounter Cam SUDE[place] 350.1.13.10 ity of [place] 4.2.7.2.686 [facility] [id number] [facility] [address] 2022-05-22 2022-05-22 Patient Shari Veras [place] 1.2.840.114 [id number] Univers 00:00:00 00:00:00 Secure Msg Ra [place] 350.1.13.10 ity [place] [id number] [address] 2022-05-11 2022-05-11 Patient Lacie RIGILDA [facility] 1.2.840.114 [id number] Univers 00:00:00 00:00:00 Secure Msg Julian [place] 350.1.13.10 ity of [place] [id number] [address] 2022-05-09 2022-05-09 Outpatient R JULIAN MEDELLIN [facility] B [id number] Univers 09:15:00 09:44:45 JULIAN MEDELLIN ity of [facility] 2022-05-09 2022-05-09 [facility] PERRY 1.2.840.114 [id number] Univers 09:15:00 09:44:45 Julian [place] 350.1.13.10 i ty of Visit [place] [id number] [address] 2022-04-27 2022-04-27 Outpatient R SHARI VERAS [facility] [id number] Univers 13:30:00 14:31:02 ity of [facility] 2022-04-27 2022-04-27 Routine Shari Veras [facility] 1.2.840.114 [id number] Univers 13:30:00 14:31:02 Ra [place] 350.1.13.10 i ty of Visit [place] [id number] [address] 2022-04-27 2022-04-27 Allergy Nurse 2, Adc Lab [facility] 1.2.840.114 [id number] Univers 08:15:00 08:30:00 Visit Shari Veras 350.1.13.10 ity of [place].7.2.[place] [id number] Co dical NAL [address] [place] [address] 2022-04-26 2022-04-26 Case Shari Veras [facility] 1.2.274.681 [id number] Univers 00:00:00 00:00:00 Management Ra MARISVAUGHN 350.1.13.10 ity of [place].7.2.[place] [id number] Co dical NAL [address] [facility] 2022-04-25 2022-04-25 Allergy Nurse 2, Adc Lab [facility] 1.2.840.114 [id number] Univers 15:00:00 15:57:29 Visit Shari Veras 350.1.13.10 ity of [place].7.2.[place] [id number] Co dical NAL [address] [facility] 2022-04-25 2022-04-25 Outpatient R SHARI VERAS [facility] [id number] Univers 15:00:00 15:00:00 ity of [facility] 2022-04-25 2022-04-25 Nurse LEO Clark 1.2.840.114 [id number] Univers 00:00:00 00:00:00 Triage Eron [place] 350.1.13.10 ity of [facility] 4.2.7.2.686 [place]ij[place] as [id number] [address] 2022-04-09 2022-04-09 Telephone [facility] 1.2.840.11 4 [id number] Univers 00:00:00 00:00:00 Julian [place] 350.1.13.10 it y [place] [id number] [address] 2022-04-07 2022-04-07 Patient HoRUST 1.2.840.114 [id number] Univers 00:00:00 00:00:00 Secure Msg Nicki POLL[place]VAU[place] 350.1.13.10 ity [facility] 4.2.7.2.[place] [id number] Co dical [address] 2022-04-07 2022-04-07 Telephone [facility] 1.2.840.11 4 [id number] Univers 00:00:00 00:00:00 Julian [place] 350.1.13.10 it y of [place] [id number] [address] 2022-04-04 2022-04-04 Outpatient R JULIAN MEDELLIN [facility] B [id number] Univers 16:15:00 16:39:24 JULIAN MEDELLIN ity [facility] 2022-04-04 2022-04-04 Routine [facility] 1.2.840.114 [id number] Univers 16:15:00 16:39:24 Julian [place] 350.1.13.10 i ty of Visit [place] [id number] [address] 2022-04-04 2022-04-04 Patient Shari Veras [facility] 1.2.540.484 [id number] Univers 00:00:00 00:00:00 Secure Msg Ra [place] 350.1.13.10 ity [facility] 4.2.7.2.[place] [id number] Co dical NAL [address] [place] [address] 2022-03-30 2022-03-30 Outpatient R SHARI VERAS [facility] [id number] Univers 09:45:00 11:02:16 ity [facility] 2022-03-30 2022-03-30 Routine Shari Veras [facility] 1.2.840.114 [id number] Univers 09:45:00 11:02:16 Cam MAGALI 350.1.13.10 i ty of Visit [place] [id number] [address] 2022-03-30 2022-03-30 Orders Doctor LEO 1.2.840.114 [id number] Univers 00:00:00 00:00:00 Only Unassigned, MURPHY 350.1.13.10 ity of [place] [facility] 4.2.7.2.686 [place]ij[place] as [id number] [address] 2022-03-19 2022-03-19 Allergy Nurse [facility]trasound, [facility] 1.2 .840.114 [id number] Univers 13:00:00 13:45:00 Visit Marisol 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 13.10 ity of [facility] 4.2.7.2.686 [place]ay as MATERNAL [id number] Med ical & CHILD [address] [place] [address] 2022-03-19 2022-03-19 Outpatient P ONUR [facility] [id number] Univers 13:00:00 13:00:00 MARISOL [facility] 2022-03-02 2022-03-02 Outpatient R JULIAN MEDELLIN [facility] B [id number] Univers 08:30:00 08:46:39 JULIAN MEDELLIN [facility] 2022-03-02 2022-03-02 Routine JenaluciojuanyelsaRUST [facility] 1.2.840.114 [id number] Univers 08:30:00 08:46:39 Julian [place] 350.1.13.10 i ty of Visit [place] [id number] [address] 2022-02-06 2022-02-06 Allergy Nurse 2, [facility] 1.2.840.114 [id number] Univers 10:00:00 10:15:00 Visit Shari Veras 350.1.13.10 ity of [place] [id number] Co dical NAL [address] [facility] 2022-02-06 2022-02-06 Outpatient SHARI LEVINE [facility] [id number] Univers 10:00:00 10:00:00 ity of [facility] 2022-02-06 2022-02-06 Allergy Nurse Ultrasound, [facility] 1.2 .840.114 [id number] Univers 08:30:00 09:26:52 Visit Tiana Robledo 350.1.13.10 ity of [place].7.2.[place] [id number] Co dical NAL [address] [place] [address] 2022-02-04 2022-02-04 Case SHEA Quezada 1.2.693.803 [id number] Univers 00:00:00 00:00:00 Management Jairo PEDIATRIC 350.1.13.10 ity of [place] [id number] [address] 2022-02-02 2022-02-02 Routine Shari Veras [facility] 1.2.840.114 [id number] Univers 08:45:00 09:17:55 Ra [place] 350.1.13.10 i ty of Visit [place]2.[place] [id number] [address] 2022-02-02 2022-02-02 Outpatient R SHARI VERAS [facility] [id number] Univers 08:45:00 09:17:55 ity of [facility] 2022-01-29 2022-01-29 Outpatient R JESSICA [facility] [id number] Univers 10:15:00 10:15:00 [facility] 2022-01-29 2022-01-29 Outpatient R JESSICA [facility] [id number] Univers 08:45:00 08:45:00 [facility] 2022-01-17 2022-01-17 Patient Lisa [facility] 1.2.442.134 [id number] Univers 00:00:00 00:00:00 Secure Msg Danika [place] 350.1.13.10 it[place] [id number] [address] 2022-01-16 2022-01-16 Outpatient R JULIAN MEDELLIN [facility] B [id number] Univers 13:15:00 13:46:10 JULIAN MEDELLIN [facility] 2022-01-16 2022-01-16 [facility] 1.2.840.114 [id number] Univers 13:15:00 13:46:10 Julian [place] 350.1.13.10 i ty of Visit [place] [id number] [address] 2022-01-09 2022-01-09 Patient Norbertelsa [facility] 1.2.840.114 [id number] Univers 00:00:00 00:00:00 Secure Julian [place] 350.1.13.10 ity [place] [id number] [address] 2022-01-08 2022-01-08 Case Jenacristy [facility] 1.2.840.114 [id number] Univers 00:00:00 00:00:00 Management Julian [place] 350.1.13.10 ity of [place] [id number] [address] 2022-01-08 2022-01-08 Telephone Shari Veras [facility] 1.2.840.114 [id number] Univers 00:00:00 00:00:00 Ra SHEETS 350.1.13.10 i ty of [facility] 4.2.7.2.[place] [id number] Co dic[address] 2022-01-05 2022-01-05 Outpatient R JULIAN MEDELLIN [facility] B [id number] Univers 08:30:00 08:58:37 TRIJULIAN CARNEY ity [facility] 2022-01-05 2022-01-05 [facility]ine [facility] 1.2.840.114 [id number] Univers 08:30:00 08:58:37 Julian [place] 350.1.13.10 i ty of Visit [place] [id number] [address] 2022-01-04 2022-01-04 Telephone Lacie [facility] 1.2.840.11 [id number] Univers 00:00:00 00:00:00 Julian [place] 350.1.13.10 it y of [place].2.[place] [id number] [address] 2021-12-26 2021-12-26 Telephone Pilar RIGILDA 1.2.840.114 [id number] Univers 00:00:00 00:00:00 Jairo SHEETS 350.1.13.10 i ty of [place] 127.7388157 Co dic[address] 2021-12-25 2021-12-25 Case SHEA Quezada 1.2.789.237 [id number] Univers 00:00:00 00:00:00 Management Jairo PEDIATRIC 350.1.13.10 [place] [id number] [address] 2021-12-22 2021-12-22 Outpatient R ALVAREZ [facility] [id number] Univers 08:15:00 08:47:18 ZEYAD belle [facility] 2021-12-22 2021-12-22 Allergy Nurse Lab, Ang - Db [facility] 1.2.840.1 14 [id number] Univers 08:15:00 08:30:[address] [facility] 350.1.13.10 it[facility] 4.2.7.2.686 [place] GEE?BLEA [id number] Co dical [address] MEDICAL OFFICE BUILDING 2021-12-22 2021-12-22 Orders Doctor LEO 1.2.840.114 [id number] Univers 00:00:00 00:00:00 Only Unassigned, MURPHY 350.1.13.10 ity of [place] [facility] 4.2.7.2.686 [place] as [id number] [address] 2021-12-21 2021-12-21 Outpatient R PILAR [facility] [id number] Univers 10:45:00 11:30:38 JAIRO belle [facility] 2021-12-21 2021-12-21 Routine PilarRUST 1.2.876.596 [id number] Univers 10:45:00 11:30:38 Jairo SHEETS 350.1.13.10 ity of Visit [place] [id number] Co dical NAL [address] [facility] 2021-12-20 2021-12-20 Patient Cristina [facility] 1.2.840.114 [id number] Univers 00:00:00 00:00:00 Secure Msg Neris SUDEEP 350.1.13.10 ity of [place] [id number] Co dical NAL [address] [place] [address] 2021-12-20 2021-12-20 Telephone Shari Veras [facility] 1.2.840.114 [id number] Univers 00:00:00 00:00:00 Ra SHEETS 350.1.13.10 i ty of [facility] 4.2.7.2.[place] [id number] Co dical [address] 2021-12-11 2021-12-11 Telephone Shari Veras [facility] 1.2.840.114 [id number] Univers 00:00:00 00:00:00 Ra [place] 350.1.13.10 it y [place] [id number] [address] 2021-12-08 2021-12-08 Outpatient R JULIAN MEDELLIN [facility] B [id number] Univers 09:00:00 10:01:28 JULIAN MEDELLIN [facility] 2021-12-08 2021-12-08 Routine Lacie [facility] 1.2.840.114 [id number] Univers 09:00:00 10:01:28 Julian [place] 350.1.13.10 i ty of [place] [id number] [address] 2021-12-07 2021-12-07 Outpatient RASHAD_MARIANACurtis [facility] [phone] [place] 00:00:00 00:00:00 SSA [id number] [facility] 2021-11-25 2021-11-25 Nurse LEO Ordonez 1.2.840.114 [id number] Univers 00:00:00 00:00:00 Triage Opal MURPHY 350.1.13.10 it y of HOSPITAL 4.2.7.2.686 [place] [id number] [address] 2021-11-24 2021-11-24 Outpatient R SHARI VERAS [facility] [id number] Univers 13:00:00 14:23:16 ity [facility] 2021-11-24 2021-11-24 Routine Shari Veras [facility] 1.2.840.114 [id number] Univers 13:00:00 14:23:16 Ra [place] 350.1.13.10 i ty of [place] [id number] [address] 2021-11-242021-11-24 Outpatient R SHARI VERAS [facility] [id number] Univers 09:00:00 09:00:00 ity of [facility] 2021-11-15 2021-11-15 [facility] 1.2.840.114 [id number] Univers 00:00:00 00:00:00 Management Julian [place] 350.1.13.10 ity of WOMEN'S 4.2.7.2.686 [facility] [id number] [facility] [address] 2021-11-14 2021-11-14 Outpatient R JULIAN MEDELLIN [facility] B [id number] Univers 15:06:59 23:59:00 JULIAN MEDELLIN [facility] 2021-11-14 2021-11-14 [facility] 1.2.840.114 [id number] Univers 15:00:00 23:59:00 Encounter Julian SHEETS 350.1.13.10 ity of [place] 4.2.7.2.686 [facility] [id number] [facility] [address] 2021-11-14 2021-11-14 Orders Doctor LEO 1.2.840.114 [id number] Univers 00:00:00 00:00:00 Only Unassigned, MURPHY 350.1.13.10 ity of [place] [facility] 4.2.7.2.686 [facility] [id number] [facility] [address] 2021-11-04 2021-11-04 Allergy Nurse See, Dylan [facility] 1.2.8 40.114 [id number] Univers 11:15:00 11:30:00 Visit JenaJulian carney 350.1.13. 10 ity of IMPERIAL 4.2.7.2.686 [phone] 2021-11-04 2021-11-04 Outpatient R JULIAN MEDELLIN [facility] B [id number] Univers 11:15:00 11:15:00 JULIAN MEDELLIN [facility] 2021-11-02 2021-11-02 Allergy Nurse See, Adc Lab Main [facility] 1.2.8 40.114 [id number] Univers 16:30:00 16:45:00 Visit Jairo Quezada 350.1.13.10 ity of [facility] [place] [phone] Co dical NAL [address] [facility] 2021-11-02 2021-11-02 Outpatient R PILAR [facility] [id number] Univers 16:30:00 16:30:00 JAIRO ity [facility] 2021-10-31 2021-10-31 Allergy Nurse See, Adc Lab Main [facility] 1.2.8 40.114 [id number] Univers 16:30:00 16:45:00 Visit Shari Veras 350.1.13.10 [place] [phone] Co dic[address] 2021-10-31 2021-10-31 Outpatient R SHARI VERAS [facility] [id number] Univers 16:30:00 16:30:00 ity of [facility] 2021-10-31 2021-10-31 Orders Doctor LEO 1.2.840.114 [id number] Univers 00:00:00 00:00:00 Only Unassigned, MURPHY 350.1.13.10 ity of [place] [facility] 4.2.7.2.686 [place] as [phone] [address] 2021-10-30 2021-10-30 Patient Cristina, [facility] 1.2.840.114 [id number] Univers 00:00:00 00:00:00 Secure Msg Neris SUDEEP 350.1.13.10 [place] [phone] Co dical [facility] [address] [facility] 2021-10-30 2021-10-30 Telephone [facility] 1.2.840.11 [id number] Univers 00:00:00 00:00:00 Julian [place] 350.1.13.10 it y of WOMEN'S 4.2.7.2.686 [facility] [phone] [address] 2021-10-25 2021-10-25 Outpatient R LACIE JULIAN [facility] B [id number] Univers 09:30:00 10:01:45 JULIAN MEDELLIN [facility] 2021-10-25 2021-10-25 Initial [facility] 1.2.840.114 [id number] Univers 09:30:00 10:01:45 Julian [place] 350.1.13.10 i ty of Visit WOMEN'S 4.2.7.2.686 [facility] [phone] [address] 2021-10-23 2021-10-23 Patient Cristina [facility] 1.2.840.114 [id number] Univers 00:00:00 00:00:00 Secure Msg Neris SHEETS 350.1.13.10 ity [facility] 4.2.7.2.686 [facility] [phone] Co dical [address] 2021-09-11 2021-09-11 Outpatient R LACIE JULIAN [facility] B [id number] Univers 15:39:03 23:59:00 JULIAN MEDELLIN [facility] 2021-09-11 2021-09-11 [facility] 1.2.840.114 [id number] Univers 15:39:03 23:59:00 Encounter Julian SHEETS 350.1.13.10 ity [facility] 4.2.7.2.686 [facility] [phone] [facility] [address] 2021-09-11 2021-09-11 Outpatient R JULIAN MEDELLIN [facility] B [id number] Univers 00:00:00 00:00:00 JULIAN MEDELLIN [facility] 2021-09-11 2021-09-11 Orders Doctor BAILEY 1.2.840.114 [id number] Univers 00:00:00 00:00:00 Only Unassigned, MURPHY 350.1.13.10 ity of [place] [facility] 4.2.7.2.686 [place]ijay as [phone] [address] 2021-09-08 2021-09-08 Outpatient R JULIAN MEDELLIN [facility] B [id number] Univers 10:30:00 11:37:53 JULIAN MEDELLIN [facility] 2021-09-08 2021-09-08 Office [facility] 1.2.840.114 [id number] Univers 10:30:00 11:37:53 Visit Julian DE [place] 350.1.13.10 it y of [place] [phone] [address] 2021-09-08 2021-09-08 Outpatient R JULIAN MEDELLIN [facility] B [id number] Univers 10:30:00 11:37:53 [facility] 2021-09-01 2021-09-01 Outpatient R JULIAN MEDELLIN [facility] B [id number] Univers 10:30:00 12:24:56 [facility] 2021-09-01 2021-09-01 Office [facility] 1.2.840.114 [id number] Univers 10:30:00 12:24:56 Visit Julian [place] 350.1.13.10 it y of [place] [phone] [address] 2021-09-01 2021-09-01 Orders Doctor BAILEY 1.2.840.114 [id number] Univers 00:00:00 00:00:00 Only Unassigned, MURPHY 350.1.13.10 ity of [place] [facility] 4.2.7.2.686 [place]ijay as [phone] [address] 2021-08-30 2021-08-30 Patient IDALIA Arriaga [facility] 1.2.538.778 [id number] Univers 00:00:00 00:00:00 Secure Msg Michael [place] 350.1.13.10 it[place] [facility] [phone] [facility] [address] 2021-06-02 2021-06-02 Laboratory Only, Ang Db Test [facility] 1.2.8 40.114 [id number] Univers 18:45:00 18:45:00 Only Lupe Joyce [facility] 350.1.13.10 ity of [place] 4.2.7.2.686 [place]ijay as GEE?BLEA [phone] Co dical KNEY [address] MEDICAL [facility]ICE [facility] 2021-06-02 2021-06-02 Outpatient R LEXI [facility] [id number] Univers 18:45:00 18:15:11 LUPE anikabeatriz o f [facility] 2021-05-11 2021-05-11 Outpatient R [facility] [id number] Univers 15:00:00 15:00:00 ity [facility] 2021-05-10 2021-05-10 Laboratory Only, Adc Pob2 Test [facility] 1.2 .840.114 [id number] Univers 14:15:00 14:15:00 Only Opal Ferro [place] 350.1.13.10 it[place] [phone] Co dicmartni [facility] [address] BU[address]ING 2021-05-10 2021-05-10 [facility] [id number] Univers 14:15:00 14:13:27 OPAL [facility] 2021-05-10 2021-05-10 Orders Doctor BAILEY 1.2.840.114 [id number] Univers 00:00:00 00:00:00 Only Unassigned, MURPHY 350.1.13.10 ity of [place] [facility] 4.2.7.2.686 [place]ay as [phone] [facility] [address] 2021-05-03 2021-05-03 Outpatient R PILAR [facility] [id number] Univers 14:30:00 14:30:00 JAIRO belle [facility] 2021-03-29 2021-03-29 Outpatient R PILAR [facility] [id number] Univers 10:30:00 10:30:00 JAIRO belle [facility] 2021-03-08 2021-03-08 Outpatient R PILAR [facility] [id number] Univers 09:30:00 09:30:00 JAIRO beatriz [facility] 2021-01-14 2021-01-14 Outpatient R [facility] [id number] Univers 18:30:00 18:30:00 ity [facility] 2021-01-14 2021-01-14 Laboratory Only, Ang Db Test [facility] 1.2.8 40.114 [id number] Univers 17:50:20 18:04:25 Only [facility] 350.1.13.10 ity of [place] 4.2.7.2.686 [place] as Gee?Blea [phone] [facility] [address] [facility] 2020-08-02 2020-08-02 Patient Stanford [facility] 1.2.840.114 [id number] Univers 00:00:00 00:00:00 Outreach Anjel PRIMARY 350.1.13.10 i ty of [facility] 4.2.7.2.[place] [phone] [address] 2020-07-30 2020-07-30 Laboratory Lab, Adc Fam Pob I [facility] 1.2. 840.114 [id number] Univers 15:15:12 15:35:12 [facility] 350.1.13.10 ity [place] 4.2.7.2.686 [place] Professio [phone] [address] Office Building One 2020-07-30 2020-07-30 Outpatient R JOHN [facility] [id number] Univers 15:20:00 15:20:00 HUMERA belle [facility] 2020-05-28 2020-05-28 Outpatient R LEXI [facility] [id number] Univers 16:00:00 16:00:00 LUPE rojas [facility] 2020-05-28 2020-05-28 Laboratory Lab, Adc Fam Pob I [facility] 1.2. 840.114 [id number] Univers 15:28:07 15:48:07 Only Lupe [facility] 350.1.13.10 ity of [place] 4.2.7.2.686 [place] Professio [phone] Co dical nal 044 [facility] 2020-05-28 2020-05-28 Outpatient R [facility] [id number] Univers 11:40:00 11:40:00 ity of [facility] 2020-04-17 2020-04-17 Telephone Faisal [facility] 1.2.457.329 [id number] Univers 00:00:00 00:00:00 Georgie [facility] 350.1.13.10 i ty of Surgical 4.2.7.2.686 [place] Specialti [phone] Co dical es 370 [facility] 2020-04-13 2020-04-13 Outpatient R [facility] [id number] Univers 17:00:00 17:00:00 ity of [facility] 2020-04-13 2020-04-13 Laboratory Lab, Adc Fam Pob I [facility] 1.2. 840.114 [id number] Univers 14:34:34 14:54:34 Only Georgie Malone 350.1.13.10 ity of [place] 4.2.7.2.686 [place] Professio [phone] Co dical nal 044 [facility] 2020-03-08 2020-03-08 Allergy Nurse Pooxana, Adc Lab Main [facility] 1.2.8 40.114 [id number] Univers 16:31:29 16:46:29 Visit Jairo Quezada 350.1.13.10 ity of [place] [phone] Co dical nal 353 [facility] 2020-03-08 2020-03-08 Office [facility] 1.2.392.214 [id number] Univers 15:12:28 15:42:28 Visit Jairo Sheets 350.1.13.10 i ty of [place].2.[place] [phone] Co dical nal 134 [facility] 2020-03-08 2020-03-08 [facility] [id number] Univers 15:15:00 15:15:00 JAIRO belle [facility] 2020-03-08 2020-03-08 Orders Doctor LEO 1.2.840.114 [id number] Univers 00:00:00 00:00:00 Only Unassigned, MURPHY 350.1.13.10 ity of [place] [facility] 4.2.7.2.686 [place] [phone] [address] 2020-02-16 2020-02-16 Outpatient R PILAR [facility] [id number] Univers 08:30:00 08:30:00 JAIRO belle [facility] 2020-02-08 2020-02-08 Laboratory Lab, Adc Fam Pob I [facility] 1.. 840.114 [id number] Univers 16:46:16 17:06:16 Only Humera Pacheco Pump! 350.1.13.10 ity [place] 4.2.7.2.686 [place] Professio [phone] Co dical nal 044 [facility] 2020-02-08 2020-02-08 Outpatient R JOHN [facility] [id number] Univers 16:40:00 16:40:00 HUMERA itbeatriz [facility] 2019-10-07 2019-10-07 Telephone Eda [facility] 1..840.114 [id number] Univers 00:00:00 00:00:00 [facility] 350.1.13.10 it y of [place] 4.2.7.2.686 [place] Professio [phone] Co dical nal 044 [facility] 2019-09-23 2019-09-23 Patient Shari Veras [facility] 1..322.509 [id number] Univers 00:00:00 00:00:00 Secure Msg Cam [address] [place] 350.1.13.10 ity of [place] [phone] Co dical nal 134 [facility] 2019-09-21 2019-09-21 Office Shari Veras [facility] 1.2.486.180 [id number] Univers 10:01:04 10:46:57 Visit Cam [place] 350.1.13.10 i ty of [place].2.[place] [phone] [address] 2019-09-21 2019-09-21 Outpatient R SHARI VERAS [facility] [id number] Univers 10:00:00 10:00:00 ity of [facility] 2019-09-21 2019-09-21 Orders Doctor LEO 1.2.840.114 [id number] Univers 00:00:00 00:00:00 Only Unassigned, MURPHY 350.1.13.10 ity [facility] 4.2.7.2.686 [place] [phone] [address] 2019-09-18 2019-09-18 Outpatient R PILAR [facility] [id number] Univers 14:45:00 14:45:00 JAIRO [facility] 2019-09-18 2019-09-18 [facility] 1.2.840.114 [id number] Univers 08:10:14 14:13:14 ne Visit Jairo Sheets 350.1.13.10 ity [facility] 4.2.7.2.[place] [phone] [address] 2019-09-16 2019-09-16 Outpatient R PILAR [facility] [id number] Univers 14:45:00 14:45:[facility] 2019-08-17 2019-08-17 Outpatient R PILAR [facility] [id number] Univers 10:15:00 10:15:00 [facility] 2019-08-17 2019-08-17 Telemedici [facility] 1.2.840.114 [id number] Univers 08:20:11 08:35:11 ne Visit Jairo Sheets 350.1.13.10 ity [facility] 4.2.7.2.[place] [phone] [address] 2019-07-29 2019-07-29 Patient Shari Veras [facility] 1.2.905.115 [id number] Univers 00:00:00 00:00:00 Secure Msg Ra Sheets 350.1.13.10 ity of [place] 4.[place].7.2.[place] [phone] Co dic[address] 2019-07-27 2019-07-27 Outpatient R PILAR [facility] [id number] Univers 11:30:00 11:30:00 JAIRO ity of [facility] 2019-07-21 2019-07-23 Hospital Eda [facility] 1.2.840.114 [id number] Univers 02:42:00 09:30:00 Encounter Cam [place] 350.1.13.10 ity of [place].2.[place] [phone] [address] 2019-07-23 2019-07-23 Refill Eda [facility] 1.2.285.513 [id number] Univers 00:00:00 00:00:00 [address] [place] 350.1.13.10 i ty of [place].2.[place] [phone] [address] 2019-07-21 2019-07-21 Orders Doctor LEO 1.2.840.114 [id number] Univers 00:00:00 00:00:00 Only Unassigned, MURPHY 350.1.13.10 ity of [place] [facility] 4.2.7.2.686 [place] as [phone] [address] 2019-07-20 2019-07-20 Routine Eda [facility] 1.2.993.928 [id number] Univers 16:04:07 17:13:[address] [place] 350.1.13.10 ity of [place].2.[place] [phone] Co dic[address] 2019-07-20 2019-07-20 Outpatient R SHARI VERAS [facility] [id number] Univers 16:00:00 16:00:00 ity of [facility] 2019-07-13 2019-07-13 Routine PilarRUST 1.2.803.664 [id number] Univers 10:01:07 13:31:12 Jairo Sudeep 350.1.13.10 ity of [place].2.[place] [phone] Co dical nal 134 [facility] 2019-07-13 2019-07-13 Allergy Nurse 2, Adc Lab [facility] 1.2.840.114 [id number] Univers 10:38:57 10:53:57 Visit Jairo Quezada 350.1.13.10 ity of [place] 4.[place].2.[place] [phone] Co dical nal 353 [facility] 2019-07-13 2019-07-13 Outpatient R PILAR [facility] [id number] Univers 09:45:00 09:45:00 JAIRO belle [facility] 2019-07-13 2019-07-13 Telephone Pilar [facility] 1.2.840.114 [id number] Univers 00:00:00 00:00:00 Jairo [facility] 350.1.13.10 it y of Surgical 4.2.7.2.686 [place] Specialti [phone] Co dical es 370 [facility] 2019-07-10 2019-07-10 Telephone Shari Veras [facility] 1.2.840.114 [id number] Univers 00:00:00 00:00:00 Ra Sheets 350.1.13.10 i ty of [place].2.[place] [phone] Co dical nal 134 [facility] 2019-07-06 2019-07-06 Routine Pilar [facility] 1.2.367.295 [id number] Univers 09:29:33 11:45:14 Jairo Sheets 350.1.13.10 ity of [place].2.[place] [phone] Co dical nal 134 [facility] 2019-07-06 2019-07-06 Outpatient R PILAR [facility] [id number] Univers 09:45:00 09:45:00 JAIRO belle [facility] 2019-07-06 2019-07-06 Orders Doctor BAILEY 1.2.840.114 [id number] Univers 00:00:00 00:00:00 Only Unassigned, MURPHY 350.1.13.10 ity of [place] [facility] 4.2.7.2.686 [place] as [phone] [address] 2019-06-29 2019-06-29 Nurse Nurse, [facility] 1.2.840.114 [id number] Univers 10:37:24 10:59:49 Visit Jairo Quezada 350.1.13.10 ity of [place].2.[place] [phone] Co dical nal 134 [facility] 2019-06-15 2019-06-15 Nurse Nurse, [facility] 1.2.840.114 [id number] Univers 10:03:47 10:35:47 Visit Shari Veras 350.1.13.10 ity of [place] 4.[place].2.[place] [phone] Co dical nal [address] [place] [address] 2019-06-08 2019-06-08 Routine Pilar [facility] 1.2.221.814 [id number] Univers 11:44:08 12:11:58 Jairo Sheets 350.1.13.10 ity of Visit [place].2.[place] [phone] Co dical nal [address] [place] [address] 2019-06-02 2019-06-02 Nurse Nurse, [facility] 1.2.840.114 [id number] Univers 14:49:01 15:27:52 Visit Jairo Quezada 350.1.13.10 ity of [place].2.[place] [phone] Co dical nal 134 [facility] 2019-05-26 2019-05-26 Patient Doctor [facility] 1.2.840.114 [id number] Univers 00:00:00 00:00:00 Secure Msg UnassSudeep spivey 350.1.13.10 ity of [place] 4.2.[place].2.[place] 426.7423643 Co dical nal 134 [facility] 2019-05-26 2019-05-26 Patient Doctor [facility] 1.2.840.114 [id number] Univers 00:00:00 00:00:00 Secure Msg Unassigned, Sudeep 350.1.13.10 ity of [place] 4.2.[place].2.[place] [phone] [address] 2019-01-30 2019-01-30 Telephone Shari Veras [facility] 1.2.840.114 [id number] Univers 00:00:00 00:00:00 Ra Sheets 350.1.13.10 i ty of [place].2.[place] [phone] [address] 2019-01-28 2019-01-28 Telephone PilarRUST 1.2.840.114 [id number] Univers 00:00:00 00:00:00 Jairo Sheets 350.1.13.10 i ty of [place] 4.[place].2.[place] [phone] [address] 2019-01-26 2019-01-26 Routine PilarRUST 1.2.392.077 [id number] Univers 12:49:10 13:35:28 Jairo Sheets 350.1.13.10 ity of Visit [place].2.[place] [phone] [address] 2019-01-25 2019-01-25 Emergency [facility] 1.2.275.277 [id number] Univers 09:41:06 11:31:00 Lukasz Sheets 350.1.13.10 i ty of [place].2.[place] [phone] [facility] [address] 2019-01-25 2019-01-25 Nurse LEO Nolan 1.2.840.114 [id number] Univers 00:00:00 00:00:00 Triage Megan AR[place] 350.1.13.10 it y of HOSPITAL 4.2.7.2.686 [place] as [phone] [facility] [address] 2019-01-25 2019-01-25 Orders Doctor LEO 1.2.840.114 [id number] Univers 00:00:00 00:00:00 Only Unassigned, MURPHY 350.1.13.10 ity of [place] [facility] 4.2.7.2.686 Vijay as [phone] [address] 2019-01-20 2019-01-20 Telephone Pilar RIGILDA 1.2.840.114 [id number] Univers 00:00:00 00:00:00 Jairo Sheets 350.1.13.10 i ty of [place].2.[place] [phone] [address] 2019-01-19 2019-01-19 Case Shari Veras [place] 1.2.719.470 [id number] Univers 00:00:00 00:00:00 Management Ra Sheets 350.1.13.10 ity of [place].2.[place] [phone] [address] 2019-01-19 2019-01-19 Telephone Shari Veras [facility] 1.2.840.114 [id number] Univers 00:00:00 00:00:00 Ra Sheets 350.1.13.10 i ty of [place].2.[place] [phone] Co dic[address] 2019-01-15 2019-01-15 Routine Eda Sharimarisol Knapp [facility] 1.2.840.114 [id number] Univers 09:02:28 09:42:19 Jairo Quezada 350.1.13.10 ity of Visit [place] 4.[place].2.[place] [phone] Co dic[address] 2019-01-13 2019-01-13 Telephone Pilar RIGILDA 1.2.840.114 [id number] Univers 00:00:00 00:00:00 Jairo Sheets 350.1.13.10 i ty of [place].2.[place] [phone] [address] 2019-01-13 2019-01-13 Telephone Pilar RIGILAD 1.2.840.114 [id number] Univers 00:00:00 00:00:[address] 350.1.13.10 i ty of [place].2.[place] [phone] [address] 2018-12-29 2018-12-29 Telephone Pilar [facility] 1.2.840.114 [id number] Univers 00:00:00 00:00:00 Jairopatricia Sheets 350.1.13.10 i ty of [place].2.[place] [phone] [address] 2018-12-18 2018-12-18 Routine Shari Veras [facility] 1.2.000.555 [id number] Univers 09:02:01 09:54:05 Ra Sheets 350.1.13.10 ity of [place].2.[place] [phone] [address] 2018-12-15 2018-12-15 Telephone Shari Veras [facility] 1.2.840.114 [id number] Univers 00:00:00 00:00:[address] [place] 350.1.13.10 i ty of [place].2.[place] [phone] [address] 2018-12-11 2018-12-11 Hospital Shari Veras [facility] 1.2.840.114 [id number] Univers 11:24:23 23:59:00 Encounter [address] 350.1.13.10 ity of [place] [phone] [facility] [address] 2018-12-11 2018-12-11 Orders Doctor LEO 1.2.840.114 [id number] Univers 00:00:00 00:00:00 Only Unassigned, MURPHY 350.1.13.10 ity of [place] [facility] 4.2.7.2.686 Vijay as [phone] [facility] [address] 2018-12-11 2018-12-11 Telephone Shari Veras [facility] 1.2.840.114 [id number] Univers 00:00:00 00:00:00 Ra Sheets 350.1.13.10 i ty of [place] [phone] Co dical nal 134 [facility] 2018-12-05 2018-12-05 Telephone Shari Veras [facility] 1.2.840.114 [id number] Univers 00:00:00 00:00:00 Ra Sheets 350.1.13.10 i ty of [place] [phone] Co dicmi nal 134 [facility] Results Test Description Test Time Test Comments Results Result Comments Source POCT TEST 2022-08-16 14:29:00 Test Item Value Reference Range Interpretation Comme nts POCT PREG (test code = 1605) Negative On board controls acceptable with C Line (test code = 3574) Yes POCT PREG LOT # (test code = 3575) POCT PREG TEST DATE (test code = 3576) [id number] 14:29:00 Test Item Value Reference Range Interpretation Comments POCT PREG (test code = 1605) Negative On board controls acceptable with C Yes Line (test code = 3574) POCT PREG LOT # (test code = 3575) POCT PREG TEST DATE (test code = 3576) [facility] [id number] 16:17:46 Test Item Value Reference Range Interpretation Comments URIC ACID (test code = 9634706688) 3.9 mg/dL 2.9-6.0 Lab Interpretation (test code = Normal 20039-5) [facility] [id number] 16:17:46 Test Item Value Reference Range Interpretation Comments CREATININE (test code 0.55 mg/dL 0.50-1.04 = [id number]) eGFR (test code = 128.9 mL/min/1.73m2 [id number]) NARESH (test code = NARESH) Association of Glomerular Filtration Rate (GFR) and Staging of Kidney Disease* + + +- +| GFR (mL/min/1.73 m2) ?| With Kidney Damage ?| ?Without Kidney Damage+ ------+ ----+ ------+| ?>90 ?| ?Stage one ?| ? Normal ?+ -+ + -+| ?60-89 ?| ?Stage two ?| ? Decreased GFR ? + + +- +| ?30-59 ?| ?Stage three ?| ? Stage three ? + + +- +| ?15-29 ?| ?Stage four ? | ? Stage four ?+ -+ + -+| ?<15 (or dialysis) ? ?| ?Stage five ? | ? Stage five ?+ -+ + -+ *Each stage assumes the associated GFR level has been in effect for at least three months. ?Stages 1 to 5, with or without kidney disease, indicate chronic kidney disease. Notes: Determination of stages one and two (with eGFR >59mL/min/1.73 m2) requires estimation of kidney damage for at least three months as defined by structural or functional abnormalities of the kidney, manifested by either:Pathological abnormalities or Markers of kidney damage (including abnormalities in the composition of the blood or urine or abnormalities in imaging tests). [facility]2022-06-20 16:17:46 Test Item Value Reference Range Interpretation Comments AST(SGOT) (test code = 0066391778) 21 U/L 13-40 Lab Interpretation (test code = Normal 20979-6) [facility] (SGPT)2022-06-20 16:17:46 Test Item Value Reference Range Interpretation Comments ALTv (test code = 1742-6) 17 U/L 5-35 Lab Interpretation (test code = Normal 69365-1) [facility]O SPECIFIC [id number] 14:12:00 Test Item Value Reference Range Interpretation Comments POCT PH U (test code = 3254) n/a 5-8 POCT U LEUK EST (test code = n/a Negative - Negative 3263) POCT U NIT (test code = 3262) n/a Negative - Negative POCT U PROT (test code = 3259) Negative Negative - Negative POCT U GLU (test code = 3256) Normal Negative - Negative POCT U KETONE (test code = 3258) n/a Negative - Negative POCT U BLD (test code = 3257) n/a Negative - Negative [facility] URINALYSIS W/O SPECIFIC [id number] 14:12:00 Test Item Value Reference Range Interpretation Comments POCT PH U (test code = 3254) n/a 5-8 POCT U LEUK EST (test code = n/a Negative - Negative 3263) POCT U NIT (test code = 3262) n/a Negative - Negative POCT U PROT (test code = 3259) Negative Negative - Negative POCT U GLU (test code = 3256) Normal Negative - Negative POCT U KETONE (test code = 3258) n/a Negative - Negative POCT U BLD (test code = 3257) n/a Negative - Negative [facility] URINALYSIS W/O SPECIFIC [id number] 14:41:00 Test Item Value Reference Range Interpretation Comments POCT PH U (test code = 3254) n/a 5-8 POCT U LEUK EST (test code = n/a Negative - Negative 3263) POCT U NIT (test code = 3262) n/a Negative - Negative POCT U PROT (test code = 3259) negative Negative - Negative POCT U GLU (test code = 3256) negative Negative - Negative POCT U KETONE (test code = 3258) n/a Negative - Negative POCT U BLD (test code = 3257) n/a Negative - Negative Lab Interpretation (test code = Normal 08583-0) [facility] URINALYSIS W/O SPECIFIC [id number] 14:41:00 Test Item Value Reference Range Interpretation Comments POCT PH U (test code = 3254) n/a 5-8 POCT U LEUK EST (test code = n/a Negative - Negative 3263) POCT U NIT (test code = 3262) n/a Negative - Negative POCT U PROT (test code = 3259) negative Negative - Negative POCT U GLU (test code = 3256) negative Negative - Negative POCT U KETONE (test code = 3258) n/a Negative - Negative POCT U BLD (test code = 3257) n/a Negative - Negative Lab Interpretation (test code = Normal 56841-8) [facility] URINALYSIS W/O SPECIFIC [id number] 14:54:00 Test Item Value Reference Range Interpretation Comments POCT PH U (test code = 3254) n/a 5-8 POCT U LEUK EST (test code = 3263) n/a Negative - Negative POCT U NIT (test code = 3262) n/a Negative - Negative POCT U PROT (test code = 3259) neg Negative - Negative POCT U GLU (test code = 3256) neg Negative - Negative POCT U KETONE (test code = 3258) n/a Negative - Negative POCT U BLD (test code = 3257) n/a Negative - Negative [facility] URINALYSIS W SPECIFIC [id number] 16:25:00 Test Item Value Reference Range Interpretation Comments POCT U SP GRAV (test code = N/A 1.005-1.025 3255) POCT PH U (test code = 3254) N/A 5-8 POCT U LEUK EST (test code = N/A Negative - Negative 3263) POCT U NIT (test code = 3262) N/A Negative - Negative POCT U PROT (test code = 3259) Negative Negative - Negative POCT U GLU (test code = 3256) Negative Negative - Negative POCT U KETONE (test code = 3258) N/A Negative - Negative POCT U UROBILI (test code = N/A 0.2-1 3260) POCT U BILI (test code = 3261) N/A Negative - Negative POCT U BLD (test code = 3257) N/A Negative - Negative POCT U COLOR (test code = 3266) Yellow POCT U APPEAR (test code = 3267) clear [facility] URINALYSIS W/O SPECIFIC [id number] 20:04:00 Test Item Value Reference Range Interpretation Comments POCT PH U (test code = 3254) 7 mg/dl 5-8 POCT U LEUK EST (test code = Negative Negative - Negative 3263) POCT U NIT (test code = 3262) Negative Negative - Negative POCT U PROT (test code = 3259) Negative Negative - Negative POCT U GLU (test code = 3256) Normal Negative - Negative POCT U KETONE (test code = 3258) Negative Negative - Negative POCT [facility] BLD (test code = 3257) Negative [facility] - [facility] [id number] 16:20:00 Test Item Value Reference Range Interpretation Comments POCT PH U (test code = 3254) N/A 5-8 POCT U LEUK EST (test code = N/A Negative - Negative 3263) POCT U NIT (test code = 3262) N/A Negative - Negative POCT U PROT (test code = 3259) Negative Negative - Negative POCT U GLU (test code = 3256) Negative Negative - Negative POCT U KETONE (test code = 3258) N/A Negative - Negative POCT U BLD (test code = 3257) N/A Negative - Negative [facility] URINALYSIS W/O SPECIFIC [id number] 16:31:00 Test Item Value Reference Range Interpretation Comments POCT PH U (test code = 3254) N/A 5-8 POCT U LEUK EST (test code = N/A Negative - Negative 3263) POCT U NIT (test code = 3262) N/A Negative - Negative POCT U PROT (test code = 3259) NEGATIVE Negative - Negative POCT U GLU (test code = 3256) NEGATIVE Negative - Negative POCT U KETONE (test code = 3258) N/A Negative - Negative POCT U BLD (test code = 3257) N/A Negative - Negative [facility] [id number] 13:58:00 Test Item Value Reference Range Interpretation Comments POCT PH U (test code = 3254) 5 mg/dl 5-8 POCT U LEUK EST (test code = Trace Negative - Negative 3263) POCT U NIT (test code = 3262) Negative Negative - Negative POCT U PROT (test code = 3259) Trace Negative - Negative POCT U GLU (test code = 3256) Normal Negative - Negative POCT U KETONE (test code = 3258) + small Negative - Negative POCT U BLD (test code = 3257) Trace Negative - Negative [facility] [id number] 18:35:00 Test Item Value Reference Range Interpretation Comments POCT PH U (test code = 3254) 6 mg/dl 5-8 POCT U LEUK EST (test code = Trace Negative - Negative 3263) POCT U NIT (test code = 3262) Negative Negative - Negative POCT U PROT (test code = 3259) Negative Negative - Negative POCT U GLU (test code = 3256) Negative Negative - Negative POCT U KETONE (test code = 3258) 1+ Negative - Negative POCT U BLD (test code = 3257) Negative Negative - Negative [facility] [id number] 13:29:00 Test Item Value Reference Range Interpretation Comments POCT PH U (test code = 3254) N/A 5-8 POCT U LEUK EST (test code = N/A Negative - Negative 3263) POCT U NIT (test code = 3262) N/A Negative - Negative POCT U PROT (test code = 3259) Negative Negative - Negative POCT U GLU (test code = 3256) Negative Negative - Negative POCT U KETONE (test code = 3258) N/A Negative - Negative POCT U BLD (test code = 3257) N/A Negative - Negative [facility] [id number] 16:14:00 Test Item Value Reference Range Interpretation Comments POCT PH U (test code = 3254) 5 mg/dl 5-8 POCT U LEUK EST (test code = ++ Negative - Negative 3263) POCT U NIT (test code = 3262) negative Negative - Negative POCT U PROT (test code = 3259) Negative - Negative POCT U GLU (test code = 3256) negative Negative - Negative POCT U KETONE (test code = ++ Negative - Negative 3258) POCT U BLD (test code = 3257) hemolyzed Negative - Negative [facility] [id number] 18:47:00 Test Item Value Reference Range Interpretation Comments POCT PH U (test code = 3254) n/a 5-8 POCT U LEUK EST (test code = n/a Negative - Negative 3263) POCT U NIT (test code = 3262) n/a Negative - Negative POCT U PROT (test code = 3259) negative Negative - Negative POCT U GLU (test code = 3256) normal Negative - Negative POCT U KETONE (test code = 3258) n/a Negative - Negative POCT U BLD (test code = 3257) n/a Negative - Negative [facility]"
[2022-09-09 20:01] LABS: Specific Gravity 1.028 (1.005-1.030)
[2022-09-09 20:05] LABS: Specific Gravity 1.028 (1.005-1.030); Urine Bacteria None Seen /HPF (<20); Urine Bilirubin NEGATIVE (Negative); Urine Blood 1+ (Negative); Urine Clarity Clear (Clear); Urine Color Light-Yellow (Yellow); Urine Glucose NEGATIVE (Negative); Urine Mucus Slight /HPF (None Seen); Urine Protein TRACE (Negative); Urine RBC 21-50 /HPF (None Seen); Urine Urobilinogen 1+ (Normal)
[2022-09-09] MEDS ORDERED: HYDROMORPHONE HCL 1 MG/ML INJ ONE ×2 (20:17→21:56)
[2022-09-09] MEDS ORDERED: ONDANSETRON 4 MG/2 ML VIAL ONE ×2 (20:18→21:51)
[2022-09-09] MEDS ORDERED: NA CHLORIDE 0.9% 1,000 ML ONE (20:18)
[2022-09-09] MEDS ORDERED: FAMOTIDINE 20 MG/2 ML VIAL IV ONE (20:18)
[2022-09-09 20:19] LABS: Absolute Lymphocytes (CBC) 2.2 K/uL (0.7-4.9); Hematocrit 35.2 % (36.0-45.0); Lymphocytes % 17.1 % (15.3-44.8); MCV 80.5 fL (80-100); MPV 7.3 fL (7.6-11.3); RBC Red Blood Cell Count 4.38 M/uL (3.86-4.86)
[2022-09-09 20:36] LABS: Albumin 3.4 g/dL (3.4-5.0); Bilirubin Total 0.3 mg/dL (0.2-1.0); Potassium 3.7 mEq/L (3.5-5.1); Protein, Total 7.3 g/dL (6.4-8.2)
--- NOTE | 2022-09-09 21:17 | RAD REPORT ---
EXAM DESCRIPTION: US - Abdomen Exam Limited - 09/09/2022 9:03 pm CLINICAL HISTORY: ABD PAIN COMPARISON: Abdomen Pelvis W Contrast dated 08/30/2022 FINDINGS: The gallbladder demonstrates shadowing gallstones descending the gallbladder No pericholec ystic fluid or gallbladder wall thickening. The common bile duct is normal measuring 4 mm. The liver demonstrates no findings of intrahepatic biliary dilatation. IMPRESSION: Cholelithiasis. Positive sonographic Gleason's sign but no other ancillary findings to jain ggest acute cholecystitis. The findings could reflect early acute cholecystitis but are nonspecific .
--- NOTE | 2022-09-09 22:00 | ER ---
Nurse's Notes [facility] Name: Barbie Woodward Age: 32 yrs Sex: Female : 1990 Arrival Date: 09/09/2022 Time: 18:47 Bed 2 Private MD: Diagnosis: Other cholelithiasis without obstruction;Abnormal results of liver function studies;Nausea with vomiting, unspecified Presentation: 09/09 19:12 Chief complaint: Patient states: C/o abdominal pain and emesis X3, AND H/A. Coronavirus ll3 screen: Vaccine status: Patient reports being unvaccinated. muscle pain, nausea, vomiting. Ebola Screen: No symptoms or risks identified at this time. Initial Sepsis Screen: Does the patient meet any 2 criteria? No. Patient's initial sepsis screen is negative. Does the patient have a suspected source of infection? No. Patient's initial sepsis screen is negative. Risk Assessment: Do you want to hurt yourself or someone else? Patient reports no desire to harm self or others. Onset of symptoms was September 09, 2022. 19:12 Method Of Arrival: Ambulatory ll3 19:12 Acuity: LAURYN 3 ll3 Triage Assessment: 19:15 General: Appears uncomfortable, Behavior is cooperative, crying. Pain: Complains of ll3 pain in right upper quadrant Pain does not radiate. Pain currently is 8 out of 10 on a pain scale. Quality of pain is described as sharp, stabbing, throbbing, Pain began 1 day ago. Is continuous. GI: Abdomen is round non-distended, Reports upper abdominal pain, nausea, vomiting. Derm: Skin is pink, warm \T\ dry. RN CARE TRANSITION: 19:15 LMP 09/09/2022 ll3 Historical: - Allergies: 19:15 Latex, Natural Rubber; ll3 - Home Meds: 19:15 Amoxicillin Oral [Active]; ll3 - PMHx: 19:15 Hypertensive disorder; ll3 - PSHx: 19:15 None; ll3 - Immunization history:: Client reports having NOT received the Covid vaccine. - Social history:: Smoking status: Patient denies any tobacco usage or history of. Screenin:05 [facility] ED Fall Risk Assessment (Adult) History of falling in the last 3 months, jb4 including since admission No falls in past 3 months (0 pts) Confusion or Disorientation No (0 pts) Score/Fall Risk Level 0 - 2 = Low Risk Oriented to surroundings. Abuse screen: Denies threats or abuse. Nutritional screening: No deficits noted. Tuberculosis screening: No symptoms or risk factors identified. Assessment: 20:05 General: see triage note. jb4 21:00 Reassessment: Patient appears in no apparent distress at this time. Patient and/or jb4 family updated on plan of care and expected duration. Pain level reassessed. Patient is alert, oriented x 3, equal unlabored respirations, skin warm/dry/pink. 22:00 Reassessment: Patient appears in no apparent distress at this time. Patient and/or jb4 family updated on plan of care and expected duration. Pain level reassessed. Patient is alert, oriented x 3, equal unlabored respirations, skin warm/dry/pink. 22:53 Reassessment: Patient appears in no apparent distress at this time. Patient and/or jb4 family updated on plan of care and expected duration. Pain level reassessed. Patient is alert, oriented x 3, equal unlabored respirations, skin warm/dry/pink. Vital Signs: 19:12 BP 111 / 79; Pulse 77; Resp 17; Temp 98.4(O); Pulse Ox 100% on R/A; Weight 97.52 kg ll3 (R); Height 5 ft. 1 in. (R); Pain 8/10; 21:47 BP 123 / 70; Pulse 65; Resp 18 S; Pulse Ox 100% on R/A; as6 22:45 BP 113 / 71; Pulse 66; Resp 16; Pulse Ox 100% on R/A; jb4 23:30 BP 104 / 60; Pulse 51; Resp 18 S; Pulse Ox 100% on R/A; as6 19:12 Body Mass Index 40.62 (97.52 kg, 154.94 cm) ll3 19:12 Pain Scale: Adult ll3 ED Course: 18:48 Patient arrived in ED. am2 18:48 Ed Delvalle PA is PHCP. cp 18:48 David Hollins MD is Attending Physician. cp 19:15 Triage completed. ll3 19:15 Arm band placed on. ll3 19:22 Hank Stevens MD is Attending Physician. cp 19:30 Franco Mcgrath, RN is Primary Nurse. as6 20:05 Patient has correct armband on for positive identification. Bed in low position. Call jb4 light in reach. Side rails up X 1. Client placed on continuous cardiac and pulse oximetry monitoring. NIBP monitoring applied. 20:05 Initial lab(s) drawn, by wa, sent to lab. Inserted saline lock: 18 gauge in right jb4 antecubital area, using aseptic technique. Blood collected. 20:08 CBC with Diff Sent. jb4 20:08 CMP Sent. jb4 20:08 Lipase Sent. jb4 20:08 Urinalysis w/ reflexes Sent. jb4 21:04 US Abdomen Limited In Process Unspecified. EDMS 21:57 Scott Lisa MD is Hospitalizing Provider. 09/10 00:00 No provider procedures requiring assistance completed. Patient admitted, IV remains in as6 place. Administered Medications: 09/09 20:26 Drug: NS 0.9% IV 1000 ml Route: IV; Rate: 1 bolus; Site: right antecubital; [facility] 09/10 00:02 Follow up: Response: No adverse reaction; IV Status: Completed infusion; IV Intake: as6 1000ml 09/09 20:26 Drug: Famotidine IVP 20 mg Route: IVP; Site: right antecubital; [facility] 09/10 00:02 Follow up: Response: No adverse reaction 09/09 20:26 Drug: Ondansetron IVP 4 mg Route: IVP; Site: right antecubital; [facility] 09/10 00:02 Follow up: Response: No adverse reaction 09/09 20:26 Drug: HYDROmorphone IVP 1 mg Route: IVP; Site: right antecubital; [facility] 09/10 00:02 Follow up: Response: No adverse reaction 09/09 21:46 Drug: Ondansetron IVP 4 mg Route: IVP; Site: right antecubital; 09/10 00:02 Follow up: Response: No adverse reaction 09/09 21:52 Drug: HYDROmorphone IVP 1 mg Route: IVP; Site: right antecubital; [facility] 09/10 00:02 Follow up: Response: No adverse reaction 09/09 22:19 Drug: Promethazine IVP 12.5 mg Route: IVP; Site: right antecubital; as6 09/10 00:02 Follow up: Response: No adverse reaction as6 09/09 22:53 Drug: Piperacillin-Tazobactam IVPB 3.375 grams Route: IVPB; Infused Over: 60 mins; jb4 Site: right antecubital; 09/10 00:02 Follow up: Response: No adverse reaction; IV Status: Completed infusion; IV Intake: as6 100ml Medication: 09/09 20:05 VIS not applicable for this client. jb4 Intake: 09/10 00:02 IV: 100ml; Total: 100ml. as6 00:02 IV: 1000ml; Total: 1100ml. as6 Outcome: 09/09 21:59 Decision to Hospitalize by Provider. cp 23:49 Patient left the ED. as09/10 00:00 Admitted to Tele accompanied by nurse, via wheelchair, with chart. as6 Condition: stable Instructed on the need for admit. Signatures: Dispatcher [employer] EDMS Ed Delvalle PA PA cp Bryson, James, RN RN jb4 Marilu Maxwell Ashby, RN RN as6 Yrn Stubbs RN RN ll3
--- NOTE | 2022-09-09 22:00 | EDPHYS ---
Physician Documentation [facility] Name: Barbie Woodward Age: 32 yrs Sex: Female : 1990 Arrival Date: 09/09/2022 Time: 18:47 Bed 2 Private MD: ED Physician Hank Stevens HPI: 09/09 19:25 This 32 yrs old Black Female presents to ER via Ambulatory with complaints of Abdominal cp Pain, Nausea. 19:25 The patient presents with abdominal pain in the right upper quadrant. Onset: The cp symptoms/episode began/occurred 2 hour(s) ago. 19:25 Associated signs and symptoms: Pertinent positives: nausea and vomiting, Pertinent cp negatives: blood in stools, constipation, diarrhea, dysuria, fever, headache. The symptoms are described as constant. Severity of pain: in the emergency department the pain is actually worse markedly. The patient has experienced a previous episode, approximately 10 days ago, but today's symptoms are worse. 19:25 Patient reports being diagnosed with gallstones 10 days ago but has been unable to f/u cp with surgery due to insurance. 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 - Social history:: Smoking status: Patient denies any tobacco usage or history of. ROS: 19:30 Constitutional: Negative for body aches, chills, fever, poor PO intake. cp 19:30 Respiratory: Negative for cough, shortness of breath, wheezing. cp 19:30 Abdomen/GI: Positive for abdominal pain, nausea and vomiting, Negative for diarrhea, constipation, hematemesis. Exam: 19:33 Constitutional: The patient appears alert, awake, non-diaphoretic, non-toxic, well cp developed, well nourished, obese, in obvious pain, uncomfortable. 19:33 Head/Face: Normocephalic, atraumatic. cp 19:33 Eyes: Periorbital structures: appear normal, Conjunctiva: normal, no exudate, no injection, Sclera: no appreciated abnormality, Lids and lashes: appear normal, bilaterally. 19:33 ENT: External ear(s): are unremarkable, Nose: is normal, Mouth: Lips: moist, Oral mucosa: pink and intact, moist, Posterior pharynx: is normal, airway is patent, no erythema, no exudate. 19:33 Neck: ROM/movement: is normal, is supple, without pain, no range of motions limitations. 19:33 Chest/axilla: Inspection: normal. 19:33 Cardiovascular: Rate: normal, Rhythm: regular, Edema: is not appreciated, JVD: is not appreciated. 19:33 Respiratory: the patient does not display signs of respiratory distress, Respirations: normal, no use of accessory muscles, no retractions, labored breathing, is not present, Breath sounds: are clear throughout, no decreased breath sounds, no stridor, no wheezing. 19:33 Abdomen/GI: Inspection: abdomen appears normal, Bowel sounds: active, all quadrants, Palpation: soft, in all quadrants, severe abdominal tenderness, in the epigastric area and right upper quadrant, rebound tenderness, is appreciated in the right upper quadrant, voluntary guarding, is elicited in the right upper quadrant. 19:33 Back: CVA tenderness, is absent. 19:33 Skin: no rash present. 19:33 Neuro: Orientation: to person, place \T\ time. Mentation: is normal, Cerebellar function: is grossly normal, Motor: moves all fours, strength is normal, Sensation: is normal. Vital Signs: 19:12 BP 111 / 79; Pulse 77; Resp 17; Temp 98.4(O); Pulse Ox 100% on R/A; Weight 97.52 kg ll3 (R); Height 5 ft. 1 in. (R); Pain 8/10; 21:47 BP 123 / 70; Pulse 65; Resp 18 S; Pulse Ox 100% on R/A; as6 22:45 BP 113 / 71; Pulse 66; Resp 16; Pulse Ox 100% on R/A; jb4 23:30 BP 104 / 60; Pulse 51; Resp 18 S; Pulse Ox 100% on R/A; as6 19:12 Body Mass Index 40.62 (97.52 kg, 154.94 cm) ll3 19:12 Pain Scale: Adult ll3 MDM: 19:22 Patient medically screened. cp 20:00 Differential diagnosis: cholecystitis, Cholelithiasis, gastritis, pancreatitis, Peptic cp Ulcer Disease, Perf. Duodenal Ulcer, Perf. Gastric Ulcer, Ureterolithiasis, urinary tract infection, choledocholithiasis. 21:58 Data reviewed: vital signs, nurses notes, lab test result(s), radiologic studies, cp ultrasound. 21:58 Consideration of Admission/Observation Patient was admitted/placed on observation. cp Management of patient was discussed with the following: Hospitalist: Christian Grant NP will admit patient after consult. Pile Driver: DR Joyce who will consult on patient after discussion and requests consult with DR Rangel. I considered the following discharge prescriptions or medication management in the emergency department Medications were administered in the Emergency Department. See MAR. Counseling: I had a detailed discussion with the patient and/or guardian regarding: the historical points, exam findings, and any diagnostic results supporting the discharge/admit diagnosis, lab results, radiology results, the need for further work-up and treatment in the hospital. Response to treatment: the patient's symptoms have markedly improved after treatment. 22:15 Management of patient was discussed with the following: Pile Driver: DR Rangel who will cp consult on patient and requests MR cholangiogram to be done in the morning. 09/09 19:28 Order name: CBC with Diff; Complete Time: 20:46 cp 09/09 20:46 Interpretation: Normal except: WBC 13.00; HGB 11.2; HCT 35.2; MCH 25.5; MCHC 31.7; PLT cp 471; RDW 16.1; MPV 7.3; NEUT A 9.6. 09/09 19:28 Order name: CMP; Complete Time: 20:46 cp 09/09 20:46 Interpretation: Normal except: GFR 87; AST 127; ALT 64; ALK 307; GLOB 3.9; A/G 0.9. cp 09/09 19:28 Order name: Lipase; Complete Time: 20:46 cp 09/09 19:28 Order name: Test, Urine; Complete Time: 20:13 cp 09/09 20:13 Interpretation: Reviewed. 09/09 19:28 Order name: Urinalysis w/ reflexes; Complete Time: 20:46 cp 09/09 21:04 Interpretation: Normal except: UBLD 1+; UPROT TRACE; UUROB 1+; UESTR 500; UWBC 10-20; cp URBC 21-50; BYST Trace. 09/09 20:18 Order name: Urine Culture EDMS 09/09 21:50 Order name: Lactate w/ 2H reflex if indic. cp 09/09 21:50 Order name: Blood Culture Adult (2) cp 09/09 19:28 Order name: US Abdomen Limited; Complete Time: 21:33 cp 09/09 21:34 Interpretation: Report reviewed. 09/09 21:42 Order name: Diet Bariatric Clear Liquid; Complete Time: 21:42 cp 09/09 19:28 Order name: IV Saline Lock; Complete Time: 20:07 cp 09/09 19:28 Order name: Labs collected and sent; Complete Time: 20:07 cp Administered Medications: 20:26 Drug: NS 0.9% IV 1000 ml Route: IV; Rate: 1 bolus; Site: right antecubital; 09/10 00:02 Follow up: Response: No adverse reaction; IV Status: Completed infusion; IV Intake: as6 1000ml 09/09 20:26 Drug: Famotidine IVP 20 mg Route: IVP; Site: right antecubital; 09/10 00:02 Follow up: Response: No adverse reaction 09/09 20:26 Drug: Ondansetron IVP 4 mg Route: IVP; Site: right antecubital; 09/10 00:02 Follow up: Response: No adverse reaction 09/09 20:26 Drug: HYDROmorphone IVP 1 mg Route: IVP; Site: right antecubital; 09/10 00:02 Follow up: Response: No adverse reaction 09/09 21:46 Drug: Ondansetron IVP 4 mg Route: IVP; Site: right antecubital; 09/10 00:02 Follow up: Response: No adverse reaction 09/09 21:52 Drug: HYDROmorphone IVP 1 mg Route: IVP; Site: right antecubital; 09/10 00:02 Follow up: Response: No adverse reaction 09/09 22:19 Drug: Promethazine IVP 12.5 mg Route: IVP; Site: right antecubital; 09/10 00:02 Follow up: Response: No adverse reaction 09/09 22:53 Drug: Piperacillin-Tazobactam IVPB 3.375 grams Route: IVPB; Infused Over: 60 mins; jb4 Site: right antecubital; 09/10 00:02 Follow up: Response: No adverse reaction; IV Status: Completed infusion; IV Intake: as6 100ml Disposition: 06:56 Co-signature as Attending Physician, Hank Stevens MD I agree with the assessment sp4 and plan of care. I reviewed the patient's care provided by [facility] Provider \T\ agree w/ the diagnosis \T\ care plan. I personally saw the pt \T\ performed a substantive portion of the visit, incldng all aspects of the (History/Exam/Medical Decision Making). Disposition Summary: 09/09/22 21:59 Hospitalization Ordered Hospitalization Status: Inpatient Admission cp Provider: Scott Lisa [facility] Condition: Stable cp Problem: an ongoing problem cp Symptoms: have improved cp Bed/Room Type: Standard cp Room Assignment: 413(09/09/22 22:34) cg Diagnosis - Other cholelithiasis without obstruction cp - Abnormal results of liver function studies cp - Nausea with vomiting, unspecified cp Forms: - Medication Reconciliation Form cp - SBAR form cp Signatures: Dispatcher [employer] EDMS Ed Delvalle PA PA cp Garcia, Cindy, RN RN cg Christiano Murphy RN RN jb4 Franco Mcgrath RN RN as6 Yrn Stubbs RN RN ll3 Hank Stevens MD MD sp4 Corrections: (The following items were deleted from the chart) 09/09 22:34 21:59 cp cg
[2022-09-09] MEDS ORDERED: PROMETHAZINE INJ 25 MG/ML AMP ONE (22:21)
--- NOTE | 2022-09-09 22:29 | P.HP ---
Certification for Inpatient Patient admitted to: Observation With expected LOS: <2 Midnights Patient will require the following post-hospital care: None Practitioner: I am a practitioner with admitting privileges, knowledge of patient current condition, hospital course, and medical plan of care. Services: Services provided to patient in accordance with Admission requirements found in Title 42 Section 412.3 of the Code of Federal Regulations Patient History Date of Service: 09/09/22 Reason for admission: Abdominal tednerness/elevated LFTs History of Present Illness: 32-year-old female presents the emergency department with chief complaint of epigastric pain, vomiting. He was seen here in the emergency department approximately 10 days ago diagnosed with cholelithiasis and discharged to follow-up outpatient with general surgery. Today after eating sandwich/some rotisserie meat approximately 2 hours later she developed severe epigastric pain and vomiting. She is again evaluated in the emergency department her labs were significant for leukocytosis white blood cell count 13 mildly elevated LFTs AST 127 ALT 64 alk phos 307 abdominal ultrasound showed cholelithiasis with positive sonographic Gleason sign but no other ancillary findings to suggest acute cholecystitis. No intrahepatic biliary dilatation. ED provider discussed case with general surgery and GI plan is for MRCP/GI/surgery evaluation. Of note patient is her 2 month old child, she has been told to pump and dump for now. Allergies latex Allergy (Mild, Verified 09/23/12 06:46) Rash Latex, Natural Rubber Allergy (Unverified 11/18/14 20:46) Unknown No Known Allergies Allergy (Uncoded 08/18/16 17:31) Unknown Home Medications: Ibuprofen [Motrin] 800 mg PO Q8H #30 tablet 09/24/12 - Past Medical/Surgical History -: None -: Tubal with reversal Psychosocial/ Personal History: Patient lives at home with family, cares for her 2 month old girl. - Family History Family History: Reviewed- Non-Contributory - Social History Smoking Status: Never smoker Alcohol use: No CD- Drugs: No Caffeine use: Yes Place of Residence: Home Review of Systems 10-point ROS is otherwise unremarkable Gastrointestinal: Nausea, Vomiting, Abdominal Pain Physical Examination - Physical Exam General: Alert, In no apparent distress, Oriented x3 HEENT: Atraumatic, PERRLA, Mucous membr. moist/pink, EOMI, Sclerae nonicteric Neck: Supple, 2+ carotid pulse no bruit, No LAD, Without JVD or thyroid abnormality Respiratory: Clear to auscultation bilaterally, Normal air movement Cardiovascular: Regular rate/rhythm, Normal S1 S2 Gastrointestinal: Normal bowel sounds, Tenderness (mild RUQ tenderness) Musculoskeletal: No tenderness Integumentary: No rashes Neurological: Normal speech, Normal strength at 5/5 x4 extr, Normal tone, Normal affect - Studies Laboratory Data (last 24 hrs) 09/09/22 20:05: Sodium 138, Potassium 3.7, BUN 15, Creatinine 0.90, Glucose 99, Total Bilirubin 0.3, AST 127 H, ALT 64 H, Alkaline Phosphatase 307 H, Lipase 54 09/09/22 20:05: WBC 13.00 H, Hgb 11.2 L, Hct 35.2 L, Plt Count 471 H Assessment and Plan - Plan Assessment: Abdominal tenderness, vomiting, cholelithiasis rule out cho lecystitis/choledocholithiasis Plan: Abdominal tenderness, vomiting, cholelithiasis rule out cholecystitis/choledocholithiasis NPO, IVF, IV antibiotics, as needed pain medications. General surgery and GI consult, MRCP ordered for the morning. DVT PPX:SCD Code status:Full code Discharge Plan: Home Plan to discharge in: 24 Hours - Advance Directives Does patient have a Living Will: No Does patient have a Durable POA for Healthcare: No - Code Status/Comfort Care Code Status Assessed: Yes (Full code) Critical Care: No Time Spent Managing Pts Care (In Minutes): 55
[2022-09-10] MEDS: PIPER TAZO 3.375 GM in NA CHLORIDE 0.9% 100 ML IV SCH ×3 (01:08→16:08)
[2022-09-10] MEDS: MORPHINE 4 MG/ML SYR IV PRN ×3 (01:09→09:29)
[2022-09-10] MEDS: NA CHLORIDE 0.9% 1,000 ML IV SCH ×3 (01:09→16:08)
[2022-09-10] MEDS: ONDANSETRON 4 MG/2 ML VIAL IV PRN ×3 (01:09→17:35)
[2022-09-10 06:54] LABS: Absolute Lymphocytes (CBC) 1.9 K/uL (0.7-4.9); Hematocrit 34.8 % (36.0-45.0); Lymphocytes % 35.9 % (15.3-44.8); MPV 7.6 fL (7.6-11.3); RBC Red Blood Cell Count 4.24 M/uL (3.86-4.86)
[2022-09-10 07:17] LABS: Albumin 3.2 g/dL (3.4-5.0)
--- NOTE | 2022-09-10 07:34 | P.PN ---
Date of Service: 09/10/22 Subjective: Feeling slighty better this morning abdominal pain RUQ, +nausea thirsty, wants water ROS: 10 point ROS as noted above, otherwise negative Physical Exam: GEN: Alert, oriented, NAD HEENT: Normal conjunctiva, sclera anicteric CV: Regular rate and rhythm, no edema Pulm: Nonlabored respirations on room air ABD: Soft, mild RUQ tenderness, nondistended Neuro: Normal speech, normal affect vitals reviewed Problem List: Acute cholecystitis, cholelithiasis Elevated LFTs abdominal u/s - Cholelithiasis. Positive sonographic Gleason's sign but no other ancillary findings to suggest acute cholecystitis Urine culture pending blood culture pending continue IV antibiotics IVF pain medications as needed General surgery and GI consulted MRCP 09/10 - Cholelithiasis. No biliary ductal dilatation or choledocho lithiasis repeat u/s ordered for further assessment Dr. Joyce plans for lap ese 09/10 NPO Continue to monitor liver function VTE: SCD for surgery Code: Full Dispo: Home ~2 days
--- NOTE | 2022-09-10 08:04 | RAD REPORT ---
EXAM DESCRIPTION: MRI - Cholangiogram - 09/10/2022 7:53 am CLINICAL HISTORY: ABD TENDERNESS, ELEVATED LFT COMPARISON: Abdomen Pelvis W Contrast dated 08/30/2022; Abdomen Exam Limited dated 09/09/2022; Abdom en Exam Limited dated 08/30/2022; Abdomen Exam Limited dated 12/10/2021 FINDINGS: Three-dimensional MRCP was performed using maximum intensity projection reconstruction on the same work station. No intrahepatic biliary tree dilatation is seen. The common bile duct is normal caliber without evide nce of retained stone, stricture or mass. The pancreatic duct is not pathologically dilated. Cholelithiasis. The gallbladder is not dilated. Limited T2 sequences through the abdomen demonstrates no bulky adenopathy, significant free fluid or abscess. IMPRESSION: Cholelithiasis. No biliary ductal dilatation or choledocholithiasis. No specific finding s to suggest acute cholecystitis. HIDA scan could confirm cystic duct patency.
--- NOTE | 2022-09-10 10:11 | RAD REPORT ---
EXAM DESCRIPTION: US - Abdomen Exam Limited - 09/10/2022 10:01 am CLINICAL HISTORY: eval CBD dilatation COMPARISON: Cholangiogram dated 09/10/2022; Abdomen Exam Limited dated 09/09/2022 FINDINGS: Focused ultrasound to evaluate the common bile duct. The common bile duct measures 4 millimeters and is within normal limits. The liver demonstrates no findings of intrahepatic biliary dilatation. IMPRESSION: Normal caliber common bile duct.
[2022-09-10] MEDS ORDERED: Ringers Lactate 1,000 ML IV ONE ×2 (10:54→12:28)
[2022-09-10] MEDS ORDERED: MIDAZOLAM HCL 2 MG/2 ML INJ ONE (11:01)
[2022-09-10] MEDS ORDERED: FENTANYL CITR 100 MCG/2 ML ONE (11:01)
[2022-09-10] MEDS ORDERED: propofoL 200 MG/20 ML VIAL IV ONE (11:01)
[2022-09-10] MEDS ORDERED: ROCURONIUM 50 MG/5 ML VIAL IV ONE (11:02)
[2022-09-10] MEDS ORDERED: KETOROLAC 30 MG/ML INJ ONE (11:02)
[2022-09-10] MEDS ORDERED: dexAMETHasone 10 MG/ML VIAL ONE (11:02)
[2022-09-10] MEDS ORDERED: LIDOCAINE 2% MPF 5 ML VIAL ONE (11:02)
[2022-09-10] MEDS ORDERED: ONDANSETRON 4 MG/2 ML VIAL ONE (11:02)
[2022-09-10] MEDS ORDERED: SUCCINYLCHOLINE 20 MG/ML (10 ML) IV ONE (11:14)
[2022-09-10] MEDS ORDERED: GLYCOPYRROLATE 0.2 MG/ML SYR ONE (11:28)
--- NOTE | 2022-09-10 12:20 | P.OP ---
Date of Service: 09/10/22 Preop diagnosis: Acute cholecystitis, cholelithiasis, elevated LFTs Postop diagnosis: Same Procedure performed: Laparoscopic cholecystectomy Surgeon: Mehdi Joyce MD [employer]: Noemy JACOB Estimated blood loss: Minimal Specimen: Gallbladder Findings: As above Anesthesia: General Complications: None Drains: None Fluids and blood products: Nonapplicable Disposition: Recovery room Operative note: Patient brought to the OR and placed in the supine position. General anesthesia begun. Patient prepped and draped in the usual sterile fashion. Marcaine 0.5% infiltrated locally. 15 blade used to make a 1 cm supraumbilical midline incision. Subcutaneous tissue divided. Fascia identified and divided. #1 Vicryl stay suture placed. Peritoneal cavity entered with sharp and blunt dissection. 12 mm trocar placed into the peritoneal cavity under direct vision. Pneumoperitoneum established. Then under direct vision three 5 mm trocars placed. 1 trocar placed in the right side of the epigastric region and 2 in the right subcostal region laparoscopy revealed inflamed gallbladder. Fundus retracted superiorly. Infundibulum identified and retracted inferolaterally. Cystic duct cystic artery clearly identified with blunt dissection. Clips placed and both structures divided. Cautery used to remove the gallbladder from the liver bed. Gallbladder retrieved through the umbilicus via Endo Catch bag. Right upper quadrant irrigated. You fluid clear and no evidence of bleeding or bile leakage appreciated. All trocars removed under direct vision. Stay sutures tied to each other to reapproximate the fascial defect. Subcutaneous wound irrigated and bleeding controlled with cautery. 3-0 chromic used approximate subcutaneous tissue and close skin. Sterile dressing applied. Patient awakened and taken to recovery room in good general condition. CC:
[2022-09-10] MEDS ORDERED: Mastisol Adhesive Liq ONE (12:27)
[2022-09-10] MEDS: HYDROMORPHONE HCL 1 MG/ML INJ ONE ×4 (12:52→13:27)
--- NOTE | 2022-09-10 12:52 | CON ---
Date of Consultation: 09/09/2022 Reason For Consultation: Abdominal pain. History Of Present Illness: The patient is a 32-year-old female, who presented to the emergency room with epigastric and right upper quadrant abdominal pain associated with belching and postprandial in nature. The patient was seen in the emergency room approximately 10 days ago, diagnosed with cholel ithiasis, and discharged to follow up with General Surgery as an outpatient; however, her symptoms be came worse, she came in, she had elevated LFTs. She was admitted. GI consultation and Surgery consu ltation were done. The patient denies sore throat, runny nose, cough, headaches, or dizziness. No c hest pain. No fever or chills. No history of jaundice. Review of Systems: Otherwise unremarkable. Past Medical History: Negative. Past Surgical History: Bilateral tubal ligation. Allergies: INCLUDE LATEX. Social History: The patient does not smoke or drink alcohol. Family History: Noncontributory. Physical Examination: Vital Signs: Stable. She is afebrile. General: She is awake, alert, and oriented x3. Head and Neck: Cranial nerves 2 through 12 are grossly within normal limits. No neck masses. No JV D. No icterus. Throat clear. Neck is supple. Chest: Clear. Heart: S1, S2. Abdomen: Soft, nondistended. Positive bowel sounds. Positive right upper quadrant tenderness. No rebound, rigidity, or guarding. Extremity: Adequately perfused. Nontender. Neuro: Nonfocal. Laboratory Data: White count on admission was 13,000, currently is 5400. The patient does not have a left shift currently. Platelets are slightly elevated, they are normal today at 403. Her chemistr y, however, has markedly gone up. AST has gone up from 127 to 1441, ALT has gone up from 64 to 965, alkaline phosphatase has gone up from 307 to 376. Total bilirubin is normal. Lipase is normal. The patient had an ultrasound done, which showed cholelithiasis with Gleason sign. The patient also had an MRCP, which was negative for any choledocholithiasis, mass, or stricture. Assessment: Acute cholecystitis, cholelithiasis, and possible choledocholithiasis. The patient may have passed a stone, but with elevated liver function tests. Recommendations: Dr. Rangel wants to repeat the ultrasound to make sure the stone has fallen after t he MRCP and should that be negative and we will follow the LFTs. If they are trending down, then we will proceed with a lap choly possible open. The patient understands risks, benefits, and alternativ es and agrees to procedure. The timing of the surgery will depend upon the findings that are pending . LAITH/SPEEDY Voice ID: [id number] Report ID: [id number]
[2022-09-10] MEDS ORDERED: MEPERIDINE HCL 25 MG/ML SYR ONE (12:54)
[2022-09-10] MEDS ORDERED: PROMETHAZINE INJ 25 MG/ML AMP ONE (13:02)
[2022-09-10] MEDS ORDERED: HYDROCODONE/APAP 7.5/325 MG TAB PO PRN (13:07)
[2022-09-10] MEDS: HYDROMORPHONE HCL 1 MG/ML INJ IV PRN (20:26)
[2022-09-10] MEDS ORDERED: PROMETHAZINE INJ 25 MG/ML AMP IV ONE (20:48)
[2022-09-10 22:34] LABS: Albumin 3.3 g/dL (3.4-5.0); Bilirubin Total 2.5 mg/dL (0.2-1.0); Protein, Total 7.4 g/dL (6.4-8.2)
[2022-09-11] MEDS: HYDROMORPHONE HCL 1 MG/ML INJ IV PRN ×2 (00:10→04:52)
[2022-09-11] MEDS: PIPER TAZO 3.375 GM in NA CHLORIDE 0.9% 100 ML IV SCH ×3 (00:10→16:33)
[2022-09-11] MEDS: ONDANSETRON 4 MG/2 ML VIAL IV PRN ×4 (00:12→20:58)
[2022-09-11] MEDS: NA CHLORIDE 0.9% 1,000 ML IV SCH ×2 (04:52→14:37)
[2022-09-11 07:59] LABS: Hematocrit 32.1 % (36.0-45.0); MCV 81.5 fL (80-100); MPV 7.8 fL (7.6-11.3); RBC Red Blood Cell Count 3.94 M/uL (3.86-4.86)
[2022-09-11] MEDS: KETOROLAC 30 MG/ML INJ IV PRN (07:59)
[2022-09-11 08:22] LABS: Albumin 2.9 g/dL (3.4-5.0); Bilirubin Total 1.9 mg/dL (0.2-1.0); Potassium 4.5 mEq/L (3.5-5.1); Protein, Total 6.3 g/dL (6.4-8.2)
--- NOTE | 2022-09-11 09:38 | P.PN ---
Subjective Date of Service: 09/11/22 Chief Complaint: RUQ pain/elevated LFTs, cholelithiasis, cholecystitis Subjective: New changes (Feels RUQ pain. Ate eggs this morning. S/p lap ese yesterday.) Review of Systems 10-point ROS is otherwise unremarkable General: Weakness Gastrointestinal: Abdominal Pain Physical Examination - Vital Signs Temperature: 97.1 F Blood Pressure: 124/75 Pulse: 72 Respirations: 18 Pulse Ox (%): 99 - Physical Exam General: Alert, In no apparent distress, Oriented x3, Cooperative, Mild distress (due to RUQ pain ) HEENT: Atraumatic, Normocephalic, PERRLA, EOMI Neck: Supple Respiratory: Normal air movement Cardiovascular: Regular rate/rhythm Gastrointestinal: No rebound, Tenderness (RUQ pain ), Guarding Neurological: Normal speech, Normal strength at 5/5 x4 extr - Studies Microbiology Data (last 24 hrs): 09/09/22 19:45 Clean Catch Urine [place] Count - Final <10,000 CFU/ML. 09/09/22 19:45 Clean Catch Urine - Final MIXED VICTOR MANUEL. Assessment And Plan - Current Problems (Diagnosis) (1) Cholelithiasis Current Visit: Yes Status: Acute (2) Cholecystitis Current Visit: Yes Status: Acute (3) Abnormal liver enzymes Current Visit: Yes Status: Acute (4) RUQ abdominal pain Current Visit: Yes Status: Acute - Plan REC: 1) continue IVFs and IV antibiotics 2) check MRCP and direct bilirubin & monitor labs 3) consider ERCP 4) continue prn pain medications & anti-emetics
[2022-09-11 09:39] LABS: Hepatitis B Core IgM Nonreactive (Nonreactive); Hepatitis B surface AG Interp. Nonreactive (Nonreactive); Hepatitis C Virus Ab Nonreactive (Nonreactive)
[2022-09-11] MEDS: HYDROMORPHONE HCL 2 MG/ML inj IV PRN ×3 (11:19→20:57)
--- NOTE | 2022-09-11 14:34 | PN ---
Date of Progress Note: 09/11/2022 Subjective: The patient is awake, alert. Tolerating diet. However, she still has significant pain. Objective: Vital Signs: Stable. She is afebrile. Abdomen: Benign. Laboratory Data: Reviewed. Her LFTs are still elevated and she has slight leukocytosis. Assessment: Status post laparoscopic cholecystectomy, elevated liver function tests. Recommendations: Continue antibiotics, GI follow up, repeat LFTs, consider MRCP/ERCP if indicated. /MODL Voice ID: [id number] Report ID: [id number]
--- NOTE | 2022-09-11 15:37 | P.PN ---
Subjective Date of Service: 09/11/22 Chief Complaint: RUQ pain/elevated LFTs, cholelithiasis, cholecystitis Patient still complaining of severe abdominal pain unrelieved with current dose of IV hydromorphone. She has been afebrile. She has mild leukocytosis. Physical Examination - Vital Signs Temperature: 97.6 F Blood Pressure: 125/74 Pulse: 53 Respirations: 100 Pulse Ox (%): 100 - Studies Microbiology Data (last 24 hrs): 09/09/22 19:45 Clean Catch Urine [place] Count - Final <10,000 CFU/ML. 09/09/22 19:45 Clean Catch Urine - Final MIXED VICTOR MANUEL. Assessment And Plan - Plan Physical Exam: GEN: Alert, oriented, NAD HEENT: Normal conjunctiva, sclera anicteric CV: Regular rate and rhythm, no edema Pulm: Clear to auscultation bilaterally, no rhonchi or rales ABD: Soft, diffuse tenderness, dressed trocar wounds Neuro: Normal speech, normal affect vitals reviewed Problem List: Acute cholecystitis, cholelithiasis Elevated LFTs abdominal u/s - Cholelithiasis. Positive sonographic Gleason's sign. blood culture: No growth today continue IV antibiotics IVF pain medications as needed General surgery and GI consulted MRCP 09/10 - Cholelithiasis. No biliary ductal dilatation or choledocholithiasis repeat u/s ordered for further assessment Status post lap cholecystectomy by Dr. Joyce plans for lap ese. Patient still has significant pain post-op NPO Seen by Dr. Rangel recommended repeat MRCP. Dr. Rangel is considering ERCP regardless of MRCP results if patient continues to have significant abdominal pain by tomorrow given that liver enzymes are still significantly elevated. Antiemetics as needed. VTE: SCD for surgery Code: Full Dispo: Home once clinically stable for discharge.
[2022-09-11] MEDS ORDERED: PROMETHAZINE INJ 25 MG/ML AMP IV ONE (15:39)
--- NOTE | 2022-09-11 16:34 | RAD REPORT ---
EXAM DESCRIPTION: MRI - Cholangiogram - 09/11/2022 3:24 pm CLINICAL HISTORY: possible CBD stone s/p ese COMPARISON: Cholangiogram dated 09/10/2022; Abdomen Exam Limited dated 09/10/2022; Abdomen Pelvis W Co ntrast dated 08/30/2022 FINDINGS: Three-dimensional MRCP was performed using maximum intensity projection reconstruction on the same work station. Status post cholecystectomy. Rounded T2 hyperintense structures in the gallbladder fossa may represen t some dropped stones. No significant free fluid identified to suggest the presence of a leak. No int ra extrahepatic biliary duct dilatation. Limited T2 sequences through the abdomen demonstrates no bulky adenopathy, significant free fluid or abscess. IMPRESSION: Interval cholecystectomy. No biliary ductal dilatation or evidence of choledocholithiasi s. Trace fluid which is not unexpected and possibly some dropped stones at the gallbladder fossa. No significant free fluid identified to suggest the presence of a leak.
[2022-09-12] MEDS: NA CHLORIDE 0.9% 1,000 ML IV SCH ×3 (01:31→21:31)
[2022-09-12] MEDS: PIPER TAZO 3.375 GM in NA CHLORIDE 0.9% 100 ML IV SCH ×3 (02:44→15:51)
[2022-09-12] MEDS: HYDROMORPHONE HCL 2 MG/ML inj IV PRN ×6 (02:44→23:53)
[2022-09-12] MEDS: ONDANSETRON 4 MG/2 ML VIAL IV PRN ×3 (02:48→23:54)
[2022-09-12 06:08] LABS: Albumin 2.8 g/dL (3.4-5.0); Bilirubin Direct 1.5 mg/dL (0-0.2); Bilirubin Total 1.8 mg/dL (0.2-1.0); Potassium 3.6 mEq/L (3.5-5.1); Protein, Total 6.5 g/dL (6.4-8.2)
[2022-09-12 08:18] LABS: Absolute Lymphocytes (CBC) 1.4 K/uL (0.7-4.9); Hematocrit 31.1 % (36.0-45.0); Lymphocytes % 13.3 % (15.3-44.8); MCV 82.2 fL (80-100); MPV 7.6 fL (7.6-11.3); RBC Red Blood Cell Count 3.78 M/uL (3.86-4.86)
[2022-09-12 08:22] LABS: Protime INR 0.99
[2022-09-12] MEDS ORDERED: Ringers Lactate 1,000 ML IV ONE (09:07)
[2022-09-12] MEDS ORDERED: LIDOCAINE 1% MPF 5 ML VIAL ONE (09:47)
[2022-09-12] MEDS ORDERED: propofoL 200 MG/20 ML VIAL IV ONE ×2 (09:47)
[2022-09-12] MEDS ORDERED: DIPHENHYDRAMINE 50 MG/ML VIAL ONE (10:25)
[2022-09-12] MEDS ORDERED: SODIUM CHLORIDE 0.9% 10ML INJ IV PRN (10:43)
[2022-09-12] MEDS: PANTOPRAZOLE 40 MG INJ IVP SCH ×2 (11:12→22:30)
--- NOTE | 2022-09-12 13:12 | PN ---
Date of Progress Note: 09/12/2022 Subjective: The patient is still with right upper quadrant pain. LFTs are slowly improving. Vitals are stable. She is afebrile. Scheduled for an EGD today to rule out gastritis that may be contribu ting to her pain. MRCP reviewed and there is no choledocholithiasis. There is some fluid in the gal lbladder fossa and possibly a stone which is normal after surgery. Assessment: Status post laparoscopic cholecystectomy, elevated liver function tests, abdominal pain. Recommendations: Await GI procedure and recommendation. From surgical standpoint once the patient i s cleared by GI Service, the patient is cleared for discharge to home to follow up with me in 1 week. /MODL Voice ID: [id number] Report ID: [id number]
--- NOTE | 2022-09-12 14:12 | CON ---
Date of Consultation: 09/10/2022 Reason For Consultation: Right upper quadrant pain, nausea, history of cholelithiasis and cholecysti tis. History Of Present Illness: The patient is a 32-year-old Afro-[place] female with history of hypert ension, obesity, and recent with a baby of approximately 2 months old. The patient came in to the hospital with midepigastric right upper quadrant pain with nausea. The patient reported eatin g a sandwich with rotisserie meat and 2 hours later started having severe midepigastric right upper q uadrant pain with nausea, vomiting. She came back to the hospital to the emergency department. She had been here 10 days before due to pain, was discharged with Surgery followup, but she came back thi s time, found to have elevated liver chemistries, AST of 127, ALT 64, alkaline phosphatase 307. Abdo virginie ultrasound revealing cholelithiasis and positive sonographic Gleason sign. The patient is breas tfeeding her 2-month-old child. Past Medical History: Significant for hypertension, obesity, tubal ligation with reversal, bipolar d isorder, and generalized anxiety disorder. DICTATION ENDS HERE ALAYNA Voice ID: [id number] Report ID: [id number]
--- NOTE | 2022-09-12 14:18 | CON ---
Date of Consultation: 09/10/2022 Addendum: Physical Examination: Vital Signs: The patient is 5 feet 1 inch, 218 pounds, BMI 41 kg/m2. Temperature 98.1 degrees Fahre nheit, pulse 55, respirations 18, blood pressure 129/71, O2 saturation 98%. General: She is an obese female, lying in bed, in no acute distress. HEENT: Normocephalic, atraumatic. Anicteric. Pupils equal, round, and reactive to light. Extraocu lar movements are intact. Oropharynx is clear. Neck: Supple. No masses. Respirations: Clear to auscultation bilaterally. Cardiac: Regular rate and rhythm. No gallops or rubs. Abdomen: Positive bowel sounds. Soft, nondistended. Pain in the right upper quadrant, greater than in the midepigastric area. Positive Gleason sign. No hepatosplenomegaly. No rebound. Extremities: No clubbing, cyanosis, or edema. 2+ pulses. Neuro: Alert and oriented x3. Grossly nonfocal. 5/5 motor strength. Sensation intact to light dot ch. Laboratory Data: The patient has a white count of 5.4, down from 13.0 yesterday. Hemoglobin 11.0, h ematocrit 34.8, MCV of 82, platelet count of 403, polys of 52%, lymphocytes 36%, monocytes 10%, and e osinophils 1%. Sodium 138, potassium 4.0, chloride 108, bicarb 26, BUN of 12, creatinine of 0.83, la ctate 2.1, calcium 8.4, total bilirubin 1.0. AST of 1441, up from 127 yesterday. ALT 965, up from 6 4 yesterday. Alkaline phosphatase 376, up from 307 yesterday. Total protein 7.0, albumin 3.2, lipas e 54. UA shows 1+ blood, 1+ , 500 leukocyte esterase, nitrite negative, less than 5 squamo us epithelial cells, 10 to 20 white blood cells, 21 to 50 RBCs, slight mucus, trace yeast, trace prot ein. test negative. COVID-19 testing negative. Abdominal ultrasound revealed cholelithiasis, positive Gleason sign, normal common bile duct, and no i ntrahepatic biliary dilatation. MRCP done today revealed cholelithiasis. No biliary dilatation or c holedocholithiasis. Repeat ultrasound today at our request to ensure no dilatation revealed normal c ommon bile duct. Impression: 1.Choledocholithiasis, cholelithiasis, status post laparoscopic cholecystectomy today. The patient has right upper quadrant pain maximum 10/10, now 5/10. She has nausea associated with this and a lit tle bit of emesis before, but no emesis since admission. No fevers or chills, change in bowel habits , diarrhea, constipation, melena, hematochezia. 2.Doubt choledocholithiasis. Negative MRCP and negative ultrasound now x2 despite liver numbers goi ng up probably reflected her acute cholecystitis worsening impinging on liver and causing elevation i n liver numbers. 3.History of hypertension, obesity, tubal ligation with reversal, bipolar disorder, and generalized anxiety disorder. Recommendations: 1.Continue IV fluids. 2.Continue p.r.n. pain medications, antiemetics. 3.Diet as per Surgery. 4.Continue IV antibiotics. 5.Monitor labs. KASSANDRA/SPEEDY Voice ID: [id number] Report ID: [id number]
--- NOTE | 2022-09-12 15:04 | RAD REPORT ---
EXAM DESCRIPTION: NM - Gastric Emptying Study - 09/12/2022 2:27 pm CLINICAL HISTORY: Abdominal pain/ COMPARISON: None. TECHNIQUE: The patient was administered approximately 1.1 mCi Tc 99m sulfur colloid in solid egg mohit l. Imaging of the left upper quadrant was performed with time/activity curve generated. FINDINGS: The half-time gastric emptying equals 206 minutes. Normal value(45 minutes to 110 minutes ) Lag phase duration 50 minutes Retention at 120 minutes = 71% IMPRESSION: Delayed gastric emptying
--- NOTE | 2022-09-12 15:21 | P.PN ---
Subjective Date of Service: 09/12/22 Chief Complaint: RUQ pain/elevated LFTs, cholelithiasis, cholecystitis Patient still complaining of abdominal pain accompanied by nausea No fever. Physical Examination - Vital Signs Temperature: 97.9 F Blood Pressure: 131/72 Pulse: 55 Respirations: 18 Pulse Ox (%): 100 Assessment And Plan - Plan Physical Exam: GEN: Alert, oriented, NAD HEENT: Normal conjunctiva, sclera anicteric CV: Regular rate and rhythm, no edema Pulm: Clear to auscultation bilaterally, no rhonchi or rales ABD: Soft, diffuse tenderness, dressed trocar wounds-clean Neuro: Normal speech, normal affect vitals reviewed Problem List: Acute cholecystitis, cholelithiasis Elevated LFTs abdominal u/s - Cholelithiasis. Positive sonographic Gleason's sign. blood culture: No growth today continue IV antibiotics IVF pain medications as needed General surgery and GI consulted MRCP 09/10 - Cholelithiasis. No biliary ductal dilatation or choledocholithiasis repeat u/s ordered for further assessment Status post lap cholecystectomy by Dr. Joyce plans for lap ese. Patient still has significant pain post-op Seen by Dr. Rangel recommended repeat MRCP. MRCP unremarkable, no biliary duct stone or dilated Dr. Rangel performed EGD today which showed gastritis. Antiemetics as needed. PPI. Patient started on clear liquid diet. VTE: SCD for surgery Code: Full Dispo: Home once clinically stable for discharge.
[2022-09-12] MEDS: METRONIDAZOLE 500mg IVPB 500 MG/100 ML BAG IV SCH (20:26)
[2022-09-12] MEDS: CIPROFLOXACIN 400mg IV 400 MG/200 ML BAG IV SCH (22:30)
[2022-09-13 01:52] VITALS: BMI 41.1
[2022-09-13] MEDS: METRONIDAZOLE 500mg IVPB 500 MG/100 ML BAG IV SCH ×3 (02:02→16:14)
[2022-09-13] MEDS: HYDROMORPHONE HCL 2 MG/ML inj IV PRN (04:01)
[2022-09-13] MEDS: ONDANSETRON 4 MG/2 ML VIAL IV PRN (06:00)
[2022-09-13] MEDS: NA CHLORIDE 0.9% 1,000 ML IV SCH ×2 (07:31→16:13)
[2022-09-13] MEDS: CIPROFLOXACIN 400mg IV 400 MG/200 ML BAG IV SCH (08:45)
[2022-09-13] MEDS: KETOROLAC 30 MG/ML INJ IV PRN (08:46)
[2022-09-13] MEDS: PANTOPRAZOLE 40 MG INJ IVP SCH (08:47)
[2022-09-13 09:10] LABS: Albumin 2.8 g/dL (3.4-5.0); Bilirubin Total 0.9 mg/dL (0.2-1.0); Potassium 3.3 mEq/L (3.5-5.1); Protein, Total 6.4 g/dL (6.4-8.2)
[2022-09-13 10:08] VITALS: O2SAT 96
--- NOTE | 2022-09-13 16:41 | P.DS ---
Admission Date: 09/11/22 Discharge Date: 09/13/22 Disposition: ROUTINE DISCHARGE Reason for Admission: RUQ pain/elevated LFTs, cholelithiasis, cholecystitis Brief History of Present Illness: 32-year-old female presents the emergency department with chief complaint of epigastric pain, vomiting. He was seen here in the emergency department approximately 10 days ago diagnosed with cholelithiasis and discharged to follow-up outpatient with general surgery. Today after eating sandwich/some rotisserie meat approximately 2 hours later she developed severe epigastric pain and vomiting. She is again evaluated in the emergency department her labs were significant for leukocytosis white blood cell count 13 mildly elevated LFTs AST 127 ALT 64 alk phos 307 abdominal ultrasound showed cholelithiasis with positive sonographic Gleason sign but no other ancillary findings to suggest acute cholecystitis. No intrahepatic biliary dilatation. ED provider discussed case with general surgery and GI plan is for MRCP/GI/surgery evaluation. Hospital Course: Diagnosis Acute cholecystitis, cholelithiasis Elevated LFTs Gastroparesis-likely opioid induced/ abdominal u/s - Cholelithiasis. Positive sonographic Gleason's sign. blood culture: No growth today continue IV antibiotics IVF pain medications as needed General surgery and GI consulted MRCP 09/10 - Cholelithiasis. No biliary ductal dilatation or choledo cholithiasis Status post lap cholecystectomy by Dr. Joyce plans for lap ese. Patient was still has significant pain post-op Seen by Dr. Rangel who recommended repeat MRCP. MRCP unremarkable, no biliary duct stone or dilated Dr. Rangel performed EGD which showed gastritis. Dr. Rangel recommended gastric emptying study which came back positive Patient treated with antiemetics as needed, PPI. She tolerated liquid diet Gastroparesis suspected to be secondary to opioids. Gastric emptying study result discussed with Dr. Rangel who recommended about 2 weeks of Reglan and follow-up with him in the office within 2 to 3 weeks. Patient deemed clinically stable for discharge. Vital Signs/Physical Exam: Temp Pulse Resp BP Pulse Ox 97.0 F 60 14 135/67 98 09/13/22 08:00 09/13/22 08:00 09/13/22 08:00 09/13/22 08:00 09/13/22 08:00 General: Alert, In no apparent distress, Oriented x3 HEENT: Mucous membr. moist/pink Neck: Supple, JVD not distended Respiratory: Clear to auscultation bilaterally Cardiovascular: No edema, Regular rate/rhythm, Normal S1 S2 Gastrointestinal: Normal bowel sounds, Soft and benign, Non-distended Musculoskeletal: No swelling Integumentary: No rashes Neurological: Normal strength at 5/5 x4 extr Laboratory Data at Discharge: WBC 10.50 thou/uL (4.3-10.9) 09/12/22 08:03 Hgb 9.9 g/dL (12.0-15.0) L 09/12/22 08:03 Hct 31.1 % (36.0-45.0) L 09/12/22 08:03 Plt Count 333 thou/uL (152-406) 09/12/22 08:03 PT 10.9 SECONDS (9.5-12.5) 09/12/22 08:03 INR 0.99 09/12/22 08:03 APTT 24.4 SECONDS (24.3-36.9) 09/12/22 08:03 Sodium 135 mEq/L (136-145) L 09/13/22 06:36 Potassium 3.3 mEq/L (3.5-5.1) L 09/13/22 06:36 BUN 5 mg/dL (7-18) L 09/13/22 06:36 Creatinine 0.77 mg/dL (0.55-1.02) 09/13/22 06:36 Glucose 101 mg/dL (74-106) 09/13/22 06:36 Total Bilirubin 0.9 mg/dL (0.2-1.0) 09/13/22 06:36 AST 80 U/L (15-37) H 09/13/22 06:36 ALT 400 U/L (13-56) H 09/13/22 06:36 Alkaline Phosphatase 308 U/L (45-117) H 09/13/22 06:36 Lipase 51 U/L (13-75) 09/11/22 07:42 Home Medications: Cefpodoxime Proxetil 100 mg PO BID #8 tab 09/13/22 Hydrocodone 7.5/APAP 325 [[place] 7.5/325 mg*] 1 tab PO Q4H PRN #12 tab 09/13/22 Metoclopramide HCl [Reglan] 10 mg PO TID #42 tab 09/13/22 Pantoprazole [Protonix Tab] 40 mg PO DAILY #30 tab 09/13/22 metroNIDAZOLE [Flagyl] 500 mg PO Q8H #12 tab 09/13/22 New Medications: Cefpodoxime Proxetil 100 mg PO BID #8 tab metroNIDAZOLE [Flagyl] 500 mg PO Q8H #12 tab Hydrocodone 7.5/APAP 325 [[place] 7.5/325 mg*] 1 tab PO Q4H PRN #12 tab PRN Reason: Pain Scale 5-7 (Moderate) Pantoprazole [Protonix Tab] 40 mg PO DAILY #30 tab Metoclopramide HCl [Reglan] 10 mg PO TID #42 tab Physician Discharge Instructions: May shower Keep wound clean and dry Dry gauze to wound daily Antibiotics and pain medicine per hospitalist Follow-up my office 1 week call for appointment No heavy lifting or strenuous exercise Incentive spirometry as ordered Diet: Regular Activity: No lifting more than 10 lbs Followup: NONE,NONE [Primary Care Provider] - Mehdi Joyce MD [ACTIVE - CAN ADMIT] - 1 Week Sammy Rangel MD [ASSOCIATE-ACTIVE - CAN ADMIT] - (2-3 weeks) Time spent managing pt's care (in minutes): 38
[2022-09-13 17:35] VITALS: BP 146/73; TEMP 98.5
== END 2022-09-13 18:26 | disposition home or self-care (01) | DRG 418 ==
LOC: ER 18:47 → ERHOLD 22:14 → 4TH 23:24 → OBSVTOIN 09-11 19:04
PROVIDERS: ADMIT Hospitalist; ATTEND Internal Medicine
PROC: 0FT44ZZ Resection of Gallbladder, Percutaneous Endoscopic Approach (ICD-10-PCS; principal; 2022-09-10 10:00)
PROC: 0DB68ZX Excision of Stomach, Via Natural or Artificial Opening Endoscopic, Diagnostic (ICD-10-PCS; 2022-09-12)
DX: K80.00 Calculus of gallbladder with acute cholecystitis without obstruction (principal); Z68.41 Body mass index [BMI] 40.0-44.9, adult; K29.70 Gastritis, unspecified, without bleeding; K31.84 Gastroparesis; T40.2X5A Adverse effect of other opioids, initial encounter; R79.89 Other specified abnormal findings of blood chemistry; I10 Essential (primary) hypertension; E66.9 Obesity, unspecified; F31.9 Bipolar disorder, unspecified; F41.1 Generalized anxiety disorder; Z91.040 Latex allergy status; Z28.310 Unvaccinated for COVID-19
CPT/HCPCS: 36415; 74181; 76705; 78264; 80053; 80074; 80076; 81001; 81025; 82248; 83036; 83605; 83690; 85025; 85610; 85730; 86308; 87040; 87086; 87088; 88304; 88305; 88312; 94010; 96361; 96365; 96375; 99285; A9541; C9113; G0378; J0744; J1100; J1170; J1200; J2001; J2175; J2250; J2405; J2543; J2550; J2704; J3010; J7030; J7120

== ENCOUNTER 2023-08-26 18:12 | Emergency (ER) | payer OTHER ==
--- OUTSIDE RECORDS SUMMARY | 2023-08-26 18:20 | XMS REPORT | Continuity of Care Document ---
Author Name Unknown Address [address] [facility]. [address] [place] [address] [facility] thconnect Address [address] [facility] [address] [place] [address] Care Team Providers Care Flush Tester Name Role Phone PCP, PATIENT DOES NOT HAVE A Primary Care Physic dary Unavailable BENITA ALLRED Attending Clinician Unavail able ALICIA VENEGAS Attending Clinician Unavailable ALICIA VENEGAS Attending Clinician Unavailable Chalino Benita CASIANO Attending Clinician + SABINE IRBY Attending Clinician Batsheva Sabine Craig MD Attending Clinician Georgie Mendoza Attending Clinician [phone] GEORGIE MALONE Attending Clinician Unavailable Doctor Unassigned, Lemmon Attending Clinician U SHARI Stevenson Attending Clinician Unavailable Jenny Galloway MA Attending Clinician Unavailab JULIAN Leonard Attending Clinician Unavaila JULIAN Teixeira Attending Clinician Unavaila terry Lab, Ang - Db Attending Clinician Unavailable Shari Veras MD Attending Clinician [phone] Preet Menendez MD Attending Clinicia n Pob, [facility] Main Attending Clinician Unavailabl e Room, [facility] Attending Clinician Unavailable [facility], [facility] Unavailable Yvonne De La Fuente MD, Kandace Attending Clinician + Ultrasound, [facility] Attending Clinician Unavaila terry DE LA FUENTE, KANDACE Attending Clinician Unav ailable WILEY LOPEZ Attending Clinician Unavailabl armand Ritchie PT, Jenna Gil Attending Clinician Unavailab ariela Lopez MD, Wiley Giordano Attending Clinician [phone] TIANA SINCLAIR Attending Clinician Unavailable Ultrasound, [facility] Attending Clinician Unavaila terry Sinclair MD, Tiana James Attending Clinician [phone], [facility] Lab Attending Clinician Unavailable Eduardo NANCE, Eron Melissa Attending Clinician Unavaila terry Teague MA, Nicki Wang Attending Clinician Unavail able Nancy DOWNS, Marisol Perez Attending Clinician + MARISOL MOHR Attending Clinician Unav ailable Pilar MATTSON, Jairo Attending Clinician [phone] Danika Gonzalez RN Attending Clinician Unavailabl ZEYAD Ulloa Attending Clinician Unavailable Alvarez DOWNS, Zeyad Attending Clinician [phone] JAIRO QUEZADA Attending Clinician Unavailable Neris Evans RN Attending Clinician Unavail able RASHAD_JOSEF Attending Clinician Unavailable Mery NANCE, Opal Attending Clinician Unavailabl Michael Rowe RN Attending Clinician Unavailab le Emily, Ang Db Test Attending Clinician Unavailabl e Lupe Romero Attending Clinician [phone] LUPE ELLIOTT Attending Clinician Unavailab le Emily, [facility] Pob2 Test Attending Clinician Unavaila Opal Beavers Attending Clinician [phone] OPAL FRANKLIN Attending Clinician Unavailable Shannon Jorge Attending Clinician [phone] Anjel Coyne DO Attending Clinician [phone] Lab, [facility] Fam Pob I Attending Clinician Unavailab Humera Rodriguez Attending Clinician [phone] HUMERA PACHCEO Attending Clinician Unavailable Nurse, [facility] Attending Clinician Un available Lukasz Weiss DO Attending Clinician [phone] An NANCE, Megan Attending Clinician Unavailable SHARI VERAS Admitting Clinician Unavailable LINH BROWN Admitting Clinician Unavaila Shari Perkins MD Admitting Clinician [phone] RASHADEUGENIO Admitting Clinician Unavailable JULIAN MEDELLIN Admitting Clinician Unavaila terry Payers Payer Name Policy Type Policy Number Effective Date Expirati on Date Source [place] [employer] [id number] 2022 00:00:00 [facility] [place] [facility] [id number] 2023 00:00:00 Problems Condition Name Condition Details Condition Category Status Onset Date Resolution Date Last Treatment Date Treating Clinician Comments Source Need for HPV vaccinatio n Need for HPV vaccinatio n Disease Active 4-03 00:00: 00 [facility] Other general counseling and advice for contracept melonie management Other general counseling and advice for contracept melonie management Disease Active 4-03 00:00: 00 [facility] Obesity (BMI 30-39.9) Obesity (BMI 30-39.9) Disease Active 4-03 00:00: 00 [facility] IUD (intrauter ine device) in place IUD (intrauter ine device) in place Disease Active 4-03 00:00: 00 [facility] IUGR (intrauter ine growth restrictio n) affecting care of mother, third trimester, fetus 1 IUGR (intrauter ine growth restrictio n) affecting care of mother, third trimester, fetus 1 Disease Active 2-07 00:00: 00 [facility] Poor growth affecting management of mother in third trimester, single or unspecifie d fetus Poor growth affecting management of mother in third trimester, single or unspecifie d fetus Disease Active 1-27 00:00: 00 [facility] Pain of round ligament during Pain of round ligament during Disease Active 2022-1 2-16 00:00: 00 [facility] Vulvar fissure Vulvar fissure Disease Active 0 9-23 00:00: 00 [facility] Low back pain during , antepartum Low back pain during , antepartum Disease Active 0 8-26 00:00: 00 [facility] Supervisio n of high risk in second trimester Supervisio n of high risk in second trimester Disease Active 0 7-15 00:00: 00 [facility] Obesity in , antepartum Obesity in , antepartum Disease Active 0 7-15 00:00: 00 [facility] History of anxiety History of anxiety Disease Active 0 715 00:00: 00 [facility] History of depression History of depression Disease Active 0 715 00:00: 00 [facility] Nausea and vomiting during prior to 22 weeks gestation Nausea and vomiting during prior to 22 weeks gestation Disease Active 0 715 00:00: 00 [facility] with inconclusi ve viability, single or unspecifie d fetus with inconclusi ve viability, single or unspecifie d fetus Disease Active 0 615 00:00: 00 [facility] Obesity, Class III, BMI 40-49.9 (morbid obesity) Obesity, Class III, BMI 40-49.9 (morbid obesity) Disease Active 0 615 00:00: 00 [facility] with history of ectopic , antepartum with history of ectopic , antepartum Disease Active 0 615 00:00: 00 [facility] Encounter for Nexplanon removal Encounter for Nexplanon removal Disease Active 0 - 00:00: 00 [facility] General counseling and advice on female contracept ion General counseling and advice on female contracept ion Disease Active 0 4-22 00:00: 00 [facility] Pain pelvic Pain pelvic Disease Active 0 4-22 00:00: 00 [facility] 38 weeks gestation of 38 weeks gestation of Disease Active 2020-0 3-10 00:00: 00 [facility] Liveborn infant, of hale , born in hospital by vaginal delivery Liveborn , of [place] , born in hospital by vaginal delivery Disease Active 0 3-10 00:00: 00 [facility] High-risk in third trimester High-risk in third trimester Disease Active 0 2-11 00:00: 00 [facility] Obesity (BMI 30-39.9) Obesity (BMI 30-39.9) Disease Active 0 718 00:00: 00 [facility] Rubella non-immune status, antepartum Rubella non-immune status, antepartum Disease Active 0 12 00:00: 00 [facility] Multiparit y Multiparit y Disease Active 11-20 00:00: 00 [facility] History of reversal of tubal ligation History of reversal of tubal ligation Disease Active 11-20 00:00: 00 [facility] Cessation of tobacco use in previous 12 months Cessation of tobacco use in previous 12 months Disease Active 11-20 00:00: 00 [facility] History of delivery History of delivery Disease Active 11-20 00:00: 00 [facility] Allergies, Adverse Reactions, Alerts Allergy Name Allergy Type Status Severity Reaction(s) Onset Date Inactive Date Treating Clinician Comments Source LATEX DRUG INGREDI Active High Hives 11-20 00:00: 00 [facility] Latex Drug Allergy Active Hives 11-20 00:00: 00 [facility] Social History Social Habit Start Date Stop Date Quantity Comments Source ASSERTION 2021-10-10 00:00:00 [facility] History SDOH Alcohol Std Drinks [facility] History SDOH Alcohol Binge [facility] Alcohol Comment 2023-08-14 00:00:00 2023-08-14 00:00:00 social very seldom [facility] Alcohol intake 2022-11-30 00:00:00 2022-11-30 00:00:00 Ex-drinker (finding) [facility] History of Social function 2022-11-30 00:00:00 2022-11-30 00:00:00 [facility] Exposure to SARS-CoV-2 (event) 2022-10-20 00:00:00 2022-10-30 08:09:00 Not sure [facility] Tobacco use and exposure 2021-11-24 00:00:00 2021-11-24 00:00:00 Smokeless tobacco non-user [facility] Tobacco Comment 2021-11-24 00:00:00 2021-11-24 00:00:00 quit ciggs on 11/17/2018, now uses e-cigg. [facility] History SDOH Alcohol Frequency 2018-11-20 00:00:00 2018-11-20 00:00:00 1 [facility] History of tobacco use 2018-11-16 00:00:00 Cigarette Smoker [facility] Sex Assigned At 1990 00:00:00 1990 00:00:00 [facility] Smoking Status Start Date Stop Date Source Ex-smoker 2021-11-24 00:00:00 2021-11-24 [facility] Ordered Medication Name Filled Medication Name Start Date Stop Date Current Medication? Ordering Clinician Indication Dosage Frequency Signature (SIG) Comments Components Source metroNIDAZO LE 500 mg tablet 08-15 00:00: 00 Yes [id number] 500mg Take 1 tablet by mouth in the morning and 1 tablet in the evening. [facility] fluconazole (DIFLUCAN) 150 mg tablet 08-13 00:00: 00 08-14 04:59 :00 No [id number] 150mg Take 1 tablet by mouth once now for 1 dose. [facility] phentermine 37.5 mg capsule 07-29 00:00: 00 Yes [id number] 37.5mg Take 1 capsule by mouth every morning. [facility] phentermine 37.5 mg capsule 12-06 00:00: 00 07-29 00:00 :00 No [id number] 37.5mg Take 1 capsule by mouth every morning. [facility] semaglutide , weight loss, (WEGOVY) 0.25 mg/0.5 mL PnIj SC injection 11-30 00:00: 00 12-06 00:00 :00 No [id number] .25mg inject 0.25 mg (1 pen) under the skin weekly. [facility] metroNIDAZO LE 500 mg tablet 11-04 00:00: 00 11-12 04:59 :00 No [id number] 500mg Take 1 tablet by mouth every 12 (twelve) hours for 7 days. [facility] norethindro ne (ORTHO MICRONOR) 0.35 mg tablet 11-01 00:00: 00 11-30 00:00 :00 No [id number] .35mg Take 1 tablet by mouth in the morning. [facility] metroNIDAZO LE (NUVESSA) 1.3 % (65 mg/5 gram) Gel 11-01 00:00: 00 11-02 04:59 :00 No [id number] 65mg Insert 65 mg into vagina once now for 1 dose. [facility] pantoprazol e 40 mg EC tablet 09-13 00:00: 00 11-30 00:00 :00 No 40mg Take 1 tablet by mouth in the morning. [facility] levonorgest reL (KYLEENA) IUD 1 Device 08-16 19:15: 00 08-16 18:23 :00 No [id number] 1{devic e} [facility] miSOPROStoL 200 mcg tablet 3-08 00:00: 00 08-16 00:00 :00 No [id number] 200ug Take 1 tablet by mouth SEE-INSTRU CTIONS. Take one tab the night before and one tab the morning of procedure [facility] acetaminoph en (TYLENOL ORAL) 2-08 06:23: 07 06-20 00:00 :00 No Take by mouth. [facility] witch Riley (TUCKS) 50 % topical pad 06-20 00:14: 28 Yes Topical, Q4HPRN, Starting on Sat06/19/22 at 1814, Until Discontinu ed, Routine, rectal/hem orrhoidal pain [facility] rho(D) immune globulin (RHOGAM) syringe 300 mcg 06-20 00:14: 05 Yes 300ug 300 mcg, Intramuscu lar, ONCE, For 1 dose, Conditiona l, Routine [facility] HYDROcodone -acetaminop hen (NORCO 5) 5-325 mg tablet 1 tablet 06-20 00:14: 02 Yes 1{tbl} 1 tablet, Oral, Q6HPRN, Starting on Sat06/19/22 at 1814, Until Discontinu ed, Routine, Pain (scale 7-10) [facility] ibuprofen (IBU) tablet 600 mg 06-20 00:14: 02 Yes 600mg 600 mg, Oral, Q6HPRN, Starting on Sat06/19/22 at 1814, Until Discontinu ed, Routine, Pain (scale 4-6) [facility] acetaminoph en (TYLENOL) tablet 650 mg 06-20 00:14: 02 Yes 650mg 650 mg, Oral, Q6HPRN, Starting on Sat06/19/22 at 1814, Until Discontinu ed, Routine, Pain (scale 1-3) [facility] diphenhydrA MINE (BENADRYL) tablet 25 mg 06-20 00:14: 02 Yes 25mg 25 mg, Oral, Q6HPRN, Starting on Sat06/19/22 at 1814, Until Discontinu ed, Routine, Sleep, Itching [facility] ondansetron (ZOFRAN (PF)) injection 4 mg 06-20 00:14: 02 Yes 4mg 4 mg, Slow IV Push, Q8HPRN, Starting on Sat06/19/22 at 1814, Until Discontinu ed, Routine, Nausea and Vomiting (N/V) [facility] simethicone (GAS RELIEF (SIMETHICON E)) chewable tablet 160 mg 06-20 00:14: 02 Yes 160mg 160 mg, Oral, PC+HSPRN, Starting on Sat06/19/22 at 1814, Until Discontinu ed, Routine, Gas [facility] docusate (COLACE) capsule 200 mg 06-20 00:14: 02 Yes 200mg 200 mg, Oral, QDAILYPRN, Starting on Sat06/19/22 at 1814, Until Discontinu ed, Routine, Constipati on [facility] magnesium hydroxide (MILK OF MAGNESIA) 400 mg/5 mL suspension 30 mL 06-20 00:14: 02 Yes 30mL 30 mL, Oral, QDAILYPRN, Starting on Sat06/19/22 at 1814, Until Discontinu ed, Routine, Constipati on [facility] benzocaine- menthol (DERMOPLAST ) 20-0.5 % topical spray 06-20 00:14: 02 Yes Topical, PRN, Starting on Sat06/19/22 at 1814, Until Discontinu ed, Routine, Perineum discomfort [facility] vitamin w/FA tablet 06-20 00:00: 00 Yes [id number] 1{tbl} Take 1 tablet by mouth in the morning. [facility] vitamin w/FA tablet 06-20 00:00: 00 11-30 00:00 :00 No [id number] 1{tbl} Take 1 tablet by mouth in the morning. [facility] docusate 100 mg capsule 06-20 00:00: 00 08-16 00:00 :00 No [id number] 200mg Take 2 capsules by mouth once daily as needed for Constipati on. [facility] ferrous sulfate 325 mg (65 mg iron) tablet 06-20 00:00: 00 08-16 00:00 :00 No [id number] 325mg Take 1 tablet by mouth in the morning and 1 tablet in the evening. [facility] ibuprofen 600 mg tablet 06-20 00:00: 00 08-16 00:00 :00 No [id number] 600mg Take 1 tablet by mouth every 6 (six) hours as needed (Pain). Take with food or milk. [facility] methylergon ovine (METHERGINE ) injection 0.2 mg 06-19 23:15: 00 06-19 23:07 :00 No .2mg 0.2 mg, Intramuscu lar, Q4H, 1 dose, First dose on Sat06/19/22 at 1715, Routine [facility] fentaNYL-ro pivacaine 2 mcg/mL-0.1 % (PF) in NS 200 mL epidural infusion RTU 06-19 18:59: 00 06-20 03:55 :53 No Epidural, ONCE INTRA PROCEDURE, Starting on Sat06/19/22 at 1259, Until Sat06/19/22 at 2155, Routine, Intra-op [facility] lidocaine-e pinephrine (XYLOCAINE W/EPINEPHRI NE) 1.5 %-1:200,000 injection 06-19 18:53: 00 06-20 03:55 :53 No Intraderma l, ONCE INTRA PROCEDURE, Starting on Sat06/19/22 at 1253, Until Sat06/19/22 at 2155, Routine, Intra-op [facility] acetaminoph en (TYLENOL ORAL) 06-19 17:30: 33 Yes Take by mouth. [facility] FENTanyl PF (SUBLIMAZE (PF)) injection 100 mcg 06-19 10:13: 06-20 00:14 :28 No 100ug 100 mcg, Slow IV Push, Q1HPRN, Starting on Sat06/19/22 at 0413, Until Sat06/19/22 at 1814, Routine, contractio n without an epidural and SVE < 8 cm and Cat I strip [facility] terbutaline (BRETHINE) injection 0.25 mg 06-19 10:13: 33 06-20 00:14 :28 No .25mg 0.25 mg, Subcutaneo us, PRN, Starting on Sat06/19/22 at 0413, Until Sat06/19/22 at 1814, Routine, bradycardi a > 3 min or Cat III strip [facility] oxytocin (PITOCIN) 30 units in NS 500 mL IV infusion 06-19 10:13: 06-20 00:14 :23 No 2mU/min at 2-40 mL/hr, IV Infusion, TITRATE, Starting on Sat06/19/22 at 0413, Until Sat06/19/22 at 1814, EMILY [facility] D5W-LR IV infusion 1,000 mL 06-19 10:13: 06-20 00:14 :23 No 1000mL at 1-125 mL/hr, IV Infusion, TITRATE, Starting on Sat06/19/22 at 041, Until Sat06/19/22 at 1814, Routine [facility] sodium citrate-cit shaun acid (BICITRA) 500-334 mg/5 mL solution 30 mL 06-19 10:13: 06-19 21:19 :00 No 30mL 30 mL, Oral, PRE-PROCED URE ONCE, 1 dose, Starting on Sat06/19/22 at 412, Until Discontinu ed, Routine, Surgery/Pr ocedure [facility] acetaminoph en (TYLENOL ORAL) 06-12 11:23: 30 Yes Take by mouth. [facility] fluconazole 200 mg tablet 05-23 00:00: 00 06-08 00:00 :00 No [id number] 200mg Take 1 tablet by mouth in the morning. [facility] fluconazole 150 mg tablet 2021-05 00:00: 00 Yes Take one tablet by mouth x 1 dose. [facility] metroNIDAZO LE 500 mg tablet 2021-05 00:00: 00 05-17 05:59 :00 No [id number] 500mg Take 1 tablet by mouth every 12 (twelve) hours for 7 days. [facility] terconazole 0.4 % vaginal cream 2021-05 00:00: 00 Yes [id number] 1{appli cator} Insert 1 Applicator into vagina at bedtime. [facility] ergocalcife rol, vitamin D2, (VITAMIN D ORAL) 2021-05 11:33: 27 03-30 00:00 :00 No Take by mouth. [facility] nystatin 100,000 unit/gram powder 2021-05 00:00: 00 06-20 00:00 :00 No [id number] Apply to area(s) 2 (two) times daily. [facility] metroNIDAZO LE 500 mg tablet 02-04 00:00: 00 03-30 00:00 :00 No [id number] 500mg Take 1 tablet by mouth every 12 (twelve) hours. [facility] benzocaine- menthol, DERMOPLAST, (DERMOPLAST , WITH MENTHOL,) 20-0.5 % topical spray 02-02 00:00: 00 03-30 00:00 :00 No [id number] Apply to area(s) as needed for Pain. [facility] ampicillin 500 mg capsule 01-08 00:00: 00 01-16 04:59 :00 No [id number] 500mg Take 1 capsule by mouth every 6 (six) hours for 7 days. [facility] metroNIDAZO LE 500 mg tablet 12-25 00:00: 00 03-30 00:00 :00 No [id number] 500mg Take 1 tablet by mouth every 12 (twelve) hours. [facility] metoclopram miles HCl 10 mg tablet -15 00:00: 00 06-20 00:00 :00 No [id number] 10mg Take 1 tablet by mouth every 6 (six) hours as needed for Nausea and Vomiting (N/V). [facility] pyridoxine, VITAMIN B-6, (VITAMIN B-6) 25 mg tablet 15 00:00: 00 03-30 00:00 :00 No [id number] 25mg Take 1 tablet by mouth every 6 (six) hours as needed for Nausea and Vomiting (N/V). [facility] doxylamine (UNISOM, DOXYLAMINE, ) 25 mg tablet 7-15 00:00: 00 03-30 00:00 :00 No [id number] 25mg Take 1 tablet by mouth at bedtime as needed for Nausea and Vomiting (N/V). [facility] PNV 67-iron ps-folate no.1-dha (VITAFOL ULTRA) 29 mg iron- 1 mg-200 mg Cap 6-15 00:00: 00 06-20 00:00 :00 No [id number] 1{capsu le} Take 1 capsule by mouth daily. [facility] PNV 67-iron ps-folate no.1-dha (VITAFOL ULTRA) 29 mg iron- 1 mg-200 mg Cap 10-25 00:00: 00 06-20 00:00 :00 No [id number] 1{capsu le} Take 1 capsule by mouth daily. [facility] Norethindrn A-E Estradiol-I georgiana (BLISOVI 24 FE) 1 mg-20 mcg (24)/75 mg (4) per tablet 4-22 00:00: 00 10-25 00:00 :00 No [id number] 1{tbl} Take 1 tablet by mouth daily for 84 days. [facility] ergocalcife rol, vitamin D2, (VITAMIN D ORAL) 2019-05 0-27 15:36: 43 Yes Take by mouth. [facility] methylPREDN ISolone 4 mg tablets 6 00:00: 00 03-30 00:00 :00 No [id number] Take by mouth SEE-INSTRU CTIONS. follow package directions [facility] Immunizations Ordered Immunization Name Filled Immunization Name Date Status Comments Source TDAP 2022-04-27 00:00:00 Completed [facility] TDAP 2022-04-27 00:00:00 Completed [facility] TDAP 2022-04-27 00:00:00 Completed [facility] TDAP 2022-04-27 00:00:00 Completed [facility] TDAP 2022-04-27 00:00:00 Completed [facility] TDAP 2022-04-27 00:00:00 Completed [facility] TDAP 2022-04-27 00:00:00 Completed [facility] TDAP 2022-04-27 00:00:00 Completed [facility] TDAP 2022-04-27 00:00:00 Completed [facility] TDAP 2022-04-27 00:00:00 Completed [facility] TDAP 2022-04-27 00:00:00 Completed [facility] TDAP 2022-04-27 00:00:00 Completed [facility] TDAP 2022-04-27 00:00:00 Completed [facility] TDAP 2022-04-27 00:00:00 Completed [facility] TDAP 2022-04-27 00:00:00 Completed [facility] TDAP 2022-04-27 00:00:00 Completed [facility] TDAP 2022-04-27 00:00:00 Completed [facility] TDAP 2022-04-27 00:00:00 Completed [facility] TDAP 2022-04-27 00:00:00 Completed [facility] TDAP 2022-04-27 00:00:00 Completed [facility] TDAP 2022-04-27 00:00:00 Completed [facility] TDAP 2022-04-27 00:00:00 Completed [facility] TDAP 2022-04-27 00:00:00 Completed [facility] TDAP 2022-04-27 00:00:00 Completed [facility] TDAP 2022-04-27 00:00:00 Completed [facility] TDAP 2022-04-27 00:00:00 Completed [facility] TDAP 2022-04-27 00:00:00 Completed [facility] TDAP 2022-04-27 00:00:00 Completed [facility] TDAP 2022-04-27 00:00:00 Completed [facility] TDAP 2022-04-27 00:00:00 Completed [facility] TDAP 2022-04-27 00:00:00 Completed [facility] TDAP 2022-04-27 00:00:00 Completed [facility] TDAP 2022-04-27 00:00:00 Completed [facility] TDAP 2022-04-27 00:00:00 Completed [facility] TDAP 2022-04-27 00:00:00 Completed [facility] TDAP 2022-04-27 00:00:00 Completed [facility] TDAP 2022-04-27 00:00:00 Completed [facility] TDAP 2022-04-27 00:00:00 Completed [facility] TDAP 2022-04-27 00:00:00 Completed [facility] TDAP 2022-04-27 00:00:00 Completed [facility] TDAP 2022-04-27 00:00:00 Completed [facility] TDAP 2022-04-27 00:00:00 Completed [facility] TDAP 2022-04-27 00:00:00 Completed [facility] TDAP 2022-04-27 00:00:00 Completed [facility] TDAP 2022-04-27 00:00:00 Completed [facility] TDAP 2022-04-27 00:00:00 Completed [facility] TDAP 2022-04-27 00:00:00 Completed [facility] TDAP 2022-04-27 00:00:00 Completed [facility] TDAP 2022-04-27 00:00:00 Completed [facility] Influenza Virus Vaccine Quad .5 mL IM 6+ MO 2020-03-08 00:00:00 Completed [facility] Influenza Virus Vaccine Quad .5 mL IM 6+ MO 2020-03-08 00:00:00 Completed [facility] Influenza Virus Vaccine Quad .5 mL IM 6+ MO 2020-03-08 00:00:00 Completed [facility] [facility] Influenza Virus Vaccine Quad .5 mL IM 6+ MO 2020-03-08 00:00:00 Completed [facility] Influenza Virus Vaccine Quad .5 mL IM 6+ MO 2020-03-08 00:00:00 Completed [facility] Influenza Virus Vaccine Quad .5 mL IM 6+ MO 2020-03-08 00:00:00 Completed [facility] Influenza Virus Vaccine Quad .5 mL IM 6+ MO 2020-03-08 00:00:00 Completed [facility] Influenza Virus Vaccine Quad .5 mL IM 6+ MO 2020-03-08 00:00:00 Completed [facility] Influenza Virus Vaccine Quad .5 mL IM 6+ MO 2020-03-08 00:00:00 Completed [facility] Influenza Virus Vaccine Quad .5 mL IM 6+ MO 2020-03-08 00:00:00 Completed [facility] Influenza Virus Vaccine Quad .5 mL IM 6+ MO 2020-03-08 00:00:00 Completed [facility] Influenza Virus Vaccine Quad .5 mL IM 6+ MO 2020-03-08 00:00:00 Completed [facility] Influenza Virus Vaccine Quad .5 mL IM 6+ MO 2020-03-08 00:00:00 Completed [facility] Influenza Virus Vaccine Quad .5 mL IM 6+ MO 2020-03-08 00:00:00 Completed [facility] Influenza Virus Vaccine Quad .5 mL IM 6+ MO 2020-03-08 00:00:00 Completed [facility] Influenza Virus Vaccine Quad .5 mL IM 6+ MO 2020-03-08 00:00:00 Completed [facility] Influenza Virus Vaccine Quad .5 mL IM 6+ MO 2020-03-08 00:00:00 Completed [facility] Influenza Virus Vaccine Quad .5 mL IM 6+ MO 2020-03-08 00:00:00 Completed [facility] Influenza Virus Vaccine Quad .5 mL IM 6+ MO 2020-03-08 00:00:00 Completed [facility] Influenza Virus Vaccine Quad .5 mL IM 6+ MO 2020-03-08 00:00:00 Completed [facility] Influenza Virus Vaccine Quad .5 mL IM 6+ MO 2020-03-08 00:00:00 Completed [facility] Influenza Virus Vaccine Quad .5 mL IM 6+ MO 2020-03-08 00:00:00 Completed [facility] Influenza Virus Vaccine Quad .5 mL IM 6+ MO 2020-03-08 00:00:00 Completed [facility] Influenza Virus Vaccine Quad .5 mL IM 6+ MO 2020-03-08 00:00:00 Completed [facility] Influenza Virus Vaccine Quad .5 mL IM 6+ MO 2020-03-08 00:00:00 Completed [facility] Influenza Virus Vaccine Quad .5 mL IM 6+ MO 2020-03-08 00:00:00 Completed [facility] Influenza Virus Vaccine Quad .5 mL IM 6+ MO 2020-03-08 00:00:00 Completed [facility] Influenza Virus Vaccine Quad .5 mL IM 6+ MO 2020-03-08 00:00:00 Completed [facility] Influenza Virus Vaccine Quad .5 mL IM 6+ MO 2020-03-08 00:00:00 Completed [facility] Influenza Virus Vaccine Quad .5 mL IM 6+ MO 2020-03-08 00:00:00 Completed [facility] Influenza Virus Vaccine Quad .5 mL IM 6+ MO 2020-03-08 00:00:00 Completed [facility] Influenza Virus Vaccine Quad .5 mL IM 6+ MO 2020-03-08 00:00:00 Completed [facility] Influenza Virus Vaccine Quad .5 mL IM 6+ MO 2020-03-08 00:00:00 Completed [facility] Influenza Virus Vaccine Quad .5 mL IM 6+ MO 2020-03-08 00:00:00 Completed [facility] Influenza Virus Vaccine Quad .5 mL IM 6+ MO 2020-03-08 00:00:00 Completed [facility] Influenza Virus Vaccine Quad .5 mL IM 6+ MO 2020-03-08 00:00:00 Completed [facility] Influenza Virus Vaccine Quad .5 mL IM 6+ MO 2020-03-08 00:00:00 Completed [facility] Influenza Virus Vaccine Quad .5 mL IM 6+ MO 2020-03-08 00:00:00 Completed [facility] Influenza Virus Vaccine Quad .5 mL IM 6+ MO 2020-03-08 00:00:00 Completed [facility] Influenza Virus Vaccine Quad .5 mL IM 6+ MO 2020-03-08 00:00:00 Completed [facility] Influenza Virus Vaccine Quad .5 mL IM 6+ MO 2020-03-08 00:00:00 Completed [facility] Influenza Virus Vaccine Quad .5 mL IM 6+ MO 2020-03-08 00:00:00 Completed [facility] Influenza Virus Vaccine Quad .5 mL IM 6+ MO 2020-03-08 00:00:00 Completed [facility] Influenza Virus Vaccine Quad .5 mL IM 6+ MO 2020-03-08 00:00:00 Completed [facility] Influenza Virus Vaccine Quad .5 mL IM 6+ MO 2020-03-08 00:00:00 Completed [facility] Influenza Virus Vaccine Quad .5 mL IM 6+ MO 2020-03-08 00:00:00 Completed [facility] Influenza Virus Vaccine Quad .5 mL IM 6+ MO 2020-03-08 00:00:00 Completed [facility] Influenza Virus Vaccine Quad .5 mL IM 6+ MO 2020-03-08 00:00:00 Completed [facility] Influenza Virus Vaccine Quad .5 mL IM 6+ MO 2020-03-08 00:00:00 Completed [facility] Influenza Virus Vaccine Quad .5 mL IM 6+ MO 2020-03-08 00:00:00 Completed [facility] Influenza Virus Vaccine Quad .5 mL IM 6+ MO 2020-03-08 00:00:00 Completed [facility] Influenza Virus Vaccine Quad .5 mL IM 6+ MO 2020-03-08 00:00:00 Completed [facility] Influenza Virus Vaccine Quad .5 mL IM 6+ MO 2020-03-08 00:00:00 Completed [facility] Influenza Virus Vaccine Quad .5 mL IM 6+ MO 2020-03-08 00:00:00 Completed [facility] Influenza Virus Vaccine Quad .5 mL IM 6+ MO 2020-03-08 00:00:00 Completed [facility] Influenza Virus Vaccine Quad .5 mL IM 6+ MO 2020-03-08 00:00:00 Completed [facility] Influenza Virus Vaccine Quad .5 mL IM 6+ MO 2020-03-08 00:00:00 Completed [facility] Influenza Virus Vaccine Quad .5 mL IM 6+ MO 2020-03-08 00:00:00 Completed [facility] Influenza Virus Vaccine Quad .5 mL IM 6+ MO 2020-03-08 00:00:00 Completed [facility] Influenza Virus Vaccine Quad .5 mL IM 6+ MO 2020-03-08 00:00:00 Completed [facility] Influenza Virus Vaccine Quad .5 mL IM 6+ MO 2020-03-08 00:00:00 Completed [facility] Influenza Virus Vaccine Quad .5 mL IM 6+ MO 2020-03-08 00:00:00 Completed [facility] Influenza Virus Vaccine Quad .5 mL IM 6+ MO 2020-03-08 00:00:00 Completed [facility] Influenza Virus Vaccine Quad .5 mL IM 6+ MO 2020-03-08 00:00:00 Completed [facility] Influenza Virus Vaccine Quad .5 mL IM 6+ MO 2020-03-08 00:00:00 Completed [facility] Influenza Virus Vaccine Quad .5 mL IM 6+ MO 2020-03-08 00:00:00 Completed [facility] Influenza Virus Vaccine Quad .5 mL IM 6+ MO 2020-03-08 00:00:00 Completed [facility] Influenza Virus Vaccine Quad .5 mL IM 6+ MO 2020-03-08 00:00:00 Completed [facility] Influenza Virus Vaccine Quad .5 mL IM 6+ MO 2020-03-08 00:00:00 Completed [facility] Influenza Virus Vaccine Quad .5 mL IM 6+ MO 2020-03-08 00:00:00 Completed [facility] Influenza Virus Vaccine Quad .5 mL IM 6+ MO 2020-03-08 00:00:00 Completed [facility] Influenza Virus Vaccine Quad .5 mL IM 6+ MO 2020-03-08 00:00:00 Completed [facility] Influenza Virus Vaccine Quad .5 mL IM 6+ MO 2020-03-08 00:00:00 Completed [facility] Influenza Virus Vaccine Quad .5 mL IM 6+ MO 2020-03-08 00:00:00 Completed [facility] Influenza Virus Vaccine Quad .5 mL IM 6+ MO 2020-03-08 00:00:00 Completed [facility] Influenza Virus Vaccine Quad .5 mL IM 6+ MO 2020-03-08 00:00:00 Completed [facility] Influenza Virus Vaccine Quad .5 mL IM 6+ MO 2020-03-08 00:00:00 Completed [facility] Influenza Virus Vaccine Quad .5 mL IM 6+ MO 2020-03-08 00:00:00 Completed [facility] Influenza Virus Vaccine Quad .5 mL IM 6+ MO 2020-03-08 00:00:00 Completed [facility] Influenza Virus Vaccine Quad .5 mL IM 6+ MO 2020-03-08 00:00:00 Completed [facility] Influenza Virus Vaccine Quad .5 mL IM 6+ MO 2020-03-08 00:00:00 Completed [facility] Influenza Virus Vaccine Quad .5 mL IM 6+ MO 2020-03-08 00:00:00 Completed [facility] Influenza Virus Vaccine Quad .5 mL IM 6+ MO 2020-03-08 00:00:00 Completed [facility] Influenza Virus Vaccine Quad .5 mL IM 6+ MO 2020-03-08 00:00:00 Completed [facility] Influenza Virus Vaccine Quad .5 mL IM 6+ MO 2020-03-08 00:00:00 Completed [facility] Influenza Virus Vaccine Quad .5 mL IM 6+ MO 2020-03-08 00:00:00 Completed [facility] Influenza Virus Vaccine Quad .5 mL IM 6+ MO 2020-03-08 00:00:00 Completed [facility] Influenza Virus Vaccine Quad .5 mL IM 6+ MO 2020-03-08 00:00:00 Completed [facility] Influenza Virus Vaccine Quad .5 mL IM 6+ MO 2020-03-08 00:00:00 Completed [facility] Influenza Virus Vaccine Quad .5 mL IM 6+ MO 2020-03-08 00:00:00 Completed [facility] Influenza Virus Vaccine Quad .5 mL IM 6+ MO 2020-03-08 00:00:00 Completed [facility] Influenza Virus Vaccine Quad .5 mL IM 6+ MO 2020-03-08 00:00:00 Completed [facility] Influenza Virus Vaccine Quad .5 mL IM 6+ MO 2020-03-08 00:00:00 Completed [facility] Influenza Virus Vaccine Quad .5 mL IM 6+ MO 2020-03-08 00:00:00 Completed [facility] MMR 2019-07-22 00:00:00 Completed [facility] MMR 2019-07-22 00:00:00 Completed [facility] MMR 2019-07-22 00:00:00 Completed [facility] MMR 2019-07-22 00:00:00 Completed [facility] MMR 2019-07-22 00:00:00 Completed [facility] MMR 2019-07-22 00:00:00 Completed [facility] MMR 2019-07-22 00:00:00 Completed [facility] MMR 2019-07-22 00:00:00 Completed [facility] MMR 2019-07-22 00:00:00 Completed [facility] MMR 2019-07-22 00:00:00 Completed [facility] MMR 2019-07-22 00:00:00 Completed [facility] MMR 2019-07-22 00:00:00 Completed [facility] MMR 2019-07-22 00:00:00 Completed [facility] MMR 2019-07-22 00:00:00 Completed [facility] MMR 2019-07-22 00:00:00 Completed [facility] MMR 2019-07-22 00:00:00 Completed [facility] MMR 2019-07-22 00:00:00 Completed [facility] MMR 2019-07-22 00:00:00 Completed [facility] MMR 2019-07-22 00:00:00 Completed [facility] MMR 2019-07-22 00:00:00 Completed [facility] MMR 2019-07-22 00:00:00 Completed [facility] MMR 2019-07-22 00:00:00 Completed [facility] MMR 2019-07-22 00:00:00 Completed [facility] MMR 2019-07-22 00:00:00 Completed [facility] MMR 2019-07-22 00:00:00 Completed [facility] MMR 2019-07-22 00:00:00 Completed [facility] MMR 2019-07-22 00:00:00 Completed [facility] MMR 2019-07-22 00:00:00 Completed [facility] MMR 2019-07-22 00:00:00 Completed [facility] MMR 2019-07-22 00:00:00 Completed [facility] MMR 2019-07-22 00:00:00 Completed [facility] MMR 2019-07-22 00:00:00 Completed [facility] MMR 2019-07-22 00:00:00 Completed [facility] MMR 2019-07-22 00:00:00 Completed [facility] MMR 2019-07-22 00:00:00 Completed [facility] MMR 2019-07-22 00:00:00 Completed [facility] MMR 2019-07-22 00:00:00 Completed [facility] MMR 2019-07-22 00:00:00 Completed [facility] MMR 2019-07-22 00:00:00 Completed [facility] MMR 2019-07-22 00:00:00 Completed [facility] MMR 2019-07-22 00:00:00 Completed [facility] MMR 2019-07-22 00:00:00 Completed [facility] MMR 2019-07-22 00:00:00 Completed [facility] MMR 2019-07-22 00:00:00 Completed [facility] MMR 2019-07-22 00:00:00 Completed [facility] MMR 2019-07-22 00:00:00 Completed [facility] MMR 2019-07-22 00:00:00 Completed [facility] MMR 2019-07-22 00:00:00 Completed [facility] MMR 2019-07-22 00:00:00 Completed [facility] MMR 2019-07-22 00:00:00 Completed [facility] MMR 2019-07-22 00:00:00 Completed [facility] MMR 2019-07-22 00:00:00 Completed [facility] MMR 2019-07-22 00:00:00 Completed [facility] MMR 2019-07-22 00:00:00 Completed [facility] MMR 2019-07-22 00:00:00 Completed [facility] MMR 2019-07-22 00:00:00 Completed [facility] MMR 2019-07-22 00:00:00 Completed [facility] MMR 2019-07-22 00:00:00 Completed [facility] MMR 2019-07-22 00:00:00 Completed [facility] MMR 2019-07-22 00:00:00 Completed [facility] MMR 2019-07-22 00:00:00 Completed [facility] MMR 2019-07-22 00:00:00 Completed [facility] MMR 2019-07-22 00:00:00 Completed [facility] MMR 2019-07-22 00:00:00 Completed [facility] MMR 2019-07-22 00:00:00 Completed [facility] MMR 2019-07-22 00:00:00 Completed [facility] MMR 2019-07-22 00:00:00 Completed [facility] MMR 2019-07-22 00:00:00 Completed [facility] MMR 2019-07-22 00:00:00 Completed [facility] MMR 2019-07-22 00:00:00 Completed [facility] MMR 2019-07-22 00:00:00 Completed [facility] MMR 2019-07-22 00:00:00 Completed [facility] MMR 2019-07-22 00:00:00 Completed [facility] MMR 2019-07-22 00:00:00 Completed [facility] MMR 2019-07-22 00:00:00 Completed [facility] MMR 2019-07-22 00:00:00 Completed [facility] MMR 2019-07-22 00:00:00 Completed [facility] MMR 2019-07-22 00:00:00 Completed [facility] MMR 2019-07-22 00:00:00 Completed [facility] MMR 2019-07-22 00:00:00 Completed [facility] MMR 2019-07-22 00:00:00 Completed [facility] MMR 2019-07-22 00:00:00 Completed [facility] MMR 2019-07-22 00:00:00 Completed [facility] MMR 2019-07-22 00:00:00 Completed [facility] MMR 2019-07-22 00:00:00 Completed [facility] MMR 2019-07-22 00:00:00 Completed [facility] MMR 2019-07-22 00:00:00 Completed [facility] MMR 2019-07-22 00:00:00 Completed [facility] MMR 2019-07-22 00:00:00 Completed [facility] MMR 2019-07-22 00:00:00 Completed [facility] MMR 2019-07-22 00:00:00 Completed [facility] MMR 2019-07-22 00:00:00 Completed [facility] MMR 2019-07-22 00:00:00 Completed [facility] MMR 2019-07-22 00:00:00 Completed [facility] TDAP (ADACEL) VACCINE 2019-05-25 00:00:00 Completed [facility] TDAP (ADACEL) VACCINE 2019-05-25 00:00:00 Completed [facility] TDAP (ADACEL) VACCINE 2019-05-25 00:00:00 Completed [facility] TDAP (ADACEL) VACCINE 2019-05-25 00:00:00 Completed [facility] TDAP (ADACEL) VACCINE 2019-05-25 00:00:00 Completed [facility] TDAP (ADACEL) VACCINE 2019-05-25 00:00:00 Completed [facility] TDAP (ADACEL) VACCINE 2019-05-25 00:00:00 Completed [facility] TDAP (ADACEL) VACCINE 2019-05-25 00:00:00 Completed [facility] TDAP (ADACEL) VACCINE 2019-05-25 00:00:00 Completed [facility] TDAP (ADACEL) VACCINE 2019-05-25 00:00:00 Completed [facility] TDAP (ADACEL) VACCINE 2019-05-25 00:00:00 Completed [facility] TDAP (ADACEL) VACCINE 2019-05-25 00:00:00 Completed [facility] TDAP (ADACEL) VACCINE 2019-05-25 00:00:00 Completed [facility] TDAP (ADACEL) VACCINE 2019-05-25 00:00:00 Completed [facility] TDAP (ADACEL) VACCINE 2019-05-25 00:00:00 Completed [facility] TDAP (ADACEL) VACCINE 2019-05-25 00:00:00 Completed [facility] TDAP (ADACEL) VACCINE 2019-05-25 00:00:00 Completed [facility] TDAP (ADACEL) VACCINE 2019-05-25 00:00:00 Completed [facility] TDAP (ADACEL) VACCINE 2019-05-25 00:00:00 Completed [facility] TDAP (ADACEL) VACCINE 2019-05-25 00:00:00 Completed [facility] TDAP (ADACEL) VACCINE 2019-05-25 00:00:00 Completed [facility] TDAP (ADACEL) VACCINE 2019-05-25 00:00:00 Completed [facility] TDAP (ADACEL) VACCINE 2019-05-25 00:00:00 Completed [facility] TDAP (ADACEL) VACCINE 2019-05-25 00:00:00 Completed [facility] TDAP (ADACEL) VACCINE 2019-05-25 00:00:00 Completed [facility] TDAP (ADACEL) VACCINE 2019-05-25 00:00:00 Completed [facility] TDAP (ADACEL) VACCINE 2019-05-25 00:00:00 Completed [facility] TDAP (ADACEL) VACCINE 2019-05-25 00:00:00 Completed [facility] TDAP (ADACEL) VACCINE 2019-05-25 00:00:00 Completed [facility] TDAP (ADACEL) VACCINE 2019-05-25 00:00:00 Completed [facility] TDAP (ADACEL) VACCINE 2019-05-25 00:00:00 Completed [facility] TDAP (ADACEL) VACCINE 2019-05-25 00:00:00 Completed [facility] TDAP (ADACEL) VACCINE 2019-05-25 00:00:00 Completed [facility] TDAP (ADACEL) VACCINE 2019-05-25 00:00:00 Completed [facility] TDAP (ADACEL) VACCINE 2019-05-25 00:00:00 Completed [facility] TDAP (ADACEL) VACCINE 2019-05-25 00:00:00 Completed [facility] TDAP (ADACEL) VACCINE 2019-05-25 00:00:00 Completed [facility] TDAP (ADACEL) VACCINE 2019-05-25 00:00:00 Completed [facility] TDAP (ADACEL) VACCINE 2019-05-25 00:00:00 Completed [facility] TDAP (ADACEL) VACCINE 2019-05-25 00:00:00 Completed [facility] TDAP (ADACEL) VACCINE 2019-05-25 00:00:00 Completed [facility] TDAP (ADACEL) VACCINE 2019-05-25 00:00:00 Completed [facility] TDAP (ADACEL) VACCINE 2019-05-25 00:00:00 Completed [facility] TDAP (ADACEL) VACCINE 2019-05-25 00:00:00 Completed [facility] TDAP (ADACEL) VACCINE 2019-05-25 00:00:00 Completed [facility] TDAP (ADACEL) VACCINE 2019-05-25 00:00:00 Completed [facility] TDAP (ADACEL) VACCINE 2019-05-25 00:00:00 Completed [facility] TDAP (ADACEL) VACCINE 2019-05-25 00:00:00 Completed [facility] TDAP (ADACEL) VACCINE 2019-05-25 00:00:00 Completed [facility] TDAP (ADACEL) VACCINE 2019-05-25 00:00:00 Completed [facility] TDAP (ADACEL) VACCINE 2019-05-25 00:00:00 Completed [facility] TDAP (ADACEL) VACCINE 2019-05-25 00:00:00 Completed [facility] TDAP (ADACEL) VACCINE 2019-05-25 00:00:00 Completed [facility] TDAP (ADACEL) VACCINE 2019-05-25 00:00:00 Completed [facility] TDAP (ADACEL) VACCINE 2019-05-25 00:00:00 Completed [facility] TDAP (ADACEL) VACCINE 2019-05-25 00:00:00 Completed [facility] TDAP (ADACEL) VACCINE 2019-05-25 00:00:00 Completed [facility] TDAP (ADACEL) VACCINE 2019-05-25 00:00:00 Completed [facility] TDAP (ADACEL) VACCINE 2019-05-25 00:00:00 Completed [facility] TDAP (ADACEL) VACCINE 2019-05-25 00:00:00 Completed [facility] TDAP (ADACEL) VACCINE 2019-05-25 00:00:00 Completed [facility] TDAP (ADACEL) VACCINE 2019-05-25 00:00:00 Completed [facility] TDAP (ADACEL) VACCINE 2019-05-25 00:00:00 Completed [facility] TDAP (ADACEL) VACCINE 2019-05-25 00:00:00 Completed [facility] TDAP (ADACEL) VACCINE 2019-05-25 00:00:00 Completed [facility] TDAP (ADACEL) VACCINE 2019-05-25 00:00:00 Completed [facility] TDAP (ADACEL) VACCINE 2019-05-25 00:00:00 Completed [facility] TDAP (ADACEL) VACCINE 2019-05-25 00:00:00 Completed [facility] TDAP (ADACEL) VACCINE 2019-05-25 00:00:00 Completed [facility] TDAP (ADACEL) VACCINE 2019-05-25 00:00:00 Completed [facility] TDAP (ADACEL) VACCINE 2019-05-25 00:00:00 Completed [facility] TDAP (ADACEL) VACCINE 2019-05-25 00:00:00 Completed [facility] TDAP (ADACEL) VACCINE 2019-05-25 00:00:00 Completed [facility] TDAP (ADACEL) VACCINE 2019-05-25 00:00:00 Completed [facility] TDAP (ADACEL) VACCINE 2019-05-25 00:00:00 Completed [facility] TDAP (ADACEL) VACCINE 2019-05-25 00:00:00 Completed [facility] TDAP (ADACEL) VACCINE 2019-05-25 00:00:00 Completed [facility] TDAP (ADACEL) VACCINE 2019-05-25 00:00:00 Completed [facility] TDAP (ADACEL) VACCINE 2019-05-25 00:00:00 Completed [facility] TDAP (ADACEL) VACCINE 2019-05-25 00:00:00 Completed [facility] TDAP (ADACEL) VACCINE 2019-05-25 00:00:00 Completed [facility] TDAP (ADACEL) VACCINE 2019-05-25 00:00:00 Completed [facility] TDAP (ADACEL) VACCINE 2019-05-25 00:00:00 Completed [facility] TDAP (ADACEL) VACCINE 2019-05-25 00:00:00 Completed [facility] TDAP (ADACEL) VACCINE 2019-05-25 00:00:00 Completed [facility] TDAP (ADACEL) VACCINE 2019-05-25 00:00:00 Completed [facility] TDAP (ADACEL) VACCINE 2019-05-25 00:00:00 Completed [facility] TDAP (ADACEL) VACCINE 2019-05-25 00:00:00 Completed [facility] TDAP (ADACEL) VACCINE 2019-05-25 00:00:00 Completed [facility] TDAP (ADACEL) VACCINE 2019-05-25 00:00:00 Completed [facility] TDAP (ADACEL) VACCINE 2019-05-25 00:00:00 Completed [facility] TDAP (ADACEL) VACCINE 2019-05-25 00:00:00 Completed [facility] TDAP (ADACEL) VACCINE 2019-05-25 00:00:00 Completed [facility] TDAP (ADACEL) VACCINE 2019-05-25 00:00:00 Completed [facility] TDAP (ADACEL) VACCINE Unknown Completed [facility] MMR Unknown Completed [facility] Influenza Virus Vaccine Quad .5 mL IM 6+ MO (FLUZONE/FLULAVAL/F LUARIX) Unknown Completed [facility] TDAP Unknown Completed [facility] TDAP (ADACEL) VACCINE Unknown Completed [facility] MMR Unknown Completed [facility] Influenza Virus Vaccine Quad .5 mL IM 6+ MO (FLUZONE/FLULAVAL/F LUARIX) Unknown Completed [facility] TDAP Unknown Completed [facility] TDAP (ADACEL) VACCINE Unknown Completed [facility] MMR Unknown Completed [facility] Influenza Virus Vaccine Quad .5 mL IM 6+ MO (FLUZONE/FLULAVAL/F LUARIX) Unknown Completed [facility] TDAP (ADACEL) VACCINE Unknown Completed [facility] MMR Unknown Completed [facility] Influenza Virus Vaccine Quad .5 mL IM 6+ MO (FLUZONE/FLULAVAL/F LUARIX) Unknown Completed [facility] TDAP (ADACEL) VACCINE Unknown Completed [facility] MMR Unknown Completed [facility] Influenza Virus Vaccine Quad .5 mL IM 6+ MO (FLUZONE/FLULAVAL/F LUARIX) Unknown Completed [facility] TDAP (ADACEL) VACCINE Unknown Completed [facility] MMR Unknown Completed [facility] Influenza Virus Vaccine Quad .5 mL IM 6+ MO (FLUZONE/FLULAVAL/F LUARIX) Unknown Completed [facility] TDAP (ADACEL) VACCINE Unknown Completed [facility] MMR Unknown Completed [facility] Influenza Virus Vaccine Quad .5 mL IM 6+ MO (FLUZONE/FLULAVAL/F LUARIX) Unknown Completed [facility] TDAP (ADACEL) VACCINE Unknown Completed [facility] MMR Unknown Completed [facility] Influenza Virus Vaccine Quad .5 mL IM 6+ MO (FLUZONE/FLULAVAL/F LUARIX) Unknown Completed [facility] TDAP (ADACEL) VACCINE Unknown Completed [facility] MMR Unknown Completed [facility] Influenza Virus Vaccine Quad .5 mL IM 6+ MO (FLUZONE/FLULAVAL/F LUARIX) Unknown Completed [facility] TDAP (ADACEL) VACCINE Unknown Completed [facility] MMR Unknown Completed [facility] Influenza Virus Vaccine Quad .5 mL IM 6+ MO (FLUZONE/FLULAVAL/F LUARIX) Unknown Completed [facility] TDAP (ADACEL) VACCINE Unknown Completed [facility] MMR Unknown Completed [facility] Influenza Virus Vaccine Quad .5 mL IM 6+ MO (FLUZONE/FLULAVAL/F LUARIX) Unknown Completed [facility] TDAP (ADACEL) VACCINE Unknown Completed [facility] MMR Unknown Completed [facility] Influenza Virus Vaccine Quad .5 mL IM 6+ MO (FLUZONE/FLULAVAL/F LUARIX) Unknown Completed [facility] TDAP (ADACEL) VACCINE Unknown Completed [facility] MMR Unknown Completed [facility] Influenza Virus Vaccine Quad .5 mL IM 6+ MO (FLUZONE/FLULAVAL/F LUARIX) Unknown Completed [facility] TDAP (ADACEL) VACCINE Unknown Completed [facility] MMR Unknown Completed [facility] Influenza Virus Vaccine Quad .5 mL IM 6+ MO (FLUZONE/FLULAVAL/F LUARIX) Unknown Completed [facility] TDAP (ADACEL) VACCINE Unknown Completed [facility] MMR Unknown Completed [facility] Influenza Virus Vaccine Quad .5 mL IM 6+ MO (FLUZONE/FLULAVAL/F LUARIX) Unknown Completed [facility] TDAP (ADACEL) VACCINE Unknown Completed [facility] MMR Unknown Completed [facility] Influenza Virus Vaccine Quad .5 mL IM 6+ MO (FLUZONE/FLULAVAL/F LUARIX) Unknown Completed [facility] TDAP (ADACEL) VACCINE Unknown Completed [facility] MMR Unknown Completed [facility] Influenza Virus Vaccine Quad .5 mL IM 6+ MO (FLUZONE/FLULAVAL/F LUARIX) Unknown Completed [facility] TDAP Unknown Completed [facility] TDAP (ADACEL) VACCINE Unknown Completed [facility] MMR Unknown Completed [facility] Influenza Virus Vaccine Quad .5 mL IM 6+ MO (FLUZONE/FLULAVAL/F LUARIX) Unknown Completed [facility] TDAP Unknown Completed [facility] TDAP (ADACEL) VACCINE Unknown Completed [facility] MMR Unknown Completed [facility] Influenza Virus Vaccine Quad .5 mL IM 6+ MO (FLUZONE/FLULAVAL/F LUARIX) Unknown Completed [facility] TDAP Unknown Completed [facility] TDAP (ADACEL) VACCINE Unknown Completed [facility] MMR Unknown Completed [facility] Influenza Virus Vaccine Quad .5 mL IM 6+ MO (FLUZONE/FLULAVAL/F LUARIX) Unknown Completed [facility] TDAP Unknown Completed [facility] TDAP (ADACEL) VACCINE Unknown Completed [facility] MMR Unknown Completed [facility] Influenza Virus Vaccine Quad .5 mL IM 6+ MO (FLUZONE/FLULAVAL/F LUARIX) Unknown Completed [facility] TDAP Unknown Completed [facility] TDAP (ADACEL) VACCINE Unknown Completed [facility] MMR Unknown Completed [facility] Influenza Virus Vaccine Quad .5 mL IM 6+ MO (FLUZONE/FLULAVAL/F LUARIX) Unknown Completed [facility] TDAP Unknown Completed [facility] TDAP (ADACEL) VACCINE Unknown Completed [facility] MMR Unknown Completed [facility] Influenza Virus Vaccine Quad .5 mL IM 6+ MO (FLUZONE/FLULAVAL/F LUARIX) Unknown Completed [facility] TDAP Unknown Completed [facility] TDAP (ADACEL) VACCINE Unknown Completed [facility] MMR Unknown Completed [facility] Influenza Virus Vaccine Quad .5 mL IM 6+ MO (FLUZONE/FLULAVAL/F LUARIX) Unknown Completed [facility] TDAP Unknown Completed [facility] TDAP (ADACEL) VACCINE Unknown Completed [facility] MMR Unknown Completed [facility] Influenza Virus Vaccine Quad .5 mL IM 6+ MO (FLUZONE/FLULAVAL/F LUARIX) Unknown Completed [facility] TDAP Unknown Completed [facility] TDAP (ADACEL) VACCINE Unknown Completed [facility] MMR Unknown Completed [facility] Influenza Virus Vaccine Quad .5 mL IM 6+ MO (FLUZONE/FLULAVAL/F LUARIX) Unknown Completed [facility] TDAP Unknown Completed [facility] TDAP (ADACEL) VACCINE Unknown Completed [facility] MMR Unknown Completed [facility] Influenza Virus Vaccine Quad .5 mL IM 6+ MO (FLUZONE/FLULAVAL/F LUARIX) Unknown Completed [facility] TDAP Unknown Completed [facility] HPV9 Unknown Completed [facility] TDAP (ADACEL) VACCINE Unknown Completed [facility] MMR Unknown Completed [facility] Influenza Virus Vaccine Quad .5 mL IM 6+ MO (FLUZONE/FLULAVAL/F LUARIX) Unknown Completed [facility] TDAP Unknown Completed [facility] HPV9 Unknown Completed [facility] TDAP (ADACEL) VACCINE Unknown Completed [facility] MMR Unknown Completed [facility] Influenza Virus Vaccine Quad .5 mL IM 6+ MO (FLUZONE/FLULAVAL/F LUARIX) Unknown Completed [facility] TDAP Unknown Completed [facility] HPV9 Unknown Completed [facility] TDAP (ADACEL) VACCINE Unknown Completed [facility] MMR Unknown Completed [facility] Influenza Virus Vaccine Quad .5 mL IM 6+ MO (FLUZONE/FLULAVAL/F LUARIX) Unknown Completed [facility] TDAP Unknown Completed [facility] HPV9 Unknown Completed [facility] TDAP (ADACEL) VACCINE Unknown Completed [facility] MMR Unknown Completed [facility] Influenza Virus Vaccine Quad .5 mL IM 6+ MO (FLUZONE/FLULAVAL/F LUARIX) Unknown Completed [facility] TDAP Unknown Completed [facility] Vital Signs Vital Name Observation Time Observation Value Comments S ource Systolic blood pressure 2023-08-14 14:08:00 125 mm[Hg] [facility] Diastolic blood pressure 2023-08-14 14:08:00 85 mm[Hg] [facility] Heart rate 2023-08-14 14:08:00 87 /min [facility] Body temperature 2023-08-14 14:08:00 36.78 Belia [facility] Respiratory rate 2023-08-14 14:08:00 17 /min [facility] Body height 2023-08-14 14:08:[address] [facility] Body weight 2023-08-14 14:08:[address] [facility] BMI 2023-08-14 14:08:00 39.51 kg/m2 [facility] Systolic blood pressure 2023-07-30 19:00:00 124 mm[Hg] [facility] Diastolic blood pressure 2023-07-30 19:00:00 78 mm[Hg] [facility] Heart rate 2023-07-30 19:00:00 86 /min [facility] Body height 2023-07-30 19:00:[address] [facility] Body weight 2023-07-30 19:00:[address] [facility] BMI 2023-07-30 19:00:00 40.25 kg/m2 [facility] Oxygen saturation in Arterial blood by Pulse oximetry 2023-07-30 19:00:00 98 /min [facility] Systolic blood pressure 2022-11-30 17:56:00 135 mm[Hg] [facility] Diastolic blood pressure 2022-11-30 17:56:00 87 mm[Hg] [facility] Heart rate 2022-11-30 17:40:00 88 /min [facility] Body height 2022-11-30 17:40:00 154.9 cm [facility] Body weight 2022-11-30 17:40:00 99.61 kg [facility] BMI 2022-11-30 17:40:00 41.49 kg/m2 [facility] Oxygen saturation in Arterial blood by Pulse oximetry 2022-11-30 17:40:00 100 /min [facility] Systolic blood pressure 2022-11-01 16:25:00 124 mm[Hg] [facility] Diastolic blood pressure 2022-11-01 16:25:00 89 mm[Hg] [facility] Heart rate 2022-11-01 16:25:00 78 /min [facility] Respiratory rate 2022-11-01 16:25:00 18 /min [facility] Body height 2022-11-01 16:25:00 154.9 cm [facility] Body weight 2022-11-01 16:25:[address] [facility] BMI 2022-11-01 16:25:00 41.00 kg/m2 [facility] Systolic blood pressure 2022-08-16 14:01:00 119 mm[Hg] [facility] Diastolic blood pressure 2022-08-16 14:01:00 82 mm[Hg] [facility] Heart rate 2022-08-16 14:01:00 79 /min [facility] Body temperature 2022-08-16 14:01:00 36.67 Belia [facility] Respiratory rate 2022-08-16 14:01:00 18 /min [facility] Body height 2022-08-16 14:01:00 154.9 cm [facility] Body weight 2022-08-16 14:01:00 98.431 kg [facility] BMI 2022-08-16 14:01:00 41.00 kg/m2 [facility] Systolic blood pressure 2022-07-18 17:05:00 112 mm[Hg] [facility] Diastolic blood pressure 2022-07-18 17:05:00 74 mm[Hg] [facility] Heart rate 2022-07-18 17:05:00 78 /min [facility] Body temperature 2022-07-18 17:05:00 36.67 Belia [facility] Body height 2022-07-18 17:05:00 154.9 cm [facility] Body weight 2022-07-18 17:05:[address] [facility] BMI 2022-07-18 17:05:00 40.74 kg/m2 [facility] Systolic blood pressure 2022-06-20 18:30:00 127 mm[Hg] [facility] Diastolic blood pressure 2022-06-20 18:30:00 75 mm[Hg] [facility] Heart rate 2022-06-20 18:30:00 65 /min [facility] Body temperature 2022-06-20 18:30:00 36.44 Belia [facility] Respiratory rate 2022-06-20 18:30:00 16 /min [facility] Oxygen saturation in Arterial blood by Pulse oximetry 2022-06-20 18:30:00 100 /min [facility] Body height 2022-06-19 10:25:[address] [facility] Body weight 2022-06-19 10:25:[address] [facility] BMI 2022-06-19 10:25:00 43.08 kg/m2 [facility] Systolic blood pressure 2022-06-18 16:30:00 103 mm[Hg] [facility] Diastolic blood pressure 2022-06-18 16:30:00 68 mm[Hg] [facility] Heart rate 2022-06-18 16:30:00 103 /min [facility] Body temperature 2022-06-18 16:30:00 37.06 Belia [facility] Body height 2022-06-18 16:30:00 154.9 cm [facility] Body weight 2022-06-18 16:30:[address] [facility] BMI 2022-06-18 16:30:00 43.84 kg/m2 [facility] Systolic blood pressure 2022-06-15 14:14:00 107 mm[Hg] [facility] Diastolic blood pressure 2022-06-15 14:14:00 74 mm[Hg] [facility] Heart rate 2022-06-15 14:14:00 91 /min [facility] Body temperature 2022-06-15 14:14:00 37.06 Belia [facility] Body height 2022-06-15 14:14:00 154.9 cm [facility] Body weight 2022-06-15 14:14:00 104.872 kg [facility] BMI 2022-06-15 14:14:00 43.68 kg/m2 [facility] Systolic blood pressure 2022-06-12 17:22:00 111 mm[Hg] [facility] Diastolic blood pressure 2022-06-12 17:22:00 75 mm[Hg] [facility] Heart rate 2022-06-12 17:22:00 116 /min [facility] Body temperature 2022-06-12 17:22:00 36.44 Belia [facility] Body height 2022-06-12 17:22:00 154.9 cm [facility] Body weight 2022-06-12 17:22:00 103.874 kg [facility] BMI 2022-06-12 17:22:00 43.27 kg/m2 [facility] Systolic blood pressure 2022-06-08 14:19:00 119 mm[Hg] [facility] Diastolic blood pressure 2022-06-08 14:19:00 80 mm[Hg] [facility] Heart rate 2022-06-08 14:19:00 76 /min [facility] Respiratory rate 2022-06-08 14:19:00 19 /min [facility] Body height 2022-06-08 14:19:00 154.9 cm [facility] Body weight 2022-06-08 14:19:00 105.552 kg [facility] BMI 2022-06-08 14:19:00 43.97 kg/m2 [facility] Systolic blood pressure 2022-06-05 23:30:00 120 mm[Hg] [facility] Diastolic blood pressure 2022-06-05 23:30:00 76 mm[Hg] [facility] Heart rate 2022-06-05 23:30:00 83 /min [facility] Oxygen saturation in Arterial blood by Pulse oximetry 2022-06-05 23:30:00 100 /min [facility] Body temperature 2022-06-05 20:42:00 36.44 Belia [facility] Respiratory rate 2022-06-05 20:42:00 18 /min [facility] Body height 2022-06-05 20:42:[address] [facility] Body weight 2022-06-05 20:42:[address] [facility] BMI 2022-06-05 20:42:00 43.76 kg/m2 [facility] Systolic blood pressure 2022-05-25 14:47:00 113 mm[Hg] [facility] Diastolic blood pressure 2022-05-25 14:47:00 77 mm[Hg] [facility] Heart rate 2022-05-25 14:47:00 74 /min [facility] Body temperature 2022-05-25 14:47:00 36.83 Belia [facility] Respiratory rate 2022-05-25 14:47:00 18 /min [facility] Body height 2022-05-25 14:47:[address] [facility] Body weight 2022-05-25 14:47:[address] [facility] BMI 2022-05-25 14:47:00 43.46 kg/m2 [facility] Heart rate 2022-05-23 01:30:00 84 /min [facility] Oxygen saturation in Arterial blood by Pulse oximetry 2022-05-23 01:30:00 100 /min [facility] Systolic blood pressure 2022-05-23 00:31:00 104 mm[Hg] [facility] Diastolic blood pressure 2022-05-23 00:31:00 61 mm[Hg] [facility] Body temperature 2022-05-23 00:31:00 36.33 Belia [facility] Body height 2022-05-23 00:31:00 154.9 cm [facility] Body weight 2022-05-23 00:31:[address] [facility] BMI 2022-05-23 00:31:00 43.27 kg/m2 [facility] Systolic blood pressure 2022-05-09 15:10:00 109 mm[Hg] [facility] Diastolic blood pressure 2022-05-09 15:10:00 76 mm[Hg] [facility] Heart rate 2022-05-09 15:10:00 91 /min [facility] Body height 2022-05-09 15:10:[address] [facility] Body weight 2022-05-09 15:10:[address] [facility] BMI 2022-05-09 15:10:00 43.67 kg/m2 [facility] Oxygen saturation in Arterial blood by Pulse oximetry 2022-05-09 15:10:00 97 /min [facility] Systolic blood pressure 2022-04-27 20:03:00 93 mm[Hg] [facility] Diastolic blood pressure 2022-04-27 20:03:00 60 mm[Hg] [facility] Heart rate 2022-04-27 20:03:00 77 /min [facility] Body temperature 2022-04-27 20:03:00 36.67 Belia [facility] Body height 2022-04-27 20:03:[address] [facility] Body weight 2022-04-27 20:03:[address] [facility] BMI 2022-04-27 20:03:00 43.59 kg/m2 [facility] Systolic blood pressure 2022-04-04 22:24:00 117 mm[Hg] [facility] Diastolic blood pressure 2022-04-04 22:24:00 80 mm[Hg] [place] [facility] Heart rate 2022-04-04 22:24:00 85 /min [facility] Body temperature 2022-04-04 22:24:00 36.67 Belia [facility] Respiratory rate 2022-04-04 22:24:00 18 /min [facility] Body height 2022-04-04 22:24:00 154.9 cm [facility] Body weight 2022-04-04 22:24:[address] [facility] BMI 2022-04-04 22:24:00 43.00 kg/m2 [facility] Systolic blood pressure 2022-03-30 16:19:00 113 mm[Hg] [facility] Diastolic blood pressure 2022-03-30 16:19:00 78 mm[Hg] [facility] Heart rate 2022-03-30 16:19:00 77 /min [facility] Body temperature 2022-03-30 16:19:00 36.78 Belia [facility] Respiratory rate 2022-03-30 16:19:00 18 /min [facility] Body height 2022-03-30 16:19:[address] [facility] Body weight 2022-03-30 16:19:[address] [facility] BMI 2022-03-30 16:19:00 43.65 kg/m2 [facility] Systolic blood pressure 2022-03-02 13:24:00 116 mm[Hg] [facility] Diastolic blood pressure 2022-03-02 13:24:00 79 mm[Hg] [facility] Heart rate 2022-03-02 13:24:00 68 /min [facility] Body temperature 2022-03-02 13:24:00 36.61 Belia [facility] Respiratory rate 2022-03-02 13:24:00 18 /min [facility] Body height 2022-03-02 13:24:[address] [facility] Body weight 2022-03-02 13:24:00 104.781 kg [facility] BMI 2022-03-02 13:24:00 43.65 kg/m2 [facility] Systolic blood pressure 2022-02-02 13:55:00 130 mm[Hg] [facility] Diastolic blood pressure 2022-02-02 13:55:00 80 mm[Hg] [facility] Heart rate 2022-02-02 13:55:00 77 /min [facility] Body temperature 2022-02-02 13:55:00 36.72 Belia [facility] Body height 2022-02-02 13:55:00 154.9 cm [facility] Body weight 2022-02-02 13:55:[address] [facility] BMI 2022-02-02 13:55:00 43.25 kg/m2 [facility] Systolic blood pressure 2022-01-16 18:27:00 122 mm[Hg] [facility] Diastolic blood pressure 2022-01-16 18:27:00 85 mm[Hg] [facility] Heart rate 2022-01-16 18:27:00 75 /min [facility] Body temperature 2022-01-16 18:27:00 36.78 Belia [facility] Respiratory rate 2022-01-16 18:27:00 18 /min [facility] Body height 2022-01-16 18:27:00 154.9 cm [facility] Body weight 2022-01-16 18:27:00 103.874 kg [facility] BMI 2022-01-16 18:27:00 43.27 kg/m2 [facility] Systolic blood pressure 2022-01-05 13:23:00 116 mm[Hg] [facility] Diastolic blood pressure 2022-01-05 13:23:00 81 mm[Hg] [facility] Heart rate 2022-01-05 13:23:00 73 /min [facility] Body temperature 2022-01-05 13:23:00 36.72 Belia [facility] Respiratory rate 2022-01-05 13:23:00 18 /min [facility] Body height 2022-01-05 13:23:00 154.9 cm [facility] Body weight 2022-01-05 13:23:00 104.781 kg [facility] BMI 2022-01-05 13:23:00 43.65 kg/m2 [facility] Systolic blood pressure 2021-12-21 16:30:00 122 mm[Hg] [facility] Diastolic blood pressure 2021-12-21 16:30:00 79 mm[Hg] [facility] Heart rate 2021-12-21 16:06:00 84 [facility] Body temperature 2021-12-21 16:06:00 36.78 Belia [facility] Respiratory rate 2021-12-21 16:06:00 18 /min [facility] Body height 2021-12-21 16:06:[address] [facility] Body weight 2021-12-21 16:06:[address] [facility] BMI 2021-12-21 16:06:00 43.27 kg/m2 [facility] Systolic blood pressure 2021-12-08 14:23:00 112 mm[Hg] [facility] Diastolic blood pressure 2021-12-08 14:23:00 74 mm[Hg] [facility] Heart rate 2021-12-08 14:23:00 77 /min [facility] Body temperature 2021-12-08 14:23:00 36.78 Belia [facility] Respiratory rate 2021-12-08 14:23:00 18 /min [facility] Body height 2021-12-08 14:23:[address] [facility] Body weight 2021-12-08 14:23:00 107.502 kg [facility] BMI 2021-12-08 14:23:00 44.78 kg/m2 [facility] Systolic blood pressure 2021-11-24 18:49:00 109 mm[Hg] [facility] Diastolic blood pressure 2021-11-24 18:49:00 70 mm[Hg] [place] [facility] Heart rate 2021-11-24 18:49:00 72 /min [facility] Body temperature 2021-11-24 18:49:00 36.72 Belia [facility] Body height 2021-11-24 18:49:[address] [facility] Body weight 2021-11-24 18:49:[address] [facility] BMI 2021-11-24 18:49:00 44.72 kg/m2 [facility] Procedures Procedure Date / Time Performed Performing Clinician Source GC & CHLAMYDIA AMPLIFIED ASSAY 3 16:42:00 Benita Allred [facility] GALV ONLY - VAGINAL PATHOGEN S BY NUCLEIC ACID TESTING 2023-08-14 15:15:00 Benita Allred [facility] HIV 1/2 AG-AB WITH REFLEX 2023-08-14 15:15:00 Benita Allred [facility] HIGH RISK HPV-THIN PREP 2023-08-14 15:15:00 Benita Allred [facility] PAP SMEAR-LIQUID BASED-CP 2023-08-14 15:15:00 Benita Allred [facility] SYPHILIS IGG/IGM 2023-08-14 15:15:00 Benita Allred [facility] GARDASIL 9 (HPV 9V) VACCINE 2023-08-14 14:24:32 Benita Allred [facility] CONSENT/REFUSAL FOR DIAGNOSI S AND TREATMENT 2023-07-18 18:37:16 Doctor Unassigned, Lemmon [facility] THYROID STIMULATING HORMONE 2022-11-30 19:18:00 Julian Medellin [facility] COMP. METABOLIC PANEL (54029) 2022-11-30 19:18:00 Julian Medellin [facility] LIPID PANEL (70572)(TOTAL CHOLESTEROL, TRIGLYCERIDES, HDL) 2022-11-30 19:18:00 Tritschler, [facility] DEHYDROEPIANDROSTERONE SULFATE 2022-11-11 1 19:18:00 Lacie [facility] CBC WITH DIFF 2022-11-30 19:18:00 Lacie [facility] GLYCOSYLATED HEMOGLOBIN (A1C) 2022-11-30 19:18:00 Lacie [facility] HEPATITIS B SURFACE ANTIGEN 2022-11-30 19:18:00 Lacie [facility] HCV ANTIBODY 2022-11-30 19:18:00 Lacie [facility] ADC OR ATUL ONLY - RPR 2022-11-30 19:18:00 Lacie [facility] HIV 1/2 AG-AB WITH REFLEX 2022-11-30 19:18:00 Lacie [facility] TESTOSTERONE, FEMALE/CHILDREN 2022-11-30 19:18:00 Lacie [facility] DISCLOSURE AND CONSENT MEDIC AL & SURGICAL PROCEDURES - FEMALM 2022-08-16 05:01:00 Doctor Unassigned, Lemmon [facility] POCT TEST 2022-08-16 00:00:00 Shari Veras [facility] CBC WITH DIFF 2022-06-20 13:43:00 [facility] NEURAXIAL BLOCK 2022-06-19 18:40:00 Preet Menendez [facility] SGOT (ASPARTATE AMINO TRANSFER) 17:51:00 Shari Veras [facility] CREATININE 2022-06-18 17:51:00 Eda [facility] ALANINE AMINO TRANSFERASE(SGPT 6 17:51:00 Eda [facility] URIC ACID 2022-06-18 17:51:00 Eda [facility] CONSENT/REFUSAL FOR DIAGNOSI S AND TREATMENT 2022-06-18 17:30:15 Doctor Unassigned, Lemmon [facility] ASSIGNMENT OF BENEFITS 2022-06-18 17:29:57 Doctor Unassigned, Lemmon [facility] CONSENT/REFUSAL FOR DIAGNOSI S AND TREATMENT 2022-06-18 17:29:29 Doctor Unassigned, Lemmon [facility] ASSIGNMENT OF BENEFITS 2022-06-18 17:29:10 Doctor Unassigned, Lemmon [facility] NON-STRESS TEST 2022-06-18 17:05:00 EdaShari [facility] NON-STRESS TEST 2022-06-15 14:38:20 Eda [facility] POCT URINALYSIS W/O SPECIFIC GRAVITY 2022-06-15 00:00:00 [facility] 2022-06-12 19:40:00 Jairo Quezada [facility] NON-STRESS TEST 2022-06-08 16:49:01 Eda [facility] POCT URINALYSIS W/O SPECIFIC GRAVITY 2022-06-08 14:41:00 Eda Shari [facility] NON-STRESS TEST 2022-06-05 23:56:44 [facility] SECOND AND THIRD TRIMESTER ULTRASOUND 2022-06-05 17:50:00 Eda [facility] ASSIGNMENT OF BENEFITS 2022-05-25 14:09:39 Doctor Unassigned, Lemmon [facility] POCT URINALYSIS W/O SPECIFIC GRAVITY 2022-05-25 00:00:00 Eda Shari [facility] URINALYSIS 2022-05-23 00:50:00 Eda [facility] ADC ONLY - FERN TEST 2022-05-23 00:50:00 Eda [facility] CONSENT/REFUSAL FOR DIAGNOSI S AND TREATMENT 2022-05-22 23:36:49 Doctor Unassigned, Lemmon [facility] ASSIGNMENT OF BENEFITS 2022-05-22 23:33:28 Doctor Unassigned, Lemmon [facility] AUTHORIZATION FOR RELEASE OF PHI 2022-05-22 06:01:00 Doctor Unassigned, Lemmon [facility] L&D VISIT (NON-DELIVERED) 2022-05-22 06:01:00 Doctor Unassigned, Lemmon [facility] POCT URINALYSIS 2022-05-09 16:24:00 Julian Medellin [facility] TDAP VACCINE, >11 YRS, IM 2022-04-27 20:30:06 Shari Veras [facility] POCT URINALYSIS W/O SPECIFIC GRAVITY 2022-04-27 00:00:00 Shari Veras [facility] GALV ONLY - VAGINAL PATHOGEN S BY NUCLEIC ACID TESTING 2022-04-04 22:32:00 Julian Medellin [facility] STERILIZATION CONSENT FORM 2022-03-30 06:01:00 Doctor Unassigned, Lemmon [facility] POCT URINALYSIS W/O SPECIFIC GRAVITY 2022-03-30 00:00:00 Shari Veras [facility] POCT URINALYSIS W/O SPECIFIC GRAVITY 2022-03-02 00:00:00 Julian Medellin [facility] POCT URINALYSIS W/O SPECIFIC GRAVITY 2022-02-02 00:00:00 Shari Veras [facility] URINE CULTURE 2022-01-16 18:38:00 Julian Medellin [facility] POCT URINALYSIS W/O SPECIFIC GRAVITY 2022-01-16 00:00:00 Julian Medellin [facility] POCT URINALYSIS W/O SPECIFIC GRAVITY 2022-01-05 00:00:00 Julian Medellin [facility] SCANNED LAB RESULTS 2021-12-22 05:01:00 Doctor Unassigned, Lemmon [facility] POCT URINALYSIS W/O SPECIFIC GRAVITY 2021-12-21 16:13:00 Jairo Quezada [facility] POCT URINALYSIS W/O SPECIFIC GRAVITY 2021-11-24 00:00:00 Shari Veras [facility] US FIRST TRIMESTER LESS THAN 14 WEEKS WITH TRANSVAGINAL 2021-11-14 21:30:37 Julian Medellin [facility] ASSIGNMENT OF BENEFITS 2021-11-14 20:04:36 Doctor Unassigned, Lemmon [facility] ASSIGNMENT OF BENEFITS 2021-10-31 21:31:41 Doctor Unassigned, Lemmon [facility] Encounters Start Date/Time End Date/Time Encounter Type Admission Type Attending Clinicians Care Facility Care Department Encounter ID Source 2022-06-05 18:25:12 Outpatient P [facility] MAKSIM [id number] [facility] 2021-03-09 23:03:[address] [facility] [id number] [facility] 2021-03-09 13:28:45 Outpatient X [facility] ERT [id number] [facility] 2024-02-18 09:15:00 2024-02-18 09:15:[address] [facility] [id number] [facility] 2023-10-31 13:40:00 2023-10-31 13:40:00 Outpatient R ALICIA VENEGAS [facility]RI[facility] [id number] [facility] 2023-09-17 09:15:00 2023-09-17 09:15:[address] 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 [id number] [facility] 2023-07-30 14:00:00 2023-07-30 14:38:12 Outpatient R SABINE IRBY [facility] [id number] [facility] 2023-07-30 14:00:00 2023-07-30 14:38:12 Office Visit Sabine Irby [facility] GEE?[facility] MEDICAL OFFICE BUILDING 1.2.840.114 350.1.13.10 4.2.7.2.686 [id number] [facility] 2023-07-30 00:00:00 2023-07-30 00:00:00 Letter (Out) Sabine Irby [facility] GEE?[facility] MED[facility] OFF[facility] BUILDING 1.2.840.114 350.1.13.10 4.2.7.2.686 [id number] [facility] 2023-07-18 13:00:00 2023-07-18 13:30:00 Office Visit Georgie Malone [facility] MEDICAL OFFICE BUILDING 1.2.840.114 350.1.13.10 4.2.7.2.686 [id number] [facility] 2023-07-18 13:00:00 2023-07-18 13:00:00 Outpatient R GEORGIE MALONE [facility] [id number] [facility] 2023-07-18 00:00:00 2023-07-18 00:00:00 Orders Only Doctor Unassigned, Lemmon [facility] 1.2840.114 350.1.13.10 4.2.7.2.686 [id number] [facility] 2023-07-18 00:00:00 2023-07-18 00:00:00 Telephone Sabine Irby [facility] MEDICAL OFFICE BUILDING 1.2.840.114 350.1.13.10 4.2.7.2.686 [id number] [facility] 2023-07-15 00:00:00 2023-07-15 00:00:00 Patient Secure [facility] 1.2.840.114 350.1.13.10 4.2.7.2.686 [id number] [facility] 2023-07-09 13:15:00 2023-07-09 13:15:00 Outpatient R SHARI VERAS [facility] [id number] [facility] 2023-03-08 15:20:00 2023-03-08 15:20:00 Outpatient ALICIA CRUZ [facility] [id number] [facility] 2023-02-24 00:00:00 2023-02-24 00:00:00 Refgerda Venegas [facility] GEE?[facility] MEDICAL OFFICE BUILDING 1.840.114 350.1.13.10 4.2.7.2.686 [id number] [facility] 2023-02-24 00:00:00 2023-02-24 00:00:00 Refgerda Venegas [facility] GEE?[facility] MEDICAL OFFICE BUILDING 1.840.114 350.1.13.10 4.2.7.2.686 [id number] [facility] 2023-02-14 00:00:00 2023-02-14 00:00:00 Refgerda Venegas [facility] GEE?[facility] MEDICAL OFFICE BUILDING 1.2840.114 350.1.13.10 4.2.7.2.686 [id number] [facility] 2023-01-04 16:20:00 2023-01-04 16:20:00 Outpatient R ALICIA VENEGAS [facility] [id number] [facility] 2023-01-02 00:00:00 2023-01-02 00:00:00 Pre Visit Outreach Jenny Galloway 1..840.114 350.1.13.10 4.2.7.2.686 [id number] [facility] 2022-12-13 10:00:00 2022-12-13 10:00:00 Outpatient R JULIAN MEDELLIN [facility]ERY[facility] [id number] [facility] 2022-12-07 16:30:00 2022-12-07 17:19:14 Barrel Reamer Visit Lab, Julian Houston [facility] MEDICAL OFFICE [facility] 1..840.114 350.1.13.10 4.2.7.2.686 [id number] [facility] 2022-12-07 16:30:00 2022-12-07 16:30:00 Outpatient R ALICIA VENEGAS [facility] [id number] [facility] 2022-12-04 00:00:00 2022-12-04 00:00:00 Matt Venegas [facility] MEDICAL OFFICE BUILDING 1..840.114 350.1.13.10 4.2.7.2.686 [id number] [facility] 2022-11-30 13:45:00 2022-11-30 14:36:41 Outpatient R ALICIA VENEGAS [facility] [id number] [facility] 2022-11-30 13:45:00 2022-11-30 14:36:41 Barrel Reamer Visit Lab, Deshaun Venegas [facility] [place] [facility] MEDICAL OFFICE BUILDING 1.2.840.114 350.1.13.10 4.2.7.2.686 [id number] [facility] 2022-11-30 13:00:00 2022-11-30 13:43:34 Office Visit Sj Alicia [facility] SUDEEP CALDERON?[facility] 1.2.840.114 350.1.13.10 4.2.7.2.686 [id number] [facility] 2022-11-27 00:00:00 2022-11-27 00:00:00 Outpatient R JULIAN MEDELLIN [facility]ERY[facility] [id number] [facility] 2022-11-04 00:00:00 2022-11-04 00:00:00 Patient Secure [facility] 1.2.840.114 350.1.13.10 4.2.7.2.686 [id number] [facility] 2022-11-04 00:00:00 2022-11-04 00:00:00 Telephone Julian Medellin [facility] 1.2840.114 350.1.13.10 4.2.7.2.686 [id number] [facility] 2022-11-02 00:00:00 2022-11-02 00:00:00 Patient Secure Msg [facility] 1.2.840.114 350.1.13.10 4.2.7.2.686 [id number] [facility] 2022-11-01 11:30:00 2022-11-01 11:54:22 Outpatient R JULIAN MEDELLIN CHERY[facility] [id number] [facility] 2022-11-01 11:30:00 2022-11-01 11:54:22 Office Visit Julian Medellin [facility] 1.2840.114 350.1.13.10 4.2.7.2.686 [id number] [facility] 2022-10-15 10:15:00 2022-10-15 10:15:00 Outpatient R JULIAN MEDELLIN CHERY[facility] [id number] [facility] 2022-09-13 08:30:00 2022-09-13 08:30:00 Outpatient R SHARI VERAS [facility] [id number] [facility] 2022-08-16 09:00:00 2022-08-16 09:55:23 [facility] [id number] [facility] 2022-08-16 09:00:00 2022-08-16 09:55:23 Office Visit Shari Veras [facility] 1.2.840.114 350.1.13.10 4.2.7.2.686 [id number] [facility] 2022-08-16 00:00:00 2022-08-16 00:00:00 Orders Only Doctor Unassigned, Lemmon [facility] 1.2840.114 350.1.13.10 4.2.7.2.686 [id number] [facility] 2022-07-18 11:00:00 2022-07-18 11:22:58 Outpatient R SHARI VERAS [facility] [id number] [facility] 2022-07-18 11:00:00 2022-07-18 11:22:58 Routine Visit Shari Veras [facility] BUILDING 1.2.840.114 350.1.13.10 4.2.7.2.686 [id number] [facility] 2022-06-25 00:00:00 2022-06-25 00:00:00 Patient Secure Msg Shari Veras [facility] PROFESSIO NAL BUILDING 1.2.840.114 350.1.13.10 4.2.7.2.686 [id number] [facility] 2022-06-19 04:06:00 2022-06-20 21:00:00 Hospital Encounter Shari Veras [facility] 1.2.840.114 350.1.13.10 4.2.7.2.686 [id number] [facility] 2022-06-19 12:40:00 2022-06-19 21:55:00 Anesthesia Event Preet Blackwood [facility] 1.2.840.114 350.1.13.10 4.2.7.2.686 [id number] [facility] 2022-06-18 12:15:00 2022-06-18 12:30:00 Barrel Reamer Visit Pob, Adc Lab Main Shari Veras [facility] 1.2.840.114 350.1.13.10 4.2.7.2.686 [id number] [facility] 2022-06-18 12:15:00 2022-06-18 12:15:00 Outpatient R SHARI VERAS [facility] [id number] [facility] 2022-06-18 10:00:00 2022-06-18 11:08:28 Routine Visit Room, Adc Nst Shari Veras [facility] 1.2.840.114 350.1.13.10 4.2.7.2.686 [id number] [facility] 2022-06-18 10:00:00 2022-06-18 11:08:28 Outpatient R SHARI VERAS [facility] [id number] [facility] 2022-06-18 00:00:00 2022-06-18 00:00:00 Orders Only Doctor Unassigned, Lemmon [facility] 1.2.840.114 350.1.13.10 4.2.7.2.686 [id number] [facility] 2022-06-15 08:00:00 2022-06-15 08:46:27 Outpatient R SHARI VERAS [facility] [id number] [facility] 2022-06-15 08:00:00 2022-06-15 08:46:27 [facility]ari Veras [facility] 1.2.840.114 350.1.13.10 4.2.7.2.686 [id number] 134 [id number] [facility] 2022-06-12 13:00:00 2022-06-12 13:00:00 Routine Visit Room, [facility] Yvonne subramanian [facility] 1.2.840.114 350.1.13.10 4.2.7.2.686 [id number] [facility] 2022-06-12 10:45:00 2022-06-12 11:15:00 Barrel Reamer Visit Ultrasound, [facility] Yvonne [facility]ram[facility] 1.2.840.114 350.1.13.10 4.2.7.2.686 [id number] [facility] 2022-06-12 10:45:00 2022-06-12 11:06:35 Outpatient R KANDACE BARRETT [facility] [id number] [facility] 2022-06-12 08:15:00 2022-06-12 09:21:31 Outpatient R WILEY LOPEZ [facility] [id number] [facility] 2022-06-12 08:15:00 2022-06-12 09:21:31 Ancillary Visit Ritchie Wiley Banegas [facility] 1.840.114 350.1.13.10 4.2.7.2.686 [id number] [facility] 2022-06-08 08:00:00 2022-06-08 09:12:11 Outpatient R [facility] [id number] [facility] 2022-06-08 08:00:00 2022-06-08 09:12:11 Routine Visit Shari Veras Cheryal [facility] .840.114 350.1.13.10 4.2.7.2.686 [id number] [facility] 2022-06-05 14:30:00 2022-06-05 17:55:00 Outpatient P SHARI VERAS [facility] [id number] [facility] 2022-06-05 14:30:00 2022-06-05 17:55:00 Hospital Encounter Eda Shari Ra [facility] .840.114 350.1.13.10 4.2.7.2.686 [id number] [facility] 2022-06-05 11:30:00 2022-06-05 12:11:51 Outpatient P TIANA SINCLAIR 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 [id number] [facility] 2022-05-29 00:00:00 2022-05-29 00:00:00 Patient Secure Msg [facility] 1.2.840.114 350.1.13.10 4.2.7.2.686 [id number] [facility] 2022-05-25 08:30:00 2022-05-25 09:07:10 Outpatient R SHARI VERAS [facility] [id number] [facility] 2022-05-25 08:30:00 2022-05-25 09:07:10 Routine [address] Shari Veras [facility] 1.2.840.114 350.1.13.10 4.2.7.2.686 [id number] [facility] 2022-05-25 00:00:00 2022-05-25 00:00:00 Orders Only Doctor Unassigned, Lemmon [facility] 1.2.840.114 350.1.13.10 4.2.7.2.686 [id number] [facility] 2022-05-22 17:28:00 2022-05-22 20:18:00 Outpatient P SHARI VERAS [facility] [id number] [facility] 2022-05-22 17:28:00 2022-05-22 20:18:00 Hospital Encounter Shari Veras [facility] 1.2.840.114 350.1.13.10 4.2.7.2.686 [id number] [facility] 2022-05-22 00:00:00 2022-05-22 00:00:00 Patient Secure Msg Shari Veras [facility] 1.2.840.114 350.1.13.10 4.2.7.2.686 [id number] [facility] 2022-05-14 00:00:00 2022-05-14 00:00:00 Patient Secure [facility] 1.2.840.114 350.1.13.10 4.2.7.2.686 [id number] [facility] 2022-05-11 00:00:00 2022-05-11 00:00:00 Patient Secure Msg Lacie [facility] 1.2.840.114 350.1.13.10 4.2.7.2.686 [id number] [facility] 2022-05-09 09:15:00 2022-05-09 09:44:45 Outpatient R [facility] [id number] [facility] 2022-05-09 09:15:00 2022-05-09 09:44:45 Routine Visit Lacie [facility] 1.840.114 350.1.13.10 4.2.7.2.686 [id number] [facility] 2022-04-27 13:30:00 2022-04-27 14:31:02 Outpatient R SHARI VERAS [facility] [id number] [facility] 2022-04-27 13:30:00 2022-04-27 14:31:02 Routine Visit Shari Veras [facility] 1.2840.114 350.1.13.10 4.2.7.2.686 [id number] [facility] 2022-04-27 08:15:00 2022-04-27 08:30:00 Barrel Reamer Visit 2, Adc Lab Shari Veras [facility] 1.2840.114 350.1.13.10 4.2.7.2.686 [id number] [facility] 2022-04-26 00:00:00 2022-04-26 00:00:00 Case Management [facility] 1.2.840.114 350.1.13.10 4.2.7.2.686 [id number] 134 [id number] [facility] 2022-04-25 15:00:00 2022-04-25 15:57:29 Barrel Reamer Visit 2, Adc Lab Shari Veras [facility] 1.2840.114 350.1.13.10 4.2.7.2.686 [id number] [facility] 2022-04-25 15:00:00 2022-04-25 15:00:00 Outpatient R EDA [facility] [id number] [facility] 2022-04-25 00:00:00 2022-04-25 00:00:00 Nurse Triage [facility] 1.2.840.114 350.1.13.10 4.2.7.2.686 [id number] [facility] 2022-04-18 00:00:00 2022-04-18 00:00:00 Patient Secure Msg [facility] 1.2.840.114 350.1.13.10 4.2.7.2.686 [id number] 134 [id number] [facility] 2022-04-12 00:00:00 2022-04-12 00:00:00 Patient Secure Msg [facility] 1.2.840.114 350.1.13.10 4.2.7.2.686 [id number] 134 [id number] [facility] 2022-04-09 00:00:00 2022-04-09 00:00:00 Telephone Tricristy Cheryal [facility] 1.2840.114 350.1.13.10 4.2.7.2.686 [id number] 134 [id number] [facility] 2022-04-07 00:00:00 2022-04-07 00:00:00 Patient Secure Msg Nicki Teague [facility] 1.2840.114 350.1.13.10 4.2.7.2.686 [id number] 134 [id number] [facility] 2022-04-07 00:00:00 2022-04-07 00:00:00 Telephone Lacie [facility] 1.2840.114 350.1.13.10 4.2.7.2.686 [id number] 134 [id number] [facility] 2022-04-04 16:15:00 2022-04-04 16:39:24 Out[facility] R [facility] [id number] [facility] 2022-04-04 16:15:00 2022-04-04 16:39:24 Routine Visit Julian Medellin [facility] 1.840.114 350.1.13.10 4.2.7.2.686 [id number] 134 [id number] [facility] 2022-04-04 00:00:00 2022-04-04 00:00:00 Patient Secure Msg Daniel Verasmarisol Knapp [facility] 1.840.114 350.1.13.10 4.2.7.2.686 [id number] 134 [id number] [facility] 2022-03-30 09:45:00 2022-03-30 11:02:16 Outpatient R SHARI VERAS 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 [id number] [facility] 2022-03-02 08:30:00 2022-03-02 08:46:39 Outpatient R JULIAN [facility] [id number] [facility] 2022-03-02 08:30:00 2022-03-02 08:46:39 Routine Visit Julian Medellin [facility] 1.2.840.114 350.1.13.10 4.2.7.2.686 [id number] 134 [id number] [facility] 2022-02-07 00:00:00 2022-02-07 00:00:00 Patient Secure Msg Shari Veras [facility] 1.2.840.114 350.1.13.10 4.2.7.2.686 [id number] 134 [id number] [facility] 2022-02-06 10:00:00 2022-02-06 10:15:00 Barrel Reamer Visit 2, Adc Lab Shari Veras [facility] 1.2.840.114 350.1.13.10 4.2.7.2.686 [id number] 353 [id number] [facility] 2022-02-06 10:00:00 2022-02-06 10:00:00 Outpatient R VERAS SHARI [facility] [id number] [facility] 2022-02-06 08:30:00 2022-02-06 09:26:52 Barrel Reamer Visit Ultrasound, Adc Ras Sinclair Tiana F [facility] 1.2.840.114 350.1.13.10 4.2.7.2.686 [id number] 134 [id number] [facility] 2022-02-04 00:00:00 2022-02-04 00:00:00 Case Management [facility] 1.2.840.114 350.1.13.10 4.2.7.2.686 [id number] 370 [id number] [facility] 2022-02-02 08:45:00 2022-02-02 09:17:55 Outpatient R SHARI VERAS [facility] [id number] [facility] 2022-02-02 08:45:00 2022-02-02 09:17:55 Routine Visit Shari Veras [facility] 1..840.114 350.1.13.10 4.2.7.2.686 [id number] 134 [id number] [facility] 2022-01-29 10:15:00 2022-01-29 10:15:00 Outpatient [address] BARBER [facility] [id number] [facility] 2022-01-29 08:45:00 2022-01-29 08:45:00 Outpatient [address]LEY BARBER [facility] [id number] [facility] 2022-01-26 00:00:00 2022-01-26 00:00:00 Patient Secure Msg Julian Medellin [facility] 1.2.840.114 350.1.13.10 4.2.7.2.686 [id number] 134 [id number] [facility] 2022-01-17 00:00:00 2022-01-17 00:00:00 Patient Secure Msg Danika Gonzalez [facility] 1.2.840.114 350.1.13.10 4.2.7.2.686 [id number] 134 [id number] [facility] 2022-01-16 13:15:00 2022-01-16 13:46:10 Outpatient R JULIAN [facility]LLIN [facility] [id number] [facility] 2022-01-16 13:15:00 2022-01-16 13:46:10 [facility] 1.2.840.114 350.1.13.10 4.2.7.2.686 [id number] 134 [id number] [facility] 2022-01-09 00:00:00 2022-01-09 00:00:00 Patient Secure Msg Lacie [facility] 1.2.840.114 350.1.13.10 4.2.7.2.686 [id number] 134 [id number] [facility] 2022-01-08 00:00:00 2022-01-08 00:00:00 Case Management Lacie [facility] 1.2.840.114 350.1.13.10 4.2.7.2.686 [id number] 134 [id number] [facility] 2022-01-08 00:00:00 2022-01-08 00:00:[address] [facility] 1.2840.114 350.1.13.10 4.2.7.2.686 [id number] 134 [id number] [facility] 2022-01-05 08:30:00 2022-01-05 08:58:37 Outpatient R JULIAN [facility]LLIN [facility] [id number] [facility] 2022-01-05 08:30:00 2022-01-05 08:58:37 Routine Visit Lacie [facility] 1.2840.114 350.1.13.10 4.2.7.2.686 [id number] 134 [id number] [facility] 2022-01-04 00:00:00 2022-01-04 00:00:00 Telephone Lacie Johnalexsander [facility] 1.2.840.114 350.1.13.10 4.2.7.2.686 [id number] 134 [id number] [facility] 2021-12-26 00:00:00 2021-12-26 00:00:00 Telephone Pilar Jairo [facility] 1.840.114 350.1.13.10 4.2.7.2.686 [id number] 134 [id number] [facility] 2021-12-25 00:00:00 2021-12-25 00:00:00 Case Management Jairo Quezada [facility] 1.2840.114 350.1.13.10 4.2.7.2.686 [id number] [facility] 2021-12-25 00:00:00 2021-12-25 00:00:00 Patient Secure Msg Jairo Quezada [facility] 1.2840.114 350.1.13.10 4.2.7.2.686 [id number] 134 [id number] [facility] 2021-12-25 00:00:00 2021-12-25 00:00:00 Patient Secure Msg Jairo Quezada [facility] 1.84.114 350.1.13.10 4.2.7.2.686 [id number] 134 [id number] [facility] 2021-12-22 08:15:00 2021-12-22 08:47:18 Outpatient Thanh PINO [facility] [id number] [facility] 2021-12-22 08:15:00 2021-12-22 08:30:00 Barrel Reamer Visit Lab, Deshaun Pino [facility] 1.84.114 350.1.13.10 4.2.7.2.686 [id number] 353 [id number] [facility] 2021-12-22 00:00:00 2021-12-22 00:00:00 Orders Only Doctor Unassigned, Lemmon [facility] 1.114 350.1.13.10 4.2.7.2.686 [id number] [id number] [facility] 2021-12-21 10:45:00 2021-12-21 11:30:38 Outpatient R PILAR [facility] [id number] [facility] 2021-12-21 10:45:00 2021-12-21 11:30:38 Routine Visit Pilar Jairo [facility] 1.84.114 350.1.13.10 4.2.7.2.686 [id number] 134 [id number] [facility] 2021-12-20 00:00:00 2021-12-20 00:00:00 Patient Secure g CristinaAbNeris [facility] 1.84.114 350.1.13.10 4.2.7.2.686 [id number] 134 [id number] [facility] 2021-12-20 00:00:00 2021-12-20 00:00:00 Telephone Shari Veras [facility] 1.2.840.114 350.1.13.10 4.2.7.2.686 [id number] 134 [id number] [facility] 2021-12-11 00:00:00 2021-12-11 00:00:[address] [facility] 1.840.114 350.1.13.10 4.2.7.2.686 [id number] 134 [id number] [facility] 2021-12-08 09:00:00 2021-12-08 10:01:28 Outpatient R [facility] [id number] [facility] 2021-12-08 09:00:00 2021-12-08 10:01:28 Routine Visit [facility] 1.840.114 350.1.13.10 4.2.7.2.686 [id number] 134 [id number] [facility] 2021-12-08 00:00:00 2021-12-08 00:00:00 Patient Secure Msg [facility] 1.2840.114 350.1.13.10 4.2.7.2.686 [id number] 134 [id number] [facility] 2021-12-07 00:00:00 2021-12-07 00:00:00 Outpatient GRETTA MEDINA [facility] [id number] Marilee [facility] 2021-11-27 00:00:00 2021-11-27 00:00:00 Patient Secure Msg Eda Shari [facility] 1.2.840.114 350.1.13.10 4.2.7.2.686 [id number] 134 [id number] [facility] 2021-11-25 00:00:00 2021-11-25 00:00:00 Nurse Triage Opal Ordonez [facility] 1.2.840.114 350.1.13.10 4.2.7.2.686 [id number] [id number] [facility] 2021-11-24 13:00:00 2021-11-24 14:23:16 Outpatient R SHARI VERAS [facility] [id number] [facility] 2021-11-24 13:00:00 2021-11-24 14:23:16 Routine Visit Shari Veras [facility] 1.2.840.114 350.1.13.10 4.2.7.2.686 [id number] 134 [id number] [facility] 2021-11-24 09:00:00 2021-11-24 09:00:00 Outpatient R SHARI VERAS [facility] [id number] [facility] 2021-11-15 00:00:00 2021-11-15 00:00:00 Case Management Julian Medellin [facility] 1.2.840.114 350.1.13.10 4.2.7.2.686 [id number] 134 [id number] [facility] 2021-11-14 15:06:59 2021-11-14 23:59:00 Outpatient R JULIAN MEDELLIN CHERYAL [facility] [id number] [facility] 2021-11-14 15:00:00 2021-11-14 23:59:00 Hospital Encounter Julian Medellin [facility] 1.2.840.114 350.1.13.10 4.2.7.2.686 [id number] [facility] 2021-11-14 00:00:00 2021-11-14 00:00:00 Orders Only Doctor Unassigned, Lemmon [facility] 1.114 350.1.13.10 4.2.7.2.686 [id number] [id number] [facility] 2021-11-04 11:15:00 2021-11-04 11:30:00 Barrel Reamer Visit Pob, Adc Lab Main Julian Medellin [facility] 1.84.114 350.1.13.10 4.2.7.2.686 [id number] 353 [id number] [facility] 2021-11-04 11:15:00 2021-11-04 11:15:00 Outpatient R LACIE JULIAN [facility] [id number] [facility] 2021-11-02 16:30:00 2021-11-02 16:45:00 Barrel Reamer Visit Pob, Adc Lab Main Pilar Jairo [facility] 1.84.114 350.1.13.10 4.2.7.2.686 [id number] 353 [id number] [facility] 2021-11-02 16:30:00 2021-11-02 16:30:00 Outpatient R PILAR [facility] [id number] [facility] 2021-11-01 00:00:00 2021-11-01 00:00:00 Patient Secure Msg JenaluciotitoJulian hunter [facility] 1..114 350.1.13.10 4.2.7.2.686 [id number] 134 [id number] [facility] 2021-10-31 16:30:00 2021-10-31 16:45:00 Barrel Reamer Visit Pob, Adc Lab Main Shari Veras [facility] 1.840.114 350.1.13.10 4.2.7.2.686 [id number] 353 [id number] [facility] 2021-10-31 16:30:00 2021-10-31 16:30:00 Outpatient R SHARI VERAS [facility] [id number] [facility] 2021-10-31 00:00:00 2021-10-31 00:00:00 Orders Only Doctor Unassigned, Lemmon [facility] 1.2840.114 350.1.13.10 4.2.7.2.686 [id number] [facility] 2021-10-30 00:00:00 2021-10-30 00:00:00 Patient Secure Ab Washingtonnette [facility] 1.2840.114 350.1.13.10 4.2.7.2.686 [id number] 134 [id number] [facility] 2021-10-30 00:00:00 2021-10-30 00:00:00 [facility] 1.284.114 350.1.13.10 4.2.7.2.686 [id number] 134 [id number] [facility] 2021-10-25 09:30:00 2021-10-25 10:01:45 Outpatient R JULIAN [facility]LLIN [facility] [id number] [facility] 2021-10-25 09:30:00 2021-10-25 10:01:45 Initial Visit Julian Medellin [facility] 1.2.114 350.1.13.10 4.2.7.2.686 [id number] 134 [id number] [facility] 2021-10-23 00:00:00 2021-10-23 00:00:00 Patient Secure Msg Evans Neris [facility] 1.2840.114 350.1.13.10 4.2.7.2.686 [id number] 134 [id number] [facility] 2021-10-11 00:00:00 2021-10-11 00:00:00 Patient Secure g Julian Medellin [facility] 1.2840.114 350.1.13.10 4.2.7.2.686 [id number] 134 [id number] [facility] 2021-09-12 00:00:00 2021-09-12 00:00:00 Patient Secure Julian Lee [facility] 1.2840.114 350.1.13.10 4.2.7.2.686 [id number] 134 [id number] [facility] 2021-09-11 15:39:03 2021-09-11 23:59:00 Outpatient R JULIAN MEDELLIN CHERYAL [facility] [id number] [facility] 2021-09-11 15:39:03 2021-09-11 23:59:00 Hospital Encounter Julian Medellin [facility] 1.2840.114 350.1.13.10 4.2.7.2.686 [id number] [facility] 2021-09-11 00:00:00 2021-09-11 00:00:00 Outpatient R JULIAN MEDELLIN CHERYAL [facility] [id number] [facility] 2021-09-11 00:00:00 2021-09-11 00:00:00 Orders Only Doctor Unassigned, Lemmon [facility] 1.2.840.114 350.1.13.10 4.2.7.2.686 [id number] [facility] 2021-09-08 10:30:00 2021-09-08 11:37:53 Outpatient R JULIAN MEDELLIN CHERYAL [facility] [id number] [facility] 2021-09-08 10:30:00 2021-09-08 11:37:53 Office Visit Julian Medellin [facility] 1.2840.114 350.1.13.10 4.2.7.2.686 [id number] 134 [id number] [facility] 2021-09-08 10:30:00 2021-09-08 11:37:53 Outpatient R JULIAN MEDELLIN CHERYAL [facility] [id number] [facility] 2021-09-01 10:30:00 2021-09-01 12:24:56 Outpatient R JULIAN MEDELLIN CHERYAL [facility] [id number] [facility] 2021-09-01 10:30:00 2021-09-01 12:24:56 [facility] 1.2840.114 350.1.13.10 4.2.7.2.686 [id number] 134 [id number] [facility] 2021-09-01 00:00:00 2021-09-01 00:00:00 Patient Secure Msg Julian Medellin [facility] 1.2840.114 350.1.13.10 4.2.7.2.686 [id number] 134 [id number] [facility] 2021-09-01 00:00:00 2021-09-01 00:00:00 Orders Only Doctor Unassigned, Lemmon [facility] 1.2.840.114 350.1.13.10 4.2.7.2.686 [id number] [facility] 2021-08-30 00:00:00 2021-08-30 00:00:00 Patient Secure Msg Jairo Quezada [facility] 1.114 350.1.13.10 4.2.7.2.686 [id number] 134 [id number] [facility] 2021-08-30 00:00:00 2021-08-30 00:00:00 Patient Secure Michael Dickinson [facility] 1.114 350.1.13.10 4.2.7.2.686 [id number] 134 [id number] [facility] 2021-06-02 18:45:00 2021-06-02 18:45:00 Laboratory Only Only, Ang Db Test Isiah Lupe J [facility] 1.114 350.1.13.10 4.2.7.2.686 [id number] [facility] 2021-06-02 18:45:00 2021-06-02 18:15:11 Outpatient R LUPE ELLIOTT [facility] [id number] [facility] 2021-05-11 15:00:00 2021-05-11 15:00:[address] [facility] [id number] [facility] 2021-05-10 14:15:00 2021-05-10 14:15:00 Laboratory Only Only, Adc Pob2 Test Opal Franklin [facility] 1.84.114 350.1.13.10 4.2.7.2.686 [id number] [facility] 2021-05-10 14:15:00 2021-05-10 14:13:27 Outpatient R OPAL FRANKLIN [facility] [id number] [facility] 2021-05-10 00:00:00 2021-05-10 00:00:00 Orders Only Doctor Unassigned, Lemmon [facility] 1.114 350.1.13.10 4.2.7.2.686 [id number] [facility] 2021-05-03 14:30:00 2021-05-03 14:30:00 Outpatient R JAIRO QEUZADA [facility] [id number] [facility] 2021-03-29 10:30:00 2021-03-29 10:30:00 Outpatient R PILAR [facility] [id number] [facility] 2021-03-08 09:30:00 2021-03-08 09:30:00 Outpatient R PILAR [facility] [id number] [facility] 2021-01-14 18:30:00 2021-01-14 18:30:[address] [facility] [id number] [facility] 2021-01-14 17:50:20 2021-01-14 18:04:25 Laboratory Only Only, Ang Db [facility]Servando jacinto [facility] 1..840.114 350.1.13.10 4.2.7.2.686 [id number] [facility] 2020-08-02 00:00:00 2020-08-02 00:00:00 Patient Outreach Anjel Coyne [facility] 1.84.114 350.1.13.10 4.2.7.2.686 [id number] [facility] 2020-07-30 15:15:12 2020-07-30 15:35:12 Laboratory Only Lab, Adc Fam Pob I [facility] 1.84.114 350.1.13.10 4.2.7.2.686 [id number] [facility] 2020-07-30 15:20:00 2020-07-30 15:20:00 Outpatient R JOHN HUMERA [facility] [id number] [facility] 2020-05-28 16:00:00 2020-05-28 16:00:00 Outpatient R LUPE ELLIOTT [facility] [id number] [facility] 2020-05-28 15:28:07 2020-05-28 15:48:07 Laboratory Only Lab, Dylan Fam Pob I Lupe Elliott [facility] Office Building One 1.84.114 350.1.13.10 4.2.7.2.686 [id number] [facility] 2020-05-28 11:40:00 2020-05-28 11:40:[address] [facility] [id number] [facility] 2020-04-18 00:00:00 2020-04-18 00:00:00 Patient Secure Msg Doctor Unassigned, Lemmon [facility] 1.84.114 350.1.13.10 4.2.7.2.686 [id number] 134 [id number] [facility] 2020-04-17 00:00:00 2020-04-17 00:00:00 Telephone Georgie Malone [facility] 1..114 350.1.13.10 4.2.7.2.686 [id number] [facility] 2020-04-13 17:00:00 2020-04-13 17:00:[address] [facility] [id number] [facility] 2020-04-13 14:34:34 2020-04-13 14:54:34 Laboratory Only Lab, Dylan Cui I Georgie Malone [facility] Office Building One 1..114 350.1.13.10 4.2.7.2.686 [id number] [facility] 2020-03-08 16:31:29 2020-03-08 16:46:29 Barrel Reamer Visit Dylan Cui Lab Main Jairo uQezada [facility] Building 1.114 350.1.13.10 4.2.7.2.686 [id number] [facility] 2020-03-08 15:12:28 2020-03-08 15:42:28 Office Visit Jairo Quezada [facility] Building 1.114 350.1.13.10 4.2.7.2.686 [id number] 134 [id number] [facility] 2020-03-08 15:15:00 2020-03-08 15:15:00 Outpatient R JAIRO QUEZADA [facility] [id number] [facility] 2020-03-08 00:00:00 2020-03-08 00:00:00 Orders Only Doctor Unassigned, Lemmon [facility] 1.114 350.1.13.10 4.2.7.2.686 [id number] [facility] 2020-02-16 08:30:00 2020-02-16 08:30:00 Outpatient R JAIRO QUEZADA [facility] [id number] [facility] 2020-02-08 16:46:16 2020-02-08 17:06:16 Laboratory Only Lab, Adc Fam Pob I [facility] Office Building One 1.114 350.1.13.10 4.2.7.2.686 [id number] [facility] 2020-02-08 16:40:00 2020-02-08 16:40:00 Outpatient R [facility] [id number] [facility] 2019-10-07 00:00:00 2019-10-07 00:00:00 Telephone Shari Veras [facility] Office Building One 1.114 350.1.13.10 4.2.7.2.686 [id number] [facility] 2019-09-23 00:00:00 2019-09-23 00:00:00 Patient Secure Msg Shari Veras [facility] Building 1.2.840.114 350.1.13.10 4.2.7.2.686 [id number] 134 [id number] [facility] 2019-09-21 10:01:04 2019-09-21 10:46:57 Office Visit Shari Veras [facility] 1.2.840.114 350.1.13.10 4.2.7.2.686 [id number] 134 [id number] [facility] 2019-09-21 10:00:00 2019-09-21 10:00:00 Outpatient R DANIEL VERASEN [facility] [id number] [facility] 2019-09-21 00:00:00 2019-09-21 00:00:00 Orders Only Doctor Unassigned, Lemmon [facility] 1.2.840.114 350.1.13.10 4.2.7.2.686 [id number] [facility] 2019-09-18 14:45:00 2019-09-18 14:45:00 Out[address]O BOWERS [facility] [id number] [facility] 2019-09-18 08:10:14 2019-09-18 14:13:14 [facility] ne [facility] 1.2.840.114 350.1.13.10 4.2.7.2.686 [id number] 134 [id number] [facility] 2019-09-16 14:45:00 2019-09-16 14:45:00 [address]O BOWERS [facility] [id number] [facility] 2019-08-17 10:15:00 2019-08-17 10:15:00 [id number] 2019-08-17 08:20:11 2019-08-17 08:35:11 Telemedici ne Visit Jairo Quezada [facility] 1.2.840.114 350.1.13.10 4.2.7.2.686 [id number] [facility] 2019-07-29 00:00:00 2019-07-29 00:00:00 Patient Secure Msg Shari Veras [facility] 1.2.840.114 350.1.13.10 4.2.7.2.686 [id number] 134 [id number] [facility] 2019-07-27 11:30:00 2019-07-27 11:30:00 Outpatient R JAIRO QUEZADA [facility] [id number] [facility] 2019-07-21 02:42:00 2019-07-23 09:30:00 Hospital Encounter Shari Veras [facility] 1.2.840.114 350.1.13.10 4.2.7.2.686 [id number] [facility] 2019-07-23 00:00:00 2019-07-23 00:00:00 Refill Shari Veras [facility] 1.2.840.114 350.1.13.10 4.2.7.2.686 [id number] [facility] 2019-07-21 00:00:00 2019-07-21 00:00:00 Orders Only Doctor Unassigned, [place] [facility] 1.2.840.114 350.1.13.10 4.2.7.2.686 [id number] [facility] 2019-07-20 16:04:07 2019-07-20 17:13:43 Routine Visit Shari Veras [facility] 1.2.840.114 350.1.13.10 4.2.7.2.686 [id number] [facility] 2019-07-20 16:00:00 2019-07-20 16:00:00 Outpatient R SHARI VERAS [facility] [id number] [facility] 2019-07-13 10:01:07 2019-07-13 13:31:12 [facility] 1.2.840.114 350.1.13.10 4.2.7.2.686 [id number] [facility] 2019-07-13 10:38:57 2019-07-13 10:53:57 Barrel Reamer Visit 2, Adc Lab Jairo Quezada [facility] 1.2.840.114 350.1.13.10 4.2.7.2.686 [id number] [facility] 2019-07-13 09:45:00 2019-07-13 09:45:00 Outpatient R PILAR [facility] [id number] [facility] 2019-07-13 00:00:00 2019-07-13 00:00:00 Telephone Pilar [facility] Villarreal 1.2.840.114 350.1.13.10 4.2.7.2.686 [id number] [facility] 2019-07-10 00:00:00 2019-07-10 00:00:00 Telephone Shari Veras [facility] 1.2.840.114 350.1.13.10 4.2.7.2.686 [id number] [facility] 2019-07-06 09:29:33 2019-07-06 11:45:14 Routine Visit Jairo Quezada [facility] 1.2.840.114 350.1.13.10 4.2.7.2.686 [id number] [facility] 2019-07-06 09:45:00 2019-07-06 09:45:00 Outpatient R JAIRO QUEZADA [facility] [id number] [facility] 2019-07-06 00:00:00 2019-07-06 00:00:00 Orders Only Doctor Unassigned, [place] [facility] 1.2.840.114 350.1.13.10 4.2.7.2.686 [id number] [facility] 2019-06-29 10:37:24 2019-06-29 10:59:49 Nurse Visit Nurse, [facility] SaraJairo parker [facility] 1.2.840.114 350.1.13.10 4.2.7.2.686 [id number] [facility] 2019-06-15 10:03:47 2019-06-15 10:35:47 Nurse Visit Nurse, [facility] Daniel Verasen Ra [facility] 1.2.840.114 350.1.13.10 4.2.7.2.686 [id number] 134 [id number] [facility] 2019-06-08 11:44:08 2019-06-08 12:11:58 Routine Visit Jairo Quezada [facility] 1.2.840.114 350.1.13.10 4.2.7.2.686 [id number] 134 [id number] [facility] 2019-06-02 14:49:01 2019-06-02 15:27:52 Nurse Visit Nurse, [facility] [place] parker [facility] 1.2.840.114 350.1.13.10 4.2.7.2.686 [id number] 134 [id number] [facility] 2019-05-26 00:00:00 2019-05-26 00:00:00 Patient Secure Msg Doctor Unassigned, [place] [facility] 1.2.840.114 350.1.13.10 4.2.7.2.686 [id number] 134 [id number] [facility] 2019-05-26 00:00:00 2019-05-26 00:00:00 Patient Secure Msg Doctor Unassigned, [place] [facility] 1.2.840.114 350.1.13.10 4.2.7.2.686 [id number] 134 [id number] [facility] 2019-01-30 00:00:00 2019-01-30 00:00:00 Telephone Eda Shari Ra [facility] 1.2.840.114 350.1.13.10 4.2.7.2.686 [id number] 134 [id number] [facility] 2019-01-28 00:00:00 2019-01-28 00:00:00 Telephone Jairo Quezada [facility] 1.2.840.114 350.1.13.10 4.2.7.2.686 [id number] 134 [id number] [facility] 2019-01-26 12:49:10 2019-01-26 13:35:28 Routine Visit Jairo Quezada [facility] 1.2.840.114 350.1.13.10 4.2.7.2.686 [id number] 134 [id number] [facility] 2019-01-25 09:41:06 2019-01-25 11:31:00 Emergency Lukasz Weiss [facility] 1.2.840.114 350.1.13.10 4.2.7.2.686 [id number] 084 [id number] [facility] 2019-01-25 00:00:00 2019-01-25 00:00:00 Nurse Triage Megan Nolan [facility] 1.2.840.114 350.1.13.10 4.2.7.2.686 [id number] 019 [id number] [facility] 2019-01-25 00:00:00 2019-01-25 00:00:00 Orders Only Doctor Unassigned, [place] [facility] 1.2.840.114 350.1.13.10 4.2.7.2.686 [id number] 009 [id number] [facility] 2019-01-20 00:00:00 2019-01-20 00:00:00 Telephone Pilar Jairo [facility] 1.2.840.114 350.1.13.10 4.2.7.2.686 [id number] 134 [id number] [facility] 2019-01-19 00:00:00 2019-01-19 00:00:00 Case Management VerasShari [facility] 1.2.840.114 350.1.13.10 4.2.7.2.686 [id number] 134 [id number] [facility] 2019-01-19 00:00:00 2019-01-19 00:00:00 Telephone Shari Veras Ra [facility] 1.2.840.114 350.1.13.10 4.2.7.2.686 [id number] 134 [id number] [facility] 2019-01-15 09:02:28 2019-01-15 09:42:19 Routine Visit Shari Veras Jairo [facility] 1.2.840.114 350.1.13.10 4.2.7.2.686 [id number] 134 [id number] [facility] 2019-01-13 00:00:00 2019-01-13 00:00:00 Telephone [place] Jairo [facility] 1.2.840.114 350.1.13.10 4.2.7.2.686 [id number] 134 [id number] [facility] 2019-01-13 00:00:00 2019-01-13 00:00:00 Telephone Jairo Quezada [facility] 1.2.840.114 350.1.13.10 4.2.7.2.686 [id number] 134 [id number] [facility] 2018-12-29 00:00:00 2018-12-29 00:00:00 Telephone Jairo Quezada [facility] 1.2.840.114 350.1.13.10 4.2.7.2.686 [id number] 134 [id number] [facility] 2018-12-18 09:02:01 2018-12-18 09:54:05 Routine Visit Shari Veras [facility] 1.2.840.114 350.1.13.10 4.2.7.2.686 [id number] 134 [id number] [facility] 2018-12-15 00:00:00 2018-12-15 00:00:00 Telephone Shari Veras [facility] 1.2.840.114 350.1.13.10 4.2.7.2.686 [id number] 134 [id number] [facility] 2018-12-11 11:24:23 2018-12-11 23:59:00 Hospital Encounter Shari Veras [facility] 1.2.840.114 350.1.13.10 4.2.7.2.686 [id number] [id number] [facility] 2018-12-11 00:00:00 2018-12-11 00:00:00 Orders Only Doctor Unassigned, [place] [facility] 1.2.840.114 350.1.13.10 4.2.7.2.686 [id number] 009 [id number] [facility] 2018-12-11 00:00:00 2018-12-11 00:00:00 Telephone Veras, Shari [facility] 1.2.840.114 350.1.13.10 4.2.7.2.686 [id number] 134 [id number] [facility] 2018-12-05 00:00:00 2018-12-05 00:00:00 Telephone Shari Veras [facility] 1.2.840.114 350.1.13.10 4.2.7.2.686 [id number] 134 [id number] [facility] Results Test Description Test Time Test Comments Results Result Co mments Source [facility]/PmN8947-14-79 15:54:01* Test Item Value Reference Range Interpretation Comme [facility] Syphilis IgG/IgM (test code = 87112-9) Non-reactive Non-reactive NARESH (test code = NARESH) Non-reactive - No serologic evidence of T. pallidum infection. Cannot exclude incubating or early syphilis. Submit a second specimen in 2-4 weeks if syphilis is clinically suspected. Equivocal - Further testing to follow. Reactive - Further testing to follow. Lab Interpretation (test code = 59625-2) Normal [facility]/2 Ag-Ab with Awjgce4444-28-69 05:39:31* Test Item Value Reference Range Interpretation Comme nts HIV Semi-quantitative (test code = 57736-7) 0.09 Negative NARESH (test code = NARESH) Non-reactive for HIV-1 antigen and HIV-1/HIV-2 antibodies. ?No laboratory evidence of HIV infection. ?Repeat in 2-4 weeks if acute HIV infection is suspected. [facility] Ag-Ab with Fywjpz0873-03-91 05:39:31* Test Item Value Reference Range Interpretation Comme nts HIV Semi-quantitative (test code = 72108-8) 0.09 Negative NARESH (test code = NARESH) Non-reactive for HIV-1 antigen and HIV-1/HIV-2 antibodies. ?No laboratory evidence of HIV infection. ?Repeat in 2-4 weeks if acute HIV infection is suspected. [facility]eville[facility] [id number] 14:29:00* Test Item Value Reference Range Interpretation Comme nts POCT PREG (test code = 1605) Negative On board controls acceptable with C Line (test code = 3574) Yes POCT PREG LOT # (test code = 3575) POCT PREG TEST DATE ( test code = 3576) [facility] [id number] 14:29:00* Test Item Value Reference Range Interpretation Comme nts POCT PREG (test code = 1605) Negative On board controls acceptable with C Line (test code = 3574) Yes POCT PREG LOT # (test code = 3575) POCT PREG TEST DATE ( test code = 3576) [facility]eville[facility] Acid Rcmpd6704-03-41 16:17:46* Test Item Value Reference Range Interpretation Comme [facility] URIC ACID (test code = 2971475960) 3.9 mg/dL 2.9-6.0 Lab Interpretation (test cod e = 23105-0) Normal [facility] Yxltpimuzk6786-64-79 16:17:46* Test Item Value Reference Range Interpretation Comme [facility] CREATININE (test code = 8614657285) 0.55 mg/dL 0.50-1.04 eGFR (test code = 5637188991) 128.9 mL/min/1.73m2 NARESH (test code = NARESH) Association of [...] or urine or abnormalities in imaging tests). [facility] (Asparate Amino Transfer)2022-06-20 16:17:46* Test Item Value Reference Range Interpretation Comme nts AST(SGOT) (test code = 5774616164) 21 U/L 13-40 Lab Interpretation (test cod e = 05126-7) Normal [facility]eville[facility]anine Amino Transferase (SGPT)2022-06-20 16:17:46* Test Item Value Reference Range Interpretation Comme nts ALTv (test code = 1742-6) 17 U/L 5-35 Lab Interpretation (test cod e = 85890-7) Normal [facility] URINALYSIS W/O SPECIFIC [id number] 14:12:00* Test Item Value Reference Range Interpretation Comme nts POCT PH U (test code = 3254) n/a 5-8 POCT U LEUK EST (test code = 3263) n/a Negative - Negative POCT U NIT (test code = 3262) n/a Negative - Negati ve POCT U PROT (test code = 3259) Negative Negative - Negat melonie POCT U GLU (test code = 3256) Normal Negative - Negati ve POCT U KETONE (test code = 3258) n/a Negative - Neg ative POCT U BLD (test code = 3257) n/a Negative - Negati ve [facility] URINALYSIS W/O SPECIFIC [id number] 14:12:00* Test Item Value Reference Range Interpretation Comme nts POCT PH U (test code = 3254) n/a 5-8 POCT U LEUK EST (test code = 3263) n/a Negative - Negative POCT U NIT (test code = 3262) n/a Negative - Negati ve POCT U PROT (test code = 3259) Negative Negative - Negat melonie POCT U GLU (test code = 3256) Normal Negative - Negati ve POCT U KETONE (test code = 3258) n/a Negative - Neg ative POCT U BLD (test code = 3257) n/a Negative - Negati ve [facility] URINALYSIS W/O SPECIFIC [id number] 14:41:00* Test Item Value Reference Range Interpretation Comme nts POCT PH U (test code = 3254) n/a 5-8 POCT U LEUK EST (test code = 3263) n/a Negative - Negative POCT U NIT (test code = 3262) n/a Negative - Negati ve POCT U PROT (test code = 3259) negative Negative - Negat melonie POCT U GLU (test code = 3256) negative Negative - Negati ve POCT U KETONE (test code = 3258) n/a Negative - Neg ative POCT U BLD (test code = 3257) n/a Negative - Negati ve Lab Interpretation (test cod e = 67327-4) Normal [facility] URINALYSIS W/O SPECIFIC [id number] 14:41:00* Test Item Value Reference Range Interpretation Comme nts POCT PH U (test code = 3254) n/a 5-8 POCT U LEUK EST (test code = 3263) n/a Negative - Negative POCT U NIT (test code = 3262) n/a Negative - Negati ve POCT U PROT (test code = 3259) negative Negative - Negat melonie POCT U GLU (test code = 3256) negative Negative - Negati ve POCT U KETONE (test code = 3258) n/a Negative - Neg ative POCT U BLD (test code = 3257) n/a Negative - Negati ve Lab Interpretation (test cod e = 51018-3) Normal [facility] URINALYSIS W/O SPECIFIC [id number] 14:54:00* Test Item Value Reference Range Interpretation Comme nts POCT PH U (test code = 3254) n/a 5-8 POCT U LEUK EST (test code = 3263) n/a Negative - N egative POCT U NIT (test code = 3262) n/a Negative - Negati ve POCT U PROT (test code = 3259) neg Negative - Negat melonie POCT U GLU (test code = 3256) neg Negative - Negati ve POCT U KETONE (test code = 3258) n/a Negative - Neg ative POCT U BLD (test code = 3257) n/a Negative - Negati ve [facility] URINALYSIS W SPECIFIC [id number] 16:25:00* Test Item Value Reference Range Interpretation Comme nts POCT U SP GRAV (test code = 3255) N/A 1.005-1.025 POCT PH U (test code = 3254) N/A 5-8 POCT U LEUK EST (test code = 3263) N/A Negative - Negative POCT U NIT (test code = 3262) N/A Negative - Negati ve POCT U PROT (test code = 3259) Negative Negative - Negat melonie POCT U GLU (test code = 3256) Negative Negative - Negati ve POCT U KETONE (test code = 3258) N/A Negative - Neg ative POCT U UROBILI (test code = 3260) N/A 0.2-1 POCT U BILI (test code = 3261) N/A Negative - Negat melonie POCT U BLD (test code = 3257) N/A Negative - Negati ve POCT U COLOR (test code = 3266) Yellow POCT U APPEAR (test code = 3267) clear [facility] URINALYSIS W/O SPECIFIC [id number] 20:04:00* Test Item Value Reference Range Interpretation Comme nts POCT PH U (test code = 3254) 7 mg/dl 5-8 POCT U LEUK EST (test code = 3263) Negative Negative - Negative POCT U NIT (test code = 3262) Negative Negative - Negati ve POCT U PROT (test code = 3259) Negative Negative - Negat melonie POCT U GLU (test code = 3256) Normal Negative - Negati ve POCT U KETONE (test code = 3258) Negative Negative - Neg ative POCT U BLD (test code = 3257) Negative Negative - Negati ve [facility] URINALYSIS W/O SPECIFIC [id number] 16:20:00* Test Item Value Reference Range Interpretation Comme nts POCT PH U (test code = 3254) N/A 5-8 POCT U LEUK EST (test code = 3263) N/A Negative - Negative POCT U NIT (test code = 3262) N/A Negative - Negati ve POCT U PROT (test code = 3259) Negative Negative - Negat melonie POCT U GLU (test code = 3256) Negative Negative - Negati ve POCT U KETONE (test code = 3258) N/A Negative - Neg ative POCT U BLD (test code = 3257) N/A Negative - Negati ve [facility] URINALYSIS W/O SPECIFIC [id number] 16:31:00* Test Item Value Reference Range Interpretation Comme nts POCT PH U (test code = 3254) N/A 5-8 POCT U LEUK EST (test code = 3263) N/A Negative - Negative POCT U NIT (test code = 3262) N/A Negative - Negati ve POCT U PROT (test code = 3259) NEGATIVE Negative - Negat melonie POCT U GLU (test code = 3256) NEGATIVE Negative - Negati ve POCT U KETONE (test code = 3258) N/A Negative - Neg ative POCT U BLD (test code = 3257) N/A Negative - Negati ve [facility] URINALYSIS W/O SPECIFIC [id number] 13:58:00* Test Item Value Reference Range Interpretation Comme nts POCT PH U (test code = 3254) 5 mg/dl 5-8 POCT U LEUK EST (test code = 3263) Trace Negative - Negative POCT U NIT (test code = 3262) Negative Negative - Negati ve POCT U PROT (test code = 3259) Trace Negative - Negat melonie POCT U GLU (test code = 3256) Normal Negative - Negati ve POCT U KETONE (test code = 3258) + small Negative - Neg ative POCT U BLD (test code = 3257) Trace Negative - Negati ve [facility] URINALYSIS W/O SPECIFIC [id number] 18:35:00* Test Item Value Reference Range Interpretation Comme nts POCT PH U (test code = 3254) 6 mg/dl 5-8 POCT U LEUK EST (test code = 3263) Trace Negative - Negative POCT U NIT (test code = 3262) Negative Negative - Negati ve POCT U PROT (test code = 3259) Negative Negative - Negat melonie POCT U GLU (test code = 3256) Negative Negative - Negati ve POCT U KETONE (test code = 3258) 1+ Negative - Neg ative POCT U BLD (test code = 3257) Negative Negative - Negati ve [facility] URINALYSIS W/O SPECIFIC [id number] 13:29:00* Test Item Value Reference Range Interpretation Comme nts POCT PH U (test code = 3254) N/A 5-8 POCT U LEUK EST (test code = 3263) N/A Negative - Negative POCT U NIT (test code = 3262) N/A Negative - Negati ve POCT U PROT (test code = 3259) Negative Negative - Negat melonie POCT U GLU (test code = 3256) Negative Negative - Negati ve POCT U KETONE (test code = 3258) N/A Negative - Neg ative POCT U BLD (test code = 3257) N/A Negative - Negati ve [facility] URINALYSIS W/O SPECIFIC [id number] 16:14:00* Test Item Value Reference Range Interpretation Comme nts POCT PH U (test code = 3254) 5 mg/dl 5-8 POCT U LEUK EST (test code = 3263) ++ Negative - Negative POCT U NIT (test code = 3262) negative Negative - Negati ve POCT U PROT (test code = 3259) Negative - Negat melonie POCT U GLU (test code = 3256) negative Negative - Negati ve POCT U KETONE (test code = 3258) ++ Negative - Negative POCT U BLD (test code = 3257) hemolyzed Negative - Negati ve [facility] URINALYSIS W/O SPECIFIC [id number] 18:47:00* Test Item Value Reference Range Interpretation Comme nts POCT PH U (test code = 3254) n/a 5-8 POCT U LEUK EST (test code = 3263) n/a Negative - Negative POCT U NIT (test code = 3262) n/a Negative - Negati ve POCT U PROT (test code = 3259) negative Negative - Negat melonie POCT U GLU (test code = 3256) normal Negative - Negati ve POCT U KETONE (test code = 3258) n/a Negative - Neg ative POCT U BLD (test code = 3257) n/a Negative - Negati ve [facility] Notes Date/Time Note Provider Source 2023-08-16 16:25:09 beXeu0hOTovX6ecmM+Vm toPFrtcUkC ufhMgfF5g5H7S+b6c0PbHF3IZUUbkU Dn7U7305-25-49T93:25:09Formatt ing of this note might be different from the original.Called patient, notified positive for BV. Educated patient on antibiotics, daily probiotics, and BV prevention measures. Pt verbalized understanding.MARILIA MCCLELLAN RN 08/16/2023 4:25 PM 85691-1Lhhrggvml encounter UnoxWY3993-40-22N81:25:31Telep neris encounter NoteTXT1.2.840.485800.1.13.104 .2.7.2.729763|[id number] lable for patient huud80504-8WinfKLTSOELTLBPVtyk atted C-CDA narrative jebf748324046Aupmoq Rodriguez RN[address] DejpAykjuoetnJzczggjdgEUAM8743 840575VTLAWBNXXISOAVKBCUPWNV14 03-09-046:25:311.2.840.23880 0.1.72.3.15|1.2.840.179889.1.1 3.104.2.7.2.727879_[id number] Marilia Mcclellan RN [facility] 2023-08-16 15:55:02 3eEzxzlGLgZ9kYuOfhVv E+zPm96zvJ q2kiyFOyGOuTAFS7XbG6PpWwfKYttk tL9N1921-55-64Q77:55:02Formatt ing of this note might be different from the original.Please notify the patient her labs are indicative of BV, meds have been sent to her pharmacy on file. Please have her complete the entire course as prescribed.ROMARIO Lobo 08/16/2023 3:55 PM 97163-4Evfilgwvm encounter OhqjKA7290-74-65W71:55:36Telep neris encounter NoteTXT1.2.840.903921.1.13.104 .2.7.2.852942|[id number] lable for patient zeua37103-0LfntDFHYJTDBFPCVaod atted C-CDA narrative [address] XekrVfgxvlimiCkpxhrjznKKLN0921 816028GUMJZHHXUATYDGFSMUSNBH28 03-09-045:55:361.2.840.24877 0.1.72.3.15|1.2.840.735262.1.1 3.104.2.7.2.727879_[id number] [facility] 2023-07-18 16:28:02 PrdQbH4OdASJMhfRkphH bJlJ+cl1Mt ompzIeb+pmdXbXaYPVHR5Q6W5AGd3e HPFi5683-16-65A29:28:02Formatt ing of this note might be different from the original.Patient notified of all and verbalized understanding. No further needs voiced. 69491-5Pxtdlelie encounter AeqtNT9328-54-01L63:28:22Telep neris encounter NoteTXT1.2.840.142193.1.13.104 .2.7.2.530311|[id number] lable for patient qudu62580-0ZmgoHTUFMJXDQPZJwwm atted C-CDA narrative [id number] Flores [address] KpomMwcvoynylWhfqdnnxvQOVB7426 965527BWAIPPYOILKOGVPXYIXVSQ71 03-08-066:28:221.2.840.39389 0.1.72.3.15|1.2.840.163462.1.1 3.104.2.7.2.727879_[id number] Kym Ceballos [facility] 2023-07-18 14:15:54 YQqV6R7guVI9dEmF1mZn cMN5djLNx+ 9CokoOjV+CV7PYpjBeJ963FmFSA1Gg 2SkF6977-77-15F50:15:54Formatt ing of this note might be different from the original.Patient is scheduled with me in a week, we will need [place] [address]-4Tulxmqdih encounter KodzJX8676-23-93F08:16:08Telep neris encounter NoteTXT1.2.840.022084.1.13.104 .2.7.2.667985|[id number] lable for patient itaj55905-2XkgfYRXSCTBFUXNTyws atted C-CDA narrative textFM-FAMILY MEDICINE STAFFFM-FAMILY MEDICINE [address]vest[place]onTX[place]113EFRXIYGVXFUZXZCTPDICYF99 03-08-064:16:081.2.840.70422 0.1.72.3.15|1.2.840.299764.1.1 3.104.2.7.2.727879_[id number] -FAMILY MEDICINE STAFF [facility] 2023-07-18 13:46:53 7ke/dHMFXjQmyqyaKEAX Tyq4TQo0Mx utEdM6f3AitbxBLwgvLC8++32MtapA xhWN2662-19-98A37:46:53Formatt ing of this note is different from the original.Images from the original note were not included.Please reviewDivya SumnerZ07/18/23 1:07 PMNotePatient is needing a follow up but is needing to know if one of our providers can see this pt while Dr. Venegas is out.Med is: Phentermine 37.5 mg capsulePlease advise. Pt scheduled with [facility] but aware that provider may not be able to prescribe. 18037-1Bnbyjskfn encounter OppyTI7792-41-44E92:47:46Telep neris encounter NoteTXT1.2.840.521910.1.13.104 .2.7.2.431524|[id number] [facility] nfqc23946-9DwymNNOFTZNMCMRWkms atted C-CDA narrative [id number] A Pena MA[address] GznpOrjbenkhnQroetzkvzZUBS5053 206486UHYFPISOMDTKPVLOMXRZRG76 03-08-06T13:47:461.2.840.57983 0.1.72.3.15|1.2.840.475642.1.1 3.104.2.7.2.727879_[id number] oCretta Varner MA [facility] 2023-07-18 13:03:53 TD47h+C88wBmfVvMDmT7 29f1UuLG8Y l/Yy7dPPNOdnqGADlBQoRBhHPJ8Hid bfIc1525-21-66Y39:03:53Formatt ing of this note might be different from the original.Patient is needing a follow up but is needing to know if one of our providers can see this pt while Dr. Venegas is out.Med is: Phentermine 37.5 mg capsulePlease advise. Pt scheduled with [facility] but aware that provider may not be able to prescribe. 35404-7Zatsgigyd encounter KknhRX1875-76-02K48:08:03Telep neris encounter NoteTXT1.2.840.701491.1.13.104 .2.7.2.731730|[id number] lable for patient mwas65328-9DxisZNUTPGPLAQKWvik atted C-CDA narrative [id number] L [address]TXTX[address] 124797LKBKKDPBKCCLKHZHITCBBS86 03-08-063:08:031.2.840.88735 0.1.72.3.15|1.2.840.385525.1.1 3.104.2.7.2.727879_[id number] Divya Giordano [facility] 2023-01-02 15:15:53 TuyHFSJMzr4UmLUgzV5A k1gFI6M/PL 8/fXzEAqLWGZeUoGm+RPUQWiAVFAJ9 viAY4912-84-40Y67:15:53Formatt ing of this note might be different from the original.[facility] Everywhere searched for patient records.Information reconciled into the patients chart. Surprise Ride Message sent to patient with open care gaps. 62913-7Robobzuyx encounter IvktAR3048-48-69I86:17:06Telep neris encounter NoteTXT1.2.840.351212.1.13.104 .2.7.2.027713|[id number] lable for patient lcud66901-3KrwyKHQZ-VCBUSDQJZK [facility]ATRY[address]TXTX[address] 466023WNWFAAUDMGKMSVDMLYNMPA03 02-01-23T15:17:061.2.840.96648 0.1.72.3.15|1.2.840.401036.1.1 3.104.2.7.2.727879_[id number] PN-PSYCHIATRY [facility] 2022-12-07 16:30:00 zYoPlBrpDR4xGc+iH+7g dUhWz/uErk QvCNzm8u5ouEkSrrw7xvEj+kIxRK9J +Z178482-36-37C38:30:00Formatt ing of this note is different from the original.Images from the original note were not included.Venipuncture collection performed by clean technique on the left hand. Total of 3 attempts were made. Slight pressure and a bandage/dressing were applied to the site(s). The patient experienced no complications. The following specimens were processed according to instructions and sent to [facility] laboratories per lab order on today: LT BLUE SST 1 RED LAV PPT DK GREEN (LiHep) DK GREEN (SodH) GONG DK BLUE (K2) DK BLUE (S) ACD Blood Culture NIPT/NTD 07309-4Fecub IjiuQL4065-56-29S33:22:22Nurse NoteTXT1.2.840.616177.1.13.104 .2.7.2.625464|[id number] lable for patient [address] WdpbMoelsgogsAtixiodtqDTUI7853 283814CBXIRHHYMKOBTHKIGCALDW49 03-12-27T17:22:221.2.840.77737 0.1.72.3.15|1.2.840.660089.1.1 3.104.2.7.2.727879_[id number] [facility] 2022-12-06 14:15:55 13Kv2OIYZ622PHBK67s6 6Kaj3IV5BW QUPVq+TrnvSkMKDoJb/deMbYnVv6Vo nXM12734-98-42C00:15:55Formatt ing of this note might be different from the original.Contacted patient to let her know of medication being sent to the pharmacy . 82049-5Dbdepdbuj encounter PbbnWR3930-28-75B14:16:17Telep neris encounter NoteTXT1.2.840.472006.1.13.104 .2.7.2.106909|[id number] lable for patient [id number] Y Ruiz [address] 669983DGAQYJEAWLHXMESXSRJREX04 02-12-264:16:171.2.840.97816 0.1.72.3.15|1.2.840.586926.1.1 3.104.2.7.2.727879_[id number] Isabel Westbrook MA [facility] 2022-12-06 12:36:43 jStlQi9vl4Q02uEl8Mf0 /XfXHf55Sn xaFxdo54v1Xx0ntfgwHqS4CKDLmsP0 rdW45323-31-56O35:36:43 Addended by: ALICIA VENEGAS on: 12/06/2022 12:36 PM Modules accepted: Orders 52399-8Izpuklwg LynceuyuTK7400-05-03X98:36:43A ddendum DocumentTXT1.2.840.424223.1.13 .104.2.7.2.191825|[id number] Available for patient [address] [id number]05 02-12-262:36:431.2.840.01804 0.1.72.3.15|1.2.840.977115.1.1 3.104.2.7.2.727879_[id number] [facility] 2022-12-06 12:36:23 gqyi9EkBGzZnIA/0WieM 3RMuxd7QPT bxYLfXKswbuzzBY8DJI0IQOgvPfHt/ Y1Uh5226-81-69Z76:36:23Formatt ing of this note might be different from the original.Sent it! 18965-4Ruykmbxeo encounter MpqfFW7339-54-66K42:36:27Telep neris encounter NoteTXT1.2.840.889732.1.13.104 .2.7.2.228305|[id number] lable for patient [address] 300120CTYSQPKXFJEKLNTNWGDUII69 02-12-26T12:36:271.2.840.71472 0.1.72.3.15|1.2.840.172130.1.1 3.104.2.7.2.727879_[id number] [facility] 2022-12-05 08:45:10 GOqCLCvxxt1JsO+dE/TQ kZNuTROGe6 6QPFq0g8JzvwuMzIu8pjrDeOwZAYjf 8Fuy7055-10-70D89:45:10Formatt ing of this note might be different from the original.Contacted patient to discuss starting phentermine, patient stated at this time she would like to go ahead and start the medication. Patient is asking if it can be sent to [facility] pharmacy in [place]. [address]-2Opwdewnkb encounter VkvaLD4204-77-61O06:47:22Telep neris encounter NoteTXT1.2.840.488904.1.13.104 .2.7.2.076933|[id number] lable for patient [id number] Y Ruiz [address] [id number] 02-12-25T08:47:221.2.840.61208 0.1.72.3.15|1.2.840.854943.1.1 [id number] Isabel Westbrook MA [facility] 2022-12-04 21:15:53 f11pHS8E6i3qNq9LQO/l hYoVf8loGj b2RlD9G6/lfnB2XufIjcEEfdBmwKc8 HS7i5683-41-30F79:15:53Formatt ing of this note might be different from the original.Noted, please see if she would like me to send phentermine. It's a stimulant that may cause high blood pressure. It suppresses appetite. We can only do it for three months max.Km,Dr. Bolivarectronically signed by Alicia Venegas MD at 12/04/2022 9:17 PM [id number] encounter YhbjFO2608-27-69S68:17:16Telep neris encounter NoteTXT1.2.840.897750.1.13.104 .2.7.2.316226|[id number] lable for patient [address] UvecIxauovbulNkgyukdsfDKXJ2830 [id number] 02-12-24T21:17:161.2.840.69097 0.1.72.3.15|1.2.840.204079.1.1 [id number] [facility] 2022-12-04 13:04:42 it0XYDASX9BAwu+LNAHC gJZHkr4nMg Ttr75nZQkyBaenOsvllKOhQkOMTPT6 sPiB2470-02-99Q45:04:42Formatt ing of this note might be different from the original.Hello, The [employer] was not approved by insurance. Per insurance, weight loss medications are plan exclusion and will not be covered. I did call Ms. Coomer and let her know of this determination. Please let me know if there are any questions or concerns. Thank you [id number] encounter TsdqMP1699-03-33H92:06:23Telep neris encounter NoteTXT1.2.840.049571.1.13.104 .2.7.2.357676|[id number] lable for patient rdrj066574405Fchmpd[address] LsehJpknldsxkKclxmnqoiPMEK7003 [id number] 02-12-24T13:06:231.2.840.05007 0.1.72.3.15|1.2.840.356720.1.1 3.104.2.7.2.727879_[id number] Melissa Kramer [facility] 2022-11-30 13:45:00 aFuVDundzDITMV7Mf7QR 7vsa75+fTi 2OiCAhqNvVFNjosxgZda62WjdZ7q1j xnL55907-20-04D34:45:00Formatt ing of this note is different from the original.Images from the original note were not included.Pt is not fasting.Jocelyne Salazar MA 11/30/2022 1:57 PMVenipuncture collection performed by clean technique on the right anticubitus. Total of 2 attempts were made. Slight pressure and a bandage/dressing were applied to the site(s). The patient experienced no complications. The following specimens were processed according to instructions and sent to [facility] laboratories per lab order on 11/30/2022: LT BLUE SST 5 RED 1 LAV 2 PPT DK GREEN (LiHep) DK GREEN (SodH) GONG DK BLUE (K2) DK BLUE (S) ACD Blood Culture NIPT/NTD 36013-9Dvqqc SwwpEK8024-37-00F04:22:06Nurse NoteTXT1.2.840.776177.1.13.104 .2.7.2.443729|[id number] lable for patient [address] LluwPhwjkyqjwLkrkhzbbdYKTP8305 [id number] 02-12-20T14:22:061.2.840.69662 0.1.72.3.15|1.2.840.857617.1.1 [id number] [facility]"
--- NOTE | 2023-08-26 19:50 | RAD REPORT ---
EXAM DESCRIPTION: RAD - Forearm Left - 08/26/2023 7:23 pm CLINICAL HISTORY: PAIN COMPARISON: No comparisons TECHNIQUE: Left forearm, 2 views. FINDINGS: No fracture is identified. There is no dislocation or periosteal reaction noted. No foreign body or other soft tissue abnormality. IMPRESSION: Negative left forearm radiographs.
--- NOTE | 2023-08-26 19:52 | ER ---
Nurse's Notes [facility] Name: Barbie Woodward Age: 33 yrs Sex: Female : 1990 Arrival Date: 08/26/2023 Time: 18:12 Bed IW1 Private MD: Diagnosis: Other specified sprain of left wrist Presentation: 08/25 18:26 Chief complaint: Patient states: Left wrist injury (10 days ago), "keeps popping out". nj1 Sought medical help, dx with a "sprain". Getting worse. Coronavirus screen: Vaccine status: Patient reports being unvaccinated. Ebola Screen: Patient denies travel to an Ebola-affected area in the 21 days before illness onset. Initial Sepsis Screen: Does the patient meet any 2 criteria? No. Patient's initial sepsis screen is negative. Does the patient have a suspected source of infection? No. Patient's initial sepsis screen is negative. Risk Assessment: Do you want to hurt yourself or someone else? Patient reports no desire to harm self or others. Onset of symptoms was August 16, 2023. 18:26 Method Of Arrival: Ambulatory [facility] 18:26 Acuity: LAURYN 4 nj Triage Assessment: 18:32 General: Appears in no apparent distress. uncomfortable, Behavior is calm, cooperative, nj1 appropriate for age. Pain: Complains of pain in left wrist Pain currently is 9 out of 10 on a pain scale. 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 - Infectious Disease History:: Denies. - Social history:: Smoking status: Reported history of juuling and/or vaping. Screenin:[facility] ED Fall Risk Assessment (Adult) History of falling in the last 3 months, cm10 including since admission No falls in past 3 months (0 pts) Confusion or Disorientation No (0 pts) Intoxicated or Sedated No (0 pts) Impaired Gait No (0 pts) Mobility Assist Device Used No (0 pt) Altered Elimination No (0 pt) Score/Fall Risk Level 0 - 2 = Low Risk Oriented to surroundings, Maintained a safe environment, Hourly rounding (assess needs \\T\\ fall precautionary measures) done. Abuse screen: Denies threats or abuse. Denies injuries from another. Nutritional screening: No deficits noted. Tuberculosis screening: No symptoms or risk factors identified. Assessment: 20:32 Reassessment: Patient appears in no apparent distress at this time. No changes from cm10 previously documented assessment. Patient is alert, oriented x 3, equal unlabored respirations, skin warm/dry/pink. Vital Signs: 18:26 BP 130 / 95; Pulse 88; Resp 16; Temp 97.7(TE); Pulse Ox 98% ; Weight 92.99 kg; Height 5 nj1 ft. 0 in. ; Pain 9/10; 18:26 Body Mass Index 40.04 (92.99 kg, 152.4 cm) [facility] 18:26 Pain Scale: Adult [facility] ED Course: 18:14 Patient arrived in ED. mr 18:15 [facility]C [facility] kb 18:15 Jayce López MD is Attending Physician. kb 18:30 Triage completed. nj1 18:31 Arm band placed on right wrist. nj1 19:25 Forearm Left XRAY In Process Unspecified. EDMS 20:30 Patient has correct armband on for positive identification. Provided Education on: cm10 Follow-up instructions. 20:30 No provider procedures requiring assistance completed. Patient did not have IV access cm10 during this emergency room visit. Administered Medications: No medications were administered Medication: 20:30 VIS not applicable for this client. cm10 Outcome: 19:51 Discharge ordered by . kb 20:30 Discharged to home ambulatory, with family, cm10 20:30 Condition: good 20:30 Discharge instructions given to patient, Instructed on discharge instructions, follow up and referral plans. medication usage, Demonstrated understanding of instructions, follow-up care, 20:33 Patient left the ED. cm10 Signatures: Dispatcher [employer] EDMS Valeria Gonzalez FNP-C FNP-Lindsay Smith, Reg Reg Roseline Rogers, RN RN nj1 Faith Salazar RN RN cm10 Corrections: (The following items were deleted from the chart) 18:33 18:26 BP 130 / 95; Pulse 88bpm; Resp 16bpm; Pulse Ox 98%; Temp 36.5F Oral; 92.99 kg; nj1 Height 5 ft. 0 in.; BMI: 40.0; Pain 9/10, Adult; nj1
--- NOTE | 2023-08-26 19:52 | EDPHYS ---
Physician Documentation [facility] Name: Barbie Woodward Age: 33 yrs Sex: Female : 1990 Arrival Date: 08/26/2023 Time: 18:12 Bed IW1 Private MD: ED Physician Jayce López HPI: 08/25 18:39 This 33 yrs old Black Female presents to ER via Ambulatory with complaints of Wrist kb Injury. 18:39 Pt is a 33 year old female who presents for left wrist pain that started 11 days ago kb after slipping in a shower and bracing herself with left arm. States she went to the occupational health and was told it was a sprain, but the pain isn't getting better. Pt has follow up appt tomorrow. FLEXIBLE NANNY: 20:32 unknown cm10 Historical: - Allergies: 18:30 Latex; nj1 18:30 Adhesives; nj1 18:30 Tape; nj1 - PMHx: 18:30 Hypertensive disorder; nj1 - PSHx: 18:30 Cholecystectomy; nj1 - Immunization history:: Client reports having NOT received the Covid vaccine. - Infectious Disease History:: Denies. - Social history:: Smoking status: Reported history of juuling and/or vaping. ROS: 18:39 Constitutional: As per HPI kb Exam: 18:39 Constitutional: This is a well developed, well nourished patient who is awake, alert, kb and in no acute distress. Head/Face: Normocephalic, atraumatic. ENT: Moist Mucous membranes Cardiovascular: Regular rate Respiratory: Respirations even and unlabored. No increased work of breathing. Talking in full sentences Skin: Warm, dry with normal turgor. Normal color. Neuro: Awake and alert, GCS 15, oriented to person, place, time, and situation. Moves all extremities. Normal gait. 18:39 Musculoskeletal/extremity: Extremities: grossly normal except: noted in the left wrist: pain, tenderness, ROM: limited active range of motion due to pain, Circulation is intact in all extremities. Sensation intact. Vital Signs: 18:26 BP 130 / 95; Pulse 88; Resp 16; Temp 97.7(TE); Pulse Ox 98% ; Weight 92.99 kg; Height 5 nj1 ft. 0 in. ; Pain 9/10; 18:26 Body Mass Index 40.04 (92.99 kg, 152.4 cm) nj1 18:26 Pain Scale: Adult nj1 MDM: 18:15 Patient medically screened. kb 18:39 Differential diagnosis: closed fracture, sprain. Data reviewed: vital signs, nurses kb notes. 19:51 Counseling: I had a detailed discussion with the patient and/or guardian regarding the kb historical points, exam findings, and any diagnostic results supporting the discharge/admit diagnosis, radiology results, the need for outpatient follow up, a orthopedic surgeon, to return to the emergency department if symptoms worsen or persist or if there are any questions or concerns that arise at home. 08/25 18:29 Order name: Forearm Left XRAY; Complete Time: 19:51 kb Administered Medications: No medications were administered Disposition Summary: 08/26/23 19:51 Discharge Ordered Notes: Location: Home kb Condition: Stable kb Diagnosis - Other specified sprain of left wrist kb Followup: kb - With: Emergency Department - When: As needed - Reason: Worsening of condition Followup: kb - With: Private Physician - When: 2 - 3 days - Reason: Recheck today's complaints, Continuance of care, Re-evaluation by your physician Discharge Instructions: - Discharge Summary Sheet kb - Wrist Sprain, Adult kb Forms: - Medication Reconciliation Form kb - Thank You Letter kb - Antibiotic Education kb - Prescription Opioid Use kb - Patient Portal Instructions kb - Leadership Thank You Letter kb Addendum: 08/28/2023 07:12 I was immediately available for consultation during this patient's visit. I did not e c2 personally see the patient or discuss the patient with the [facility]. . Signatures: Dispatcher [employer] Valeria Mari, JONATHON-Se HOLT-Roseline Stark, GOYO RN nj1 Jayce López MD MD ec2
[2023-08-27 01:06] VITALS: BP 130/95; TEMP 97.7; O2SAT 98
== END 2023-08-26 20:33 | disposition home or self-care (01) ==
LOC: ER 18:12
DX: S63.592A Other specified sprain of left wrist, initial encounter (principal); Z88.8 Allergy status to other drugs, medicaments and biological substances; Z91.040 Latex allergy status; Z91.048 Other nonmedicinal substance allergy status
CPT/HCPCS: 99282